=== PATIENT | male | born 1950 | race Caucasian/White ===

== ENCOUNTER 2019-04-20 13:23 | Inpatient (IN) | payer MEDICARE, MEDICAID, SELFPAY ==
[2019-04-20] VITALS (19 sets, daily range): BP systolic 105–129; BP diastolic 52–69; PULSE 54–100; RESP 16–35; TEMP 35.8–36.9; O2SAT 51–100; BMI 23.3
--- NOTE | ~2019-04-20 | XR_ITS ---
EXAMINATION: XR chest 1V portable EXAM DATE: 04/21/2019 21:04 INDICATION: Low oxygen saturation. Respiratory failure. TECHNIQUE: Portable AP frontal chest x-ray was obtained. Comparison is made to prior examination from earlier same date. FINDINGS: Endotracheal tube tip is 3-4 centimeters above the aicha (ideal range is between 2 to 5 cm ). Feeding tube is in position. Again there is extensive bilateral pneumonia or edema. Small pleural effusions. Cardiomediastinal david houette is normal. There is no pneumothorax suspected. IMPRESSION: 1. Tubes in position. 2. Extensive edema or pneumonia unchanged Reviewed, dictated and finalized at location A. PMENT CLEANER
--- NOTE | ~2019-04-20 | XR_ITS ---
EXAMINATION: XR chest 1V portable INDICATION: Pleural effusions TECHNIQUE: Portable AP chest at 0522 hours COMPARISON: 04/25/2019 FINDINGS: The endotracheal tube ends approximately 4.7 cm above the aicha. The nasogastric tube is f ollowed as far as the stomach. Its tip is beyond the inferior margin of the radiograph. Small pleural effusions persist with slight decrease on the right. Diffuse interstitial and airspace opacities per sist with slight improvement. The cardiomediastinal silhouette is stable. No pneumothorax is identifi ed. A right upper extremity PICC has been inserted which ends with its tip in the distal superior landy a cava. IMPRESSION: 1. Diffuse lung disease with slight improvement, consistent with pulmonary edema and/or pneumonia. 2. Bilateral pleural effusions with improvement on the right. Reviewed, dictated and finalized at location A. LIFT OPERATOR IMPRESSION: 1. Diffuse lung disease with slight improvement, consistent with pulmonary kailee a and/or pneumonia. 2. Bilateral pleural effusions with improvement on the right.
--- NOTE | ~2019-04-20 | XR_ITS ---
XR chest 1V portable DATE: 04/22/2019 11:25 INDICATION: ET tube adjustment TECHNIQUE: COMPARISON: None FINDINGS: ET tube in satisfactory position approximately 4 cm above aicha. A nasogastric tube is not ed in the stomach. No central lines are noted. There is persistent diffuse extensive bilateral patchy airspace consolidation suggesting pulmonary ed gilbert or adult respiratory distress syndrome or extensive bilateral pneumonia. Small pleural effusion is suggested on the left. No pneumothorax. Aortic arch calcification. IMPRESSION: Persistent relatively stable severe bilateral pulmonary infiltrates suggesting pulmonary edema or adult respiratory distress syndrome versus severe pneumonia ET and NG tubes in satisfactory position. Reviewed, dictated and finalized at location A. ET PHOTOGRAPHER IMPRESSION: Persistent relatively stable severe bilateral pulmonary infiltrates suggesting pulmonary edema or adult respiratory distress syndrome versus sever e pneumonia ET and NG tubes in satisfactory position.
--- NOTE | ~2019-04-20 | XR_ITS ---
EXAMINATION: XR chest 1V portable INDICATION: Respiratory failure TECHNIQUE: Portable AP chest at 0506 hours COMPARISON: 04/24/2019 FINDINGS: The endotracheal tube ends approximately 5.7 cm above the aicha. The nasogastric tube is f ollowed as far as the stomach. Its tip is beyond the inferior margin of the radiograph. Diffuse inter stitial and airspace opacities persist without significant change. Small pleural effusions are presen t, increased on the right. The cardiomediastinal silhouette is stable. There is no pneumothorax. IMPRESSION: 1. Diffuse lung disease without significant change, consistent with pulmonary edema and/or pneumonia. 2. Bilateral pleural effusions with worsening on the right. Reviewed, dictated and finalized at location A. GE GOODS EXAMINER IMPRESSION: 1. Diffuse lung disease without significant change, consistent with pulmonary e jamie and/or pneumonia. 2. Bilateral pleural effusions with worsening on the right.
--- NOTE | ~2019-04-20 | XR_ITS ---
XR chest 1V portable DATE: 04/27/2019 05:35 INDICATION: ET tube adjustment TECHNIQUE: Portable AP chest on 04/27/2019 at 0505 hours COMPARISON: 04/26/2019 portable AP chest at 0522 hours FINDINGS: ET tube in satisfactory position 4.2 cm above aicha. NG tube in stomach. Right upper extremity PIC catheter tip at superior cavoatrial junction. Normal heart size. Aortic arch calcification. There are mild bilateral pleural effusions. There are diffuse bilateral pulmonary infiltrates, relati vely stable since 04/26/2019. IMPRESSION: ET tube in satisfactory position No significant change of diffuse bilateral pulmonary infiltrates since 04/26/2019 Reviewed, dictated and finalized at location A. TY SUPERVISOR
--- NOTE | ~2019-04-20 | XR_ITS ---
EXAMINATION: XR chest 1V portable INDICATION: ARDS TECHNIQUE: Portable AP chest at 0512 hours COMPARISON: 04/27/2019 FINDINGS: The endotracheal tube ends approximately 4.9 cm above the aicha. The nasogastric tube is f ollowed as far as the stomach. Its tip is beyond the inferior margin of the radiograph. A right upper extremity PICC ends with its tip in the superior cavoatrial junction. Small pleural effusions are un changed. There is no pneumothorax. Diffuse interstitial and airspace opacities persist with slight im provement in the mid and upper lung zones. The cardiomediastinal silhouette is stable. IMPRESSION: 1. Diffuse interstitial and airspace opacities with slight improvement in the mid and upper lung zone s, consistent with pulmonary edema and/or pneumonia and/or atelectasis. 2. Small stable pleural effusions. Reviewed, dictated and finalized at location A. ICAL CORSETIER IMPRESSION: 1. Diffuse interstitial and airspace opacities with slight improvement in the m id and upper lung zones, consistent with pulmonary edema and/or pneumonia and/o r atelectasis. 2. Small stable pleural effusions.
--- NOTE | ~2019-04-20 | XR_ITS ---
EXAMINATION: XR chest 1V portable INDICATION: Hypoxia and shortness of breath TECHNIQUE: Portable AP chest at 1349 hours COMPARISON: 07/15/2016 FINDINGS: There are diffuse interstitial and airspace opacities. The heart size is normal for techniq ue. Small pleural effusions are present, left greater than right. No pneumothorax is identified. IMPRESSION: 1. Diffuse lung disease, consistent with pulmonary edema and/or multifocal pneumonia. Reviewed, dictated and finalized at location A. UNICATION ELECTRONIC TECHNICIAN IMPRESSION: 1. Diffuse lung disease, consistent with pulmonary edema and/or multifocal pneu monia.
--- NOTE | ~2019-04-20 | XR_ITS ---
XR chest ET placement 04/27/2019 20:13 Indication: Endotracheal tube repositioned Procedure: AP portable chest Comparison: 04/27/2019 Findings: Heart size normal. Endotracheal tube tip 7 cm above the aicha. NG tube in the stomach. PIC C line tip in the caudal aspect of the SVC. Diffuse bilateral airspace disease. Bilateral pleural eff usions, left greater than right. No pneumothorax. Impression: 1: Persistent diffuse bilateral airspace disease, most likely edema. Pneumonia less favored. 2: Bilateral pleural effusions, left greater than right. Reviewed, dictated and finalized at location A. WIG MAKER Impression: 1: Persistent diffuse bilateral airspace disease, most likely edema. Pneumonia less favored. 2: Bilateral pleural effusions, left greater than right.
--- NOTE | ~2019-04-20 | US_ITS ---
EXAMINATION: US venous doppler [facility] DATE: 04/21/2019 09:18 INDICATION: Lower limb edema. TECHNIQUE: Grayscale ultrasound images without and with compression and Doppler ultrasound images of the bilateral lower extremity veins were obtained. COMPARISON: Ultrasound 02/13/2014 FINDINGS: The visualized portions of right common femoral vein, profunda (deep) femoral vein, femoral vein, pop liteal vein, peroneal veins, posterior tibial veins, and greater saphenous vein outflow are patent. The visualized portions of left common femoral vein, profunda femoral vein, femoral vein, popliteal v ein, peroneal veins, posterior tibial veins, and greater saphenous vein outflow are patent. There is total occlusion of left superficial femoral artery. IMPRESSION: 1. No deep venous thrombosis. 2. 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 Reviewed, dictated and finalized at location B. SHER WALLBOARD AND PLASTERBOARD
--- NOTE | ~2019-04-20 | XR_ITS ---
XR chest 1V portable DATE: 04/22/2019 05:43 INDICATION: Respiratory failure TECHNIQUE: Portable AP chest 04/22/2019 at 0504 hours COMPARISON: 04/21/2019 portable AP chest at 2101 hours FINDINGS: ET tube tip is 5.7 cm above aicha; ideal range is 2-5 cm. NG tube in stomach. No central lines are identified. Extensive diffuse bilateral patchy airspace consolidation is again noted, mildly increased since 04/21 Heart size appears normal. There is aortic arch calcification. IMPRESSION: Mildly increased diffuse extensive bilateral pulmonary infiltrates ET tube 5.7 cm above aicha; ideal range is 2.5 cm NG tube in stomach Reviewed, dictated and finalized at location A. AL PROFESSIONAL
--- NOTE | ~2019-04-20 | XR_ITS ---
EXAMINATION: XR chest ET placement, XR abdomen NG/feed tube insert DATE: 04/21/2019 07:26 INDICATION: Intubated. Orogastric tube placement. TECHNIQUE: 1. Frontal view of the chest was obtained. 2. Portable AP view of the upper abdomen was obtained for assessment of orogastric tube placement. COMPARISON: Chest radiograph dated 04/20/2019 FINDINGS: Chest: Endotracheal tube tip 4.0 cm above the aicha. Diffuse indistinct interstitial and patchy airspace op acities throughout both lungs with subpleural sparing. Small left and tiny right pleural effusions. N o pneumothorax. Cardiomediastinal silhouette is normal. Atherosclerotic aorta. KUB: Orogastric tube tip in the gastric body with proximal side-port near the gastroesophageal junction. G as within nondilated loops of bowel in the upper abdomen. IMPRESSION: 1. Endotracheal tube 4 cm above the aicha and orogastric tube in the stomach. 2. Unchanged bilateral diffuse lung disease consistent with pulmonary edema and/or multifocal pneumon ia. Reviewed, dictated and finalized at location A. IST IMPRESSION: 1. Endotracheal tube 4 cm above the aicha and orogastric tube in the stomach. 2. Unchanged bilateral diffuse lung disease consistent with pulmonary edema and /or multifocal pneumonia.
--- NOTE | ~2019-04-20 | XR_ITS ---
EXAMINATION: XR chest 1V portable INDICATION: Respiratory failure TECHNIQUE: Portable AP chest at 0527 hours COMPARISON: 04/23/2019 FINDINGS: The endotracheal tube ends approximately 3.8 cm above the aicha. The nasogastric tube is f ollowed as far as the stomach. Its tip is beyond the inferior margin of the radiograph. Diffuse inter stitial and airspace opacities persist with slight worsening in the left lung base. There are small p leural effusions with worsening on the right. The cardiomediastinal silhouette is stable. No pneumoth orax is identified. IMPRESSION: 1. Diffuse lung disease with slight worsening in the left lung base consistent with pulmonary edema a nd/or multifocal pneumonia. 2. Small pleural effusions, increased on the left. Reviewed, dictated and finalized at location A. TEGIC SOURCING CONSULTANT IMPRESSION: 1. Diffuse lung disease with slight worsening in the left lung base consistent with pulmonary edema and/or multifocal pneumonia. 2. Small pleural effusions, increased on the left.
--- NOTE | ~2019-04-20 | XR_ITS ---
XR chest 1V portable DATE: 04/23/2019 06:13 INDICATION: Respiratory failure TECHNIQUE: Portable AP chest on 04/23/2019 0526 hours COMPARISON: 04/22/2019 portable AP chest at 1122 hours FINDINGS: ET tube in satisfactory position approximately 5 cm above aicha. A nasogastric tube is in the stomach, the proximal port approximately 4 cm distal to the diaphragmatic hiatus. There are persistent diffuse bilateral pulmonary infiltrates, with increased consolidation in the lef t lower lobe since 04/22/2019. Heart size is within normal range. Aortic arch calcification. IMPRESSION: Increased consolidation left lower lobe and persistent extensive diffuse bilateral pulmon kailash infiltrates Reviewed, dictated and finalized at location A. R GUIDE IMPRESSION: Increased consolidation left lower lobe and persistent extensive di ffuse bilateral pulmonary infiltrates
--- NOTE | 2019-04-20 13:31 | ED.SOB ---
HPI - SOB/Dyspnea General Chief Complaint: Shortness of Breath/Dyspnea Stated Complaint: SOB Time Seen by Provider: 04/20/19 13:28 Source: patient and RN notes reviewed Mode of arrival: EMS Limitations: no limitations History of Present Illness HPI Narrative: Pt is a 68 y/o male with a Hx of COPD, who presents to the ED via EMS with c/o SOB starting this afternoon. He notes that he recently received vascular surgery on his bilateral lower legs to repair clogged arteries. Pt states that he has noticed swelling in his bilateral lower extremities since the procedure. He notes that he began feeling SOB after standing up from his chair this afternoon, and states that his SOB then worsened as he tried to walk outside. Pt currently denies any CP. According to EMS, the pt's O2 saturation was in the 40's upon their arrival. They note that they administered a breathing treatment while in route to the ED. MD elicited complaint: shortness of breath Pertinent past history: COPD Exacerbating factors: exertion Known history of: COPD Associated symptoms: other (BLE edema) Treatment prior to arrival: oxygen Related Data Home Medications Medication Instructions Recorded Confirmed aspirin 81 mg tablet,delayed 81 mg PO DAILY 02/10/19 02/10/19 release budesonide-formoterol HFA 80 2 puff INHALATION Q12H 03/23/19 03/23/19 mcg-4.5 mcg/actuation aerosol inhaler ipratropium 20 mcg-albuterol 100 1 puff INHALATION QID 03/23/19 03/23/19 mcg/actuation mist for inhalation Vitamin B-1 04/20/19 amlodipine 04/20/19 hydrocodone-acetaminophen 1 tablet PO Q4H PRN 04/20/19 04/20/19 Allergies Allergy/AdvReac Type Severity Reaction Status Date / Time lisinopril Allergy Unknown Angioedema Verified 04/20/19 14:59 Review of Systems Review of Systems: All systems reviewed & are unremarkable except as noted in HPI and below Cardiovascular: Cardiovascular: Denies chest pain and Reports leg edema (BLE edema) Respiratory: Respiratory: Reports dyspnea PMFSH Past Medical History Medical History Anemia Arthritis COPD (chronic obstructive pulmonary disease) GERD (gastroesophageal reflux disease) Hyperlipidemia Inguinal hernia New onset atrial fibrillation Osteoarthritis Peripheral vascular disease Pneumonia Surgical History Surgical History Hx of inguinal hernia repair Hx of vascular surgery bilateral lower legs Social History Social History (Updated 04/20/19 @ 13:47 by Vinod Bear) Smoking status: Former smoker Alcohol intake: current Substance use: never Gender identity (if verbalized by the patient): Male Spiritual care concerns: No Agree to blood products: Yes Comments PCP is Dr. Whyte. Exam Const: General: acute distress moderate, ill appearing acutely and chronically and other (elderly) Nutritional Appearance: thin Resp: Effort & Inspection: respiratory distress (moderate) and tachypneic Auscultation: rales and wheezes Cardio: Rate: regular rate Rhythm: regular rhythm Heart sounds: no murmurs GI: Inspection: normal to inspection GI Palp: No abdominal tenderness and Yes Soft to palpation Back/Spine/Pelvis: Back: other (Full ROM) Skin: General skin exam: normal color and other (warm; dry) Neuro: General: patient oriented x3 and other (Alert) Speech: normal speech Extrem: General: edema (bilateral lower leg edema (worse on rt than lt)) Psych: Appearance: grossly normal Course Consultations Consultation #1: Discussed case with PA to Hospitalist, Annamaria Benjamin. Accepted admission. Date: 04/20/19 Time: 14:54 Vital Signs Vital signs: Vital Signs Temperature 36.9 C 04/20/19 13:27 Pulse Rate 97 04/20/19 13:27 Respiratory Rate 35 H 04/20/19 13:27 Blood Pressure 105/56 L 04/20/19 13:27 Pulse Oximetry 51 L 04/20/19 13:27 Temperature 35.8 C L 04/20/19 16:08 Pulse Rate 100 01
--- NOTE | 2019-04-20 13:38 | ECG_ITS ---
Measurements Intervals [place] Rate: 90 P: 43 DE: 122 QRS: 22 QRSD: 93 T: 30 QT: 369 QTc: 453 Interpretive Statements SINUS RHYTHM WITH SINUS ARRHYTHMIA BASELINE WANDER- I, II, III, AVL, AVF, V4-V6 BORDERLINE ECG Electronically Signed On 04-20-2019 14:32:03 WATCHER LOOKOUT TOWER by Jj Concepcion D.O.
[2019-04-20] MEDS: IPRATROPIUM BR 0.02% INH SOLN 0.5 MG/2.5 ML VIAL 1 MG INHALATION (13:52)
[2019-04-20] MEDS: ALBUTEROL SULFATE NEB 2.5 MG/0.5 ML INH 10 MG INHALATION (13:52)
[2019-04-20 13:57] LABS: Alveolar/Arterial O2 Gradient 616.8 mmHg; Base Excess ABG -0.6 mEq/l (+/-2.0); Fractional Inspired Oxygen 100 %; HCO3 ABG 22.9 mEq/l (22.0-26.0); Oxygen Content ABG 13.5 %vol (16.0-22.0); Oxygen Saturation ABG 93.2 % (95.0-100.0); Oxyhemoglobin 89.7 % THb (90.0-100.0); PCO2 ABG 33.5 mmHg (35.0-45.0); PO2 ABG 62.7 mmHg (80.0-100.0); PO2 FiO2 Ratio Arterial Blood 0.63 %; Total Hemoglobin 10.7 g/dL (12.0-18.0); pH ABG 7.452 (7.350-7.450)
[2019-04-20 13:59] LABS: Device NON-REBREATHER MASK; Site Drawn RIGHT BRACHIAL
[2019-04-20 14:13] LABS: Basophils Percent Auto 0.1 % (0.2-1.2); Eosinophils Percent Auto 0.1 % (0-4.4); Hematocrit 31.2 % (42.0-52.0); Hemoglobin 10.2 g/dL (14.0-18.0); Immature Granulocyte Absolute 0.07 K/mm3 (0.00-0.031); Immature Granulocyte Percent A 0.5 % (0-0.5); Lymphocytes Absolute Auto 0.89 K/mm3 (0.9-3.2); Lymphocytes Percent Auto 6.1 % (18.3-44.2); Mean Corpuscular HGB Conc 32.7 g/dl (32-36); Mean Corpuscular Volume 91.8 fl (80-100); Mean Platelet Volume 9.7 fl (7.4-10.4); Monocytes Absolute Auto 0.9 K/mm3 (0.1-0.6); Monocytes Percent Auto 6.4 % (2.6-8.5); Neutrophils Absolute Auto 12.6 K/mm3 (1.3-6.7); Neutrophils Percent Auto 86.8 % (45.5-73.1); Platelet Count Result 714 k/mm3 (150-375); Red Cell Distribution Width 13.2 % (11.5-14.5); White Blood Count 14.5 K/mm3 (4.5-10.0)
[2019-04-20 14:25] LABS: Blood Urea Nitrogen 21 mg/dL (9-20); Calcium 8.6 mg/dL (8.4-10.2); Carbon Dioxide 25 mmol/L (22-30); Chloride 88 mmol/L (98-107); Estimated CRCL calculation 85 ml/min; Estimated Glomerular Filt Rate > 60; Glucose 124 mg/dL (75-110); Potassium 4.2 mmol/L (3.4-5.0); Sodium 127 mmol/L (137-145)
[2019-04-20 14:32] LABS: INR 1.4; Prothrombin Time 17.1 Seconds (11.1-14.7)
[2019-04-20] MEDS: FUROSEMIDE INJ 40 MG/4 ML VIAL IV PUSH ×2 (14:34→21:19)
[2019-04-20 14:41] LABS: NT Pro B Type Natriuretic Pept 9050 PG/ML (5-100); Troponin I 0.092 ng/mL (0.000-0.034)
--- NOTE | 2019-04-20 15:30 | PM.IMHP ---
H&P: HPI History of Present Illness Chief complaint: Shortness of breath. Narrative: Reji Crowell is a 68 year old male smoker, daily drinker, with COPD, peripheral arterial disease, and hypertension who presented to the emergency department earlier this afternoon via EMS from home for evaluation of shortness of breath. He admits that he gets short of breath ?pretty easily? at baseline, however seemed to be much worse than baseline this morning. Not long prior to arrival, while attempting to get out of a chair, he was acutely more short of breath. EMS was called and on their arrival his oxygen saturation was reportedly 46% on room air. The patient was in respiratory extremis, only able to speak in 1 word sentences. He was placed on BiPAP on arrival to the emergency department, and is much more comfortable with this on. He is able to speak in 5 to 6 word sentences at the time of my evaluation. He has inhalers that he uses at home, but does not have nebulizers. It sounds as though he gets short of breath even when going up a flight of stairs, but seems to get around the house pretty well at baseline. He was wheezing on arrival to the emergency department, which has since improved after receiving nebulizers. He is noted to have wendy ankle edema and with further questioning notes that this occurred after he had what sounds like angioplasty and stents on both legs within the past month or so, at [facility]. He is set to have another surgery for vascular disease in lower legs ?due to clots.? He is unable to tell me whether not these were arterial or vascular clots, but is noted that he is on Eliquis, of which she states compliance. He has not had weight gain, and in fact reports about a 20 pound weight loss in the last several months. It sounds as though he does have orthopnea and is not sleeping well at nighttime. He has a slight cough, nothing significant. No fever, chills, or sweats. Appetite has been poor but he denies nausea and vomiting. He has not had chest or pleuritic pain. No feelings of racing heart or fluttering. Review of Systems Review of Systems: Narrative: Twelve systems were reviewed with pertinent positives and negatives as per HPI. No fever, chills, or sweats. He has chronic rhinorrhea which is unchanged. No recent cold or flu symptoms. No history of sleep apnea. He denies chest and pleuritic pain. No history of heart disease. Echocardiogram in fall of 2017, preoperatively, was unremarkable with an EF of 55 to 60%. No nausea, vomiting, or diarrhea. No dysuria. He denies ever having signs or symptoms of alcohol withdrawal. Except as documented, all other systems were reviewed and are negative. [facility] Past Medical History Medical History (Updated 04/20/19 @ 21:02 by Annamaria Benjamin PA-C) Anemia Arthritis Benign colon polyp COPD (chronic obstructive pulmonary disease) Daily consumption of alcohol GERD (gastroesophageal reflux disease) Hyperlipidemia Hypertension Inguinal hernia Osteoarthritis Peripheral vascular disease Pneumonia Tobacco dependence Surgical History Surgical History Hx of inguinal hernia repair Hx of vascular surgery bilateral lower legs Family History Family History Sibling Patient's sister is in good health Father Family history of malignant neoplasm Patient's father is Mother Patient's mother is Social History Social History (Updated 04/20/19 @ 20:56 by Annamaria Benjamin PA-C) Social History: The patient lives in [place] with his sister and nephew. He is retired. He smokes about half a pack of cigarettes per day. He drinks a 6 pack of beer a day. No drug use. He designates his sister, Melanie, as his surrogate decision maker and wishes to be a full code. Smoking status: Former smoker Alcohol intake: current
--- NOTE | 2019-04-20 15:59 | ADMGEN ---
This patient, Reji Crowell, was admitted to IMU Room 213-01. Patient/family oriented to hospital policies and general routines including ID bracelet, bed and alarms, visiting hours, pain management, procedures, bathroom and other care routines, personal items, smoking policy, room service/diet, and visiting hours. Valuables list has been completed. Information on how to activate the Rapid Response Team has been discussed. Patient/Family are encouraged to report perceived risks to care and to ask questions if they do not understand what they are told or what they should do.
[2019-04-20 17:14] LABS: Lactic Acid Reflex 2.6 mmol/L (0.7-2.1)
[2019-04-20] MEDS: ALBUTEROL SULFATE NEB 2.5 MG/0.5 ML INH 5 MG INHALATION (19:40)
[2019-04-20] MEDS: IPRATROPIUM BR 0.02% INH SOLN 0.5 MG/2.5 ML VIAL INHALATION (19:41)
[2019-04-20 20:01] LABS: Reflex Lactic Acid Yes or No Add Lactic
[2019-04-20 20:41] LABS: Troponin I 0.092 ng/mL (0.000-0.034)
[2019-04-20 21:44] LABS: Alveolar/Arterial O2 Gradient 468.1 mmHg; Base Excess ABG 3.5 mEq/l (+/-2.0); Carboxyhemoglobin 0.3 % THb (0-2.0); Device NON-INVASIVE VENT; Fractional Inspired Oxygen 80 %; HCO3 ABG 27.4 mEq/l (22.0-26.0); Methemoglobin ABG 0.4 %THb (0-1.5); Modified Allen's Test Pass; Oxygen Content ABG 12.6 %vol (16.0-22.0); Oxygen Saturation ABG 92.9 % (95.0-100.0); Oxyhemoglobin 89.2 % THb (90.0-100.0); PCO2 ABG 38.9 mmHg (35.0-45.0); PO2 ABG 61.5 mmHg (80.0-100.0); PO2 FiO2 Ratio Arterial Blood 0.77 %; Reduced Hemoglobin 10.1 %THb (0-5.0); Site Drawn RIGHT RADIAL; pH ABG 7.466 (7.350-7.450)
[2019-04-20 21:46] LABS: Non-Invasive Expiratory Pressure 5 CMH2O; Non-Invasive Inspiratory Pressure 12 CMH2O; Non-Invasive Vent Rate 4 /MIN
[2019-04-20 22:58] LABS: Iron 14 ug/dL (49-181)
[2019-04-20 23:08] LABS: Percent Iron Saturation 7 % (20-50)
[2019-04-20 23:51] LABS: Folic Acid 13.6 ng/mL (2.76->20)
[2019-04-21] VITALS (27 sets, daily range): BP systolic 85–118; BP diastolic 50–64; PULSE 80–114; RESP 19–32; TEMP 36.1–37; O2SAT 90–100; BMI 22.9
[2019-04-21] MEDS: ALBUTEROL SULFATE NEB 2.5 MG/0.5 ML INH 5 MG INHALATION ×4 (02:36→19:08)
[2019-04-21] MEDS: IPRATROPIUM BR 0.02% INH SOLN 0.5 MG/2.5 ML VIAL INHALATION ×4 (02:36→19:08)
[2019-04-21 04:43] LABS: Basophils Percent Auto 0.1 % (0.2-1.2); Eosinophils Percent Auto 0.1 % (0-4.4); Hematocrit 27.1 % (42.0-52.0); Immature Granulocyte Percent A 0.6 % (0-0.5); Lymphocytes Absolute Auto 0.62 K/mm3 (0.9-3.2); Lymphocytes Percent Auto 3.9 % (18.3-44.2); Mean Corpuscular HGB Conc 33.2 g/dl (32-36); Mean Corpuscular Hemoglobin 29.7 pg (26-34); Mean Corpuscular Volume 89.4 fl (80-100); Mean Platelet Volume 9.9 fl (7.4-10.4); Monocytes Absolute Auto 0.6 K/mm3 (0.1-0.6); Monocytes Percent Auto 3.9 % (2.6-8.5); Neutrophils Absolute Auto 14.4 K/mm3 (1.3-6.7); Neutrophils Percent Auto 91.4 % (45.5-73.1); Platelet Count Result 642 k/mm3 (150-375); Red Blood Count 3.03 M/mm3 (4.6-6.20); Red Cell Distribution Width 13.2 % (11.5-14.5); White Blood Count 15.8 K/mm3 (4.5-10.0)
[2019-04-21 05:04] LABS: Alanine Aminotransferase 15 U/L (4-50); Albumin Level 2.8 g/dL (3.5-5.1); Alkaline Phosphatase 58 U/L (38-126); Aspartate Amino Transferase 28 U/L (17-59); Bilirubin,Total 0.3 mg/dL (0.2-1.3); Blood Urea Nitrogen 16 mg/dL (9-20); Calcium 7.9 mg/dL (8.4-10.2); Carbon Dioxide 29 mmol/L (22-30); Chloride 91 mmol/L (98-107); Estimated CRCL calculation 103 ml/min; Estimated Glomerular Filt Rate > 60; Glucose 130 mg/dL (75-110); Magnesium 1.8 mg/dL (1.6-2.3); Phosphorus 4.9 mg/dL (2.5-4.5); Potassium 3.4 mmol/L (3.4-5.0); Sodium 131 mmol/L (137-145)
[2019-04-21] MEDS: LORAZEPAM INJ 2 MG/ML VIAL 1 MG IV PUSH (06:36)
[2019-04-21 06:58] LABS: Alveolar/Arterial O2 Gradient 629.6 mmHg; Base Excess ABG 3.9 mEq/l (+/-2.0); Carboxyhemoglobin 0.3 % THb (0-2.0); Fractional Inspired Oxygen 100 %; HCO3 ABG 27.9 mEq/l (22.0-26.0); Methemoglobin ABG 0.5 %THb (0-1.5); Oxygen Content ABG 12.6 %vol (16.0-22.0); Oxyhemoglobin 77.4 % THb (90.0-100.0); PCO2 ABG 39.6 mmHg (35.0-45.0); PO2 FiO2 Ratio Arterial Blood 0.44 %; Reduced Hemoglobin 21.8 %THb (0-5.0); Total Hemoglobin 11.6 g/dL (12.0-18.0); pH ABG 7.465 (7.350-7.450)
[2019-04-21 07:05] LABS: Device NON-REBREATHER MASK; Modified Allen's Test Pass; Oxygen Saturation ABG 82.5 % (95.0-100.0); PO2 ABG 43.8 mmHg (80.0-100.0); Site Drawn LEFT RADIAL
--- NOTE | 2019-04-21 07:09 | PCRCNOTE ---
CALLED TO IMU RM [id number] FOR LOW SPO2. PT WAS ANXIOUS ON BIPAP AND WANTED TO COME OFF FOR A LITTLE BIT. PT PLACED ON NRB WHILE SETTING UP HFNC WITH SPO2 83%. ATTEMPTED AIRVO HFNC AT 60LPM, 85% FIO2 - PT SPO2 DROPPED TO 72%. BIPAP SETTINGS INCREASED TO 18/10 R10 100% WITH SPO2 INCREASE TO 86%. DECISION MADE TO MOVE PT TO ICU FOR INTUBATION. TRANSPORTED TO ICU 6 ON NRB. REPORT GIVEN TO SYDNIE ANDERSON, USHA WHO ASSUMED CARE.
--- NOTE | 2019-04-21 07:20 | P.PCNBED_ITS ---
Procedures Intubation: Intubation Date: 04/21/19 Intubation Time: 07:05 A pre- procedural Time-Out was completed immediately before starting the procedure and confirmed: Patient Identification, Site, Procedure, Patient Position and the Availability of Requisite Equipment: Yes Sedative: etomidate Mg given: 20 Paralytic: succinylcholine Mg given: 20 Laryngoscope: fiber optic video scope Assist device used: fiber optic device ET tube size: 7.5 Tube se cured depth (cm): 26 Tube secured location: lips Tube placement confirmation: visualized tube passing through cords, equal breath sounds bilaterally, no breath sounds over epigastrium and confirmation by capnometry Patient tolerated procedure: well Intubation complications: hypoxia Additional comments: The patient was unable to maintain oxygenation with BiPAP/non-rebreather and with bag-valve mask with a PEEP valve of 10. Subsequently patient received RSI medications with emergent intubation. Vocal cords were easily visualized and tube advanced to 26 cm depth. Patient had equal breath sounds, end-tidal CO2 color change, absent breath sounds over the epigastrium, and rapid improvement in oxygen saturations. Chest x-ray has been ordered for confirmation of ET tube placement.
--- NOTE | 2019-04-21 07:24 | PM.CCN ---
Critical Care Event Note Summary Code activated: No Narrative: Nursing staff called me emergently at 6:30 a.m. due to the patient having rapid in sudden decline in his respiratory status. The patient was no longer tolerating BiPAP and was having significant respiratory distress. His oxygen saturations have dropped to 85%. The staff had been trying to switch the patient to high-flow nasal cannula but the patient was not stable enough for the transition to high-flow nasal cannula. He was subsequently placed on a non-rebreather with oxygen saturations ranging from 75-85%. I transition the patient back to BiPAP therapy but increased his pressure to 20/8 from prior value of 14/6. Despite this change the patient was continuing to desaturate. I made the decision at that point to transfer the patient to the ICU for intubation. The patient was informed that his choices in vault intubation or a continued trial BiPAP which he would likely fail. The patient opted for intubation. Upon transfer to the ICU there was still difficulty and pre oxygenating the patient. Despite bag-valve mask and use of PEEP valve and oral airway. Subsequently the patient received RSI medication and emergent intubation. Patient had immediate improvement in pulse oximetry. Orders were given for ventilator settings AC/CMV tidal volume of 400 peep of 10 FiO2 100% a rate of 20. Repeat ABG has been ordered for 1 hour after intubation. The patient's case was discussed with the garbage collector driver in detail. Care has been turned over at the end of my shift. 55 minutes was spent in critical care activities This case had a high probability of a clinically significant, sudden, or life threatening deterioration of this patient's condition which required my full and direct attention, intervention and personal management. Critical care time: 30 - 74 mins
[2019-04-21] MEDS: MIDAZOLAM HCL 50 MG in DEXTROSE 5% 90 ML IV CONT (08:00)
--- NOTE | 2019-04-21 08:30 | PC.NURSE ---
Pt called out at about 0620 asking to come off his bipap. He had been on his bipap continuously and had been refusing to take it off even to swab his mouth. I called respiratory and went to check him he was beginning to desat. He was panicking about wanting to take the bipap off. I reached out to hopen 2x to see what we could place him on and to tell her how quickly he was deteriorating. Hopen came up and we tried hi flow, a non rebreather, different bipap settings, and some ativan. Finally the decision was made to transfer and intubate. We moved him to ICU6 where he was intubated and placed on a vent. Report was given to Hari. Tried to call pts sister and got no answer.
--- NOTE | 2019-04-21 08:45 | WPDCNINT ---
Assessment and Plan Assessment and plan (1) Acute respiratory failure with hypoxia: Code(s): J96.01 - Acute respiratory failure with hypoxia Status: Acute Assessment and Plan: patient presented with is severe respiratory distress and hypoxia, x-ray shows bilateral diffuse infiltrates likely ARDS, pneumonia - patient failed BiPAP and was intubated on 04/21/2019for hypoxia - on CMV mode, 100% FiO2 and peep of 12 - fentanyl Versed for sedation patient may require Nimbex for paralysis as he is dyssynchronous with the ventilator - continue ceftriaxone azithromycin, obtain sputum cultures (2) COPD (chronic obstructive pulmonary disease): Qualifiers: COPD type: COPD with acute lower respiratory infection Qualified Code(s): J44.0 - Chronic obstructive pulmonary disease with (acute) lower respiratory infection Code(s): J44.9 - Chronic obstructive pulmonary disease, unspecified Status: Acute Assessment and Plan: patient has a history of COPD, will continue bronchodilators, no wheezing, does not warrant so steroids at this time (3) Tobacco dependence: Code(s): F17.200 - Nicotine dependence, unspecified, uncomplicated Status: Acute Assessment and Plan: will education counselor patient for tobacco cessation once extubated (4) Daily consumption of alcohol: Code(s): Z78.9 - Other specified health status Status: Acute Assessment and Plan: patient with history of alcohol use, states he drinks 6 pack beer daily - currently intubated and sedated - unlikely he will manifest any withdrawal sign since he is on fentanyl and Versed - continue thiamine and folic acid (5) Elevated troponin: Code(s): R79.89 - Other specified abnormal findings of blood chemistry Status: Acute Assessment and Plan: troponins were elevated but have plateaued, likely related to type 2 infarct, secondary acute respiratory failure, ARDS, hypoxia (6) Peripheral vascular disease: Code(s): I73.9 - Peripheral vascular disease, unspecified Status: Acute Assessment and Plan: history of peripheral vascular disease Patient recently had right common femoral artery endarterectomy with bovine pericardial patch and angioplasty at [facility] on 04/03/2019. Patient also has had a left femoral bypass with graft endarterectomy procedure on 02/02/2019 - continue Eliquis (7) DVT prophylaxis: Code(s): Z29.9 - Encounter for prophylactic measures, unspecified Status: Acute Assessment and Plan: DVT prophylaxis: Eliquis stress ulcer prophylaxis: Protonix Additional Plan will discuss with family code status: Full code Critical care time spent: 42 minutes Due to a high probability of clinically significant, life threatening deterioration, the patient required my highest level of preparedness to intervene emergently and I personally spent this critical care time directly and personally managing the patient. This critical care time included obtaining a history; examining the patient; pulse oximetry; ordering and review of studies; arranging urgent treatment with development of a management plan; evaluation of patient's response to treatment; frequent reassessment; and discussions with other providers. It was exclusive of separately billable procedures and treating other patients and teaching time. Please see Assessment and Plan section and the rest of the note for further information on patient assessment and treatment [employer] Consult Note Consult date: 04/21/19 Time Seen: 06:58 Reason for consult: acute respiratory failure, ARDS HPI: Reji Crowell is a 68 year old male with past medical history of COPD, alcohol abuse, hyperlipidemia, essential hypertension, peripheral vascular disease, tobacco dependence, history of pneumonia, anemia presented to the ED on 04/20/2019 via EMS with complains of shortness of breath, hypoxia that start
[2019-04-21] MEDS: THIAMINE HCL 50 MG TABLET PO (08:49)
[2019-04-21] MEDS: PANTOPRAZOLE SODIUM IV 40 MG VIAL IV PUSH (08:49)
[2019-04-21] MEDS: THIAMINE HCL 100 MG TABLET 200 MG PO (08:50)
[2019-04-21] MEDS: APIXABAN 5 MG TABLET PO ×2 (08:51→16:40)
[2019-04-21] MEDS: ASPIRIN 81 MG ENTERIC TABLET PO (08:51)
[2019-04-21] MEDS: FOLIC ACID 1 MG TABLET PO (08:53)
[2019-04-21] MEDS: THIAMINE HCL 100 MG TABLET PO (08:53)
--- NOTE | 2019-04-21 09:01 | PM.IMPN ---
Progress Note: A&P Assessment and Plan (1) Acute respiratory failure with hypoxia: Code(s): J96.01 - Acute respiratory failure with hypoxia Status: Acute Assessment and Plan: Vent support, pulmonary toilet, furosemide, azithromycin and ceftriaxone Wean as possible (2) Acute exacerbation of CHF (congestive heart failure): Qualifiers: Heart failure type: unspecified Qualified Code(s): I50.9 - Heart failure, unspecified Code(s): I50.9 - Heart failure, unspecified Status: Acute Assessment and Plan: Diuresis with IV furosemide (3) COPD (chronic obstructive pulmonary disease): Qualifiers: COPD type: COPD with acute lower respiratory infection Qualified Code(s): J44.0 - Chronic obstructive pulmonary disease with (acute) lower respiratory infection Code(s): J44.9 - Chronic obstructive pulmonary disease, unspecified Status: Acute Assessment and Plan: Vent support, pulmonary toilet, azithromycin and ceftriaxone (4) Elevated troponin: Code(s): R79.89 - Other specified abnormal findings of blood chemistry Status: Acute Assessment and Plan: Suspect demand ischemia, no ACS (5) Hyponatremia: Code(s): E87.1 - Hypo-osmolality and hyponatremia Status: Acute Assessment and Plan: Due to CHF w/ possible SIADH component Diuresis F/u lab (6) Normocytic anemia: Code(s): D64.9 - Anemia, unspecified Status: Acute Assessment and Plan: Lab c/w both ACD and B12 deficiency Replace B12 Check IFOB Monitor h/h (7) Daily consumption of alcohol: Code(s): Z78.9 - Other specified health status Status: Acute Assessment and Plan: w/d prophylaxis (8) Tobacco dependence: Code(s): F17.200 - Nicotine dependence, unspecified, uncomplicated Status: Acute Assessment and Plan: Monitor for s/sx w/d (9) Hypertension: Qualifiers: Hypertension type: essential hypertension Qualified Code(s): I10 - Essential (primary) hypertension Code(s): I10 - Essential (primary) hypertension Status: Acute Assessment and Plan: Treat PRN Subjective Date/time seen: 04/21/19 09:01 Interval history: sedated, on vent Review of Systems Review of Systems: ROS unobtainable: unobtainable due to endotracheal tube and unobtainable due to mental condition Exam Narrative: Exam Narrative: HEENT: PERRL, pharyngeal mucosa pink and intact, ET & OG tubes in place NECK: No JVD CHEST: Coarse BS HEART: NL S1/S2, regular, no murmur ABDOMEN: BS hypoactive, soft, nontender, no mass, no bruits EXTREMITIES: No cyanosis, trace left ankle edema NEUROLOGIC: CN intact and symmetric to inspection. MUSCULOSKELETAL: No gross deformities PSYCH: Sedated. Objective Data Vital Signs Vital Signs: Vital Signs - 24 hr 04/20/19 13:27 04/20/19 13:49 04/20/19 14:12 Temperature 98.5 F Pulse Rate 97 93 Respiratory Rate 35 H 25 H Blood Pressure 105/56 L Pulse Oximetry 51 L 82 L 04/20/19 14:14 04/20/19 14:15 04/20/19 14:30 Temperature Pulse Rate 94 93 96 Respiratory Rate 26 H 25 H 23 H Blood Pressure 109/69 117/63 Pulse Oximetry 92 92 95 04/20/19 14:46 04/20/19 16:00 04/20/19 16:08 Temperature 96.5 F L Pulse Rate 95 78 98 Respiratory Rate 26 H 16 20 Blood Pressure 120/61 116/52 L 129/63 Pulse Oximetry 94 94 100 04/20/19 16:15 04/20/19 16:45 04/20/19 18:00 Temperature Pulse Rate 54 L 100 96 Respiratory Rate 30 H Blood Pressure Pulse Oximetry 96 04/20/19 19:28 04/20/19 19:42 04/20/19 19:51 Temperature 96.7 F L Pulse Rate 91 89 93 Respiratory Rate 30 H 26 H 24 H Blood Pressure 118/55 L Pulse Oximetry 97 91 04/20/19 20:00 04/20/19 21:10 04/20/19 22:00 Temperature Pulse Rate 93 92 Respiratory Rate Blood Pressure 118/55 L Pulse Oximetry 04/20/19 23:53 04/21/19 00:00 04/21/19 02:00 Temperat
[2019-04-21 09:24] LABS: Alveolar/Arterial O2 Gradient 604.3 mmHg; Base Excess ABG 3.7 mEq/l (+/-2.0); Carboxyhemoglobin 0.3 % THb (0-2.0); Fractional Inspired Oxygen 100 %; HCO3 ABG 28.6 mEq/l (22.0-26.0); Methemoglobin ABG 0.5 %THb (0-1.5); Oxygen Content ABG 13.4 %vol (16.0-22.0); Oxygen Saturation ABG 92.7 % (95.0-100.0); Oxyhemoglobin 89.6 % THb (90.0-100.0); PCO2 ABG 44.8 mmHg (35.0-45.0); PO2 ABG 63.9 mmHg (80.0-100.0); PO2 FiO2 Ratio Arterial Blood 0.64 %; Reduced Hemoglobin 9.6 %THb (0-5.0); Total Hemoglobin 10.6 g/dL (12.0-18.0); pH ABG 7.423 (7.350-7.450)
[2019-04-21 09:25] LABS: Arterial Blood Gas PEEP 10 cmH2O; Arterial Blood Gas Vent Mode CMV; Arterial Blood Gas Ventilator rate 20 /MIN; Device VENTILATOR; Site Drawn RIGHT BRACHIAL
[2019-04-21 09:26] LABS: Arterial Blood Gas Tidal Volume 400 ml
[2019-04-21] MEDS: CYANOCOBALAMIN INJ 1,000 MCG/ML VIAL 1000 MCG IM (11:55)
[2019-04-21] MEDS: LACTATED RINGERS 1,000 ML 999 ML IV CONT (12:17)
[2019-04-21] MEDS: SODIUM CHLORIDE 0.9% IV 1,000 ML 75 ML IV CONT (13:15)
[2019-04-21 13:25] LABS: Alveolar/Arterial O2 Gradient 581.6 mmHg; Base Excess ABG 4.6 mEq/l (+/-2.0); Device VENTILATOR; Fractional Inspired Oxygen 100 %; HCO3 ABG 29.1 mEq/l (22.0-26.0); Modified Allen's Test Pass; Oxygen Content ABG 12.8 %vol (16.0-22.0); Oxyhemoglobin 94.7 % THb (90.0-100.0); PO2 ABG 88.4 mmHg (80.0-100.0); PO2 FiO2 Ratio Arterial Blood 0.88 %; Site Drawn LEFT RADIAL; Total Hemoglobin 9.5 g/dL (12.0-18.0); pH ABG 7.448 (7.350-7.450)
[2019-04-21 13:26] LABS: Arterial Blood Gas Minute Volume 0 LPM; Arterial Blood Gas PEEP 12 cmH2O; Arterial Blood Gas Pressure Support 0 cmH2O; Arterial Blood Gas Tidal Volume 450 ml; Arterial Blood Gas Vent Mode CMV; Arterial Blood Gas Ventilator rate 20 /MIN
--- NOTE | 2019-04-21 15:48 | ECHO_ITS ---
Patient Info Name: Reji Crowell Age: 68 years : 1950 Gender: Male Ht: 66 in Wt: 145 lbs BSA: 1.76 m2 HR: 105 bpm BP: 92 / 55 mmHg Heart Rhythm: Tachycardia Technical Quality: Good Exam Date: 04/21/2019 9:19 AM Exam Location: [facility] Patient Status: Inpatient Admit Date: 04/20/2019 Staff Ordering Physician: Annamaria Benjamin PA-C Technical Operator: Glenn Lopez RDCS Attending Provider: Manpreet Pacheco MD Referring Physician: Sourav BUTT; Exam Type: CA echo doppler color flow Study Info Indications R06.02 - Shortness of breath Complete two-dimensional, color flow and Doppler transthoracic echocardiogram is performed. Strain analysis performed. History/Risk Factors SOB; CHF, EtOH, COPD, pulmonary edema. Summary 1. Left ventricular chamber dimension is normal. 2. Left ventricular systolic function is normal, estimated at 60-65%. 3. The left ventricular diastolic function is normal. 4. E/e' 6 is not elevated. 5. Global longitudinal strain is mildly abnormal at -16.1%. 6. There is mild aortic valve sclerosis. 7. There is trace mitral valve regurgitation. 8. There is mild tricuspid valve regurgitation. 9. Moderate pulmonary hypertension, estimated pulmonary arterial systolic pressure is 51 mmHg. 10. There is trace pulmonic regurgitation. Left Ventricle E/e' 6 is not elevated. Global longitudinal strain is mildly abnormal at -16.1%. Left ventricular chamber dimension is normal. Left ventricular systolic function is normal, estimated at 60-65%. The left ventricular diastolic function is normal. Right Ventricle Right ventricular chamber dimension is normal. Right ventricular systolic function is normal. Left Atria Left atrial chamber dimension is normal. Right Atria Right atrial chamber dimension is normal. Aortic Valve The aortic valve is trileaflet. There is mild aortic valve sclerosis. There is no aortic valve stenosis. There is no aortic valve regurgitation. Pulmonic Valve There is trace pulmonic regurgitation. Mitral Valve There is no mitral valve stenosis. There is trace mitral valve regurgitation. Tricuspid Valve There is mild tricuspid valve regurgitation. Moderate pulmonary hypertension, estimated pulmonary arterial systolic pressure is 51 mmHg. Pericardium/Pleural There is no pericardial effusion. Inferior Vena Cava Normal inferior vena cava with >50% collapse upon inspiration consistent with normal right atrial pressure, 5 mmHg. Aorta The aortic root size at the sinus of Valsalva is normal. Left Ventricular Outflow Tract Name Value Normal LVOT 2D LVOT Diameter 1.9 cm LVOT Doppler LVOT Peak Gradient 5 mmHg LVOT Mean Gradient 3 mmHg LVOT VTI 18 cm LVOT VTI/AV VTI Ratio 0.8 LVOT Stroke Volume 51 ml LVOT CO 4.9 l/min LVOT CI 2.8 l/min/m2 Mitral Valve
[2019-04-21] MEDS: MIDAZOLAM HCL 50 MG in DEXTROSE 5% 90 ML 8 MG IV CONT (17:10)
[2019-04-21] MEDS: SODIUM CHLORIDE 0.9% IV 1,000 ML 999 ML IV CONT (19:37)
[2019-04-21 21:00] LABS: Alveolar/Arterial O2 Gradient 613.3 mmHg; Base Excess ABG 3.1 mEq/l (+/-2.0); Fractional Inspired Oxygen 100 %; HCO3 ABG 28.3 mEq/l (22.0-26.0); Oxygen Content ABG 11.6 %vol (16.0-22.0); Oxygen Saturation ABG 87.6 % (95.0-100.0); Oxyhemoglobin 83.9 % THb (90.0-100.0); PCO2 ABG 46.3 mmHg (35.0-45.0); PO2 ABG 53.4 mmHg (80.0-100.0); PO2 FiO2 Ratio Arterial Blood 0.53 %; Total Hemoglobin 9.8 g/dL (12.0-18.0); pH ABG 7.404 (7.350-7.450)
[2019-04-21 21:02] LABS: Device AMBU BAG; Modified Allen's Test Pass; Site Drawn LEFT RADIAL
[2019-04-21] MEDS: SUCCINYLCHOLINE CHLORIDE 20 MG/ML 10 ML VIAL 50 MG IV PUSH (21:18)
[2019-04-21] MEDS: CISATRACURIUM BESYLATE 20 MG/10 ML VIAL 9.7 MG IV PUSH (21:49)
--- NOTE | 2019-04-21 22:02 | PCRCNOTE ---
PT BEING BAGGED WITH PEEP +20 DUE TO LOW SPO2. MULTIPLE CHANGES MADE ON VENT IN AN ATTEMPT TO EMULATE BAGGING. SETTINGS CONFIRMED AT VT 340, PEEP 16, R26, 100%. SPO2 100%, HR 93 AND STEADY THROUGHOUT FEMORAL LINE PLACEMENT.
--- NOTE | 2019-04-21 22:57 | WPDPROCEDUR ---
Procedures Central Line Placement: Left Femoral: Discussed w/ patient and/or surrogate, the non-emergent placement of a central venous catheter, including its clinical necessity/indication & associated potential risks & complications.: Yes The patient and/or surrogate understand(s) and acknowledge(s) the need to proceed with central venous catheter insertion as an important element of the patient's clinical management.: Yes Central Line Date: 04/21/19 Central Line Time: 21:50 Pre-procedural Time-Out was completed immediately before starting the procedure and confirmed: Patient Identification, Site, Procedure, Patient Position and the Availability of Requisite Equipment.: Yes Patient Position: other (Vascular position) Patient placed on monitor/pulse ox: Yes Provider Prep: mask, sterile gown, sterile gloves, Max. sterile barrier precautions, cap and hand hygiene Central line prep: Chlorhexidine scrub and sterile full body sheet applied Ultrasound used for placement: Yes Central line lumen inserted: triple Lithuanian: 7 Length (cm): 16 Depth of Insertion (cm): 15 Post procedure: sutured in place, good blood return, all ports aspirated, flushed, capped, tegaderm, hemostatic disc and aseptic technique maintained throughout procedure Patient tolerated procedure: well Complications: none Additional comments: Central line was placed using Seldinger technique. Guidewire advanced easily. However dilator was difficult to insert and multiple attempts of repositioning were required. Eventually dilator was advanced and central line was then placed over guidewire. All ports had venous blood return and flushed easily. Side was Sukumar crab with chlorhexidine given groin insertion. Line was dressed with hemostatic disc, and Tegaderm.
--- NOTE | 2019-04-21 23:07 | PM.EVENT ---
Event Note Event Note Event Note: I was called to the patient's bedside as the patient was desaturating on the ventilator. When I arrived at the bedside the patient was being bagged via ET tube with a PEEP valve set at 15. The patient's oxygen saturations were 80%. The PEEP valve was increased to 20. After several minutes of resuscitation the patient's oxygen saturations did climb to between 88 and 92%. ABG was obtained which did correlated with the patient's clinical condition with hypoxia. Chest x-ray was obtained which was for the most part unchanged from the prior x-ray. An attempt was made to pace the patient back on ventilator. However the patient rapidly desaturated again. The on call pharmacy technician have been notified at the same time as I arrived to the patient's bedside. I did call when chest x-ray and ABG results had returned. We came to the agreement that patient would benefit from paralytic. Patient was given 50 mg of succinylcholine IV push. His oxygen saturations did improve. With a PEEP of 16 and 100% FiO2. And Nimbex drip was ordered. The patient required another dose of succinylcholine prior to arrival of Nimbex drip. Despite paralytic use the patient was having multiple episodes of desaturation. The patient was also having borderline low blood pressures with systolics ranging between 85 and 90. Subsequently the patient's tidal volume was decreased from 450 down to 340. With the decrease in tidal volume the patient's expiratory volumes improved significantly. Previously he had only been providing expiratory volumes between 160-180 mL. With the decreased tidal volume patient's expiratory volumes improved to between 300 and 400. Also with the decrease in tidal volume the patient's systolic blood pressures return to his prior values of systolics greater than 100. After initiation of Nimbex infusion and ventilator adjustments patient's oxygen saturations improved to 100%. Subsequently I was at the bedside and decrease the patient's peep to 14. After approximately half an hour to an hour the patient's oxygen saturations remained stable I decreased his PEEP back down to 12. He had been on peep of 12 which was the setting he had been on prior to his decompensation. I called the on call pharmacy technician and updated him as to the patient's clinical progress. A repeat ABG has been ordered at this time. 75 minutes was spent in critical care activities. Due to a high probability of clinically significant, life threatening deterioration, the patient required my highest level of preparedness to intervene emergently and I personally spent this critical care time directly and personally managing the patient. This critical care time included obtaining a history; examining the patient; pulse oximetry; ordering and review of studies; arranging urgent treatment with development of a management plan; evaluation of patient's response to treatment; frequent reassessment; and discussions with other providers. It was exclusive of separately billable procedures and treating other patients and teaching time. Please see Assessment and Plan section and the rest of the note for further information on patient assessment and treatment.
[2019-04-21 23:30] LABS: Alveolar/Arterial O2 Gradient 584.2 mmHg; Base Excess ABG 3.8 mEq/l (+/-2.0); Carboxyhemoglobin 0.3 % THb (0-2.0); Fractional Inspired Oxygen 100 %; HCO3 ABG 29.7 mEq/l (22.0-26.0); Methemoglobin ABG 0.3 %THb (0-1.5); Oxygen Content ABG 14.4 %vol (16.0-22.0); Oxygen Saturation ABG 95.2 % (95.0-100.0); Oxyhemoglobin 93.3 % THb (90.0-100.0); PCO2 ABG 50.7 mmHg (35.0-45.0); PO2 ABG 78.1 mmHg (80.0-100.0); PO2 FiO2 Ratio Arterial Blood 0.78 %; Reduced Hemoglobin 6.1 %THb (0-5.0); Total Hemoglobin 10.9 g/dL (12.0-18.0); pH ABG 7.385 (7.350-7.450)
[2019-04-21 23:32] LABS: Device VENTILATOR; Modified Allen's Test Pass; Site Drawn RIGHT RADIAL
[2019-04-21 23:33] LABS: Arterial Blood Gas PEEP 12 cmH2O; Arterial Blood Gas Tidal Volume 340 ml; Arterial Blood Gas Vent Mode CMV; Arterial Blood Gas Ventilator rate 26 /MIN
[2019-04-22] VITALS (28 sets, daily range): BP systolic 90–117; BP diastolic 59–70; PULSE 68–92; RESP 25–26; TEMP 36.1–36.9; O2SAT 94–100
[2019-04-22] MEDS: ALBUTEROL SULFATE NEB 2.5 MG/0.5 ML INH 5 MG INHALATION ×4 (01:30→20:42)
[2019-04-22] MEDS: IPRATROPIUM BR 0.02% INH SOLN 0.5 MG/2.5 ML VIAL INHALATION ×4 (01:30→20:42)
[2019-04-22] MEDS: SODIUM CHLORIDE 0.9% IV 1,000 ML 75 ML IV CONT ×2 (03:41→17:05)
[2019-04-22 04:33] LABS: Hematocrit 24.6 % (42.0-52.0); Hemoglobin 7.8 g/dL (14.0-18.0); Mean Corpuscular HGB Conc 31.7 g/dl (32-36); Mean Corpuscular Hemoglobin 29.8 pg (26-34); Mean Corpuscular Volume 93.9 fl (80-100); Mean Platelet Volume 9.6 fl (7.4-10.4); Platelet Count Result 470 k/mm3 (150-375); Red Blood Count 2.62 M/mm3 (4.6-6.20); Red Cell Distribution Width 13.5 % (11.5-14.5); White Blood Count 9.4 K/mm3 (4.5-10.0)
[2019-04-22 04:46] LABS: Lactic Acid 0.9 mmol/L (0.7-2.1)
[2019-04-22 04:46] LABS: Alveolar/Arterial O2 Gradient 581.2 mmHg; Base Excess ABG 2.8 mEq/l (+/-2.0); Carboxyhemoglobin 0.3 % THb (0-2.0); Fractional Inspired Oxygen 100 %; HCO3 ABG 28.4 mEq/l (22.0-26.0); Methemoglobin ABG 0.2 %THb (0-1.5); Oxygen Content ABG 13.1 %vol (16.0-22.0); Oxygen Saturation ABG 95.9 % (95.0-100.0); Oxyhemoglobin 94.3 % THb (90.0-100.0); PCO2 ABG 48.8 mmHg (35.0-45.0); PO2 FiO2 Ratio Arterial Blood 0.83 %; Reduced Hemoglobin 5.2 %THb (0-5.0); Total Hemoglobin 9.8 g/dL (12.0-18.0); pH ABG 7.383 (7.350-7.450)
[2019-04-22 04:48] LABS: Device VENTILATOR; Modified Allen's Test Pass; Site Drawn RIGHT RADIAL
[2019-04-22 04:49] LABS: Arterial Blood Gas PEEP 12 cmH2O; Arterial Blood Gas Tidal Volume 340 ml; Arterial Blood Gas Vent Mode CMV; Arterial Blood Gas Ventilator rate 26 /MIN
[2019-04-22 04:57] LABS: Alanine Aminotransferase 11 U/L (4-50); Albumin Level 2.2 g/dL (3.5-5.1); Alkaline Phosphatase 54 U/L (38-126); Aspartate Amino Transferase 18 U/L (17-59); Bilirubin,Total 0.2 mg/dL (0.2-1.3); Blood Urea Nitrogen 15 mg/dL (9-20); Calcium 7.4 mg/dL (8.4-10.2); Carbon Dioxide 30 mmol/L (22-30); Chloride 93 mmol/L (98-107); Estimated CRCL calculation 126 ml/min; Estimated Glomerular Filt Rate > 60; Glucose 96 mg/dL (75-110); Phosphorus 4.1 mg/dL (2.5-4.5); Potassium 3.3 mmol/L (3.4-5.0); Sodium 129 mmol/L (137-145)
[2019-04-22 05:07] LABS: CRP 25.6 mg/dL (<1.0)
[2019-04-22] MEDS: APIXABAN 5 MG TABLET PO ×2 (08:02→16:59)
[2019-04-22] MEDS: FOLIC ACID 1 MG TABLET PO (08:03)
[2019-04-22] MEDS: ASPIRIN 81 MG ENTERIC TABLET PO (08:03)
[2019-04-22] MEDS: THIAMINE HCL 100 MG TABLET 200 MG PO (08:03)
[2019-04-22] MEDS: PANTOPRAZOLE SODIUM IV 40 MG VIAL IV PUSH (08:04)
[2019-04-22] MEDS: THIAMINE HCL 50 MG TABLET PO (08:04)
[2019-04-22] MEDS: MIDAZOLAM HCL 50 MG in DEXTROSE 5% 90 ML IV CONT (08:19)
--- NOTE | 2019-04-22 09:24 | WPDINTPN ---
Progress Note: A&P Assessment and Plan (1) COPD (chronic obstructive pulmonary disease): Qualifiers: COPD type: COPD with acute lower respiratory infection Qualified Code(s): J44.0 - Chronic obstructive pulmonary disease with (acute) lower respiratory infection Code(s): J44.9 - Chronic obstructive pulmonary disease, unspecified Status: Acute Assessment and Plan: No wheezing. Systemic steroid not indicated. Continue bronchodilator. (2) Acute respiratory failure with hypoxia: Code(s): J96.01 - Acute respiratory failure with hypoxia Status: Acute Assessment and Plan: Acute respiratory failure with bilateral airspace disease likely pneumonia with ARDS. - patient failed BiPAP and was intubated on 04/21/2019 increased work of breathing, worsening hypoxia and respiratory distress - on CMV mode, 65% FiO2 and peep of 12 - fentanyl Versed for sedation - continue azithromycin. will switch the ceftriaxone to cefepime to get more gram-negative coverage. Will add Flagyl for anaerobic coverage for possible aspiration considering his history of alcohol abuse. obtain sputum cultures. Check procalcitonin level. Check MRSA screen. - Yesterday had an episode of acute decompensation from a respiratory perspective likely as a result of auto PEEP vs mucous plug vs ventilator dyssynchrony - continue to wean FiO2 and once he is down to 60% than may wean PEEP. Target of PEEP is 5-8 and FiO2 40-50%. - Will add Solu-Medrol 40 mg twice a day for 5 days for severe community-acquired pneumonia. - Reviewed chest x-ray. ET tube is about 6 cm above aicha. Will push it in by 3 cm. - If he is doing okay tomorrow then we will start weaning lymphatics and try to get him off Nimbex tomorrow. (3) Acute exacerbation of CHF (congestive heart failure): Qualifiers: Heart failure type: unspecified Qualified Code(s): I50.9 - Heart failure, unspecified Code(s): I50.9 - Heart failure, unspecified Status: Acute Assessment and Plan: Decreased urine output today. Will give him Lasix 20 mg now. May repeat dose later today to achieve a net negative fluid balance of 1-1.5 L in the next 24 hours. Echo showed ejection fraction of 60-65% with no significant diastolic dysfunction. Mean pulmonary artery pressure of 51. Doppler ultrasound of the lower extremity is negative for DVT. (4) Peripheral vascular disease: Code(s): I73.9 - Peripheral vascular disease, unspecified Status: Acute Assessment and Plan: history of peripheral vascular disease Patient recently had right common femoral artery endarterectomy with bovine pericardial patch and angioplasty at [facility] on 04/03/2019. Patient also has had a left femoral bypass with graft endarterectomy procedure on 02/02/2019 (5) Nicotine dependence: Code(s): F17.200 - Nicotine dependence, unspecified, uncomplicated Status: Acute Assessment and Plan: Smoking cessation counseling once he is extubated. (6) Elevated troponin: Code(s): R79.89 - Other specified abnormal findings of blood chemistry Status: Acute Assessment and Plan: Likely demand ischemia. (7) Hypertension: Qualifiers: Hypertension type: essential hypertension Qualified Code(s): I10 - Essential (primary) hypertension Code(s): I10 - Essential (primary) hypertension Status: Acute Assessment and Plan: Blood pressure within acceptable range. Will stop amlodipine. (8) Tobacco dependence: Code(s): F17.200 - Nicotine dependence, unspecified, uncomplicated Status: Acute (9) Daily consumption of alcohol: Code(s): Z78.9 - Other specified health status Status: Acute Assessment and Plan: Continue thiamine and folate. He is currently sedated with Versed and fentanyl. If he exhibits signs of significant anxiety and restlessness at the time of
[2019-04-22] MEDS: KCL 20 MEQ/SW 100 ML 100 ML 50 MEQ IVPB (09:53)
[2019-04-22] MEDS: FAMOTIDINE 20 MG/2 ML VIAL IV PUSH ×2 (09:53→20:26)
[2019-04-22] MEDS: methylPREDNISolone SOD SUCC 40 MG VIAL IV PUSH ×2 (09:53→20:26)
[2019-04-22] MEDS: metroNIDAZOLE 500 MG/ISO 100ML 500 MG/100 ML BAG 100 MG IVPB ×2 (10:32→17:06)
[2019-04-22] MEDS: FUROSEMIDE INJ 40 MG/4 ML VIAL 20 MG IV PUSH ×2 (10:50→17:12)
--- NOTE | 2019-04-22 14:43 | PM.IMPN ---
Progress Note: A&P Assessment and Plan (1) Acute respiratory failure with hypoxia: Code(s): J96.01 - Acute respiratory failure with hypoxia Status: Acute Assessment and Plan: Vent support, pulmonary toilet, furosemide, azithromycin and cefepime, steroids Wean as possible (2) Acute exacerbation of CHF (congestive heart failure): Qualifiers: Heart failure type: unspecified Qualified Code(s): I50.9 - Heart failure, unspecified Code(s): I50.9 - Heart failure, unspecified Status: Acute Assessment and Plan: Diuresis with IV furosemide (3) COPD (chronic obstructive pulmonary disease): Qualifiers: COPD type: COPD with acute lower respiratory infection Qualified Code(s): J44.0 - Chronic obstructive pulmonary disease with (acute) lower respiratory infection Code(s): J44.9 - Chronic obstructive pulmonary disease, unspecified Status: Acute Assessment and Plan: Vent support, pulmonary toilet, azithromycin and ceftriaxone (4) Elevated troponin: Code(s): R79.89 - Other specified abnormal findings of blood chemistry Status: Acute Assessment and Plan: Suspect demand ischemia, no ACS (5) Hyponatremia: Code(s): E87.1 - Hypo-osmolality and hyponatremia Status: Acute Assessment and Plan: Due to CHF w/ possible SIADH component Diuresis F/u lab (6) Normocytic anemia: Code(s): D64.9 - Anemia, unspecified Status: Acute Assessment and Plan: Lab c/w both ACD and B12 deficiency Replace B12 Check IFOB Monitor h/h (7) Daily consumption of alcohol: Code(s): Z78.9 - Other specified health status Status: Acute Assessment and Plan: w/d prophylaxis (8) Tobacco dependence: Code(s): F17.200 - Nicotine dependence, unspecified, uncomplicated Status: Acute Assessment and Plan: Monitor for s/sx w/d (9) Hypertension: Qualifiers: Hypertension type: essential hypertension Qualified Code(s): I10 - Essential (primary) hypertension Code(s): I10 - Essential (primary) hypertension Status: Acute Assessment and Plan: Treat PRN Subjective Date/time seen: 04/22/19 14:43 Interval history: sedated, on vent episode 04/21 with desaturation, improved with reduction in TV Review of Systems Review of Systems: ROS unobtainable: unobtainable due to endotracheal tube and unobtainable due to mental condition Exam Narrative: Exam Narrative: HEENT: PERRL, pharyngeal mucosa pink and intact, ET & OG tubes in place NECK: No JVD CHEST: Coarse BS HEART: NL S1/S2, regular, no murmur ABDOMEN: BS hypoactive, soft, nontender, no mass, no bruits EXTREMITIES: No cyanosis, trace left ankle edema NEUROLOGIC: CN intact and symmetric to inspection. MUSCULOSKELETAL: No gross deformities PSYCH: Sedated. Objective Data Vital Signs Vital Signs: Vital Signs - 24 hr 04/21/19 16:00 04/21/19 17:10 04/21/19 18:00 Temperature 98.2 F Pulse Rate 85 87 88 Respiratory Rate 20 Blood Pressure 85/50 L Pulse Oximetry 100 90 04/21/19 19:10 04/21/19 19:11 04/21/19 19:20 Temperature Pulse Rate 89 83 92 Respiratory Rate 20 19 Blood Pressure Pulse Oximetry 94 04/21/19 19:30 04/21/19 20:00 04/21/19 22:00 Temperature 97.2 F L Pulse Rate 83 85 93 Respiratory Rate 20 20 26 H Blood Pressure 87/64 L 90/61 L 109/61 Pulse Oximetry 94 94 91 04/21/19 22:56 04/22/19 00:00 04/22/19 01:31 Temperature Pulse Rate 85 80 84 Respiratory Rate 26 H 26 H Blood Pressure Pulse Oximetry 98 100 04/22/19 01:34 04/22/19 01:41 04/22/19 02:00 Temperature Pulse Rate 79 88 86 Respiratory Rate 25 H 26 H Blood Pressure 101/59 L Pulse Oximetry 100 100 04/22/19 04:00 04/22/19 04:16 04/22/19 06:00 Temperature Pulse Rate 85 85 87 Respiratory Rate 26 H Blood Pressure 90/64 L Pulse Oximetry 100 100 04/22/19 07:37
[2019-04-23] VITALS (31 sets, daily range): BP systolic 91–116; BP diastolic 53–62; PULSE 73–95; RESP 26; TEMP 35.8–36.6; O2SAT 90–100
[2019-04-23] MEDS: IPRATROPIUM BR 0.02% INH SOLN 0.5 MG/2.5 ML VIAL INHALATION ×4 (02:17→19:48)
[2019-04-23] MEDS: ALBUTEROL SULFATE NEB 2.5 MG/0.5 ML INH 5 MG INHALATION ×4 (02:17→19:48)
[2019-04-23] MEDS: metroNIDAZOLE 500 MG/ISO 100ML 500 MG/100 ML BAG 100 MG IVPB ×3 (04:31→17:06)
[2019-04-23 04:52] LABS: Alveolar/Arterial O2 Gradient 241.2 mmHg; Base Excess ABG 1.6 mEq/l (+/-2.0); Carboxyhemoglobin 0.3 % THb (0-2.0); Fractional Inspired Oxygen 50 %; HCO3 ABG 26.1 mEq/l (22.0-26.0); Methemoglobin ABG 0.4 %THb (0-1.5); Oxygen Content ABG 11.9 %vol (16.0-22.0); Oxygen Saturation ABG 94.5 % (95.0-100.0); Oxyhemoglobin 91.6 % THb (90.0-100.0); PCO2 ABG 40.4 mmHg (35.0-45.0); PO2 ABG 69.9 mmHg (80.0-100.0); Reduced Hemoglobin 7.7 %THb (0-5.0); Total Hemoglobin 9.2 g/dL (12.0-18.0); pH ABG 7.428 (7.350-7.450)
[2019-04-23 04:54] LABS: Arterial Blood Gas PEEP 8 cmH2O; Arterial Blood Gas Vent Mode CMV; Arterial Blood Gas Ventilator rate 26 /MIN; Device VENTILATOR; Modified Allen's Test Pass; Site Drawn LEFT RADIAL
[2019-04-23 04:55] LABS: Arterial Blood Gas Tidal Volume 340 ml
[2019-04-23] MEDS: MIDAZOLAM HCL 50 MG in DEXTROSE 5% 90 ML 8 MG IV CONT ×2 (06:01→18:15)
[2019-04-23 06:13] LABS: Hematocrit 25.3 % (42.0-52.0); Hemoglobin 8.3 g/dL (14.0-18.0); Mean Corpuscular HGB Conc 32.8 g/dl (32-36); Mean Corpuscular Hemoglobin 29.7 pg (26-34); Mean Corpuscular Volume 90.7 fl (80-100); Mean Platelet Volume 10.5 fl (7.4-10.4); Platelet Count Result 579 k/mm3 (150-375); Red Blood Count 2.79 M/mm3 (4.6-6.20); Red Cell Distribution Width 13.1 % (11.5-14.5); White Blood Count 5.5 K/mm3 (4.5-10.0)
[2019-04-23 06:22] LABS: Blood Urea Nitrogen 19 mg/dL (9-20); Calcium 7.7 mg/dL (8.4-10.2); Carbon Dioxide 25 mmol/L (22-30); Chloride 91 mmol/L (98-107); Estimated CRCL calculation 126 ml/min; Estimated Glomerular Filt Rate > 60; Glucose 195 mg/dL (75-110); Magnesium 1.9 mg/dL (1.6-2.3); Phosphorus 4.4 mg/dL (2.5-4.5); Potassium 3.4 mmol/L (3.4-5.0); Sodium 128 mmol/L (137-145)
[2019-04-23] MEDS: FUROSEMIDE INJ 40 MG/4 ML VIAL IV PUSH ×2 (07:46→16:06)
[2019-04-23] MEDS: SODIUM CHLORIDE 0.9% IV 1,000 ML 75 ML IV CONT (07:50)
[2019-04-23] MEDS: FOLIC ACID 1 MG TABLET PO (07:54)
[2019-04-23] MEDS: ASPIRIN 81 MG ENTERIC TABLET PO (07:54)
[2019-04-23] MEDS: methylPREDNISolone SOD SUCC 40 MG VIAL IV PUSH ×2 (07:55→20:03)
[2019-04-23] MEDS: APIXABAN 5 MG TABLET PO ×2 (07:55→16:11)
[2019-04-23] MEDS: THIAMINE HCL 100 MG TABLET PO (07:56)
[2019-04-23] MEDS: FAMOTIDINE 20 MG/2 ML VIAL IV PUSH ×2 (08:52→20:03)
--- NOTE | 2019-04-23 09:24 | WPDINTPN ---
Progress Note: A&P Assessment and Plan (1) COPD (chronic obstructive pulmonary disease): Qualifiers: COPD type: COPD with acute lower respiratory infection Qualified Code(s): J44.0 - Chronic obstructive pulmonary disease with (acute) lower respiratory infection Code(s): J44.9 - Chronic obstructive pulmonary disease, unspecified Status: Acute Assessment and Plan: No wheezing. Systemic steroid not indicated. He is currently on steroid for severe community-acquired pneumonia. Continue bronchodilator. (2) Acute respiratory failure with hypoxia: Code(s): J96.01 - Acute respiratory failure with hypoxia Status: Acute Assessment and Plan: Acute respiratory failure with bilateral airspace disease likely pneumonia with ARDS. - patient failed BiPAP and was intubated on 04/21/2019 increased work of breathing, worsening hypoxia and respiratory distress - on CMV mode, 50% FiO2 and peep of 8. Will wean FiO2 and PEEP further down to 40% and 5 respectively. - fentanyl Versed for sedation - continue antibiotics with cefepime, azithromycin and Flagyl. follow procalcitonin level. MRSA screen is positive. - He had an episode of acute decompensation from a respiratory perspective on 04/21 night likely as a result of auto PEEP vs mucous plug vs ventilator dyssynchrony - wean FiO2 and PEEP further down to 40% and 5. - Continue Solu-Medrol 40 mg twice a day for 5 days for severe community-acquired pneumonia. - Reviewed chest x-ray And ABG. - Will start weaning the paralytics. (3) Acute exacerbation of CHF (congestive heart failure): Qualifiers: Heart failure type: unspecified Qualified Code(s): I50.9 - Heart failure, unspecified Code(s): I50.9 - Heart failure, unspecified Status: Acute Assessment and Plan: He was given a total of 40 mg of Lasix yesterday but still net fluid positive balance of 2.1 L. Will give more Lasix today and aim for a negative net fluid balance of 1.5 L in the next 24 hours. Echo showed ejection fraction of 60-65% with no significant diastolic dysfunction. Mean pulmonary artery pressure of 51. Doppler ultrasound of the lower extremity is negative for DVT. (4) Peripheral vascular disease: Code(s): I73.9 - Peripheral vascular disease, unspecified Status: Acute Assessment and Plan: history of peripheral vascular disease Patient recently had right common femoral artery endarterectomy with bovine pericardial patch and angioplasty at [facility] on 04/03/2019. Patient also has had a left femoral bypass with graft endarterectomy procedure on 02/02/2019. He is currently on apixaban which has been continued. (5) Nicotine dependence: Code(s): F17.200 - Nicotine dependence, unspecified, uncomplicated Status: Acute Assessment and Plan: Smoking cessation counseling once he is extubated. (6) Elevated troponin: Code(s): R79.89 - Other specified abnormal findings of blood chemistry Status: Acute Assessment and Plan: Likely demand ischemia. (7) Hypertension: Qualifiers: Hypertension type: essential hypertension Qualified Code(s): I10 - Essential (primary) hypertension Code(s): I10 - Essential (primary) hypertension Status: Acute Assessment and Plan: Blood pressure within acceptable range. Continue to hold amlodipine. (8) Tobacco dependence: Code(s): F17.200 - Nicotine dependence, unspecified, uncomplicated Status: Acute Assessment and Plan: Cigarette smoking cessation counseling once he is extubated. (9) Daily consumption of alcohol: Code(s): Z78.9 - Other specified health status Status: Acute Assessment and Plan: Continue thiamine and folate. He is currently sedated with Versed and fentanyl. If he exhibits signs of significant anxiety and restlessness at the time of the marcelino
[2019-04-23] MEDS: MUPIROCIN 2% OINT 22 GM TUBE 1 APPLIC EACH NARE ×2 (10:11→20:03)
--- NOTE | 2019-04-23 11:37 | PM.IMPN ---
Progress Note: A&P Assessment and Plan (1) Acute respiratory failure with hypoxia: Code(s): J96.01 - Acute respiratory failure with hypoxia Status: Acute Assessment and Plan: Vent support, pulmonary toilet, furosemide, azithromycin and cefepime and metronidazole, steroids Wean as possible (2) Acute exacerbation of CHF (congestive heart failure): Qualifiers: Heart failure type: unspecified Qualified Code(s): I50.9 - Heart failure, unspecified Code(s): I50.9 - Heart failure, unspecified Status: Acute Assessment and Plan: Diuresis with IV furosemide (3) COPD (chronic obstructive pulmonary disease): Qualifiers: COPD type: COPD with acute lower respiratory infection Qualified Code(s): J44.0 - Chronic obstructive pulmonary disease with (acute) lower respiratory infection Code(s): J44.9 - Chronic obstructive pulmonary disease, unspecified Status: Acute Assessment and Plan: Vent support, pulmonary toilet, azithromycin and ceftriaxone (4) Elevated troponin: Code(s): R79.89 - Other specified abnormal findings of blood chemistry Status: Acute Assessment and Plan: Suspect demand ischemia, no ACS (5) Hyponatremia: Code(s): E87.1 - Hypo-osmolality and hyponatremia Status: Acute Assessment and Plan: Due to CHF w/ possible SIADH component Diuresis F/u lab (6) Normocytic anemia: Code(s): D64.9 - Anemia, unspecified Status: Acute Assessment and Plan: Lab c/w both ACD and B12 deficiency Replace B12 Check IFOB Monitor h/h (7) Daily consumption of alcohol: Code(s): Z78.9 - Other specified health status Status: Acute Assessment and Plan: w/d prophylaxis (8) Tobacco dependence: Code(s): F17.200 - Nicotine dependence, unspecified, uncomplicated Status: Acute Assessment and Plan: Monitor for s/sx w/d (9) Hypertension: Qualifiers: Hypertension type: essential hypertension Qualified Code(s): I10 - Essential (primary) hypertension Code(s): I10 - Essential (primary) hypertension Status: Acute Assessment and Plan: Treat PRN Subjective Date/time seen: 04/23/19 11:37 Interval history: Episode 04/21 with desaturation, improved with reduction in TV 04/23 quiet night. Remains sedated on vent Review of Systems Review of Systems: ROS unobtainable: unobtainable due to endotracheal tube and unobtainable due to mental condition Exam Narrative: Exam Narrative: HEENT: PERRL, pharyngeal mucosa pink and intact, ET & OG tubes in place NECK: No JVD CHEST: Coarse BS HEART: NL S1/S2, regular, no murmur ABDOMEN: BS hypoactive, soft, nontender, no mass, no bruits EXTREMITIES: No cyanosis, trace left ankle edema NEUROLOGIC: CN intact and symmetric to inspection. MUSCULOSKELETAL: No gross deformities PSYCH: Sedated. Objective Data Vital Signs Vital Signs: Vital Signs - 24 hr 04/22/19 12:00 04/22/19 14:00 04/22/19 14:15 Temperature 96.9 F L Pulse Rate 80 76 77 Respiratory Rate 26 H 26 H Blood Pressure 92/66 L Pulse Oximetry 100 100 100 04/22/19 14:21 04/22/19 16:00 04/22/19 17:10 Temperature 97.9 F Pulse Rate 78 84 70 Respiratory Rate 26 H 26 H Blood Pressure 112/70 Pulse Oximetry 100 99 04/22/19 17:58 04/22/19 18:00 04/22/19 20:00 Temperature 98.5 F Pulse Rate 74 73 74 Respiratory Rate 26 H 26 H Blood Pressure 93/66 L 107/63 Pulse Oximetry 99 100 04/22/19 20:40 04/22/19 20:43 04/22/19 20:53 Temperature Pulse Rate 68 68 71 Respiratory Rate 26 H 26 H Blood Pressure Pulse Oximetry 99 04/22/19 22:00 04/22/19 23:50 04/23/19 00:00 Temperature 97.8 F Pulse Rate 74 74 92 Respiratory Rate 26 H 26 H Blood Pressure 117/67 106/56 L Pulse Oximetry 98 94 96 04/23/19 02:00 04/23/19 02:11 04/23/19 02:18 Temperature Pulse Rate 86 82 82 Respiratory Rate 26
[2019-04-23 18:00] LABS: Blood Urea Nitrogen 18 mg/dL (9-20); Calcium 7.5 mg/dL (8.4-10.2); Carbon Dioxide 25 mmol/L (22-30); Chloride 92 mmol/L (98-107); Estimated CRCL calculation 126 ml/min; Estimated Glomerular Filt Rate > 60; Glucose 227 mg/dL (75-110); Potassium 3.6 mmol/L (3.4-5.0); Sodium 128 mmol/L (137-145)
[2019-04-24] VITALS (27 sets, daily range): BP systolic 92–117; BP diastolic 53–74; PULSE 61–129; RESP 9–30; TEMP 36.3–37.1; O2SAT 91–97
[2019-04-24] MEDS: SODIUM CHLORIDE 0.9% IV 1,000 ML 50 ML IV CONT (00:13)
[2019-04-24 00:33] LABS: Glucose Point of Care 143 (65-105)
[2019-04-24] MEDS: IPRATROPIUM BR 0.02% INH SOLN 0.5 MG/2.5 ML VIAL INHALATION ×4 (01:53→19:59)
[2019-04-24] MEDS: ALBUTEROL SULFATE NEB 2.5 MG/0.5 ML INH 5 MG INHALATION ×4 (01:53→19:59)
[2019-04-24] MEDS: metroNIDAZOLE 500 MG/ISO 100ML 500 MG/100 ML BAG 100 MG IVPB (02:18)
[2019-04-24 05:41] LABS: Alveolar/Arterial O2 Gradient 189.3 mmHg; Base Excess ABG 1.3 mEq/l (+/-2.0); Carboxyhemoglobin 0.2 % THb (0-2.0); Device VENTILATOR; Fractional Inspired Oxygen 40 %; HCO3 ABG 25.1 mEq/l (22.0-26.0); Methemoglobin ABG 0.4 %THb (0-1.5); Oxygen Saturation ABG 89.4 % (95.0-100.0); PCO2 ABG 36.9 mmHg (35.0-45.0); PO2 ABG 53.5 mmHg (80.0-100.0); PO2 FiO2 Ratio Arterial Blood 1.34 %; Reduced Hemoglobin 13.4 %THb (0-5.0); Site Drawn LEFT BRACHIAL; Total Hemoglobin 12.4 g/dL (12.0-18.0)
[2019-04-24 05:42] LABS: Arterial Blood Gas PEEP 5 cmH2O; Arterial Blood Gas Tidal Volume 340 ml; Arterial Blood Gas Vent Mode CMV; Arterial Blood Gas Ventilator rate 26 /MIN
[2019-04-24 05:51] LABS: Hematocrit 27.7 % (42.0-52.0); Hemoglobin 8.8 g/dL (14.0-18.0); Mean Corpuscular HGB Conc 31.8 g/dl (32-36); Mean Corpuscular Hemoglobin 29.2 pg (26-34); Mean Platelet Volume 10.3 fl (7.4-10.4); Platelet Count Result 652 k/mm3 (150-375); Red Blood Count 3.01 M/mm3 (4.6-6.20); Red Cell Distribution Width 13.2 % (11.5-14.5); White Blood Count 11.9 K/mm3 (4.5-10.0)
[2019-04-24 06:01] LABS: Blood Urea Nitrogen 19 mg/dL (9-20); Calcium 7.9 mg/dL (8.4-10.2); Carbon Dioxide 26 mmol/L (22-30); Chloride 96 mmol/L (98-107); Estimated CRCL calculation 103 ml/min; Estimated Glomerular Filt Rate > 60; Glucose 136 mg/dL (75-110); Magnesium 1.9 mg/dL (1.6-2.3); Phosphorus 3.9 mg/dL (2.5-4.5); Sodium 131 mmol/L (137-145)
[2019-04-24] MEDS: FUROSEMIDE INJ 40 MG/4 ML VIAL IV PUSH (07:41)
--- NOTE | 2019-04-24 08:21 | WPDINTPN ---
Progress Note: A&P Assessment and Plan (1) Acute respiratory failure with hypoxia: Code(s): J96.01 - Acute respiratory failure with hypoxia Status: Acute Assessment and Plan: Acute respiratory failure with bilateral airspace disease likely pneumonia with ARDS and volume overload. - patient failed BiPAP and was intubated on 04/21/2019 increased work of breathing, worsening hypoxia and respiratory distress - on CMV mode FiO2 and PEEP further down to 40% and 5 respectively. - fentanyl Versed for sedation - continue antibiotics with cefepime, azithromycin and Flagyl. follow procalcitonin level. MRSA screen is positive. - Cx are NTD. I will DC Flagyl - He had an episode of acute decompensation from a respiratory perspective on 04/21 night likely as a result of auto PEEP vs mucous plug vs ventilator dyssynchrony - Continue Solu-Medrol 40 mg twice a day for 5 days for severe community-acquired pneumonia. - Reviewed chest x-ray And ABG. - I tried PSV of 5/5 and his TV were very low. I have put him on 12/31 and see how he dose - COntinue lasix (2) ARDS (adult respiratory distress syndrome): Code(s): J80 - Acute respiratory distress syndrome Status: Acute Assessment and Plan: Lung protective strategies with low tidal volume. Wean peep and FiO2 if tolerated. (3) COPD (chronic obstructive pulmonary disease): Qualifiers: COPD type: COPD with acute lower respiratory infection Qualified Code(s): J44.0 - Chronic obstructive pulmonary disease with (acute) lower respiratory infection Code(s): J44.9 - Chronic obstructive pulmonary disease, unspecified Status: Acute Assessment and Plan: No wheezing. Continue bronchodilator and steroids. (4) Acute exacerbation of CHF (congestive heart failure): Qualifiers: Heart failure type: unspecified Qualified Code(s): I50.9 - Heart failure, unspecified Code(s): I50.9 - Heart failure, unspecified Status: Acute Assessment and Plan: Lasix BID todays. Echo showed ejection fraction of 60-65% with no significant diastolic dysfunction. Mean pulmonary artery pressure of 51. Doppler ultrasound of the lower extremity is negative for DVT. (5) Peripheral vascular disease: Code(s): I73.9 - Peripheral vascular disease, unspecified Status: Acute Assessment and Plan: history of peripheral vascular disease Patient recently had right common femoral artery endarterectomy with bovine pericardial patch and angioplasty at [facility] on 04/03/2019. Patient also has had a left femoral bypass with graft endarterectomy procedure on 02/02/2019. He is currently on apixaban which has been continued. (6) Elevated troponin: Code(s): R79.89 - Other specified abnormal findings of blood chemistry Status: Acute Assessment and Plan: Likely demand ischemia. (7) Hypertension: Qualifiers: Hypertension type: essential hypertension Qualified Code(s): I10 - Essential (primary) hypertension Code(s): I10 - Essential (primary) hypertension Status: Acute Assessment and Plan: Blood pressure within acceptable range. Continue to hold amlodipine. Treat PRN (8) Nicotine dependence: Code(s): F17.200 - Nicotine dependence, unspecified, uncomplicated Status: Acute Assessment and Plan: Smoking cessation counseling once he is extubated. (9) Tobacco dependence: Code(s): F17.200 - Nicotine dependence, unspecified, uncomplicated Status: Acute Assessment and Plan: Cigarette smoking cessation counseling once he is extubated. (10) Daily consumption of alcohol: Code(s): Z78.9 - Other specified health status Status: Acute Assessment and Plan: Continue thiamine and folate. He is currently sedated with Versed and fentanyl. If he exhibits signs of significant anxiety and restlessness
--- NOTE | 2019-04-24 08:59 | PM.IMPN ---
Progress Note: A&P Assessment and Plan (1) Acute respiratory failure with hypoxia: Code(s): J96.01 - Acute respiratory failure with hypoxia Status: Acute Assessment and Plan: Vent support, pulmonary toilet, furosemide, azithromycin and cefepime and metronidazole, steroids 04/24 CXR with minimal change (mildly worse LLL). Wean sedation and possible extubation later. (2) Acute exacerbation of CHF (congestive heart failure): Qualifiers: Heart failure type: unspecified Qualified Code(s): I50.9 - Heart failure, unspecified Code(s): I50.9 - Heart failure, unspecified Status: Acute Assessment and Plan: Diuresis with IV furosemide (3) COPD (chronic obstructive pulmonary disease): Qualifiers: COPD type: COPD with acute lower respiratory infection Qualified Code(s): J44.0 - Chronic obstructive pulmonary disease with (acute) lower respiratory infection Code(s): J44.9 - Chronic obstructive pulmonary disease, unspecified Status: Acute Assessment and Plan: Vent support, pulmonary toilet, azithromycin and ceftriaxone (4) Elevated troponin: Code(s): R79.89 - Other specified abnormal findings of blood chemistry Status: Acute Assessment and Plan: Suspect demand ischemia, no ACS (5) Hyponatremia: Code(s): E87.1 - Hypo-osmolality and hyponatremia Status: Acute Assessment and Plan: Due to CHF w/ possible SIADH component Diuresis 04/24 131 F/u lab (6) Normocytic anemia: Code(s): D64.9 - Anemia, unspecified Status: Acute Assessment and Plan: Lab c/w both ACD and B12 deficiency Replaced B12 (was 233) Check IFOB 04/24 hgb 8.8 Monitor h/h (7) Daily consumption of alcohol: Code(s): Z78.9 - Other specified health status Status: Acute Assessment and Plan: w/d prophylaxis (8) Tobacco dependence: Code(s): F17.200 - Nicotine dependence, unspecified, uncomplicated Status: Acute Assessment and Plan: Monitor for s/sx w/d (9) Hypertension: Qualifiers: Hypertension type: essential hypertension Qualified Code(s): I10 - Essential (primary) hypertension Code(s): I10 - Essential (primary) hypertension Status: Acute Assessment and Plan: Treat PRN Subjective Date/time seen: 01/27/20 08:59 Interval history: Episode 04/21 with desaturation, improved with reduction in TV 04/23 quiet night. Remains sedated on vent 04/24 quiet night. Sedation weaning. Review of Systems Review of Systems: ROS unobtainable: unobtainable due to endotracheal tube and unobtainable due to mental condition Exam Narrative: Exam Narrative: HEENT: PERRL, pharyngeal mucosa pink and intact, ET & OG tubes in place NECK: No JVD CHEST: Coarse BS HEART: NL S1/S2, regular, no murmur ABDOMEN: BS hypoactive, soft, nontender, no mass, no bruits EXTREMITIES: No cyanosis, trace left ankle edema NEUROLOGIC: CN intact and symmetric to inspection. MUSCULOSKELETAL: No gross deformities PSYCH: Sedated. Objective Data Vital Signs Vital Signs: Vital Signs - 24 hr 04/23/19 09:00 04/23/19 10:00 04/23/19 11:00 Temperature Pulse Rate 87 82 77 Respiratory Rate 26 H 26 H 26 H Blood Pressure 108/60 111/62 97/58 L Pulse Oximetry 99 93 90 04/23/19 11:15 04/23/19 11:52 04/23/19 12:00 Temperature 96.5 F L Pulse Rate 83 76 74 Respiratory Rate 26 H Blood Pressure 99/59 L Pulse Oximetry 95 92 04/23/19 13:50 04/23/19 13:55 04/23/19 14:00 Temperature Pulse Rate 73 73 74 Respiratory Rate 26 H 26 H Blood Pressure 98/58 L Pulse Oximetry 92 92 04/23/19 14:05 04/23/19 16:00 04/23/19 17:25 Temperature 97.2 F L Pulse Rate 75 73 76 Respiratory Rate 26 H 26 H Blood Pressure 93/56 L Pulse Oximetry 92 93 04/23/19 18:00 04/23/19 19:43 04/23/19 19:49 Temperature 97.8 F Pulse Rate 74 74 74 Respiratory Rate 26 H 26 H 26 H Bl
[2019-04-24] MEDS: APIXABAN 5 MG TABLET PO ×2 (09:03→17:42)
[2019-04-24] MEDS: FAMOTIDINE 20 MG/2 ML VIAL IV PUSH ×2 (09:03→21:01)
[2019-04-24] MEDS: ASPIRIN 81 MG ENTERIC TABLET PO (09:03)
[2019-04-24] MEDS: THIAMINE HCL 100 MG TABLET PO (09:04)
[2019-04-24] MEDS: FOLIC ACID 1 MG TABLET PO (09:04)
[2019-04-24] MEDS: MUPIROCIN 2% OINT 22 GM TUBE 1 APPLIC EACH NARE ×2 (09:04→21:00)
[2019-04-24] MEDS: methylPREDNISolone SOD SUCC 40 MG VIAL IV PUSH ×2 (09:04→21:01)
--- NOTE | 2019-04-24 11:00 | PCDIET ---
ICU Rounding Note: Patient has been receiving Jevity 1.2 @ 20mL/hr goal rate. Residuals 0-90mL. No plan to extubate today. MD order to advance tube feeding toward goal. Recommend 55mL/hr Jevity 1.2 x 22 hours/day for total of 1452kcal, 67g protein and 976mL free water. Recommend continued 30mL water flush every 4 hours. Last recorded weight is 68.0kg which is increased. I/O positive. Bowel Motility: No documented BM. MD adding Colace and Miralax today. Labs Reviewed: Glu (136), Cr (0.50), Na (131), Ca (7.9) Meds Noted: Albuterol, Maxipime, Pepcid, Fentanyl, Folic Acid, Lasix, Novolog, Solu Medrol, Versed, Vitamin B1 Additional Notes: Right groin incision; no documented pressure sores. Recommend checking albumin level for calcium correction. Following daily in ICU rounds. Assessing/reassessing every Wednesday/Wednesday.
[2019-04-24] MEDS: DOCUSATE SODIUM 100 MG CAPSULE PO ×2 (11:19→21:01)
[2019-04-24 11:59] LABS: Glucose Point of Care 134 (65-105)
[2019-04-24 16:16] LABS: Blood Urea Nitrogen 21 mg/dL (9-20); Calcium 8.1 mg/dL (8.4-10.2); Carbon Dioxide 28 mmol/L (22-30); Chloride 95 mmol/L (98-107); Estimated CRCL calculation 88 ml/min; Estimated Glomerular Filt Rate > 60; Glucose 140 mg/dL (75-110); Sodium 130 mmol/L (137-145)
[2019-04-24 18:41] LABS: Glucose Point of Care 167 (65-105)
[2019-04-25] VITALS (24 sets, daily range): BP systolic 96–136; BP diastolic 64–96; PULSE 50–103; RESP 17–31; TEMP 35.7–36.6; O2SAT 89–100
[2019-04-25 00:36] LABS: Glucose Point of Care 151 (65-105)
[2019-04-25 01:42] LABS: Alveolar/Arterial O2 Gradient 424.6 mmHg; Base Excess ABG 2.4 mEq/l (+/-2.0); Carboxyhemoglobin 0.2 % THb (0-2.0); Device VENTILATOR; Fractional Inspired Oxygen 75 %; HCO3 ABG 26.9 mEq/l (22.0-26.0); Methemoglobin ABG 0.4 %THb (0-1.5); Modified Allen's Test Unable to perform; Oxygen Content ABG 13.8 %vol (16.0-22.0); Oxygen Saturation ABG 93.7 % (95.0-100.0); Oxyhemoglobin 91.2 % THb (90.0-100.0); PCO2 ABG 41.3 mmHg (35.0-45.0); PO2 ABG 66.3 mmHg (80.0-100.0); PO2 FiO2 Ratio Arterial Blood 0.88 %; Reduced Hemoglobin 8.2 %THb (0-5.0); Site Drawn LEFT RADIAL; Total Hemoglobin 10.7 g/dL (12.0-18.0); pH ABG 7.432 (7.350-7.450)
[2019-04-25 01:43] LABS: Arterial Blood Gas PEEP 5 cmH2O; Arterial Blood Gas Tidal Volume 340 ml; Arterial Blood Gas Vent Mode CMV; Arterial Blood Gas Ventilator rate 26 /MIN
[2019-04-25] MEDS: ALBUTEROL SULFATE NEB 2.5 MG/0.5 ML INH 5 MG INHALATION ×4 (01:55→20:06)
[2019-04-25] MEDS: IPRATROPIUM BR 0.02% INH SOLN 0.5 MG/2.5 ML VIAL INHALATION ×4 (01:55→20:06)
[2019-04-25] MEDS: PROPOFOL IV EMULSION 100 ML 2 MG IV CONT ×2 (02:57→13:16)
[2019-04-25 05:15] LABS: Alveolar/Arterial O2 Gradient 424.6 mmHg; Base Excess ABG 2.5 mEq/l (+/-2.0); Carboxyhemoglobin 0.2 % THb (0-2.0); Fractional Inspired Oxygen 75 %; HCO3 ABG 26.3 mEq/l (22.0-26.0); Methemoglobin ABG 0.3 %THb (0-1.5); Oxygen Content ABG 13.2 %vol (16.0-22.0); Oxygen Saturation ABG 95.1 % (95.0-100.0); Oxyhemoglobin 92.7 % THb (90.0-100.0); PCO2 ABG 37.3 mmHg (35.0-45.0); PO2 ABG 70.5 mmHg (80.0-100.0); PO2 FiO2 Ratio Arterial Blood 0.94 %; Reduced Hemoglobin 6.8 %THb (0-5.0); Total Hemoglobin 10.1 g/dL (12.0-18.0); pH ABG 7.466 (7.350-7.450)
[2019-04-25 05:16] LABS: Device VENTILATOR; Modified Allen's Test Unable to perform; Site Drawn RIGHT RADIAL
[2019-04-25 05:18] LABS: Arterial Blood Gas PEEP 8 cmH2O; Arterial Blood Gas Tidal Volume 340 ml; Arterial Blood Gas Vent Mode CMV; Arterial Blood Gas Ventilator rate 26 /MIN
[2019-04-25 05:26] LABS: Hematocrit 28.3 % (42.0-52.0); Mean Corpuscular HGB Conc 31.8 g/dl (32-36); Mean Corpuscular Hemoglobin 29.6 pg (26-34); Mean Corpuscular Volume 93.1 fl (80-100); Mean Platelet Volume 10.4 fl (7.4-10.4); Platelet Count Result 594 k/mm3 (150-375); Red Blood Count 3.04 M/mm3 (4.6-6.20); White Blood Count 9.8 K/mm3 (4.5-10.0)
[2019-04-25 05:35] LABS: Blood Urea Nitrogen 22 mg/dL (9-20); Calcium 8.2 mg/dL (8.4-10.2); Carbon Dioxide 29 mmol/L (22-30); Chloride 96 mmol/L (98-107); Estimated CRCL calculation 88 ml/min; Estimated Glomerular Filt Rate > 60; Glucose 156 mg/dL (75-110); Magnesium 2.1 mg/dL (1.6-2.3); Potassium 4.4 mmol/L (3.4-5.0); Sodium 131 mmol/L (137-145)
[2019-04-25] MEDS: ASPIRIN 81 MG ENTERIC TABLET PO (08:21)
[2019-04-25] MEDS: THIAMINE HCL 100 MG TABLET PO (08:21)
[2019-04-25] MEDS: MUPIROCIN 2% OINT 22 GM TUBE 1 APPLIC EACH NARE ×2 (08:21→20:51)
[2019-04-25] MEDS: FAMOTIDINE 20 MG/2 ML VIAL IV PUSH ×2 (08:22→20:51)
[2019-04-25] MEDS: methylPREDNISolone SOD SUCC 40 MG VIAL IV PUSH ×2 (08:22→20:51)
[2019-04-25] MEDS: FOLIC ACID 1 MG TABLET PO (08:22)
[2019-04-25] MEDS: DOCUSATE SODIUM 100 MG CAPSULE PO ×2 (08:22→20:51)
[2019-04-25] MEDS: APIXABAN 5 MG TABLET PO ×2 (08:28→17:56)
--- NOTE | 2019-04-25 10:42 | WPDINTPN ---
Progress Note: A&P Assessment and Plan (1) Acute respiratory failure with hypoxia: Code(s): J96.01 - Acute respiratory failure with hypoxia Status: Acute Assessment and Plan: Acute respiratory failure with bilateral airspace disease likely pneumonia with ARDS and volume overload. - patient failed BiPAP and was intubated on 04/21/2019 increased work of breathing, worsening hypoxia and respiratory distress - on CMV mode FiO2 of 75% and PEEP of 8 - fentanyl , propofol for sedation - sputum cx grew stenotrophomonas maltophilia and MRSA. Abx changed to bactrim and vancomycin - Continue Solu-Medrol 40 mg twice a day for ARDS - Reviewed chest x-ray And ABG. - high fio2 requirements preventing vent weaning - COntinue lasix (2) ARDS (adult respiratory distress syndrome): Code(s): J80 - Acute respiratory distress syndrome Status: Acute Assessment and Plan: Lung protective strategies with low tidal volume. Wean peep and FiO2 as tolerated. (3) COPD (chronic obstructive pulmonary disease): Qualifiers: COPD type: COPD with acute lower respiratory infection Qualified Code(s): J44.0 - Chronic obstructive pulmonary disease with (acute) lower respiratory infection Code(s): J44.9 - Chronic obstructive pulmonary disease, unspecified Status: Acute Assessment and Plan: No wheezing. Continue bronchodilator and steroids. (4) Acute exacerbation of CHF (congestive heart failure): Qualifiers: Heart failure type: unspecified Qualified Code(s): I50.9 - Heart failure, unspecified Code(s): I50.9 - Heart failure, unspecified Status: Acute Assessment and Plan: Lasix for pulmonary HTN and b/l effusions on cxr as tolerated , on hold currently due to low BP Echo showed ejection fraction of 60-65% with no significant diastolic dysfunction. Mean pulmonary artery pressure of 51. Doppler ultrasound of the lower extremity is negative for DVT. (5) Peripheral vascular disease: Code(s): I73.9 - Peripheral vascular disease, unspecified Status: Acute Assessment and Plan: history of peripheral vascular disease Patient recently had right common femoral artery endarterectomy with bovine pericardial patch and angioplasty at [facility] on 04/03/2019. Patient also has had a left femoral bypass with graft endarterectomy procedure on 02/02/2019. He is currently on apixaban which has been continued. (6) Elevated troponin: Code(s): R79.89 - Other specified abnormal findings of blood chemistry Status: Acute Assessment and Plan: Likely demand ischemia. (7) Hypertension: Qualifiers: Hypertension type: essential hypertension Qualified Code(s): I10 - Essential (primary) hypertension Code(s): I10 - Essential (primary) hypertension Status: Acute Assessment and Plan: Blood pressure within acceptable range. Continue to hold amlodipine. Treat PRN (8) Nicotine dependence: Code(s): F17.200 - Nicotine dependence, unspecified, uncomplicated Status: Acute Assessment and Plan: Smoking cessation counseling once he is extubated. (9) Tobacco dependence: Code(s): F17.200 - Nicotine dependence, unspecified, uncomplicated Status: Acute Assessment and Plan: Cigarette smoking cessation counseling once he is extubated. (10) Daily consumption of alcohol: Code(s): Z78.9 - Other specified health status Status: Acute Assessment and Plan: Continue thiamine and folate. started on librium prn IV ativan for episodes of agitation continue propofol and fentnayl . precedex had to be turned off as patient continued to remain agitated despite it. Additional Plan sister , nephew and updated Advance TF to goal SUP and DVT p Code Status - Full Code Subjective Date/time seen: 04/25/19 10:42 Interval history:
--- NOTE | 2019-04-25 10:52 | PCDIET ---
Nutrition Follow-Up Complete: Nutrition Diagnosis: Inadequate oral intake related to oral intubation as evidenced by NPO status. Nutrition Goal: Patient to meet estimated nutritional needs. Goal met. Patient tolerating Jevity 1.2 @ 55mL/hr goal rate. Residuals 0-250mL. Last recorded weight is 71.5 kg which is increased. I/O positive. Bowel Motility: No documented bowel movement. Labs Reviewed: Glu (156), BUN (22), Cr (0.6) Meds Noted: Precedex, Colace, Pepcid, Albuterol, Fentanyl, Folic Acid, Novolog, Solu Medrol, Thiamine, Vancomycin, Propofol (2mL/hr which provides 53kcal over 24 hour period) Additional Notes: Right groin incision; no documented pressure ulcers. Recommend continuing present tube feeding and continuing to add to bowel regimen, as needed/medically appropriate. Nutrition Monitoring and Evaluation: Follow up every Wednesday/Wednesday. Follow daily in ICU rounds.
[2019-04-25] MEDS: LIDOCAINE HCL 1% PF INJ 5 ML VIAL INFILTRATE (12:00)
[2019-04-25] MEDS: CHLORDIAZEPOXIDE 25 MG CAPSULE 50 MG PO ×2 (13:14→21:25)
[2019-04-25] MEDS: LORAZEPAM INJ 2 MG/ML VIAL IV PUSH (13:20)
[2019-04-25 15:41] LABS: Glucose Point of Care 180 (65-105)
[2019-04-25 15:52] LABS: Procalcitonin 0.68 ng/mL (<0.10)
--- NOTE | 2019-04-25 16:14 | P.PNIM_ITS ---
Progress Note: A&P Assessment and Plan (1) Acute respiratory failure with hypoxia: Code(s): J96.01 - Acute respiratory failure with hypoxia Status: Acute Assessment and Plan: * Vent support, pulmonary toilet, furosemide, azithromycin and cefepime and metronidazole, steroids * 04/24 CXR with minimal change (mildly worse LLL). Wean sedation and possible extubation later. * 04/25 CXR again no change. wean as possible (2) Acute exacerbation of CHF (congestive heart failure): Qualifiers: Heart failure type: unspecified Qualified Code(s): I50.9 - Heart failure, unspecified Code(s): I50.9 - Heart failure, unspecified Status: Acute Assessment and Plan: * continue Diuresis with IV furosemide (3) COPD (chronic obstructive pulmonary disease): Qualifiers: COPD type: COPD with acute lower respiratory infection Qualified Code(s): J44.0 - Chronic obstructive pulmonary disease with (acute) lower respiratory infection Code(s): J44.9 - Chronic obstructive pulmonary disease, unspecified Status: Acute Assessment and Plan: * Vent support, pulmonary toilet, azithromycin and ceftriaxone (4) Elevated troponin: Code(s): R79.89 - Other specified abnormal findings of blood chemistry Status: Acute Assessment and Plan: * Suspect demand ischemia, no ACS (5) Hyponatremia: Code(s): E87.1 - Hypo-osmolality and hyponatremia Status: Acute Assessment and Plan: * Due to CHF w/ possible SIADH component * Diuresis * 04/24 131 * 04/25 still 131 (6) Normocytic anemia: Code(s): D64.9 - Anemia, unspecified Status: Acute Assessment and Plan: * Lab c/w both ACD and B12 deficiency * Replaced B12 (was 233) * Check IFOB * 04/24 hgb 8.8 * Monitor h/h (7) Daily consumption of alcohol: Code(s): Z78.9 - Other specified health status Status: Acute Assessment and Plan: * w/d prophylaxis (8) Tobacco dependence: Code(s): F17.200 - Nicotine dependence, unspecified, uncomplicated Status: Acute Assessment and Plan: * Monitor for s/sx w/d (9) Hypertension: Qualifiers: Hypertension type: essential hypertension Qualified Code(s): I10 - Esse ntial (primary) hypertension Code(s): I10 - Essential (primary) hypertension Status: Acute Assessment and Plan: * Treat PRN Subjective Date/time seen: 04/25/19 16:14 Interval history: Date of visit 04/24 Episode 04/21 with desaturation, improved with reduction in TV 04/23 quiet night. Remains sedated on vent 04/24 quiet night. Sedation weaning. 04/25 till FIO2 75% no sig change on xray either Exam Narrative: Exam Narrative: Blood pressure 136/96 pulse 60 sat 92% on 75% FiO2 peep 10 HEENT: PERRL, ET & OG tubes in place NECK: No JVD CHEST: Coarse BS HEART: NL S1/S2, regular, no murmur ABDOMEN: BS hypoactive, soft, nontender, no mass, no bruits EXTREMITIES: No cyanosis, trace left ankle edema pulses not palpable NEUROLOGIC: CN intact and symmetric to inspection. MUSCULOSKELETAL: No gross deformities PSYCH: Sedated. Objective Data Vital Signs Vital Signs: Vital Signs - 24 hr 04/24/19 17:40 04/24/19 18:00 04/24/19 19:50 Temperature Pulse Rate 83 65 66 Respiratory Rate 26 H Blood Pressure 111/66 Pulse Oximetry 92 93 93 04/24/19 19:59 04/24/19 20:00 04/24/19
--- NOTE | 2019-04-25 16:14 | PM.IMPN ---
Progress Note: A&P Assessment and Plan (1) Acute respiratory failure with hypoxia: Code(s): J96.01 - Acute respiratory failure with hypoxia Status: Acute Assessment and Plan: Vent support, pulmonary toilet, furosemide, azithromycin and cefepime and metronidazole, steroids 04/24 CXR with minimal change (mildly worse LLL). Wean sedation and possible extubation later. 04/25 CXR again no change. wean as possible (2) Acute exacerbation of CHF (congestive heart failure): Qualifiers: Heart failure type: unspecified Qualified Code(s): I50.9 - Heart failure, unspecified Code(s): I50.9 - Heart failure, unspecified Status: Acute Assessment and Plan: continue Diuresis with IV furosemide (3) COPD (chronic obstructive pulmonary disease): Qualifiers: COPD type: COPD with acute lower respiratory infection Qualified Code(s): J44.0 - Chronic obstructive pulmonary disease with (acute) lower respiratory infection Code(s): J44.9 - Chronic obstructive pulmonary disease, unspecified Status: Acute Assessment and Plan: Vent support, pulmonary toilet, azithromycin and ceftriaxone (4) Elevated troponin: Code(s): R79.89 - Other specified abnormal findings of blood chemistry Status: Acute Assessment and Plan: Suspect demand ischemia, no ACS (5) Hyponatremia: Code(s): E87.1 - Hypo-osmolality and hyponatremia Status: Acute Assessment and Plan: Due to CHF w/ possible SIADH component Diuresis 04/24 131 04/25 still 131 (6) Normocytic anemia: Code(s): D64.9 - Anemia, unspecified Status: Acute Assessment and Plan: Lab c/w both ACD and B12 deficiency Replaced B12 (was 233) Check IFOB 04/24 hgb 8.8 Monitor h/h (7) Daily consumption of alcohol: Code(s): Z78.9 - Other specified health status Status: Acute Assessment and Plan: w/d prophylaxis (8) Tobacco dependence: Code(s): F17.200 - Nicotine dependence, unspecified, uncomplicated Status: Acute Assessment and Plan: Monitor for s/sx w/d (9) Hypertension: Qualifiers: Hypertension type: essential hypertension Qualified Code(s): I10 - Essential (primary) hypertension Code(s): I10 - Essential (primary) hypertension Status: Acute Assessment and Plan: Treat PRN Subjective Date/time seen: 04/25/19 16:14 Interval history: Date of visit 04/24 Episode 04/21 with desaturation, improved with reduction in TV 04/23 quiet night. Remains sedated on vent 04/24 quiet night. Sedation weaning. 04/25 till FIO2 75% no sig change on xray either Exam Narrative: Exam Narrative: Blood pressure 136/96 pulse 60 sat 92% on 75% FiO2 peep 10 HEENT: PERRL, ET & OG tubes in place NECK: No JVD CHEST: Coarse BS HEART: NL S1/S2, regular, no murmur ABDOMEN: BS hypoactive, soft, nontender, no mass, no bruits EXTREMITIES: No cyanosis, trace left ankle edema pulses not palpable NEUROLOGIC: CN intact and symmetric to inspection. MUSCULOSKELETAL: No gross deformities PSYCH: Sedated. Objective Data Vital Signs Vital Signs: Vital Signs - 24 hr 04/24/19 17:40 04/24/19 18:00 04/24/19 19:50 Temperature Pulse Rate 83 65 66 Respiratory Rate 26 H Blood Pressure 111/66 Pulse Oximetry 92 93 93 04/24/19 19:59 04/24/19 20:00 04/24/19 20:10 Temperature 36.4 C Pulse Rate 66 84 65 Respiratory Rate 26 H 26 H 26 H Blood Pressure 97/60 L Pulse Oximetry 91 04/24/19 22:00 04/24/19 22:54 04/25/19 00:00 Temperature 36.6 C Pulse Rate 84 62 67 Respiratory Rate 26 H 26 H Blood Pressure 117/74 115/72 Pulse Oximetry 91 92 89 L 04/25/19 01:54 04/25/19 02:00 04/25/19 02:04 Temperature Pulse Rate 62 56 L 56 L Respiratory Rate 26 H 26 H 26 H Blood Pressure 108/69 Pulse Oximetry 92 92 04/25/19 04:00 04/25/19 04:58 04/25/19 06:00 Temperature 36.4 C L Pulse Rate 56 L 52 L 53
[2019-04-25 18:37] LABS: Glucose Point of Care 127 (65-105)
[2019-04-25] MEDS: PROPOFOL IV EMULSION 100 ML 12.2 MG IV CONT (22:36)
[2019-04-26] VITALS (28 sets, daily range): BP systolic 87–129; BP diastolic 54–79; PULSE 64–118; RESP 25–26; TEMP 36.5–37.1; O2SAT 94–100
[2019-04-26] MEDS: polyethylene glycoL 3350 17 GM POWD.PACK PO (00:44)
[2019-04-26 00:54] LABS: Glucose Point of Care 140 (65-105)
[2019-04-26] MEDS: ALBUTEROL SULFATE NEB 2.5 MG/0.5 ML INH 5 MG INHALATION ×4 (02:29→20:57)
[2019-04-26] MEDS: IPRATROPIUM BR 0.02% INH SOLN 0.5 MG/2.5 ML VIAL INHALATION ×4 (02:30→20:57)
[2019-04-26] MEDS: PROPOFOL IV EMULSION 100 ML 12.2 MG IV CONT (04:05)
[2019-04-26 04:54] LABS: Alveolar/Arterial O2 Gradient 350.7 mmHg; Base Excess ABG 2.5 mEq/l (+/-2.0); Carboxyhemoglobin 0.3 % THb (0-2.0); Device VENTILATOR; Fractional Inspired Oxygen 65 %; HCO3 ABG 27.3 mEq/l (22.0-26.0); Methemoglobin ABG 0.6 %THb (0-1.5); Modified Allen's Test Pass; Oxygen Content ABG 14.1 %vol (16.0-22.0); Oxygen Saturation ABG 93.4 % (95.0-100.0); Oxyhemoglobin 90.3 % THb (90.0-100.0); PCO2 ABG 42.9 mmHg (35.0-45.0); PO2 ABG 66.1 mmHg (80.0-100.0); PO2 FiO2 Ratio Arterial Blood 1.02 %; Reduced Hemoglobin 8.8 %THb (0-5.0); Site Drawn RIGHT RADIAL; Total Hemoglobin 11.1 g/dL (12.0-18.0); pH ABG 7.421 (7.350-7.450)
[2019-04-26 04:55] LABS: Arterial Blood Gas PEEP 8 cmH2O; Arterial Blood Gas Tidal Volume 340 ml; Arterial Blood Gas Vent Mode CMV; Arterial Blood Gas Ventilator rate 26 /MIN
[2019-04-26 05:41] LABS: Hematocrit 30.8 % (42.0-52.0); Hemoglobin 9.7 g/dL (14.0-18.0); Mean Corpuscular HGB Conc 31.5 g/dl (32-36); Mean Corpuscular Volume 92.2 fl (80-100); Mean Platelet Volume 10.5 fl (7.4-10.4); Platelet Count Result 794 k/mm3 (150-375); Red Blood Count 3.34 M/mm3 (4.6-6.20); Red Cell Distribution Width 13.3 % (11.5-14.5); White Blood Count 12.1 K/mm3 (4.5-10.0)
[2019-04-26] MEDS: CHLORDIAZEPOXIDE 25 MG CAPSULE 50 MG PO ×3 (05:49→22:40)
[2019-04-26 06:02] LABS: Blood Urea Nitrogen 25 mg/dL (9-20); Calcium 8.4 mg/dL (8.4-10.2); Carbon Dioxide 27 mmol/L (22-30); Chloride 97 mmol/L (98-107); Estimated CRCL calculation 88 ml/min; Estimated Glomerular Filt Rate > 60; Glucose 139 mg/dL (75-110); Magnesium 2.2 mg/dL (1.6-2.3); Potassium 4.6 mmol/L (3.4-5.0); Sodium 129 mmol/L (137-145)
--- NOTE | 2019-04-26 07:54 | WPDCDIQUERY2 ---
CDI Query Clarification Request Two queries: 1) - ARDS has been documented by the intensivists - No mention of ARDS by hospitalists Please clarify if ARDS has been ruled in or ruled out. 2) - Likely Pneumonia has been documented by the intensivists - COPD with acute lower respiratory tract infection documented by hospitalists - No mention of Pneumonia by hospitalists Please clarify if Pneumonia has been ruled in or ruled out.
[2019-04-26] MEDS: FUROSEMIDE INJ 40 MG/4 ML VIAL IV PUSH (08:50)
[2019-04-26] MEDS: LORAZEPAM INJ 2 MG/ML VIAL IV PUSH (08:51)
[2019-04-26] MEDS: FAMOTIDINE 20 MG/2 ML VIAL IV PUSH ×2 (08:52→21:06)
[2019-04-26] MEDS: APIXABAN 5 MG TABLET PO ×2 (08:52→16:48)
[2019-04-26] MEDS: ASPIRIN 81 MG ENTERIC TABLET PO (08:52)
[2019-04-26] MEDS: methylPREDNISolone SOD SUCC 40 MG VIAL IV PUSH ×2 (08:53→21:06)
[2019-04-26] MEDS: MUPIROCIN 2% OINT 22 GM TUBE 1 APPLIC EACH NARE ×2 (08:53→21:06)
[2019-04-26] MEDS: FOLIC ACID 1 MG TABLET PO (08:53)
[2019-04-26] MEDS: THIAMINE HCL 100 MG TABLET PO (08:54)
--- NOTE | 2019-04-26 09:41 | WPDINTPN ---
Progress Note: A&P Assessment and Plan (1) Acute respiratory failure with hypoxia: Code(s): J96.01 - Acute respiratory failure with hypoxia Status: Acute Assessment and Plan: Acute respiratory failure with bilateral airspace disease likely pneumonia and volume overload. - patient failed BiPAP and was intubated on 04/21/2019 increased work of breathing, worsening hypoxia and respiratory distress - on CMV mode FiO2 of 60% and PEEP of 8 - fentanyl , propofol for sedation - sputum cx grew stenotrophomonas maltophilia and MRSA. Abx changed to levaquin and vancomycin - Continue Solu-Medrol 40 mg twice a day for ARDS - Reviewed chest x-ray And ABG. - high fio2 requirements preventing vent weaning - lasix x1 today (2) ARDS (adult respiratory distress syndrome): Code(s): J80 - Acute respiratory distress syndrome Status: Acute Assessment and Plan: Lung protective strategies with low tidal volume. Wean peep and FiO2 as tolerated. (3) COPD (chronic obstructive pulmonary disease): Qualifiers: COPD type: COPD with acute lower respiratory infection Qualified Code(s): J44.0 - Chronic obstructive pulmonary disease with (acute) lower respiratory infection Code(s): J44.9 - Chronic obstructive pulmonary disease, unspecified Status: Acute Assessment and Plan: No wheezing. Continue bronchodilator and steroids. (4) Acute exacerbation of CHF (congestive heart failure): Qualifiers: Heart failure type: unspecified Qualified Code(s): I50.9 - Heart failure, unspecified Code(s): I50.9 - Heart failure, unspecified Status: Acute Assessment and Plan: Lasix for pulmonary HTN and b/l effusions on cxr as tolerated Echo showed ejection fraction of 60-65% with no significant diastolic dysfunction. Mean pulmonary artery pressure of 51. Doppler ultrasound of the lower extremity is negative for DVT. On full dose anticoagulation with eliquis (5) Peripheral vascular disease: Code(s): I73.9 - Peripheral vascular disease, unspecified Status: Acute Assessment and Plan: history of peripheral vascular disease Patient recently had right common femoral artery endarterectomy with bovine pericardial patch and angioplasty at [facility] on 04/03/2019. Patient also has had a left femoral bypass with graft endarterectomy procedure on 02/02/2019. He is currently on apixaban which has been continued. (6) Elevated troponin: Code(s): R79.89 - Other specified abnormal findings of blood chemistry Status: Acute Assessment and Plan: Likely demand ischemia. (7) Hypertension: Qualifiers: Hypertension type: essential hypertension Qualified Code(s): I10 - Essential (primary) hypertension Code(s): I10 - Essential (primary) hypertension Status: Acute Assessment and Plan: Blood pressure within acceptable range. Continue to hold amlodipine. Treat PRN (8) Nicotine dependence: Code(s): F17.200 - Nicotine dependence, unspecified, uncomplicated Status: Acute Assessment and Plan: Smoking cessation counseling once he is extubated. (9) Tobacco dependence: Code(s): F17.200 - Nicotine dependence, unspecified, uncomplicated Status: Acute Assessment and Plan: Cigarette smoking cessation counseling once he is extubated. (10) Daily consumption of alcohol: Code(s): Z78.9 - Other specified health status Status: Acute Assessment and Plan: Continue thiamine and folate. started on librium prn IV ativan for episodes of agitation continue propofol and fentnayl . precedex had to be turned off as patient continued to remain agitated despite it. Additional Plan sister updated Advance TF to goal SUP and DVT p Code Status - Full Code Subjective Date/time seen: 04/26/19 09:41 Interval history: Episode 04/21
[2019-04-26] MEDS: DOCUSATE SODIUM LIQ 100 MG/10 ML UDC FEED TUBE ×2 (10:04→21:07)
[2019-04-26 12:27] LABS: Glucose Point of Care 166 (65-105)
--- NOTE | 2019-04-26 13:20 | PCDIET ---
ICU Rounding Note: Patient remains intubated on Jevity 1.2 @ 55mL/hr goal rate. Residuals 360mL and below. Last recorded weight is 62.4kg which is down from last review and stable with admission. Bowel Motility: Scant BM documented on 04/25/19. Labs Reviewed: Glu (139), BUN (25), Cr (0.6), Na (129) Meds Noted: Albuterol, Fentanyl, Levaquin, Solu Medrol, Colace, Folic Acid, Miralax, Propofol (14.3mL/hr which provides 377kcal over 24 hour period), Pepcid, Novolog, Thiamine Additional Notes: MD to order Reglan today. pCO2 WNL. Right groin incision but no pressure sores documented. Will continue to monitor; no new recommendations at this time. Following daily in ICU rounds. Assessing/reassessing every Wednesday/Wednesday.
[2019-04-26] MEDS: PROPOFOL IV EMULSION 100 ML 8.2 MG IV CONT (14:50)
--- NOTE | 2019-04-26 15:01 | PM.IMPN ---
Progress Note: A&P Assessment and Plan (1) Acute respiratory failure with hypoxia: Code(s): J96.01 - Acute respiratory failure with hypoxia Status: Acute Assessment and Plan: Vent support, pulmonary toilet, furosemide, azithromycin and cefepime and metronidazole, steroids 04/24 CXR with minimal change (mildly worse LLL). Wean sedation and possible extubation later. 04/25 CXR again no change. wean as possible 04/26 CXR better and continue wean with decrease FIO2 as tolerated (2) Acute exacerbation of CHF (congestive heart failure): Qualifiers: Heart failure type: unspecified Qualified Code(s): I50.9 - Heart failure, unspecified Code(s): I50.9 - Heart failure, unspecified Status: Acute Assessment and Plan: Diuresis with IV furosemide and language specialist stopped today (3) COPD (chronic obstructive pulmonary disease): Qualifiers: COPD type: COPD with acute lower respiratory infection Qualified Code(s): J44.0 - Chronic obstructive pulmonary disease with (acute) lower respiratory infection Code(s): J44.9 - Chronic obstructive pulmonary disease, unspecified Status: Acute Assessment and Plan: Vent support, pulmonary toilet, Vanc for MRSA of sputum (4) Elevated troponin: Code(s): R79.89 - Other specified abnormal findings of blood chemistry Status: Acute Assessment and Plan: Suspect demand ischemia, no ACS (5) Hyponatremia: Code(s): E87.1 - Hypo-osmolality and hyponatremia Status: Acute Assessment and Plan: Due to CHF w/ possible SIADH component Diuresis 04/24 131 04/25 still 131 (6) Normocytic anemia: Code(s): D64.9 - Anemia, unspecified Status: Acute Assessment and Plan: Lab c/w both ACD and B12 deficiency Replaced B12 (was 233) Check IFOB 04/24 hgb 8.8 Monitor h/h (7) Daily consumption of alcohol: Code(s): Z78.9 - Other specified health status Status: Acute Assessment and Plan: w/d prophylaxis (8) Tobacco dependence: Code(s): F17.200 - Nicotine dependence, unspecified, uncomplicated Status: Acute Assessment and Plan: Monitor for s/sx w/d (9) Hypertension: Qualifiers: Hypertension type: essential hypertension Qualified Code(s): I10 - Essential (primary) hypertension Code(s): I10 - Essential (primary) hypertension Status: Acute Assessment and Plan: Treat PRN Subjective Date/time seen: 04/26/19 15:01 Interval history: Date of visit 04/26 Episode 04/21 with desaturation, improved with reduction in TV 04/23 quiet night. Remains sedated on vent 04/24 quiet night. Sedation weaning. 04/25 till FIO2 75% no sig change on xray either 04/26 FIO2 at 65% and cxr improving Exam Narrative: Exam Narrative: Blood pressure 112/70 pulse 82 sat 96% on 65% FiO2 peep 8 HEENT: PERRL, ET & OG tubes in place NECK: No JVD CHEST: Coarse BS faint crackle left ant HEART: NL S1/S2, regular, no murmur ABDOMEN: BS hypoactive, soft, nontender, no mass, no bruits EXTREMITIES: No cyanosis, trace left ankle edema pulses not palpable NEUROLOGIC: CN intact and symmetric to inspection. MUSCULOSKELETAL: No gross deformities PSYCH: Sedated. Objective Data Vital Signs Vital Signs: Vital Signs - 24 hr 04/25/19 16:00 04/25/19 17:08 04/25/19 18:00 Temperature 35.9 C L Pulse Rate 69 62 69 Respiratory Rate 18 18 Blood Pressure 99/64 L 96/67 L Pulse Oximetry 99 100 99 04/25/19 20:00 04/25/19 20:05 04/25/19 20:06 Temperature 36.4 C L Pulse Rate 100 99 99 Respiratory Rate 26 H 26 H Blood Pressure 114/70 Pulse Oximetry 97 96 04/25/19 20:16 04/25/19 22:00 04/25/19 23:30 Temperature Pulse Rate 103 H 95 75 Respiratory Rate 26 H 26 H Blood Pressure 99/67 L Pulse Oximetry 96 97 04/26/19 00:00 04/26/19 02:00 04/26/19 02:30 Temperature 36.7 C Pulse Rate 75 81 70 Respiratory Rate 26 H 26 H Bl
[2019-04-26 18:04] LABS: Glucose Point of Care 126 (65-105)
[2019-04-26 21:11] LABS: Vancomycin Trough 17.1 ug/mL (10.0-20.0)
[2019-04-27] VITALS (28 sets, daily range): BP systolic 98–150; BP diastolic 58–87; PULSE 26–130; RESP 23–115; TEMP 36.4–37.2; O2SAT 97–100
[2019-04-27 00:34] LABS: Glucose Point of Care 160 (65-105)
[2019-04-27] MEDS: IPRATROPIUM BR 0.02% INH SOLN 0.5 MG/2.5 ML VIAL INHALATION ×4 (02:57→20:17)
[2019-04-27] MEDS: PROPOFOL IV EMULSION 100 ML 8.2 MG IV CONT (02:57)
[2019-04-27] MEDS: ALBUTEROL SULFATE NEB 2.5 MG/0.5 ML INH 5 MG INHALATION ×4 (02:57→20:17)
[2019-04-27 04:53] LABS: Alveolar/Arterial O2 Gradient 211.4 mmHg; Base Excess ABG 2.8 mEq/l (+/-2.0); Carboxyhemoglobin 0.2 % THb (0-2.0); Fractional Inspired Oxygen 50 %; Methemoglobin ABG 0.6 %THb (0-1.5); Oxygen Content ABG 13.8 %vol (16.0-22.0); Oxygen Saturation ABG 97.1 % (95.0-100.0); Oxyhemoglobin 95.5 % THb (90.0-100.0); PCO2 ABG 45.9 mmHg (35.0-45.0); PO2 ABG 93.5 mmHg (80.0-100.0); PO2 FiO2 Ratio Arterial Blood 1.87 %; Reduced Hemoglobin 3.7 %THb (0-5.0); Total Hemoglobin 10.2 g/dL (12.0-18.0); pH ABG 7.403 (7.350-7.450)
[2019-04-27 04:54] LABS: Device VENTILATOR; Modified Allen's Test Pass; Site Drawn RIGHT RADIAL
[2019-04-27 04:55] LABS: Arterial Blood Gas PEEP 8 cmH2O; Arterial Blood Gas Tidal Volume 340 ml; Arterial Blood Gas Vent Mode CMV; Arterial Blood Gas Ventilator rate 26 /MIN
[2019-04-27 05:28] LABS: Hematocrit 28.4 % (42.0-52.0); Hemoglobin 9.1 g/dL (14.0-18.0); Mean Corpuscular Hemoglobin 29.6 pg (26-34); Mean Corpuscular Volume 92.5 fl (80-100); Mean Platelet Volume 10.5 fl (7.4-10.4); Platelet Count Result 673 k/mm3 (150-375); Red Blood Count 3.07 M/mm3 (4.6-6.20); Red Cell Distribution Width 13.2 % (11.5-14.5); White Blood Count 8.6 K/mm3 (4.5-10.0)
[2019-04-27 05:42] LABS: Blood Urea Nitrogen 25 mg/dL (9-20); Calcium 8.2 mg/dL (8.4-10.2); Carbon Dioxide 30 mmol/L (22-30); Chloride 96 mmol/L (98-107); Estimated CRCL calculation 88 ml/min; Estimated Glomerular Filt Rate > 60; Glucose 141 mg/dL (75-110); Potassium 4.4 mmol/L (3.4-5.0); Sodium 131 mmol/L (137-145)
[2019-04-27 05:48] LABS: IFOB Positive Control Positive; Immunochemical Fecal Occult Bl Positive (N)
[2019-04-27] MEDS: CHLORDIAZEPOXIDE 25 MG CAPSULE 50 MG PO ×3 (06:02→22:12)
[2019-04-27] MEDS: APIXABAN 5 MG TABLET PO ×2 (09:12→17:04)
[2019-04-27] MEDS: ASPIRIN 81 MG ENTERIC TABLET PO (09:12)
[2019-04-27] MEDS: FAMOTIDINE 20 MG/2 ML VIAL IV PUSH ×2 (09:12→22:05)
[2019-04-27] MEDS: methylPREDNISolone SOD SUCC 40 MG VIAL IV PUSH ×2 (09:12→22:05)
[2019-04-27] MEDS: FOLIC ACID 1 MG TABLET PO (09:12)
[2019-04-27] MEDS: MUPIROCIN 2% OINT 22 GM TUBE 1 APPLIC EACH NARE ×2 (09:12→22:06)
[2019-04-27] MEDS: THIAMINE HCL 100 MG TABLET PO (09:13)
--- NOTE | 2019-04-27 09:58 | WPDINTPN ---
Progress Note: A&P Assessment and Plan (1) Acute respiratory failure with hypoxia: Code(s): J96.01 - Acute respiratory failure with hypoxia Status: Acute Assessment and Plan: Acute respiratory failure with bilateral airspace disease likely pneumonia and volume overload. - patient failed BiPAP and was intubated on 04/21/2019 increased work of breathing, worsening hypoxia and respiratory distress - on CMV mode FiO2 of 60% and PEEP of 8 - fentanyl , propofol for sedation - sputum cx grew stenotrophomonas maltophilia and MRSA. antibiotics with changed to levaquin and vancomycin on 04/26/2019 - Continue Solu-Medrol 40 mg twice a day for ARDS - Reviewed chest x-ray And ABG. - high fio2 requirements preventing vent weaning (2) ARDS (adult respiratory distress syndrome): Code(s): J80 - Acute respiratory distress syndrome Status: Acute Assessment and Plan: Lung protective strategies with low tidal volume. Wean peep and FiO2 as tolerated. (3) COPD (chronic obstructive pulmonary disease): Qualifiers: COPD type: COPD with acute lower respiratory infection Qualified Code(s): J44.0 - Chronic obstructive pulmonary disease with (acute) lower respiratory infection Code(s): J44.9 - Chronic obstructive pulmonary disease, unspecified Status: Acute Assessment and Plan: No wheezing. Continue bronchodilator and steroids. (4) Acute exacerbation of CHF (congestive heart failure): Qualifiers: Heart failure type: unspecified Qualified Code(s): I50.9 - Heart failure, unspecified Code(s): I50.9 - Heart failure, unspecified Status: Acute Assessment and Plan: Lasix for pulmonary HTN and b/l effusions on cxr as tolerated Echo showed ejection fraction of 60-65% with no significant diastolic dysfunction. Mean pulmonary artery pressure of 51. Doppler ultrasound of the lower extremity is negative for DVT. On full dose anticoagulation with eliquis (5) Peripheral vascular disease: Code(s): I73.9 - Peripheral vascular disease, unspecified Status: Acute Assessment and Plan: history of peripheral vascular disease Patient recently had right common femoral artery endarterectomy with bovine pericardial patch and angioplasty at [facility] on 04/03/2019. Patient also has had a left femoral bypass with graft endarterectomy procedure on 02/02/2019. - on apixaban (6) Elevated troponin: Code(s): R79.89 - Other specified abnormal findings of blood chemistry Status: Acute Assessment and Plan: Likely demand ischemia. (7) Hypertension: Qualifiers: Hypertension type: essential hypertension Qualified Code(s): I10 - Essential (primary) hypertension Code(s): I10 - Essential (primary) hypertension Status: Acute Assessment and Plan: Blood pressure within acceptable range. Continue to hold amlodipine. Treat PRN (8) Tobacco dependence: Code(s): F17.200 - Nicotine dependence, unspecified, uncomplicated Status: Acute Assessment and Plan: Cigarette smoking cessation counseling once he is extubated. (9) Daily consumption of alcohol: Code(s): Z78.9 - Other specified health status Status: Acute Assessment and Plan: Continue thiamine and folate. continue librium prn IV ativan for episodes of agitation continue propofol and fentnayl . Additional Plan will discuss with sister and updated her with patient's condition and plan of care Code status: Full code Critical care time spent: 33 minutes Due to a high probability of clinically significant, life threatening deterioration, the patient required my highest level of preparedness to intervene emergently and I personally spent this critical care time directly and personally managing the patient. This critical care time included obtaining a history; examining the p
[2019-04-27 11:44] LABS: Glucose Point of Care 140 (65-105)
--- NOTE | 2019-04-27 12:26 | PCDIET ---
ICU Rounding Note: Patient tolerating Jevity 1.2 @ 55mL/hr with residuals 240mL and below. Last recorded weight is 73kg which is increased. +I/O. Urine output improved. Bowel Motility: +BM today. Labs Reviewed: Glu (141), BUN (25), Cr (0.6), Na (131) Meds Noted: Vancomycin, Folic Acid, Thiamine, Albuterol, Novolog, Miralax, Colace, Levaquin, Propofol (6.1mL/hr provides 161kcal over 24 hour period), Pepcid, Fentanyl, Solu Medrol Additional Notes: Right groin incision; no documented pressure ulcers. Recommend continuing present tube feeding. Following daily in ICU rounds. Assessing/reassessing every Wednesday/Wednesday.
[2019-04-27] MEDS: PROPOFOL IV EMULSION 100 ML 6.1 MG IV CONT (14:54)
--- NOTE | 2019-04-27 17:05 | P.PNIM_ITS ---
Progress Note: A&P Assessment and Plan (1) Acute respiratory failure with hypoxia: Code(s): J96.01 - Acute respiratory failure with hypoxia Status: Acute Assessment and Plan: * Vent support, pulmonary toilet, with levaquin and vanc, steroids * 04/24 CXR with minimal change (mildly worse LLL). Wean sedation and possible extubation later. * 04/25 CXR again no change. 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 (3) COPD (chronic obstructive pulmonary disease): Qualifiers: COPD type: COPD with acute lower respiratory infection Qualified Code(s): J44.0 - Chronic obstructive pulmonary disease with (acute) lower respiratory infection Code(s): J44.9 - Chronic obstructive pulmonary disease, unspecified Status: Acute Assessment and Plan: * Vent support, pulmonary toilet, Vanc for MRSA of sputum * Levaquin started 04/26 for strontophonus in sputum (4) Elevated troponin: Code(s): R79.89 - Other specified abnormal findings of blood chemistry Status: Acute Assessment and Plan: * Suspect demand ischemia, no ACS (5) Hyponatremia: Code(s): E87.1 - Hypo-osmolality and hyponatremia Status: Acute Assessment and Plan: * Due to CHF w/ possible SIADH component * Diuresis * 04/24 131 * 04/25 still 131 and again today 04/27 (6) Normocytic anemia: Code(s): D64.9 - Anemia, unspecified Status: Acute Assessment and Plan: * Lab c/w both ACD and B12 deficiency * Replaced B12 (was 233) * Check IFOB * 04/24 hgb 8.8 * Monitor h/h (7) Daily consumption of alcohol: Code(s): Z78.9 - Other specified health status Status: Acute Assessment and Plan: * w/d prophylaxis (8) Tobacco dependence: Code(s): F17.200 - Nicotine dependence, unspecified, uncomplicated Status: Acute Assessment and Plan: * Monitor for s/sx w/d (9) Hypertension: Qualifiers: Hypertension type: essential hypertension Qualified Code(s): I10 - Essential (primary) hypertension Code(s): I10 - Essential (primary) hypertension Status: Acute Assessment and Plan: * Treat PRN Subjective Date/time seen: 04/27/19 17:05 Interval history: Date of visit 04/27 Episode 04/21 with desaturation, improved with reduction in TV 04/23 quiet night. Remains sedated on vent 04/24 quiet night. Sedation weaning. 04/25 till FIO2 75% no sig change on xray either 04/26 FIO2 at 65% and cxr improving 04/27 FIO2 at 50% and cxr no change Exam Narrative: Exam Narrative: Blood pressure 120/68 pulse 100 sat 96% on 50% FiO2 peep 8 HEENT: PERRL, ET & OG tubes in place NECK: No JVD CHEST: Coarse BS no wheeze HEART: NL S1/S2, regular, no murmur ABDOMEN: BS hypoactive, soft, nontender, no mass, no bruits EXTREMITIES: No cyanosis, trace left ankle edema pulses not palpable NEUROLOGIC: CN intact and symmetric to inspection. MUSCULOSKELETAL: No gross deformities PSYCH: Sedated. Objective Data Vital Signs Vital Signs: Vital Signs - 24 hr 04/26/19 18:00
--- NOTE | 2019-04-27 17:05 | PM.IMPN ---
Progress Note: A&P Assessment and Plan (1) Acute respiratory failure with hypoxia: Code(s): J96.01 - Acute respiratory failure with hypoxia Status: Acute Assessment and Plan: Vent support, pulmonary toilet, with levaquin and vanc, steroids 04/24 CXR with minimal change (mildly worse LLL). Wean sedation and possible extubation later. 04/25 CXR again no change. wean as possible 04/26 CXR better and continue wean with decrease FIO2 as tolerated 04/27 CXR no change but have continued to wean FI02 to 50% (2) Acute exacerbation of CHF (congestive heart failure): Qualifiers: Heart failure type: unspecified Qualified Code(s): I50.9 - Heart failure, unspecified Code(s): I50.9 - Heart failure, unspecified Status: Acute Assessment and Plan: Diuresis with IV furosemide intermittently per relief captain (3) COPD (chronic obstructive pulmonary disease): Qualifiers: COPD type: COPD with acute lower respiratory infection Qualified Code(s): J44.0 - Chronic obstructive pulmonary disease with (acute) lower respiratory infection Code(s): J44.9 - Chronic obstructive pulmonary disease, unspecified Status: Acute Assessment and Plan: Vent support, pulmonary toilet, Vanc for MRSA of sputum Levaquin started 04/26 for strontophonus in sputum (4) Elevated troponin: Code(s): R79.89 - Other specified abnormal findings of blood chemistry Status: Acute Assessment and Plan: Suspect demand ischemia, no ACS (5) Hyponatremia: Code(s): E87.1 - Hypo-osmolality and hyponatremia Status: Acute Assessment and Plan: Due to CHF w/ possible SIADH component Diuresis 04/24 131 04/25 still 131 and again today 04/27 (6) Normocytic anemia: Code(s): D64.9 - Anemia, unspecified Status: Acute Assessment and Plan: Lab c/w both ACD and B12 deficiency Replaced B12 (was 233) Check IFOB 04/24 hgb 8.8 Monitor h/h (7) Daily consumption of alcohol: Code(s): Z78.9 - Other specified health status Status: Acute Assessment and Plan: w/d prophylaxis (8) Tobacco dependence: Code(s): F17.200 - Nicotine dependence, unspecified, uncomplicated Status: Acute Assessment and Plan: Monitor for s/sx w/d (9) Hypertension: Qualifiers: Hypertension type: essential hypertension Qualified Code(s): I10 - Essential (primary) hypertension Code(s): I10 - Essential (primary) hypertension Status: Acute Assessment and Plan: Treat PRN Subjective Date/time seen: 04/27/19 17:05 Interval history: Date of visit 04/27 Episode 04/21 with desaturation, improved with reduction in TV 04/23 quiet night. Remains sedated on vent 04/24 quiet night. Sedation weaning. 04/25 till FIO2 75% no sig change on xray either 04/26 FIO2 at 65% and cxr improving 04/27 FIO2 at 50% and cxr no change Exam Narrative: Exam Narrative: Blood pressure 120/68 pulse 100 sat 96% on 50% FiO2 peep 8 HEENT: PERRL, ET & OG tubes in place NECK: No JVD CHEST: Coarse BS no wheeze HEART: NL S1/S2, regular, no murmur ABDOMEN: BS hypoactive, soft, nontender, no mass, no bruits EXTREMITIES: No cyanosis, trace left ankle edema pulses not palpable NEUROLOGIC: CN intact and symmetric to inspection. MUSCULOSKELETAL: No gross deformities PSYCH: Sedated. Objective Data Vital Signs Vital Signs: Vital Signs - 24 hr 04/26/19 18:00 04/26/19 19:50 04/26/19 20:00 Temperature 37.1 C Pulse Rate 100 112 H 95 Respiratory Rate 26 H 26 H Blood Pressure 106/74 115/67 Pulse Oximetry 96 97 96 04/26/19 20:59 04/26/19 21:08 04/26/19 22:00 Temperature Pulse Rate 104 H 105 H 91 Respiratory Rate 26 H 26 H 26 H Blood Pressure 97/64 L Pulse Oximetry 96 04/26/19 23:00 04/27/19 00:00 04/27/19 02:00 Temperature 37.0 C Pulse Rate 66 62 66 Respiratory Rate 26 H 26 H Blood Pressure 98/58 L 103/61 Pulse Oximet
[2019-04-27 18:10] LABS: Glucose Point of Care 140 (65-105)
[2019-04-27] MEDS: SCOPOLAMINE 1.5 MG PATCH TRANSDERM (22:06)
[2019-04-28] VITALS (19 sets, daily range): BP systolic 89–137; BP diastolic 56–77; PULSE 62–119; RESP 21–26; TEMP 36.3–36.9; O2SAT 99–100
[2019-04-28 00:56] LABS: Glucose Point of Care 149 (65-105)
[2019-04-28] MEDS: ALBUTEROL SULFATE NEB 2.5 MG/0.5 ML INH 5 MG INHALATION ×3 (02:26→14:05)
[2019-04-28] MEDS: IPRATROPIUM BR 0.02% INH SOLN 0.5 MG/2.5 ML VIAL INHALATION ×3 (02:26→14:04)
[2019-04-28] MEDS: PROPOFOL IV EMULSION 100 ML 8.2 MG IV CONT ×2 (02:37→12:35)
--- NOTE | 2019-04-28 03:35 | PC.NURSE ---
Pt more awake asking this RN what happened. Pt states that her boyfriend moved out 2 days ago and triggered si/overdose.
[2019-04-28 05:01] LABS: Alveolar/Arterial O2 Gradient 128.1 mmHg; Base Excess ABG 5.2 mEq/l (+/-2.0); Carboxyhemoglobin 0.2 % THb (0-2.0); Fractional Inspired Oxygen 40 %; HCO3 ABG 28.2 mEq/l (22.0-26.0); Methemoglobin ABG 0.6 %THb (0-1.5); Oxygen Saturation ABG 98.6 % (95.0-100.0); Oxyhemoglobin 96.8 % THb (90.0-100.0); PO2 ABG 116.9 mmHg (80.0-100.0); PO2 FiO2 Ratio Arterial Blood 2.92 %; Reduced Hemoglobin 2.4 %THb (0-5.0); Total Hemoglobin 9.4 g/dL (12.0-18.0)
[2019-04-28 05:02] LABS: Device VENTILATOR; Modified Allen's Test Pass; Site Drawn RIGHT RADIAL; pH ABG 7.524 (7.350-7.450)
[2019-04-28 05:03] LABS: Arterial Blood Gas PEEP 10 cmH2O; Arterial Blood Gas Tidal Volume 340 ml; Arterial Blood Gas Vent Mode CMV; Arterial Blood Gas Ventilator rate 26 /MIN
[2019-04-28] MEDS: CHLORDIAZEPOXIDE 25 MG CAPSULE 50 MG PO ×2 (05:18→15:08)
[2019-04-28 05:46] LABS: Hematocrit 27.4 % (42.0-52.0); Hemoglobin 8.7 g/dL (14.0-18.0); Mean Corpuscular HGB Conc 31.8 g/dl (32-36); Mean Corpuscular Hemoglobin 29.2 pg (26-34); Mean Corpuscular Volume 91.9 fl (80-100); Mean Platelet Volume 10.6 fl (7.4-10.4); Platelet Count Result 581 k/mm3 (150-375); Red Blood Count 2.98 M/mm3 (4.6-6.20); Red Cell Distribution Width 13.5 % (11.5-14.5); White Blood Count 6.9 K/mm3 (4.5-10.0)
[2019-04-28 06:03] LABS: Blood Urea Nitrogen 19 mg/dL (9-20); Carbon Dioxide 31 mmol/L (22-30); Chloride 95 mmol/L (98-107); Estimated CRCL calculation 126 ml/min; Estimated Glomerular Filt Rate > 60; Glucose 144 mg/dL (75-110); Magnesium 2.1 mg/dL (1.6-2.3); Potassium 4.1 mmol/L (3.4-5.0); Sodium 131 mmol/L (137-145)
--- NOTE | 2019-04-28 07:57 | P.CDI_ITS ---
CDI Query Clarification Request -Acute exacerbation of CHF documented Please further specify type of CHF: * Systolic * Diastolic * Combined Systolic and Diastolic * Unable to determine
--- NOTE | 2019-04-28 07:57 | WPDCDIQUERY2 ---
CDI Query Clarification Request -Acute exacerbation of CHF documented Please further specify type of CHF: Systolic Diastolic Combined Systolic and Diastolic Unable to determine
[2019-04-28] MEDS: THIAMINE HCL 100 MG TABLET PO (09:28)
[2019-04-28] MEDS: APIXABAN 5 MG TABLET PO (09:28)
[2019-04-28] MEDS: FAMOTIDINE 20 MG/2 ML VIAL IV PUSH (09:29)
[2019-04-28] MEDS: methylPREDNISolone SOD SUCC 40 MG VIAL IV PUSH (09:29)
[2019-04-28] MEDS: FOLIC ACID 1 MG TABLET PO (09:29)
--- NOTE | 2019-04-28 11:52 | PCDIET ---
Nutrition Follow-Up Complete: Nutrition Diagnosis: Inadequate oral intake related to oral intubation as evidenced by NPO status. Nutrition Goal: Patient to meet estimated nutritional needs. Goal met. Patient tolerating Jevity 1.2 @ 55mL/hr goal rate. Residuals 0-85mL. Last recorded weight is 70.6 kg which is decreased. Bowel Motility: +Diarrhea reported overnight; Colace held. Labs Reviewed: Glu (144), Cr (0.4), Na (131) Meds Noted: Fentanyl, Folic Acid, Novolog, Levaquin, Solu Medrol, Miralax, Vitamin B1, Vancomycin, Propofol (8.2mL/hr provides 216kcal over 24 hour period). Additional Notes: Right groin incision. No pressure sores reported. Will continue to monitor with same goal. Nutrition Monitoring and Evaluation: Follow up every Wednesday/Wednesday. Follow daily in ICU rounds.
--- NOTE | 2019-04-28 12:45 | WPDINTPN ---
Progress Note: A&P Assessment and Plan (1) Acute respiratory failure with hypoxia: Code(s): J96.01 - Acute respiratory failure with hypoxia Status: Acute Assessment and Plan: Acute respiratory failure with bilateral airspace disease likely pneumonia and volume overload. - patient failed BiPAP and was intubated on 04/21/2019 increased work of breathing, worsening hypoxia and respiratory distress - on CMV mode FiO2 of 40% and PEEP of 8 - fentanyl , propofol for sedation - sputum cx grew stenotrophomonas maltophilia and MRSA. antibiotics changed to levaquin and vancomycin on 04/26/2019 - Continue Solu-Medrol 40 mg twice a day for ARDS - Reviewed chest x-ray And ABG. (2) ARDS (adult respiratory distress syndrome): Code(s): J80 - Acute respiratory distress syndrome Status: Acute Assessment and Plan: Lung protective strategies with low tidal volume. Wean peep and FiO2 as tolerated. (3) COPD (chronic obstructive pulmonary disease): Qualifiers: COPD type: COPD with acute lower respiratory infection Qualified Code(s): J44.0 - Chronic obstructive pulmonary disease with (acute) lower respiratory infection Code(s): J44.9 - Chronic obstructive pulmonary disease, unspecified Status: Acute Assessment and Plan: No wheezing. Continue bronchodilator and steroids. (4) Acute exacerbation of CHF (congestive heart failure): Qualifiers: Heart failure type: unspecified Qualified Code(s): I50.9 - Heart failure, unspecified Code(s): I50.9 - Heart failure, unspecified Status: Acute Assessment and Plan: Lasix for pulmonary HTN and b/l effusions on cxr as tolerated Echo showed ejection fraction of 60-65% with no significant diastolic dysfunction. Mean pulmonary artery pressure of 51. Doppler ultrasound of the lower extremity is negative for DVT. On full dose anticoagulation with eliquis (5) Peripheral vascular disease: Code(s): I73.9 - Peripheral vascular disease, unspecified Status: Acute Assessment and Plan: history of peripheral vascular disease Patient recently had right common femoral artery endarterectomy with bovine pericardial patch and angioplasty at [facility] on 04/03/2019. Patient also has had a left femoral bypass with graft endarterectomy procedure on 02/02/2019. - on apixaban - left lower extremity is pale, cool to touch and pulse is not dopplerable this morning. discussed with vascular surgeon at [facility] who accepted to consult on the patient. Discussed with hematology technologist at [facility] who accepted the patient. - Patient will be transferred to [facility]. Family was updated and agreeable (6) Elevated troponin: Code(s): R79.89 - Other specified abnormal findings of blood chemistry Status: Acute Assessment and Plan: Likely demand ischemia. (7) Hypertension: Qualifiers: Hypertension type: essential hypertension Qualified Code(s): I10 - Essential (primary) hypertension Code(s): I10 - Essential (primary) hypertension Status: Acute Assessment and Plan: Blood pressure within acceptable range. Continue to hold amlodipine. Treat PRN (8) Tobacco dependence: Code(s): F17.200 - Nicotine dependence, unspecified, uncomplicated Status: Acute Assessment and Plan: Cigarette smoking cessation counseling once he is extubated. (9) Daily consumption of alcohol: Code(s): Z78.9 - Other specified health status Status: Acute Assessment and Plan: Continue thiamine and folate. continue librium prn IV ativan for episodes of agitation continue propofol and fentnayl . Additional Plan discussed with the sister hold the patient lives with. I updated her with patient's condition and plan of care. [facility]
[2019-04-28 12:51] LABS: Glucose Point of Care 135 (65-105)
--- NOTE | 2019-05-02 13:48 | PM.DS ---
DS: Diagnosis Admitting Diagnosis Admitting Diagnosis: Acute respiratory failure with hypoxia Discharge Diagnosis (1) Acute respiratory failure with hypoxia: Code(s): J96.01 - Acute respiratory failure with hypoxia Status: Acute Assessment and Plan: Thought secondary to acute diastolic heart failure with possible pna and even non cardiogenic pul edema Vent support, pulmonary toilet, with levaquin and vanc, steroids 04/24 CXR with minimal change (mildly worse LLL). Wean sedation and possible extubation later. 04/25 CXR again no change. wean as possible 04/26 CXR better and continue wean with decrease FIO2 as tolerated 04/27 CXR no change but have continued to wean FI02 to 50% 04/28 CXR improved and continue 02 taper (2) Acute exacerbation of CHF (congestive heart failure): Qualifiers: Heart failure type: unspecified Qualified Code(s): I50.9 - Heart failure, unspecified Code(s): I50.9 - Heart failure, unspecified Status: Acute Assessment and Plan: Diuresis with IV furosemide intermittently per ditching machine operating engineer, thought to be acute diastolic heart failure (3) COPD (chronic obstructive pulmonary disease): Qualifiers: COPD type: COPD with acute lower respiratory infection Qualified Code(s): J44.0 - Chronic obstructive pulmonary disease with (acute) lower respiratory infection Code(s): J44.9 - Chronic obstructive pulmonary disease, unspecified Status: Acute Assessment and Plan: with possible pna with MRSA and strontophonus Vent support, pulmonary toilet, Vanc for MRSA of sputum Levaquin started 04/26 for strontophonus in sputum (4) Normocytic anemia: Code(s): D64.9 - Anemia, unspecified Status: Acute Assessment and Plan: Lab c/w both ACD and B12 deficiency Replaced B12 (was 233) Check IFOB 04/24 hgb 8.8 8.9 at discharge (5) Daily consumption of alcohol: Code(s): Z78.9 - Other specified health status Status: Acute Assessment and Plan: no evidence of withdrawal (6) Tobacco dependence: Code(s): F17.200 - Nicotine dependence, unspecified, uncomplicated Status: Acute Assessment and Plan: Monitor for s/sx w/d (7) Hypertension: Qualifiers: Hypertension type: essential hypertension Qualified Code(s): I10 - Essential (primary) hypertension Code(s): I10 - Essential (primary) hypertension Status: Acute Assessment and Plan: Treated PRN with hydralazine (8) Peripheral vascular disease: Code(s): I73.9 - Peripheral vascular disease, unspecified Status: Acute Assessment and Plan: known history of peripheral vascular disease with planned surgery in the future. Date of discharge left lower extremity below knee became more cooling blanched with no palpable pulses on Doppler. His fasting blurred surgeon and bowel that was contacted and they excepted patient in transfer DS: Summary Hospital Course Hospital Course: 68 y/o with etoh abuse , copd, htn admitted with respiratory failure thought secondary to chf ,copd and pna. Rx and slowly improving but day of discharge PVD worsened with no palpable pulse of left foot by doppler so patient transferred to his vasculary surgeon in [place] Time Spent with Patient Time attestation: Total time spent providing and/or coordinating discharge services: 35 minutes Exam Narrative: Exam Narrative: Condition on discharg: bp 122/74 p94 sat 92% with FIO2 of 40% Lungs clear CV RRR no murmers Extrem Left leg below knee cool and blanched especially foot with no palpable pulse per doppler Discharge Plan Discharge Attending physician on discharge: Nestor Zheng Consulting providers: Colby Arnold ; Annamaria Benjamin ; Jj Concepcion ; Wilber Griffin ; Lashonda Noyola ; Lenny Kim ; Kelvin Henao V. ; Bao Dacosta ; Eduardo Montoya ; Lori Goldman ; Manpreet Pacheco ; Gadiel Little ; Liz Holguin ; B
--- NOTE | 2019-05-31 12:07 | PC.NURSE ---
Received call from Melanie Wright, patient's sister. She reports that the patient's wallet is missing . Belongings list shows documentation that all belongings, including patient's wallet were sent with him at discharge. Perla Waters, manager telecom aware.
== END 2019-04-28 16:00 | disposition short-term general hospital (02) | DRG 207 ==
LOC: ANHED 14:23 → ANHIMU 17:20 → ANHICU 04-21 19:19 → ANHIMU 05-01 09:28
PROVIDERS: Internal Medicine; Internal Medicine Critical Care Medicine; Physician Assistant; Admitting Provider Family Medicine; Emergency Provider Emergency Medicine; PCP Internal Medicine; Visit Provider Internal Medicine
DX: J96.01 Acute respiratory failure with hypoxia (principal); J18.9 Pneumonia, unspecified organism; I50.31 Acute diastolic (congestive) heart failure; E87.1 Hypo-osmolality and hyponatremia; J44.0 Chronic obstructive pulmonary disease with (acute) lower respiratory infection; I24.8 Other forms of acute ischemic heart disease; F17.210 Nicotine dependence, cigarettes, uncomplicated; I73.9 Peripheral vascular disease, unspecified; Z86.010 Personal history of colon polyps; M19.90 Unspecified osteoarthritis, unspecified site; K21.9 Gastro-esophageal reflux disease without esophagitis; D64.9 Anemia, unspecified; F10.10 Alcohol abuse, uncomplicated; E78.5 Hyperlipidemia, unspecified; I27.20 Pulmonary hypertension, unspecified; I11.0 Hypertensive heart disease with heart failure
CPT/HCPCS: 31500; 36415; 36569; 36600; 71045; 80048; 80053; 80202; 82274; 82375; 82607; 82728; 82746; 82805; 83050; 83540; 83550; 83605; 83735; 83880; 84100; 84145; 84443; 84484; 85025; 85027; 85610; 85730; 86140; 87040; 87070; 87077; 87081; 87086; 87186; 87205; 87804; 93005; 93306; 93970; 94002; 94003; 94640; 94660; 96374; 96375; 99291; A9270; C1751; C9113; J0330; J0456; J0692; J0696; J1940; J1956; J2060; J2250; J2704; J2920; J3010; J3370; J3420; J3480; J7030; J7050; J7060; J7120

== ENCOUNTER 2019-10-18 09:27 | Outpatient (CLI) | payer MEDICARE, MEDICAID, SELFPAY ==
[2019-10-18 10:34] LABS: Basophils Absolute Auto 0.1 K/mm3 (0.0-0.1); Basophils Percent Auto 0.8 % (0.2-1.2); Eosinophils Absolute Auto 0.2 K/mm3 (0-0.3); Eosinophils Percent Auto 2.6 % (0-4.4); Hematocrit 38.4 % (42.0-52.0); Hemoglobin 12.1 g/dL (14.0-18.0); Immature Granulocyte Absolute 0.03 K/mm3 (0.00-0.031); Immature Granulocyte Percent A 0.4 % (0-0.5); Lymphocytes Absolute Auto 2.66 K/mm3 (0.9-3.2); Lymphocytes Percent Auto 34.3 % (18.3-44.2); Mean Corpuscular HGB Conc 31.5 g/dl (32-36); Mean Corpuscular Hemoglobin 27.8 pg (26-34); Mean Corpuscular Volume 88.3 fl (80-100); Mean Platelet Volume 11.8 fl (7.4-10.4); Monocytes Absolute Auto 0.4 K/mm3 (0.1-0.6); Monocytes Percent Auto 5.7 % (2.6-8.5); Neutrophils Absolute Auto 4.4 K/mm3 (1.3-6.7); Neutrophils Percent Auto 56.2 % (45.5-73.1); Platelet Count Result 272 k/mm3 (150-375); Red Blood Count 4.35 M/mm3 (4.6-6.20); Red Cell Distribution Width 16.6 % (11.5-14.5); White Blood Count 7.8 K/mm3 (4.5-10.0)
[2019-10-18 10:48] LABS: Alanine Aminotransferase 12 U/L (4-50); Albumin Level 4.1 g/dL (3.5-5.1); Alkaline Phosphatase 87 U/L (38-126); Anion Gap 10.3 mmol/L (7-16); Aspartate Amino Transferase 19 U/L (17-59); Bilirubin,Total 0.3 mg/dL (0.2-1.3); Blood Urea Nitrogen 23 mg/dL (9-20); Calcium 9.2 mg/dL (8.4-10.2); Carbon Dioxide 28 mmol/L (22-30); Chloride 105 mmol/L (98-107); Cholesterol 221 mg/dL (0-200); Estimated Glomerular Filt Rate > 60; Glucose 91 mg/dL (75-110); HDL Direct 31 mg/dL; Potassium 4.3 mmol/L (3.4-5.0); Sodium 139 mmol/L (137-145); Triglycerides 202 mg/dL (<150)
[2019-10-18 10:59] LABS: LDL Cholesterol Direct 142 mg/dL
== END 2019-10-18 09:28 | disposition home or self-care (01) ==
PROVIDERS: PCP Internal Medicine; Visit Provider Internal Medicine
DX: J44.0 Chronic obstructive pulmonary disease with (acute) lower respiratory infection (principal); E78.5 Hyperlipidemia, unspecified; I10 Essential (primary) hypertension; I73.9 Peripheral vascular disease, unspecified
CPT/HCPCS: 36415; 80053; 80061; 85025

== ENCOUNTER 2020-02-16 09:57 | Outpatient (CLI) | payer MEDICARE, MEDICAID, SELFPAY ==
--- NOTE | ~2020-02-16 | XR_ITS ---
EXAMINATION: XR knee RT 3V EXAM DATE: 02/16/2020 10:33 INDICATION: M25.661 -right knee stiffness, no known recent injury. TECHNIQUE: Three projections of the right knee. Comparison is made to prior examination from 7. FINDINGS: The frontal projection of the right knee limited due to projection, appears the patient kimbrough s knee flexed. No evidence of joint effusion. There is mild patellar lateral tilt and subluxation. Mi ld patellofemoral compartment primary osteoarthritis. There are no acute fractures or dislocations id entified. There is no subcutaneous gas. There are arterial calcifications, arteriosclerosis. Ther e are no radiopaque foreign bodies. IMPRESSION: 1. Mild right patellar lateral tilt and subluxation. 2. Mild patellofemoral osteoarthritis. Reviewed, dictated and finalized at location A. INSPECT[employer]ORTER
== END 2020-02-16 09:58 | disposition home or self-care (01) ==
LOC: ANHIMG 10:09
PROVIDERS: PCP Internal Medicine; Visit Provider Nurse Practitioner
DX: M17.11 Unilateral primary osteoarthritis, right knee (principal); S83.011A Lateral subluxation of right patella, initial encounter
CPT/HCPCS: 73562

== ENCOUNTER 2020-06-18 10:30 | Outpatient (RCR) | payer MEDICARE, MEDICAID, SELFPAY ==
--- NOTE | 2020-03-21 09:16 | PTOPEVAL ---
PHYSICAL THERAPY EVALUATION AND PLAN OF CARE Thank you for referring Reji Crowell to [facility].? The patient is scheduled to be seen for therapy? 1-2x/week for 4 weeks. Please review, sign, date and return this plan of care RADHA. I agree with and certify that the following plan of care is medically necessary. Referring Physician Date Attending Provider: Duane Alonzo MD Evaluation Cardiovascular History Hx Atrial Fibrillation Yes Hx Peripheral Vascular Disease Yes Hx Vascular Surgery Yes: Right common femoral artery endarterectomy 04/03/2019 Left femoral 01/2019 Respiratory History Hx Chronic Obstructive Pulmonary Disease Yes (COPD) Hx Pneumonia Yes Gastrointestinal History Hx Gastroesophageal Reflux Disease Yes Hx Hernia Yes Genitourinary History Hx Genitourinary Disorders No Significant History Musculoskeletal History Hx Arthritis Yes Hematological History Hx Anemia Yes Diagnosis right knee contracture, left transfemoral amputation Cause amputation 03/2019 Subjective Information The left amputation is healed Query Text:As Reported By Patient/ well and he is fitted for a Family prosthetic that is being made. Right knee contracture: states that since he was in the senior living, he has been unable to get his knee straight. States there is some pain when trying to straightenin the knee. Prior Level of Function Medications Home Meds (Include: OTC, RX, Vitamins, Trazodone, metoprolol tartrate Herbals, Dose, Route,and Frequency) , famotidine, diltiazem, Query Text:Home Med Entries Will No furosemide, alprazolam, Longer Recall From Past Visits. Home amlodipine besylate, magnesium Meds Must Be Re-entered With Each Visit. , B1 Home Setting Home Type House,Single Level Environmental Barriers Ramp Cargiver Responsibilities Comment lives with sister and nephew; states there is a ramp; states he uses the wheelchair time buyer. He is independent with his wheelchair Mobility Assistive Devices (Used Last 3 Wheelchair, Manual Months) Comments Additional Prior Level of Function performs all ADLs while Comments sitting in the wheelchair; transfers independently to the shower and uses a shower
--- NOTE | 2020-04-17 09:56 | PTOPEVAL ---
PHYSICAL THERAPY PROGRESS REPORT AND PLAN OF CARE Thank you for referring Reji Crowell to [facility].? The patient is scheduled to be seen for therapy? _2x/week for 4 weeks. Please review, sign, date and return this plan of care RADHA. I agree with and certify that the following plan of care is medically necessary. Referring Physician Date Attending Provider: Duane Alonzo MD Progress Diagnosis right knee contracture, left transfemoral amputation Cause amputation 03/2019 Subjective Information Reports that he is doing his Query Text:As Reported By Patient/ exercises everyday. He is Family lying on his stomach 1x/day and is not yet able to tolerate 10minutes at a time. Feels like he is making progress. He does now have his prosthetic in possession and he will wear it and try to stand up at home, but he is unable to lock the knee. When asked, he does describe a phantom limb pain and itchiness to which he gets emotional when discussing. Pain Frequency Chronic,Intermittent Pain Score Pain Score 0: Self Report Additional Pain Score Comments . Interventions Used Interventions Used By Clinicians Education,Exercise,Manual Therapy Techniques Lower Extremity Range of Motion Hip Range of Motion Left Hip Flexion Range of Motion - Active 110 Hip Extension Range of Motion - Active -20 Right Hip Flexion Range of Motion - Active 110 Hip Extension Range of Motion - Active -35 Knee Range of Motion Right Knee Flexion Range of Motion - Active 132 Knee Extension Range of Motion - Active -50 Query Text: Lower Extremity Muscle Strength Testing Hip Strength Left Hip Flexion Strength 5 Normal Hip Extension Strength 3+ Fair + Hip Abduction Strength 4- Good - Right Hip Flexion Strength 5 Normal Hip Extension Strength 4- Good - Knee Strength Right Knee Flexion Strength 4 Good Knee Extension Strength 4 Good Muscle Length Testing Muscle Length Testing Muscle Length Testing Comments severe muscle length deficit to bilateral hip flexors and right hamstring as noted by ROM above Transfer Assessment Wheelchair Transfer Assessment Wheelchair Transfer Assistive Devices None Ambulation Assistive Devices None Wheelchair Transfer Destination Mat Sit to Stand Wheelchair Transfer Abilit
--- NOTE | 2020-05-13 13:26 | PCPTNOTE ---
Patient called & cancelled scheduled appointment this date due to bad weather.
--- NOTE | 2020-05-15 12:27 | PCPTNOTE ---
Patient called & cancelled scheduled appointment this date and rescheduled for 05/16/20.
--- NOTE | 2020-05-16 16:19 | PTOPEVAL ---
Thank you for referring Reji Crowell to [facility].? Pt has attended 12 therapy visits to address LE restriction. He demonstrates minimal progress with joint motion and tissue restrictions. Will attempt 6 additional visits at 2x/wk x 3wks to improve restrictions. Please review, sign, date and return this plan of care RADHA. I agree with and certify that the following plan of care is medically necessary. Referring Physician Date Attending Provider: Duane Alonzo MD Physical Therapy progress Noted Evaluation Information Problem Diagnosis right knee contracture, left transfemoral amputation Cause amputation 03/2019 Subjective Information Reports that he is doing his Query Text:As Reported By Patient/ exercises everyday. He is Family lying on his stomach 1x/day for 5 minutes. He is donning his prosthesis 1x/wk and standing at sink for a short period. He does feel like the knee is straighter. Pain Assessment Pain Scale Used Numeric (1 - 10) Self Report Pain Assessment Right Knee(s) Reported Pain Level 0 Lower Extremity Range of Motion Hip Range of Motion Left Hip Flexion Range of Motion - Active 110 Hip Extension Range of Motion - Active -10 Right Hip Flexion Range of Motion - Active 110 Hip Extension Range of Motion - Active -40 Hip Extension Range of Motion - Passive -36 Knee Range of Motion Right Knee Flexion Range of Motion - Active 132 Knee Extension Range of Motion - Active 46 Query Text: Knee Extension Range of Motion - Passive -40 Knee Range of Motion Limitations Contracture Strength Lower extremity Left Hip Flexion Strength 5 Normal Hip Extension Strength 3- Fair - Hip Abduction Strength 3 Fair Right Hip Flexion Strength 5 Normal Hip Extension Strength 3 Fair Gait Assessment Ambulation Assistive Devices Walker, Wheeled Ambulation Distance 5 Query Text:(Feet) Ambulation Destination In Gym Ambulation Direction Forward Ambulation Surface Level Ambulation Ability Contact Guard Cues Needed For Ambulation None Additional Ambulation Comments static standing with UE support x 35 sec and 17 sec with CGA PT Clinical Summary 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 He has attended 12 therapy visits from 03/21/20 to 05/16/20. He demonstrates minimal changes with knee range an
--- NOTE | 2020-06-07 14:06 | PTOPEVAL ---
Thank you for referring Reji Crowell to [facility].?Pt has attended 18 therapy visits to address limited LE motion, LE weakness and decreased functional mobility. He is progressing slowly towards improved function. He would benefit from a STONE stretching brace for his knee to improve knee motion for functional mobility in the house. See summary below for detailed information on function. The patient is scheduled to be seen for therapy?2 x/week for 8 weeks. Please review, sign, date and return this plan of care RADHA. I agree with and certify that the following plan of care is medically necessary. Referring Physician Date Attending Provider: Duane Alonzo MD Physical Therapy progress note Diagnosis right knee contracture, left transfemoral amputation Cause amputation 03/2019 Subjective Information He is walking at home with his Query Text:As Reported By Patient/ prosthesis 2x/wk. He is not Family getting on his stomach at home . He is performing seated stretches at home. He does feel like the knee is straighter. Pain Assessment Timing of Pain Assessment Timing of Pain Assessment Re-assessment Pain Scale Pain Scale Used Numeric (1 - 10) Self Report Pain Assessment Right Knee(s) Reported Pain Level 0 Pain Score Pain Score 0: Self Report Lower Extremity Range of Motion Left Hip Extension Range of Motion - Active -10 Hip Extension Range of Motion - Passive -10 Right Hip Extension Range of Motion - Active -38 Hip Extension Range of Motion - Passive -36 Knee Range of Motion Right Knee Extension Range of Motion - Active -40 Query Text: Knee Extension Range of Motion - Passive -38 Knee Range of Motion Limitations Contracture Lower Extremity Muscle Strength Testing Hip Strength Left Hip Flexion Strength 5 Normal Hip Extension Strength 3 Fair Hip Abduction Strength 3 Fair Right Hip Flexion Strength 5 Normal Hip Extension Strength 2+ Poor + Hip Abduction Strength 3- Fair - Knee Strength Right Knee Flexion Strength 4 Good Knee Extension Strength 4+ Good + Knee Strength Comments tested in available range Special Tests-Lower Extremity Hip Special Tests Hip Special Test Comments static standing without arm support x 10 sec with CGA for balance Transfer Assessment Chair Transfer Assistive Devices Gait Belt Ambulation Assistive Devices Walker, Wheeled Orthotic/Prosthetic Devices Left Lower Extremity Prosthesis Chair Transfer Destination Ambulatory Sit to Stand Chair Transfer Ability Standby Assistance Stand to Sit Chair Transfer Ability Standby Assistance Ability to Transfer In/
--- NOTE | 2020-06-20 10:17 | PCPTNOTE ---
This treatment is being continued on visit number 22 to [id number]. Please see documentation on both accounts to view progress. Completed interventions, outcomes, and problems have been marked as Inactive to facilitate the copying of the Care plan routine for recurring accounts.
== END 2020-06-19 23:59 | disposition home or self-care (01) ==
LOC: ANHPT 10:30
PROVIDERS: PCP Internal Medicine; Visit Provider Orthopaedic Surgery
DX: M25.661 Stiffness of right knee, not elsewhere classified (principal)
CPT/HCPCS: 97110; 97116; 97140; 97162; 97530; 97761

== ENCOUNTER 2020-07-11 09:30 | Outpatient (RCR) | payer MEDICARE, MEDICAID, SELFPAY ==
--- NOTE | 2020-06-20 10:24 | PCPTNOTE ---
The treatment documented on this account is a continuation of the treatment documented on visit number 22 from [id number]. Please see documentation on both accounts to view progress. The Plan of Care has been transitioned and updated within the new V#. I have addressed and agree with the discipline specific Problems, Interventions, and Goals for the current certification period. Completed interventions, outcomes, and problems have been marked as Inactive to facilitate the copying of the Care plan routine for recurring accounts.
--- NOTE | 2020-07-11 10:16 | PTOPEVAL ---
Thank you for referring Reji Crowell to [facility].? Reji has attended 27 therapy visit to address limited knee and hip motion, muscle weakness and decreased functional mobility. He has progress with all impairments and independently performs a home program. He has partially achieved his therapy goals at this time. Will plan to D/C skilled therapy with Reji to continue with exercises, knee extension brace and walking activities at home. Please review, sign, date and return this discharge summary RADHA. I agree with and certify that the following plan of care is medically necessary. Referring Physician Date Attending Provider: Duane Alonzo MD Physical therapy discharge note Diagnosis right knee contracture, left transfemoral amputation Cause amputation 03/2019 Subjective Information He is wearing his knee Query Text:As Reported By Patient/ extension brace 2x/day for 45 Family minutes. He is wearing the prosthesis 3-4 hours a day. He is walking 2x/day with his sister to be there if needed. He uses the wc for his primary mode of mobility. Pain Assessment Timing of Pain Assessment Timing of Pain Assessment Re-assessment Self Report Self Report Pain Level 0 Pain Score Pain Score 0: Self Report Lower Extremity Range of Motion Hip Range of Motion Right Hip Extension Range of Motion - Passive -18 Left Hip Extension Range of Motion - Passive -10 Knee Range of Motion Right Knee Flexion Range of Motion - Active -30 Knee Flexion Range of Motion - Passive -25 Lower Extremity Muscle Strength Testing Hip Strength Right Hip Flexion Strength 4+ Good + Hip Extension Strength 3 Fair Hip Abduction Strength 3 Fair Left Hip Flexion Strength 4- Good - Hip Extension Strength 3 Fair Hip Abduction Strength 3- Fair - Knee Strength Right Knee Flexion Strength 5 Normal Knee Extension Strength 5 Normal Balance Assessment Welch Balance Assessment WELCH Balance Evaluation Total Score (32/56 points) Comments able to perform with support of walker past test #6, able to stand 2 minutes without UE assist Gait Assessment Ambulation Assistive Devices Walker, Wheeled Orthotic/Prosthetic Devices Left Lower Extremity Prosthesis Ambulation Distance 103, 118 Query Text:(Feet) Ambulation Destination In Gym Ambulation Direction Forward Ambulation Surface Level,Smooth,Tile Ambulation Ability Standby Assistance Cues Needed For Ambulation Verbal Addit
== END 2020-07-11 14:27 | disposition home or self-care (01) ==
LOC: ANHPT 09:30
PROVIDERS: PCP Internal Medicine; Visit Provider Orthopaedic Surgery
DX: M25.661 Stiffness of right knee, not elsewhere classified (principal)
CPT/HCPCS: 97110; 97116; 97140; 97530; 97761

== ENCOUNTER 2020-07-18 09:38 | Outpatient (CLI) | payer MEDICARE, MEDICAID, SELFPAY ==
--- NOTE | ~2020-07-18 | CT_ITS ---
EXAMINATION:CT lung screening DATE: 07/18/2020 09:53 INDICATION: Personal history of tobacco dependence. Current smoker with 40 pack year history. TECHNIQUE: Computed tomography (CT) of the chest was performed without intravenous contrast. Automate d exposure control and iterative reconstruction technique were employed. The dose-length product (DLP ) was 60.46 mGy-cm. COMPARISON: Chest CT 05/05/2016 FINDINGS: There is moderate emphysema. Calcified bilateral pulmonary nodules and calcified hilar and mediastinal lymph nodes are consistent with old granulomatous disease. There is peripheral septal thi ckening bilaterally with an upper lung predominance. There are two new 5 mm nodules in right upper lo be. Again seen is a 5 mm nodule in right lower lobe. Again seen is mild bronchiectasis and focal scar ring in superior segment right lower lobe. There are centrilobular nodules and airspace opacities in apicoposterior segment left upper lobe consistent with pneumonia. There is a chronic 4 mm nodule in l eft lower lobe. No pleural effusion. The heart size is normal. There are coronary artery calcificatio ns. No pericardial effusion. There is stable ectasia of ascending aorta measuring 4.2 cm. Calcificati ons in the spleen are consistent with old granulomatous disease. There is a small sliding hiatal noelle ia. There is mild thoracic spondylosis. A T12 compression fracture and L1 burst fracture are new from 05/05/2016, but likely subacute or chronic. IMPRESSION: 1. Lung-RADS category 3: Probably benign. Further evaluation is recommended with noncontrast low-dose chest CT in 6 months. 2. Mild pneumonia in left lung upper lobe. Reviewed, dictated and finalized at location B. IMPRESSION: 1. Lung-RADS category 3: Probably benign. Further evaluation is recommended wit h noncontrast low-dose chest CT in 6 months. 2. Mild pneumonia in left lung upper lobe.
[2020-07-18 10:08] LABS: Hematocrit 48.6 % (42.0-52.0); Hemoglobin 16.6 g/dL (14.0-18.0)
[2020-07-18 10:18] LABS: Alanine Aminotransferase 18 U/L (4-50); Albumin Level 4.6 g/dL (3.5-5.1); Alkaline Phosphatase 91 U/L (38-126); Anion Gap 5 mmol/L (8-16); Aspartate Amino Transferase 25 U/L (17-59); Bilirubin,Total 0.9 mg/dL (0.2-1.3); Blood Urea Nitrogen 16 mg/dL (9-20); Calcium 9.4 mg/dL (8.4-10.2); Carbon Dioxide 34 mmol/L (22-30); Chloride 99 mmol/L (98-107); Cholesterol 226 mg/dL (0-200); Estimated Glomerular Filt Rate > 60; Glucose 96 mg/dL (75-110); HDL Direct 52 mg/dL; Potassium 4.2 mmol/L (3.4-5.0); Sodium 138 mmol/L (137-145); Triglycerides 126 mg/dL (<150)
[2020-07-18 10:28] LABS: LDL Cholesterol Direct 141 mg/dL
[2020-07-18 10:48] LABS: Prostate Specific Antigen 0.7 ng/mL (< OR = 4.0)
== END 2020-07-18 09:39 | disposition home or self-care (01) ==
LOC: ANHIMG 09:41
PROVIDERS: PCP Internal Medicine; Visit Provider Internal Medicine
DX: Z12.5 Encounter for screening for malignant neoplasm of prostate (principal); Z12.2 Encounter for screening for malignant neoplasm of respiratory organs; Z87.891 Personal history of nicotine dependence; I10 Essential (primary) hypertension; F10.10 Alcohol abuse, uncomplicated; D64.9 Anemia, unspecified; E78.5 Hyperlipidemia, unspecified; J18.9 Pneumonia, unspecified organism
CPT/HCPCS: 36415; 71271; 80053; 80061; 84153; 85014; 85018; G0103

== ENCOUNTER 2021-07-02 08:14 | Emergency (ER) | payer OTHER, SELFPAY ==
[2021-07-02] VITALS (22 sets, daily range): BP systolic 93–140; BP diastolic 57–81; PULSE 60–78; RESP 14–29; TEMP 36.6; O2SAT 94–98
--- NOTE | ~2021-07-02 | US_ITS ---
EXAMINATION: US arterial duplex LE RT DATE: 07/02/2021 10:15 INDICATION: Foot pain TECHNIQUE: Multiple grayscale and Doppler ultrasound images of the arteries of the right lower limb w ere obtained. Left leg has been amputated. COMPARISON: None FINDINGS: Atherosclerotic plaque in the right external iliac, common femoral and deep profunda femoral arteries with peak systolic velocities of 29 cm/s, 11 cm/s and 28 cm/s respectively. The waveforms are monoph asic with borderline delayed upstrokes of 0.2 at each of the arteries. The degree of stenosis in the right common femoral artery and grayscale images appears moderate, 50-70% relative to normal luminal diameter. The proximal right superficial femoral arteries occluded with no discernible vascular flow on color Doppler. There is reconstitution of flow at the proximal to mid right superficial femoral ar jailene. There is scattered atherosclerotic plaque throughout the more distal superficial femoral artery with peak systolic velocities of 18 cm/s, 15 cm/s and 27 cm/s in the proximal to mid, mid and distal portion of the artery with monophasic waveforms with borderline delayed upstrokes throughout atheros clerotic plaque in the right popliteal artery with essentially a phasic flow with peak systolic veloc ity is 4 cm/s. There is nearly indiscernible biphasic flow with <5 cm/s velocities at the right poste rior tibial, anterior tibial and peroneal arteries.. IMPRESSION: 1. Severe atherosclerotic disease throughout the arteries of the right lower limb with segmental occl usion at the proximal superficial femoral artery and progressively decreasing flow in the more distal arteries, nearly indiscernible with slow aphasic waveforms at the atretic right posterior tibial, an terior tibial and peroneal arteries. Reviewed, dictated and finalized at location B. IMPRESSION: 1. Severe atherosclerotic disease throughout the arteries of the right lower li mb with segmental occlusion at the proximal superficial femoral artery and prog ressively decreasing flow in the more distal arteries, nearly indiscernible wit h slow aphasic waveforms at the atretic right posterior tibial, anterior tibial and peroneal arteries.
[2021-07-02 09:08] LABS: Basophils Absolute Auto 0.1 K/mm3 (0.0-0.1); Basophils Percent Auto 1.1 % (0.2-1.2); Eosinophils Absolute Auto 0.5 K/mm3 (0-0.3); Eosinophils Percent Auto 5.6 % (0-4.4); Hematocrit 46.2 % (42.0-52.0); Immature Granulocyte Absolute 0.03 K/mm3 (0.00-0.031); Immature Granulocyte Percent A 0.4 % (0-0.5); Lymphocytes Absolute Auto 2.66 K/mm3 (0.9-3.2); Lymphocytes Percent Auto 31.6 % (18.3-44.2); Mean Corpuscular HGB Conc 34.6 g/dl (32-36); Mean Corpuscular Hemoglobin 33.3 pg (26-34); Mean Platelet Volume 12.2 fl (7.4-10.4); Monocytes Absolute Auto 0.7 K/mm3 (0.1-0.6); Monocytes Percent Auto 8.4 % (2.6-8.5); Neutrophils Absolute Auto 4.5 K/mm3 (1.3-6.7); Neutrophils Percent Auto 52.9 % (45.5-73.1); Platelet Count Result 321 k/mm3 (150-375); Red Blood Count 4.81 M/mm3 (4.6-6.20); Red Cell Distribution Width 12.7 % (11.5-14.5); White Blood Count 8.4 K/mm3 (4.5-10.0)
[2021-07-02 09:11] LABS: INR 0.9; Partial Thromboplastin Time 32.2 SECONDS (22.3-36.8); Prothrombin Time 12.2 Seconds (11.1-14.7)
[2021-07-02 09:38] LABS: Anion Gap 6 mmol/L (8-16); Blood Urea Nitrogen 8 mg/dL (9-20); Calcium 8.7 mg/dL (8.4-10.2); Carbon Dioxide 30 mmol/L (22-30); Chloride 101 mmol/L (98-107); Estimated CRCL calculation 71 ml/min; Estimated Glomerular Filt Rate > 60; Glucose 104 mg/dL (65-110); Potassium 3.8 mmol/L (3.4-5.0); Sodium 137 mmol/L (137-145)
[2021-07-02] MEDS: HEPARIN SODIUM 5,000 UNITS/ML VIAL 5000 UNITS IV PUSH (11:06)
[2021-07-02] MEDS: HEPARIN SOD/D5W 100 UNITS/ML 25,000 UNITS/250 ML BAG 11 UNITS IV CONT (11:06)
--- NOTE | 2021-07-02 11:10 | ED.GENADULT ---
HPI - General Adult General Chief complaint: Extremity Problem,Nontraumatic Stated complaint: R foot pain/sores Time Seen by Provider: 07/02/21 08:18 Source: RN notes reviewed History of Present Illness HPI narrative: Patient presents to emergency department from home for right foot pain. Patient states symptoms been ongoing and progressively worsening over the past 3 weeks with pain from his right ankle down to his right foot worse in his right great toe she is with this he had supple as well superficial lesions appear on his foot as well he states that the foot is painful to walk on he denies any fevers or chills chest pain shortness of breath or any other symptoms he denies being on any blood thinners Related Data Home Medications Medication Instructions Recorded Confirmed amlodipine 10 mg DAILY 07/02/21 07/02/21 furosemide 40 mg DAILY 07/02/21 07/02/21 magnesium 250 mg PO DAILY 07/02/21 07/02/21 metoprolol tartrate 50 mg TID 07/02/21 07/02/21 multivitamin [One A Day] 1 tablet PO DAILY 07/02/21 07/02/21 Allergies Allergy/AdvReac Type Severity Reaction Status Date / Time lisinopril Allergy Unknown Angioedema Verified 07/02/21 08:31 Review of Systems Review of Systems: Gen.: Denies fevers or chills ENT: Denies congestion Respiratory: Denies shortness of breath or cough CV: Denies chest pain or palpitations GI: Denies abdominal pain nausea, emesis or diarrhea Musculoskeletal: Reports right leg pain Neuro: Denies numbness, tingling, weakness or focal weakness Skin: Reports right foot wounds Except as documented, all other systems reviewed and negative [facility] Past Medical History Medical History Alcohol abuse Anemia Arthritis Benign colon polyp BPH w/o urinary obs/LUTS Colonoscopy refused COPD (chronic obstructive pulmonary disease) Daily consumption of alcohol Elevated liver enzymes GERD (gastroesophageal reflux disease) H/O blood clots Hyperlipidemia Hypertension Inguinal hernia Osteoarthritis Other hyperlipidemia Peripheral vascular disease Pneumonia Primary osteoarthritis of right knee Screening for prostate cancer Tobacco dependence Surgical History Surgical History Hx of inguinal hernia repair Hx of vascular surgery bilateral lower legs S/P AKA (above knee amputation) Left leg March 2019 Family History Family History Sibling Patient's sister is in good health Father Family history of malignant neoplasm Patient's father is Mother Patient's mother is Social History Social History Social History: The patient lives in [place] with his sister and nephew. He is retired. He smokes about half a pack of cigarettes per day. He drinks a 6 pack of beer a day. No drug use. He designates his sister, Melanie, as his surrogate decision maker and wishes to be a full code. Years smoked: 50 Alcohol intake: current Drinks per week: 7 Alcohol use details: beer Substance use: never Substance use type: does not use Gender identity (if verbalized by the patient): Male Spiritual care concerns: No Agree to blood products: Yes Exam Narrative: APPEARANCE: No acute distress, nontoxic, resting in bed EYES: EOMI HEENT: Normocephalic, atraumatic, OMM RESPIRATORY: No respiratory distress Clear to auscultation bilaterally with no rhonchi wheezing or rales. CARDIOVASCULAR: Regular rate and rhythm without murmurs rubs or gallops. ABDOMINAL: Soft, nontender, nondistended, no rebound or guarding MUSCULOSKELETAl: Moves all extremities. No clubbing, cyanosis left lower extremity amputation, right leg with tenderness palpation from the ankle down through the foot with mild erythema there is several superficial ulcerative wounds no draina
[2021-07-02 11:45] LABS: SARS-CoV-2 RNA PCR Negative
== END 2021-07-02 15:25 | disposition short-term general hospital (02) ==
PROVIDERS: Emergency Provider Emergency Medicine; PCP Internal Medicine
DX: I77.1 Stricture of artery (principal); Z20.822 Contact with and (suspected) exposure to COVID-19; F17.210 Nicotine dependence, cigarettes, uncomplicated; D64.9 Anemia, unspecified; M19.90 Unspecified osteoarthritis, unspecified site; J44.9 Chronic obstructive pulmonary disease, unspecified; K21.9 Gastro-esophageal reflux disease without esophagitis; E78.5 Hyperlipidemia, unspecified; I10 Essential (primary) hypertension
CPT/HCPCS: 36415; 80048; 85025; 85610; 85730; 93926; 96374; 99285; C9803; J1644; U0003; U0005

== ENCOUNTER 2022-04-30 07:39 | Outpatient (CLI) | payer OTHER, SELFPAY ==
--- NOTE | ~2022-04-30 | PE_ITS ---
EXAMINATION: PET skull to mid thigh DATE: 04/30/2022 10:23 INDICATION: Abnormal lung field TECHNIQUE: Blood glucose level was 80 mg/dL. 10.5 mCi of 18-fluorodeoxyglucose (18-FDG) was administe red i.v. Low dose computed tomography (CT) images were acquired from the base of the brain to the pro ximal thighs for attenuation correction and anatomic localization. Positron emission tomography (PET) images were acquired in the same distribution beginning 67 minutes after injection. Images including fused PET/CT images were reconstructed in axial, coronal, and sagittal planes. Automated exposure co ntrol technique was employed. The dose-length product was 479.98mGy-cm. COMPARISON: CT chest dated 07/18/2020 FINDINGS: Head/neck: Encephalomalacia with prominent decreased FDG uptake in portions of the right frontal, parietal and t emporal lobes in the vascular distribution of the right middle cerebral artery consistent with chroni c infarct. There is symmetric increased activity in the oral cavity, palatine tonsils, parotid glands , submandibular glands, laryngeal muscles and ocular and longus colli muscles without CT correlate, likely physiologic. Asymmetric increased uptake at the bilateral rectus capitis muscles, left greater than right without radiologic correlate which is likely also physiologic. No pathologically enlarged cervical lymphadenopathy or suspicious foci of increased FDG uptake in the visualized head or neck. Chest: Mild to moderate emphysema. 1.9 x 1.6 cm soft tissue density nodule with prominent increased FDG upta ke with maximal SUV of 10.8 which is concerning for primary bronchogenic carcinoma. There is less den se consolidation extending more peripherally from the nodule at the posterolateral aspect of the post erior segment of the left upper lobe with less intense FDG uptake which is more suspicious for postob structive pneumonia. There is a second 1.9 x 1.2 cm FDG avid nodule with maximal SUV of 10.3 situated in the more caudal and medial aspect of the posterior segment of the left upper lobe along the major fissure which is also suspicious for bronchogenic carcinoma. There are a few small collateral calcif ied pulmonary nodules along with calcified bilateral hilar and mediastinal lymph nodes consistent wit h old granulomatous disease. There are small foci of borderline increased FDG uptake at the bilateral pérez with maximal SUV of 2.9 on the left and 3.2 on the right without appreciable corresponding enla rged lymph nodes. Couple for reactive lymphadenopathy versus metastatic disease. Heart size is normal . Atherosclerotic coronary artery calcification. No pericardial effusion. Mild aneurysmal ascending t horacic aorta measuring up to 4.4 cm in maximal diameter. Small sliding-type hiatal hernia. Mild bila teral gynecomastia. Abdomen/pelvis/proximal thighs: Physiologic renal accumulation and excretion of FDG activity in the kidneys, bladder and along portio ns of ureters. Normal degree and heterogenous pattern of increased uptake throughout the liver withou t radiologic correlate or dominant FDG avid lesion. The gallbladder, pancreas, spleen and right adren al gland are normal. There is mild increased FDG uptake at the left adrenal gland with maximal SUV of 3.3 but without an identifiable corresponding adrenal nodule. Mild uptake scattered throughout the b owels without radiologic correlate, also likely physiologic. Normal appendix. No other abnormal foci of increased FDG uptake or pathologically enlarged lymphadenopathy in the abdomen, pelvis or proximal thighs. Musculoskeletal: No suspicious lytic, blastic or FDG avid bone lesions. There is focal soft tissue uptake at the right wrist in the linear pattern compatible more intense foci along the volar aspect of the right forearm likely representing small amount of extravasation at the reported injection site and associated more proximal lympha
[2022-04-30 08:26] LABS: Glucose Point of Care 80 mg/dl (65-105)
== END 2022-04-30 07:40 | disposition home or self-care (01) ==
PROVIDERS: PCP Family Medicine; Visit Provider Nurse Practitioner
DX: R91.8 Other nonspecific abnormal finding of lung field (principal); J98.4 Other disorders of lung; Z86.73 Personal history of transient ischemic attack (TIA), and cerebral infarction without residual deficits
CPT/HCPCS: 78815; A9552

== ENCOUNTER 2022-05-22 03:15 | Outpatient (CLI) | payer OTHER, SELFPAY ==
--- NOTE | 2022-05-15 14:53 | PC.NURSE ---
Pre Radiology instructions Report to the outpatient hospital for special care on date _05/22/22_@ 0900___ Procedure Time: 1100____ YOU MAY BE MONITORED AT HOSPITAL FOR UP TO 4 HOURS AFTER YOUR PROCEDURE. A visitors will be allowed to accompany the patient into the hospital. ?The visitor will be instructed to remain with patient at all times or leave the building due to restrictions.? We will allow the visitor to come back to the postoperative area when patient is ready.? NO children visitors allowed at this time. You and your visitor will be asked to self-screen and do not enter if you have any COVID symptoms. A mask is OPTIONAL within the hospital. Patients are to have no food or drink 6 hours prior to procedure time Driving will be restricted after the procedure, you must have a person to drive you home. Labs will be drawn in preop area and once reviewed, you will be taken to radiology area for procedure. When the procedure is completed, you will be taken to outpatient where you will be monitored for several hours. You may have one visitor in this area. Other than holding anti-coagulants, patient may take other medication(s) as scheduled. Prior to your appointment date patients are instructed to hold anti-coagulants after discussing with ordering provider to stop. If unable to discontinue anti-coagulants please notify radiologist. ? No aspirin or warfarin (Coumadin) for 7 days prior to the procedure. ? No clopidogrel (Plavix), ticagrelor (Brilinta), prasugrel (Effient) or dabigatran (Pradaxa) for 5 days prior to the procedure. ? No rivaroxaban (Xarelto), apixaban (Eliquis), dipyridamole (Aggrenox or Persantine) or cilostazol (Pletal) for 2 days prior to the procedure. Medications to discontinue per physician: __ELIQUIS 2 DAYS PRE OP Date to take last dose: _05/19/22 Please leave all valuables, including medications, at home the day of procedure. The hospital will not accept responsibility for valuables. Wear comfortable, loose fitting clothing.? Follow any additional instructions given to you from ordering provider. Telephone instructions given to __PT'S SISTER DONNA and asked if any additional questions and then verbalized understanding. Patient advised to call scheduling provider office or registration scheduling [phone] if any additional questions.
[2022-05-15 14:57] VITALS: BMI 19.9
[2022-05-22] VITALS (8 sets, daily range): BP systolic 109–141; BP diastolic 55–78; PULSE 63–99; RESP 16–18; TEMP 36.4; O2SAT 97–100
--- NOTE | ~2022-05-22 | XR_ITS ---
XR chest 1V portable 05/22/2022 12:30 Indication: Post image guided lung biopsy. Procedure: AP portable chest Comparison: 05/22/2022 Findings: There is a nodular density left upper thorax, concerning for bronchogenic carcinoma. No pne umothorax postbiopsy. Heart size normal. No focal edema, pneumonia, effusion. No acute osseous abnorm ality. Impression: 1: No pneumothorax identified post biopsy. 2: Left upper lobe nodule, concerning for bronchogenic carcinoma. Reviewed, dictated and finalized at location B. HOUSE SUPERVISOR Impression: 1: No pneumothorax identified post biopsy. 2: Left upper lobe nodule, concerning for bronchogenic carcinoma.
--- NOTE | ~2022-05-22 | XR_ITS ---
EXAMINATION: XR chest 1V portable DATE: 05/22/2022 14:21 INDICATION: Status post percutaneous left lung biopsy TECHNIQUE: frontal view of the chest was obtained. COMPARISON: Chest radiograph dated 05/22/2022 at 12:26 PM FINDINGS: Left upper lobe perihilar nodule in the left midlung zone which is concerning for malignancy. Associa edmar linear discoid atelectasis/scarring. A few small calcified nodules in the left mid and lower lung zone consistent with old granulomatous disease. No other airspace opacities, pulmonary edema, pleura l effusion or pneumothorax. The cardiomediastinal silhouette is normal. IMPRESSION: 1. No pneumothorax or acute cardiopulmonary disease post biopsy of a left upper lobe nodule which is concerning for malignancy. Reviewed, dictated and finalized at location A. S B DRIVER
--- NOTE | ~2022-05-22 | XR_ITS ---
EXAMINATION: XR chest 1V DATE: 05/22/2022 11:26 INDICATION: Status post percutaneous left lung biopsy TECHNIQUE: frontal view of the chest was obtained. COMPARISON: Chest radiograph dated 04/28/2019 and and PET/CT dated 05/08/2022 FINDINGS: Again seen is a left upper lobe nodule projecting slightly superolateral to the hilum which is concer kevin for primary bronchogenic carcinoma. There are several calcified nodules in the left midlung zone consistent with old granulomatous disease. Right lung is clear. No pulmonary edema, pleural effusion or pneumothorax. The cardiomediastinal silhouette is normal. IMPRESSION: 1. No pneumothorax or other acute cardiopulmonary disease post percutaneous biopsy of a left upper lo be nodule which is concerning for primary bronchogenic carcinoma. Reviewed, dictated and finalized at location A. OPERATOR IMPRESSION: 1. No pneumothorax or other acute cardiopulmonary disease post percutaneous bio psy of a left upper lobe nodule which is concerning for primary bronchogenic ca rcinoma.
--- NOTE | ~2022-05-22 | CT_ITS ---
EXAMINATION: CT biopsy lung w/imaging DATE: 05/22/2022 11:27 INDICATION: Lung nodule TECHNIQUE: The procedure including the risks and benefits was discussed with the patient. Risks discu ssed included infection, approximately 1/20 risk of symptomatic hemorrhage beyond mild hemoptysis, ap proximately 1/3 risk of pneumothorax, and approximately 1/10 risk of pneumothorax severe enough to wa rrant chest tube placement. The patient understood the risks and agreed to proceed. The patient was p laced prone. The skin overlying the left paraspinal posterior thorax was prepped and draped in steri le fashion. Anesthetic was administered with 1% lidocaine subcutaneously. A 19 gauge outer needle w as advanced under CT guidance to the lesion of interest. A 20 gauge core biopsy needle was then used to obtain 3 core biopsy specimens. The needle was removed and the entry site was cleaned and dressed. There were no immediate complications. The dose-length product was 161.19 mGy-cm. FINDINGS: CT images demonstrate the outer needle tip adjacent to a 2.0 x 1.9 cm FDG avid spiculated n odule at the posterior segment of the left upper lobe. IMPRESSION: 1. Successful CT-guided biopsy of a 2.0 cm FDG avid left upper lobe nodule. Reviewed, dictated and finalized at location A. BENDER
[2022-05-22 09:51] LABS: Platelet Count Result 267 k/mm3 (150-375)
[2022-05-22 10:01] LABS: Prothrombin Time 12.9 Seconds (11.1-14.7)
--- NOTE | 2022-05-22 12:48 | SUR.PHASEII ---
1230 PORTABLE CXR DONE.
--- NOTE | 2022-05-22 14:36 | SUR.PHASEII ---
1425 PORTABLE CXR DONE.
--- NOTE | 2022-05-22 15:10 | SUR.PHASEII ---
5450 DR. TOMAS CAME TO SEE PATIENT. PATIENT DRESSED HIMSELF AND IS WAITING FOR HIS RIDE.
== END 2022-05-22 15:20 | disposition home or self-care (01) ==
PROVIDERS: PCP Family Medicine; Referring Provider Internal Medicine Hematology & Oncology; Visit Provider Radiology Diagnostic Radiology
PROC: BB24ZZZ Computerized Tomography (CT Scan) of Bilateral Lungs (ICD-10-PCS; CPT 32408; principal; 2022-05-22 11:00)
DX: Z01.818 Encounter for other preprocedural examination (principal); C34.90 Malignant neoplasm of unspecified part of unspecified bronchus or lung
CPT/HCPCS: 32408; 36415; 71045; 85049; 85610; 88305; 88342

== ENCOUNTER 2022-07-07 08:48 | Outpatient (CLI) | payer OTHER, SELFPAY ==
--- NOTE | ~2022-07-07 | MR_ITS ---
MRI of the brain Clinical History: Lung cancer, metastatic evaluation Technique: Axial and sagittal T1-weighted images were acquired. These were followed by axial T2-weigh edmar, diffusion weighted, gradient, and FLAIR images. Following intravenous administration of 12 cc Mu ltiHance gadolinium, T1-weighted fat-sat imaging was performed in the axial, coronal, and sagittal pl anes. Findings: There is no acute infarct, intracranial hemorrhage, or mass lesion. Chronic infarcts noted the right temporal and right frontal lobes. There is moderate to advanced background chronic microvas cular ischemic change in the periventricular white matter. Ventricles and subarachnoid spaces are dilated. Orbits are unremarkable. Paranasal sinuses and mastoi d air cells are clear. Major intracranial flow voids are grossly intact. Sagittal midline structures are intact. No abnormal postcontrast enhancement identified. IMPRESSION: No evidence for intracranial metastasis. No acute infarct or intracranial hemorrhage. Chronic right-sided infarcts, as detailed above. Moderate to advanced chronic microvascular ischemic change and moderate generalized atrophy. Reviewed, dictated and finalized at [facility]. IMPRESSION: No evidence for intracranial metastasis. No acute infarct or intracranial hemor rhage. Chronic right-sided infarcts, as detailed above. Moderate to advanced chronic microvascular ischemic change and moderate general ized atrophy.
== END 2022-07-07 08:49 | disposition home or self-care (01) ==
LOC: ANHIMG 08:49
PROVIDERS: PCP Family Medicine; Visit Provider Internal Medicine Medical Oncology
DX: C34.12 Malignant neoplasm of upper lobe, left bronchus or lung (principal); G31.9 Degenerative disease of nervous system, unspecified
CPT/HCPCS: 70553; 77290; 77334; 77470; A9577

== ENCOUNTER 2022-11-17 13:26 | Outpatient (CLI) | payer OTHER, SELFPAY ==
--- NOTE | ~2022-11-17 | CT_ITS ---
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 TECHNIQUE: Computed tomography (CT) of the chest was performed without intravenous contrast. The dose -length product (DLP) was 150.76 mGy-cm. Automated exposure control and iterative reconstruction tech nique were employed. COMPARISON: 04/30/2022 FINDINGS: There is a left upper lobe nodule with adjacent airspace opacities corresponding to the bio psy-proven adenocarcinoma. The nodule is difficult to discern from the adjacent postobstructive pneum onia. Appearance is grossly unchanged. An adjacent 1.7 x 0.9 cm nodule in the medial aspect of the le ft upper lobe previously measured 1.9 x 1.1 cm (image 50). No new pulmonary nodules are identified. T here is dependent atelectasis of the lungs. There is a stable 5 mm nodule of the right lower lobe. Th ere is severe emphysema. No pathologically enlarged thoracic lymph nodes are identified. The heart si ze is normal. Calcified coronary artery atherosclerosis is noted. No pleural effusion or pneumothorax . Punctate calcifications in an otherwise normal spleen likely represent healed granulomatous disease . There is a chronic L1 burst fracture. IMPRESSION: 1. Left upper lobe nodule with adjacent postobstructive pneumonia, corresponding to the biopsy-proven adenocarcinoma, grossly stable but difficult to discriminate from surrounding airspace opacities. 2. Adjacent left upper lobe nodule with slight decrease in size. Reviewed, dictated and finalized at location A. IMPRESSION: 1. Left upper lobe nodule with adjacent postobstructive pneumonia, correspondin g to the biopsy-proven adenocarcinoma, grossly stable but difficult to discrimi pema from surrounding airspace opacities. 2. Adjacent left upper lobe nodule with slight decrease in size.
== END 2022-11-17 13:27 | disposition home or self-care (01) ==
PROVIDERS: PCP Family Medicine; Visit Provider Radiology Radiation Oncology
DX: C34.12 Malignant neoplasm of upper lobe, left bronchus or lung (principal); R91.8 Other nonspecific abnormal finding of lung field
CPT/HCPCS: 71250

== ENCOUNTER 2023-03-08 10:03 | Outpatient (CLI) | payer OTHER, SELFPAY ==
--- NOTE | ~2023-03-08 | CT_ITS ---
CT Scan of the Chest without Contrast: Clinical Indication: Lung cancer Technique: Contiguous sections were acquired throughout the chest without intravenous contrast. Dose reduction technique was used on this scan by utilizing automated exposure control and iterative recon struction technique. The dose-length product (DLP) was 339.92 mGy-cm. COMPARISON: 11/17/2022 Findings: There is no evidence of any significant mediastinal, hilar or axillary lymphadenopathy. There are ext ensive atherosclerotic calcifications of the aorta and coronary arteries. Ascending aorta mildly dila edmar to 4.4 cm. Questionable minimal left pleural effusion. No right pleural effusion. No pericardial effusion. There is consolidation again noted in the left upper lobe, with more extensive surrounding haziness a nd interstitial thickening. Background chronic interstitial change and subpleural reticulation is oth erwise similar to prior exam. There is stable pleural thickening at the left lung base posteriorly. S table 5 mm right lower lobe pulmonary nodule. Images through the upper abdomen reveal no abnormalities. Compression fracture of L1 noted, unchanged . Impression: Focal area of consolidation/mass in the left upper lobe is similar to prior exam. There is however mo re extensive surrounding patchy airspace disease and interstitial thickening, which could reflect ass ociated worsening pneumonia or post radiation change. Correlate with any relevant clinical treatment history. Mild background chronic erosive change and emphysematous change, similar to prior exam. Minimal left pleural effusion and/or left pleural thickening. 4.4 cm ascending aortic aneurysm, similar to prior exam. Reviewed, dictated and finalized at location . [employer]ICIAN Impression: Focal area of consolidation/mass in the left upper lobe is similar to prior exa m. There is however more extensive surrounding patchy airspace disease and inte rstitial thickening, which could reflect associated worsening pneumonia or post radiation change. Correlate with any relevant clinical treatment history. Mild background chronic erosive change and emphysematous change, similar to baldomero or exam. Minimal left pleural effusion and/or left pleural thickening. 4.4 cm ascending aortic aneurysm, similar to prior exam.
== END 2023-03-08 10:04 | disposition home or self-care (01) ==
PROVIDERS: PCP Family Medicine; Visit Provider Radiology Radiation Oncology
DX: C34.12 Malignant neoplasm of upper lobe, left bronchus or lung (principal); I71.40 Abdominal aortic aneurysm, without rupture, unspecified
CPT/HCPCS: 71250

== ENCOUNTER 2024-09-27 09:09 | Emergency (ER) | payer OTHER, SELFPAY ==
[2024-09-27] VITALS (34 sets, daily range): BP systolic 55–79; BP diastolic 28–65; PULSE 103–167; RESP 18–36; TEMP 36.9; O2SAT 93–100
--- NOTE | ~2024-09-27 | CT_ITS ---
History: Altered mental status PROCEDURE: CT head without contrast. COMPARISON: Reference is made to an MRI examination of the brain dated 07/07/2022 TECHNIQUE: Axial imaging of the head performed from the skull base to the vertex without IV contrast. Sagittal a nd coronal reformations obtained. DLP: 681 mGy-cm FINDINGS: The ventricles are enlarged. The dilatation of the ventricles is proportional to the degree of sulcal prominence, not uncommon in the senescent brain. Decreased attenuation is identified within the periventricular white matter, likely secondary to micr ovascular ischemic disease, in a patient of this age. Decreased attenuation is redemonstrated within the right cerebral hemisphere, consistent with prior c erebral infarction. There is no mass, mass effect or midline shift. There is no abnormal extra-axial fluid collection or intracranial hemorrhage. Visualized paranasal sinuses are clear. The mastoid air cells are well aerated. No acute displaced fractures within the overlying cranium. Impression: No acute intracranial hemorrhage or suspicious mass effect. Reviewed, dictated and finalized at location A. Impression: No acute intracranial hemorrhage or suspicious mass effect.
--- NOTE | ~2024-09-27 | XR_ITS ---
CHEST RADIOGRAPH CLINICAL HISTORY: SOA . COMPARISON: Reference is made to a CT examination of the chest dated 03/08/2023 TECHNIQUE: Single portable view of the chest. FINDINGS Complete opacification of the left hemithorax. The cardiomediastinal silhouette is obscured. The right lung is clear. IMPRESSION: Complete opacification of the left hemithorax Reviewed, dictated and finalized at location A.
--- NOTE | 2024-09-27 09:15 | ECG_ITS ---
Test Date: 2024-09-27 09:15:30 Measurements Intervals [place] Rate: 156 P: 0 MA: 0 QRS: 73 QRSD: 70 T: 264 QT: 252 QTc: 407 Interpretive Statements ATRIAL FIBRILLATION WITH RAPID VENTRICULAR RESPONSE LOW QRS VOLTAGE IN EXTREMITY LEADS [QRS DEFLECTION < 0.5 mV IN LIMB LEADS] SEPTAL MYOCARDIAL INFARCTION , PROBABLY OLD [40+ ms Q WAVE IN V1/V2] No previous ECG available for comparison Electronically Signed On 09-28-2024 16:30:16 CDT by Ivelisse Pete
--- OUTSIDE RECORDS SUMMARY | 2024-09-27 09:30 | XMS_ITS | Data Portability ---
Author Organization [place] [facility] [employer], Main Office Address [address] [place] [address] Care Team Providers Care Narcotics Investigator Name Role Phone JOSÉ CARTAGENA Primary Care Provider Assessment Encounter Date Assessment Date Assessment LastModified by Organization Details LastModified Time 01/06/2024 01/06/2024 73 yo M with - HTN - HLD - LT LUNG CANCER; S/p excision & radiation - MULTIPLE LUNG NODULES - S/P B/L AKA (2021) - H/O RECURRENT DVTs - H/O CVA - ALCOHOL DEPENDENCE - EX-SMOKER - H/O B/L CATARACT Annual labs: 03/03/23. PET CT: 04/30/22. LDCT chest: 03/17/22. Annual labs: 03/04/22. D/w pt and his sister in detail about his conditions, recent labs & imagines and further plan of care. All meds verified with pt and his sister. Meds as directed. Diet and exercise explained in detail. BP diary education given and call us if any concerns. Fall risk precautions explained. Cont f/u with Ophtho and Dentist regularly. Cont f/u with Onco & Radiation Onco at [place] as per schedule. Cont f/u with Pulmo as per schedule. Offered to refer to Neuro; but pt declined. HM: Colonoscopy - Long time ago. Pt declined. Risks explained. US AAA - 03/26/22, neg. Flu - 01/06/24. Pneumo - 03/03/22, 03/03/23. Tdap - 01/06/24. Shingrix - At pharmacy/HD. F/u in 3-4 months. Annual labs in 03/21. [email or web address] Not available 01/06/2024 10:57:45 03/07/2024 03/07/2024 73 yo M with - WELL ADULT VISIT - HTN - HLD - LT LUNG CANCER; S/p excision & radiation - MULTIPLE LUNG NODULES - S/P B/L AKA (2021) - H/O RECURRENT DVTs - H/O CVA - ALCOHOL DEPENDENCE - EX-SMOKER - H/O B/L CATARACT Annual labs: 03/03/23. PET CT: 04/30/22. LDCT chest: 03/17/22. Annual labs: 03/04/22. D/w pt and his sister in detail about his conditions, recent labs & imagines and further plan of care. Will do routine labs. All meds verified with pt and his sister. Meds as directed. Diet and exercise explained in detail. BP diary education given and call us if any concerns. Fall risk precautions explained. Cont f/u with Ophtho and Dentist regularly. Cont f/u with Onco & Radiation Onco at [place] as per schedule. Cont f/u with Pulmo as per schedule. Offered to refer to Neuro; but pt declined. HM: Colonoscopy - Long time ago. Pt declined. Risks explained. US AAA - 03/26/22, neg. Flu - 01/06/24. Pneumo - 03/03/22, 03/03/23. Tdap - 01/06/24. Shingrix - At pharmacy/HD. F/u in 2-3 weeks. Annual labs in 03/22. [email or web address] Not available 03/07/2024 09:48:09 04/19/2024 04/19/2024 73 yo M with - ANEMIA, mild - HTN - HLD - LT LUNG CANCER; S/p excision & radiation - MULTIPLE LUNG NODULES - S/P B/L AKA (2021) - H/O RECURRENT DVTs - H/O CVA - ALCOHOL DEPENDENCE - EX-SMOKER - H/O B/L CATARACT Annual labs: 03/07/24. Annual labs: 03/03/23. CT chest wo: 03/08/23. PET CT: 04/30/22. LDCT chest: 03/17/22. Annual labs: 03/04/22. D/w pt and his sister in detail about his conditions, recent labs & imagines and further plan of care. Advised them to f/u with Onco about his Anemia too. All meds verified with pt and his sister. Meds as directed. Diet and exercise explained in detail. BP diary education given and call us if any concerns. Fall risk precautions explained. Cont f/u with Ophtho and Dentist regularly. Cont f/u with Onco & Radiation Onco at [place] as per schedule. Cont f/u with Pulmo as per schedule. Offered to refer to Neuro; but pt declined. HM: Colonoscopy - Long time ago. Pt declined. Risks explained. US AAA - 03/26/22, neg. Flu - 01/06/24. Pneumo - 03/03/22, 03/03/23. Tdap - 01/06/24. Shingrix - At pharmacy/HD. F/u in 4-5 months. Annual labs in 03/22. [email or web address] Not available 04/19/2024 10:38:49 08/07/2024 08/07/2024 74 yo M with - ANEMIA, mild - HTN - HLD - LT LUNG CANCER; S/p excision & radiation - MULTIPLE LUNG NODULES - S/P B/L AKA (2021) - H/O RECURRENT DVTs - H/O CVA - ALCOHOL DEPENDENCE - EX-SMOKER - H/O B/L CATARACT Annual labs: 03/07/24. Annual labs: 03/03/23. CT chest wo: 03/08/23. PET CT: 04/30/22. LDCT chest: 03/17/22. Annual labs: 03/04/22. D/w pt and his sister in detail about his conditions, recent labs & imagines and further plan of care. Advised them to f/u with Onco about his Anemia too. All meds verified with pt and his sister. Meds as directed. Diet and exercise explained in detail. BP diary education given and call us if any concerns. Fall risk precautions explained. Cont f/u with Ophtho and Dentist regularly. Cont f/u with Onco & Radiation Onco at [place] as per schedule. Cont f/u with Pulmo as per schedule. Offered to refer to Neuro; but pt declined. HM: Colonoscopy - Long time ago. Pt declined. Risks explained. US AAA - 03/26/22, neg. Flu - 01/06/24. Pneumo - 03/03/22, 03/03/23. Tdap - 01/06/24. Shingrix - At pharmacy/HD. F/u in 4-7 months. Annual labs in 03/22. [email or web address] Not available 08/07/2024 14:21:12 09/11/2024 09/11/2024 74 yo M with - S/P ED VISIT - GENERALIZED WEAKNESS - ANEMIA, mild - HTN - HLD - LT LUNG CANCER; S/p excision & radiation - MULTIPLE LUNG NODULES - S/P B/L AKA (2021) - H/O RECURRENT DVTs - H/O CVA - ALCOHOL DEPENDENCE - EX-SMOKER - H/O B/L CATARACT Annual labs: 03/07/24. Annual labs: 03/03/23. CT chest wo: 03/08/23. PET CT: 04/30/22. LDCT chest: 03/17/22. Annual labs: 03/04/22. D/w pt and his sister in detail about his conditions, recent labs & imagines and further plan of care. I have reconciled the patient's medications post their discharge from inpatient facility. Pt still declined for any HHS or out pt PT/OT. Educated about option for hospice care. All meds verified with pt and his sister. Meds as directed. Diet and exercise explained in detail. BP diary education given and call us if any concerns. Fall risk precautions explained. Cont f/u with Ophtho and Dentist regularly. Cont f/u with Onco & Radiation Onco at [place] as per schedule. Cont f/u with Pulmo as per schedule. Offered to refer to Neuro; but pt declined. Offered to refer for HHS; but pt declined. HM: Colonoscopy - Long time ago. Pt declined. Risks explained. US AAA - 03/26/22, neg. Flu - 01/06/24. Pneumo - 03/03/22, 03/03/23. Tdap - 01/06/24. Shingrix - At pharmacy/HD. F/u in 4-7 months as before. Annual labs in 03/22. [email or web address] Not available 09/11/2024 16:25:28 Plan of Treatment Reminders Order Date Submit Date Provider Last Modified By Organization Details Last Modified Time Details Appointments Physical/ Annual Wellness 30 2024 09:00A Zo Cartagena MD Not available Not available Not available Lab vitamin B12 + folate, serum or blood [address] (Lab), [address] [place], [address], 03/07/2024 11:02:22 HbA1c (hemoglob in A1c), blood [address] (Lab), [address] [place], [address], 03/07/2024 11:02:03 vitamin D, 25-hydrox y, total, serum [address] (Lab), [address] [place], [address], 03/07/2024 11:01:36 CBC w/ auto diff [address] (Lab), [address] [place], [address], 03/07/2024 11:03:51 CMP, serum or plasma [address] (Lab), [address] [place], [address], 03/07/2024 11:03:32 urinalysi s complete, reflex culture 2023 [email or web address] [facility] (Lab), [address] [place], [address], 03/08/2024 14:36:10 TSH, serum or plasma [address] (Lab), [address] [place], [address], 03/07/2024 11:03:07 lipid panel, serum [address] (Lab), [address] [place], [address], 03/07/2024 11:02:46 PSA, serum or plasma [address] (Lab), [address] [place], [address], 03/07/2024 11:01:16 Referral None recorded. Procedures None recorded. Surgeries None recorded. Imaging None recorded. Medication Orders thiamine HCl (vitamin B1) 100 mg tablet 2024 025 [facility] #98290, [address] [place], [place], [id number], 09/11/2024 16:10:52 folic acid 1 mg tablet 2024 025 [facility] #63734, [address], [place], [id number], 09/11/2024 16:11:26 multivita min tablet 2024 025 [facility] #48955, [address], [place], [id number], 09/11/2024 16:11:15 amlodipin e 10 mg tablet 2024 025 [facility] #42665, [address], [place], [id number], 09/11/2024 16:11:04 lisinopri l 20 mg tablet 2024 025 [facility] #39617, [address], [place], [id number], 09/11/2024 16:11:21 metoprolo l succinate ER 25 mg tablet,ex tended release 24 hr 2024 [facility] #13398, [address], [place], [place], [id number], 09/11/2024 16:11:13 Eliquis 5 mg tablet 2024 [facility] #53211, [address], [place], [place], [id number], 09/11/2024 16:10:58 atorvasta tin 40 mg tablet 2024 [facility] #40000, [address], [place], [place], [id number], 09/11/2024 16:10:53 ferrous sulfate 325 mg (65 mg iron) tablet,de layed release 2024 [facility] #03065, [address], [place], [place], [id number], 09/11/2024 16:11:19 albuterol sulfate HFA 90 mcg/actua tion aerosol inhaler 2024 [facility] #46984, [address], [place], [place], [id number], 09/11/2024 16:11:20 thiamine HCl (vitamin B1) 100 mg tablet 2024 [facility] #22865, [address], [place], [place], [id number], 08/07/2024 14:15:23 folic acid 1 mg tablet 2024 025 [facility] #05560, [address], [place], [place], [id number], 08/07/2024 14:15:30 multivita min tablet 2024 [facility] #43964, [address], [place], [place], [id number], 08/07/2024 14:15:23 amlodipin e 10 mg tablet 2024 [facility] #39701, [address], [place], [place], [id number], 08/07/2024 14:15:30 lisinopri l 20 mg tablet 2024 [facility] #28982, [address], [place], [place], [id number], 08/07/2024 14:15:27 metoprolo l succinate ER 25 mg tablet,ex tended release 24 hr 2024 [facility] #33544, [address], [place], [place], [id number], 08/07/2024 14:15:24 Eliquis 5 mg tablet 2024 [facility] #47463, [address], [place], [place], [id number], 08/07/2024 14:15:26 atorvasta tin 40 mg tablet 2024 [facility] #62027, [address], [place], [place], [id number], 08/07/2024 14:15:29 ferrous sulfate 325 mg (65 mg iron) tablet,de layed release 2024 [facility] #92464, [address], [place], [place], [id number], 08/07/2024 14:15:23 albuterol sulfate HFA 90 mcg/actua tion aerosol inhaler [address] [facility] #24323, [address], [place], [place], [id number], 08/07/2024 14:17:14 thiamine HCl (vitamin B1) 100 mg tablet 2024 [facility] #52069, [address], [place], [place], [id number], 04/19/2024 10:19:46 folic acid 1 mg tablet 2024 [facility] #45724, [address], [place], [place], [id number], 04/19/2024 10:19:48 multivita min tablet 2024 [facility] #37164, [address], [place], [place], [id number], 04/19/2024 10:19:50 amlodipin e 10 mg tablet 2024 025 [facility] #37069, [address], [place], [place], [id number], 04/19/2024 10:19:47 lisinopri l 20 mg tablet [address] [facility] #58959, [address], [place], [place], [id number], 04/19/2024 10:19:56 metoprolo l succinate ER 25 mg tablet,ex tended release 24 hr 2024 025 [facility] #01224, [address], [place], [place], [id number], 04/19/2024 10:19:47 Eliquis 5 mg tablet 2024 025 [facility] #75687, [address], [place], [place], [id number], 04/19/2024 10:19:47 atorvasta tin 40 mg tablet 2024 025 [facility] #32198, [address], [place], [place], [id number], 04/19/2024 10:19:48 ferrous sulfate 325 mg (65 mg iron) tablet,de layed release 2024 [facility] #55848, [address], [place], [place], [id number], 04/19/2024 10:19:48 albuterol sulfate HFA 90 mcg/actua tion aerosol inhaler 2024 [facility] #56541, [address], [place], [id number], 04/19/2024 10:19:47 thiamine HCl (vitamin B1) 100 mg tablet 2023 024 [facility] #24254, [address], [place], [id number], 03/07/2024 09:35:52 folic acid 1 mg tablet 2023 024 [facility] #70893, [address], [place], [id number], 03/07/2024 09:35:55 multivita min tablet 2023 024 [facility] #22933, [address], [place], [id number], 03/07/2024 09:35:53 amlodipin e 10 mg tablet 2023 024 [facility] #55686, [address], [place], [id number], 03/07/2024 09:35:53 lisinopri l 20 mg tablet 2023 [facility] #00703, [address], [place], [place], [id number], 03/07/2024 09:35:51 metoprolo l succinate ER 25 mg tablet,ex tended release 24 hr 2023 [facility] #75133, [address], [place], [place], [id number], 03/07/2024 09:35:51 Eliquis 5 mg tablet 2023 [facility] #51967, [address], [place], [place], [id number], 03/07/2024 09:35:54 atorvasta tin 40 mg tablet 2023 [facility] #72808, [address], [place], [place], [id number], 03/07/2024 09:35:54 albuterol sulfate HFA 90 mcg/actua tion aerosol inhaler 2023 [facility] #69323, [address], [place], [place], [id number], 03/07/2024 09:35:50 thiamine HCl (vitamin B1) 100 mg tablet 2023 [facility] #58063, [address], [place], [place], [id number], 01/06/2024 10:39:24 folic acid 1 mg tablet 2023 [facility] #65664, [address], [place], [place], [id number], 01/06/2024 10:39:25 multivita min tablet 2023 [facility] #40858, [address], [place], [place], [id number], 01/06/2024 10:39:22 amlodipin e 10 mg tablet 2023 [facility] #06460, [address], [place], [place], [id number], 01/06/2024 10:39:39 lisinopri l 20 mg tablet 2023 [facility] #69279, [address], [place], [place], [id number], 01/06/2024 10:39:23 metoprolo l succinate ER 25 mg tablet,ex tended release 24 hr 2023 [facility] #21378, [address], [place], [place], [id number], 01/06/2024 10:39:24 albuterol sulfate HFA 90 mcg/actua tion aerosol inhaler 2023 [facility] #80922, [address], [place], [place], [id number], 01/06/2024 10:39:22 Eliquis 5 mg tablet 2023 [facility] #84759, [address], [place], [place], [id number], 01/06/2024 10:39:24 atorvasta tin 40 mg tablet 2023 [facility] #55387, [address], [place], [place], [id number], 01/06/2024 10:39:25 Patient TargetsNo targets recorded. Patient Instructions Encounter Date Encounter Id Patient Instructions Last Modified By Organization Details Last Modified Time 09/11/2024 [id number] Thank you for your visit to our office today. We would like to request that you reach out to your referring or previous provider and request that they send us a Summary of Care in electronic form, so that we may have it on file in your medical record. At your visit, we had the medical records we needed to provide you with the best possible care; however, for insurance purposes, an electronic Summary of Care is beneficial. Thank you for your assistance in obtaining this information and we look forward to providing continued care to you. Please review your medication list from the Summary of Care for this visit. If there are any differences from what you are currently taking at home, please call us to discuss. [email or web address] Not available 09/11/2024 15:58:41 Homebound Status : Required Home Health Services: Durable Medical Equipment needed: Billing Guidelines CPT code 02963- Transitional Care Management services with moderate medical decision complexity ([id number]-[id number] visit within 14 days of discharge). CPT code 81758- Transitional Care Management services with high medical decision complexity (gbdg-[id number] visit within 7 days of discharge). Not available 09/11/2024 15:58:41 Reason for Referral None Reported. Results Created Date Observation Date Name Description Value Unit Range Abnormal Flag Note LastModifiedBy Organization Detail LastModifiedTime 03/07/20 24 03/07/2024 CBC/C OMPLE TE BLD COUNT W/DIF F white blood cells 6.6 x10'3 /uL 4.2-10 .8 Not Available [facility] (Lab) [address] [place], [address], 03/07/2024 14:00:28 03/07/20 24 03/07/2024 CBC/C OMPLE TE BLD COUNT W/DIF F red blood cells 4.72 x10'6 /uL 4.10-5 .80 Not Available [facility] (Lab) [address] [place], [address], 03/07/2024 14:00:28 03/07/20 24 03/07/2024 CBC/C OMPLE TE BLD COUNT W/DIF F hemoglobin 11.9 g/dL 13.2-1 7.0 low Not Available [facility] (Lab) [address] [place], [address], 03/07/2024 14:00:28 03/07/20 24 03/07/2024 CBC/C OMPLE TE BLD COUNT W/DIF F hematocrit 38.7 % 39.3-5 0.0 low Not Available [facility] (Lab) [address] [place], [address], 03/07/2024 14:00:28 03/07/20 24 03/07/2024 CBC/C OMPLE TE BLD COUNT W/DIF F mean red cell volume 82.0 fL 80.0-9 7.0 Not Available [facility] (Lab) [address] [place], [address], 03/07/2024 14:00:28 03/07/20 24 03/07/2024 CBC/C OMPLE TE BLD COUNT W/DIF F mean red cell hemoglobin 25.2 pg 27.0-3 3.0 low Not Available [facility] (Lab) [address] [place], [address], 03/07/2024 14:00:28 03/07/20 24 03/07/2024 CBC/C OMPLE TE BLD COUNT W/DIF F mean RBC HGB concentratio n 30.7 g/dL 31.0-3 6.0 low Not Available [facility] (Lab) [address] [place], [address], 03/07/2024 14:00:28 03/07/20 24 03/07/2024 CBC/C OMPLE TE BLD COUNT W/DIF F red cell distribution width 15.0 % 11.8-1 5.5 Not Available [facility] (Lab) [address] [place], [address], 03/07/2024 14:00:28 03/07/20 24 03/07/2024 CBC/C OMPLE TE BLD COUNT W/DIF F platelets 496 x10'3 /uL 150-40 0 high Not Available [facility] (Lab) [address] [facility] [place], [address], 03/07/2024 14:00:28 03/07/20 24 03/07/2024 CBC/C OMPLE TE BLD COUNT W/DIF F mean platelet volume 12.4 fL 9.0-12 .4 Not Available [facility] (Lab) [address] [place], [address], 03/07/2024 14:00:28 03/07/20 24 03/07/2024 CBC/C OMPLE TE BLD COUNT W/DIF F neutrophils 71.0 % 39.0-7 2.0 Not Available [facility] (Lab) [address] [place], [address], 03/07/2024 14:00:28 03/07/20 24 03/07/2024 CBC/C OMPLE TE BLD COUNT W/DIF F lymphocytes 18.4 % 16.0-4 7.0 Not Available [facility] (Lab) [address] [place], [address], 03/07/2024 14:00:28 03/07/20 24 03/07/2024 CBC/C OMPLE TE BLD COUNT W/DIF F monocytes 5.2 % 5.0-12 .0 Not Available [facility] (Lab) [address] [place], [address], 03/07/2024 14:00:28 03/07/20 24 03/07/2024 CBC/C OMPLE TE BLD COUNT W/DIF F eosinophils 3.7 % 1.0-7. 0 Not Available [facility] (Lab) [address] [place], [address], 03/07/2024 14:00:28 03/07/20 24 03/07/2024 CBC/C OMPLE TE BLD COUNT W/DIF F basophils 1.4 % 0.0-2. 0 Not Available [facility] (Lab) [address] [place], [address], 03/07/2024 14:00:28 03/07/20 24 03/07/2024 CBC/C OMPLE TE BLD COUNT W/DIF F immature granulocytes 0.3 % 0.00-0 .50 Not Available [facility] (Lab) [address] [place], [address], 03/07/2024 14:00:28 03/07/20 24 03/07/2024 CBC/C OMPLE TE BLD COUNT W/DIF F neutrophils, absolute count 4.67 x10'3 /uL 1.5-8. 0 Not Available [facility] (Lab) [address] [place], [address], 03/07/2024 14:00:28 03/07/20 24 03/07/2024 CBC/C OMPLE TE BLD COUNT W/DIF F lymphocytes, absolute count 1.21 x10'3 /uL 1.07-3 .43 Not Available [facility] (Lab) [address] [place], [address], 03/07/2024 14:00:28 03/07/20 24 03/07/2024 CBC/C OMPLE TE BLD COUNT W/DIF F monocytes, absolute count 0.34 x10'3 /uL 0.29-0 .99 Not Available [facility] (Lab) [address] [place], [address], 03/07/2024 14:00:28 03/07/20 24 03/07/2024 CBC/C OMPLE TE BLD COUNT W/DIF F eosinophils, absolute count 0.24 x10'3 /uL 0.02-0 .53 Not Available [facility] (Lab) [address] [place], [address], 03/07/2024 14:00:28 03/07/20 24 03/07/2024 CBC/C OMPLE TE BLD COUNT W/DIF F basophils, absolute count 0.09 x10'3 /uL 0.01-0 .08 high Not Available [facility] (Lab) [address] [place], [address], 03/07/2024 14:00:28 03/07/20 24 03/07/2024 CBC/C OMPLE TE BLD COUNT W/DIF F immature granulocytes ,absolute 0.02 x10'3 /uL 0.00-0 .05 Not Available [facility] (Lab) [address] [place], [address], 03/07/2024 14:00:28 03/07/20 24 03/07/2024 CBC/C OMPLE TE BLD COUNT W/DIF F nucleated red blood cells 0.0 % -0 Not Available [facility] (Lab) [address] [place], [address], 03/07/2024 14:00:28 03/07/20 24 03/07/2024 CBC/C OMPLE TE BLD COUNT W/DIF F NRBC# 0.00 x10'3 /uL Not Available [facility] (Lab) [address] [place], [address], 03/07/2024 14:00:28 03/07/20 24 03/07/2024 COMPR EHENS RUPALI METAB OLIC PANEL sodium 137 mmol/ L 137-14 5 Not Available [facility] (Lab) [address] [place], [address], 03/07/2024 14:21:53 03/07/20 24 03/07/2024 COMPR EHENS RUPALI METAB OLIC PANEL potassium 4.3 mmol/ L 3.5-5. 1 Not Available [facility] (Lab) [address] [place], [address], 03/07/2024 14:21:53 03/07/20 24 03/07/2024 COMPR EHENS RUPALI METAB OLIC PANEL chloride 107 mmol/ L 98-107 Not Available [facility] (Lab) [address] [place], [address], 03/07/2024 14:21:53 03/07/20 24 03/07/2024 COMPR EHENS RUPALI METAB OLIC PANEL carbon dioxide 25 mmol/ L 22-30 Not Available [facility] (Lab) [address] [place], [address], 03/07/2024 14:21:53 03/07/20 24 03/07/2024 COMPR EHENS RUPALI METAB OLIC PANEL anion gap 9.3 mmol/ L 14-22 low Not Available [facility] (Lab) [address] [place], [address], 03/07/2024 14:21:53 03/07/20 24 03/07/2024 COMPR EHENS RUPALI METAB OLIC PANEL glucose 98 mg/dL 70-99 Not Available [facility] (Lab) [address] [place], [address], 03/07/2024 14:21:53 03/07/20 24 03/07/2024 COMPR EHENS RUPALI METAB OLIC PANEL BUN 10 mg/dL 8-19 Not Available [facility] (Lab) [address] [place], [address], 03/07/2024 14:21:53 03/07/20 24 03/07/2024 COMPR EHENS RUPALI METAB OLIC PANEL creatinine 0.57 mg/dL 0.66-1 .25 low Not Available [facility] (Lab) [address] [place], [address], 03/07/2024 14:21:53 03/07/20 24 03/07/2024 COMPR EHENS RUPALI METAB OLIC PANEL GFR >60 Refer ence Range : [place] GFR Healt hy Adult : >60 mL/mi n/1.7 3 m2 Chron ic Kidne y Disea se: 15-60 mL/mi n/1.7 3 m2 Kidne y Failu re: <15/m L/min /1.73 m2 www.n iddk. nih.g ov The MDRD study equat ion has not been valid ated in child josé <18 years of age; pregn ant women ; the elder ly >85 years of age; or in some racia l or ethni c subgr oups, such as Hispa nics. Outsi de the valid ated michael eters , estim ated GFR is less accur ate, requi ring clini william judgm ent on a case- by-ca se basis . Clini william inter preta tion for other races and ages must be made by the clini bushra. The MDRD study equat ion has not been valid ated for the evalu ation of serum creat inine relat ed to nutri lydia l statu s or medic ation usage . For perso ns <18 years of age, a pedia tric GFR calcu lator is avail able on the [facility] websi te: https ://paige key.brigida tamayo/pr marquita panal s/kdo qi/gf r_cal culat or Not Available [facility] (Lab) [address] [place], [address], 03/07/2024 14:21:53 03/07/20 24 03/07/2024 COMPR EHENS RUPALI METAB OLIC PANEL alkaline phosphatase 108 U/L 38-126 Not Available [facility] (Lab) [address] [place], [address], 03/07/2024 14:21:53 03/07/20 24 03/07/2024 COMPR EHENS RUPALI METAB OLIC PANEL alanine aminotransfe rase 13 U/L 0-50 Not Available [facility] [facility] (Lab) [address] [place], [address], 03/07/2024 14:21:53 03/07/20 24 03/07/2024 COMPR EHENS RUPALI METAB OLIC PANEL aspartate aminotransfe rase 19 U/L 15-46 Not Available [facility] (Lab) [address] [place], [address], 03/07/2024 14:21:53 03/07/20 24 03/07/2024 COMPR EHENS RUPALI METAB OLIC PANEL bilirubin, total 1.10 mg/dL 0.20-1 .30 Not Available [facility] (Lab) [address] [place], [address], 03/07/2024 14:21:53 03/07/20 24 03/07/2024 COMPR EHENS RUPALI METAB OLIC PANEL calcium 9.1 mg/dL 8.4-10 .2 Not Available [facility] (Lab) [address] [place], [address], 03/07/2024 14:21:53 03/07/20 24 03/07/2024 COMPR EHENS RUPALI METAB OLIC PANEL total protein 6.9 g/dL 6.3-8. 2 Not Available [facility] (Lab) [address] [place], [address], 03/07/2024 14:21:53 03/07/20 24 03/07/2024 COMPR EHENS RUPALI METAB OLIC PANEL albumin 3.4 g/dL 3.0-4. 4 Not Available [facility] (Lab) [address] [place], [address], 03/07/2024 14:21:53 03/07/20 24 03/07/2024 COMPR EHENS RUPALI METAB OLIC PANEL globulin 3.5 g/dL 2.6-4. 2 Not Available [facility] (Lab) [address] [place], [address], 03/07/2024 14:21:53 03/07/20 24 03/07/2024 COMPR EHENS RUPALI METAB OLIC PANEL A/G ratio 1.0 ratio 1.0-2. 0 Not Available [facility] (Lab) [address] [place], [address], 03/07/2024 14:21:53 03/07/20 24 03/07/2024 LIPID PANEL cholesterol 142 mg/dL 140-19 9 NIH CHUN NSUS RECOM MENDA TION FOR NEDA STERO L: ADULT CHILD LOW RISK: <200 <170 BORDE RLINE : <200- 239 ----- HIGH RISK: >240 >200 Not Available [facility] (Lab) [address] [place], [address], 03/07/2024 14:21:56 03/07/20 24 03/07/2024 LIPID PANEL triglyceride s 83 mg/dL 0-150 NIH CHUN NSUS REPOR T RECOM MENDA TION FOR TRIGL YCERI JAHAIRA: ADULT CHILD LOW RISK: <150 ----- BODER LINE: 150-1 99 ----- HIGH RISK: >200 ----- Not Available [facility] (Lab) [address] [place], [address], 03/07/2024 14:21:56 03/07/20 24 03/07/2024 LIPID PANEL HDL cholesterol 35 mg/dL 40- low Not Available [facility] (Lab) [address] [place], [address], 03/07/2024 14:21:56 03/07/20 24 03/07/2024 LIPID PANEL LDL cholesterol, calculated 90 mg/dL 0-130 NIH CHUN NSUS REPOR T RECOM MENDA TIONS FOR LDL: ADULT CHILD LOW RISK <130 <110 (OPTI MAL LDL) <100 ----- BORDE RLINE : 130-1 59 ----- HIGH RISK: >160 >130 A TRIGL YCERI DE RESUL T >400 INVAL IDATE S THE CALCU LATIO N FOR LDL FRACT IONAT ION - THE LDL RESUL T WILL NOT BE REPOR JOSE DAVID. Not Available [facility] (Lab) [address] [place], [address], 03/07/2024 14:21:56 03/07/20 24 03/07/2024 HEMOG LOBIN A1C HA1C 5.8 % 4.0-6. 0 Diabe siddharth Scree kevin Crite bobby: <5.7% Consi stent with absen ce of diabe siddharth 5.7-6 .4% Consi stent with incre ased risk for diabe siddharth (pred iabet es) >OR=6 .5% Consi stent with diabe siddharth REFER ENCE: Diabe siddharth Care 2016, 39( ppl.1 ):s13 -s22 Not Available [facility] (Lab) [address] [place], [address], 03/07/2024 14:28:55 03/07/20 24 03/07/2024 TSH W/REF SLY FT4 TSH with reflex free T4 1.240 uIU/m L 0.465- 4.680 Not Available [facility] (Lab) [address] [place], [address], 03/07/2024 14:52:23 03/07/20 24 03/07/2024 PSA SCREE N PSA medicare screen 1.14 NG/mL 0.00-4 .00 Not Available [facility] (Lab) [address] [place], [address], 03/07/2024 14:52:28 03/07/20 24 03/07/2024 VITAM IN D 25-HY DROXY [id number] 31.7 NG/mL 30-100 Vitam in D Statu s: Defic ient: <20 ng/mL Insuf ficie nt: 20-29 ng/mL Suffi cient : 30-10 0 ng/mL Not Available [facility] (Lab) [address] [place], [address], 03/07/2024 21:24:10 03/07/20 24 03/07/2024 VITAM IN B12 ([facility] ) vb12 483 pg/mL 239-93 1 Not Available [facility] (Lab) [address] [place], [address], 03/07/2024 15:34:57 03/07/20 24 03/07/2024 FOLAT E, SERUM /PLAS MA folate >20.0 NG/mL 2.76-2 0.0 Not Available [facility] (Lab) [address] [place], [address], 03/07/2024 15:35:03 03/07/20 24 03/07/2024 URINA LYSIS COMPL ETE/I RIS W/RFX color YELLOW Not Available [facility] (Lab) [address] [place], [address], 03/07/2024 20:19:27 03/07/20 24 03/07/2024 URINA LYSIS COMPL ETE/I RIS W/RFX appear EXTRA TURBID abnormal Not Available [facility] (Lab) [address] [place], [address], 03/07/2024 20:19:27 03/07/20 24 03/07/2024 URINA LYSIS COMPL ETE/I RIS W/RFX specific gravity 1.026 1.001- 1.030 Not Available [facility] (Lab) [address] [place], [address], 03/07/2024 20:19:27 03/07/20 24 03/07/2024 URINA LYSIS COMPL ETE/I RIS W/RFX pH 6.0 pH_un its 5.0-9. 0 Not Available [facility] (Lab) [address] [place], [address], 03/07/2024 20:19:27 03/07/20 24 03/07/2024 URINA LYSIS COMPL ETE/I RIS W/RFX leukocytes NEGATI VE gilmer/u L negati ve- Not Available [facility] (Lab) [address] [place], [address], 03/07/2024 20:19:27 03/07/20 24 03/07/2024 URINA LYSIS COMPL ETE/I RIS W/RFX nitrite NEGATI VE negati ve- Not Available [facility] (Lab) [address] [place], [address], 03/07/2024 20:19:27 03/07/20 24 03/07/2024 URINA LYSIS COMPL ETE/I RIS W/RFX protein 20 mg/dL negati ve- abnormal Not Available [facility] (Lab) [address] [place], [address], 03/07/2024 20:19:27 03/07/20 24 03/07/2024 URINA LYSIS COMPL ETE/I RIS W/RFX glucose NORMAL mg/dL normal - Not Available [facility] (Lab) [address] [place], [address], 03/07/2024 20:19:27 03/07/20 24 03/07/2024 URINA LYSIS COMPL ETE/I RIS W/RFX ketones NEGATI VE mg/dL negati ve- Not Available [facility] (Lab) [address] [place], [address], 03/07/2024 20:19:27 03/07/20 24 03/07/2024 URINA LYSIS COMPL ETE/I RIS W/RFX urobilinogen 3 mg/dL normal - abnormal Not Available [facility] (Lab) [address] [place], [address], 03/07/2024 20:19:27 03/07/20 24 03/07/2024 URINA LYSIS COMPL ETE/I RIS W/RFX bilirubin NEGATI VE mg/dL negati ve- Not Available [facility] (Lab) [address] [place], [address], 03/07/2024 20:19:27 03/07/20 24 03/07/2024 URINA LYSIS COMPL ETE/I RIS W/RFX blood NEGATI VE mg/dL negati ve- Not Available [facility] (Lab) [address] [place], [address], 03/07/2024 20:19:27 03/07/20 24 03/07/2024 URINA LYSIS COMPL ETE/I RIS W/RFX white blood cells 0-8 /i??h pfi?? 0-8 Not Available [facility] (Lab) [address] [facility] [place], [address], 03/07/2024 20:19:27 03/07/20 24 03/07/2024 URINA LYSIS COMPL ETE/I RIS W/RFX red blood cells 0-4 /i??h pfi?? 0-4 Not Available [facility] (Lab) [address] [place], [address], 03/07/2024 20:19:27 03/07/20 24 03/07/2024 URINA LYSIS COMPL ETE/I RIS W/RFX bacteria NONE Not Available [facility] (Lab) [address] [place], [address], 03/07/2024 20:19:27 03/07/20 24 03/07/2024 URINA LYSIS COMPL ETE/I RIS W/RFX mucous MANY /i??l pfi?? abnormal Not Available [facility] (Lab) [address] [place], [address], 03/07/2024 20:19:27 03/07/20 24 03/07/2024 URINA LYSIS COMPL ETE/I RIS W/RFX squamous epithelial OCCASI ONAL /i??l pfi?? abnormal Not Available [facility] (Lab) [address] [place], [address], 03/07/2024 20:19:27 03/07/20 24 03/07/2024 URINA LYSIS COMPL ETE/I RIS W/RFX hyaline cast FEW /i??l pfi?? none seen- abnormal Not Available [facility] (Lab) [address] [place], [address], 03/07/2024 20:19:27 Result Notes None recorded. Problems Name Problem SNOMED Code Status Onset Date Resolution Date Notes Provider Name and Address Organization Details Recorded Time Impacted cerumen of bilateral ears 2420164907780 108 Active 2021 Not Available [facility] 3 15:26:21 Hyperkalem ia 89540680 Active 2021 Not Available [facility] 3 15:26:21 Lung mass 745749947 Active 2021 Not Available [facility] 3 15:26:21 Hypertensi ve disorder 29182135 Active 2021 Not Available [facility] 3 15:26:21 Multiple nodules of lung 526308034 Active 2022 Not Available [facility] 3 15:26:21 Hyperlipid emia 97046630 Active 2021 Not Available [facility] 3 15:26:21 Alcohol dependence 36661695 Active 2021 Not Available [facility] 3 15:26:21 Recurrent deep vein thrombosis 832581438 Active 2021 Not Available [facility] 3 15:26:21 Smoker 57888624 Active 2021 Not Available [facility] 3 15:26:21 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 Not Available [facility] 3 15:26:21 Amputated above knee 087576154 Active 2022 Not Available [facility] 3 15:26:21 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 764911605 Active 2022 Not Available [facility] 3 15:26:21 History of cerebrovas cular accident 145938696 Active 2022 José Cartagena MD [address], [place], [address] , [employer] 3 09:24:02 Bilateral cataracts 62831165 Active 2023 José Cartagena MD [address], [address], [place], [address] , [facility] 4 14:20:03 Anemia 863168437 Active 2024 José Cartagena MD [address], [place], [address] , [facility] 5 10:18:30 Asthenia 73790653 Active 2024 José Cartagena MD [address], [place], [address] , [facility] 5 16:22:22 Problem Notes None recorded. Procedures Surgical History Date Name Laterality Status Provider Name and Address Organization Details Recorded Time 5 Transitional_C are_Management completed Francia Becerra RN [facility] 09/11/2024 15:58:42 4 Smoking Cessation completed José Cartagena MD [address], [place], [address], [facility] 01/06/2024 10:18:54 4 Smoking Cessation completed José Cartagena MD [address], [place], [address], [facility] 09/06/2023 12:35:21 4 Medicare Wellness CPT Code, subsequent completed Bertha Bello RN [facility] 05/31/2023 14:38:24 3 Smoking Cessation completed José Cartagena MD [address], [place], [address], [facility] [employer] [facility] 03/03/2023 08:59:57 3 Smoking Cessation completed José Cartagena MD [address], [facility] [address], [place], [address], [facility] [employer] [facility] 12/03/2022 10:23:50 3 Smoking Cessation completed José Cartagena MD [address], [facility] [address], [place], [address], [facility] [employer] [facility] 08/17/2022 10:30:54 amputation of lower limb completed Not Available [facility] 05/28/2022 01:47:15 Imaging Results None recorded. Procedure Notes None recorded. Medical Equipment None Reported. Allergies No known drug allergies Medications Name Sig Start Date Stop Date Status Note LastModified by Organization Details LastModified Time multivitami n tablet TAKE 1 TABLET BY MOUTH EVERY DAY DIRECTED active Not Available Not Available No t Available furosemide 40 mg tablet TAKE 1 TABLET BY MOUTH EVERY MORNING 03/03 completed Not Available Not Available Not Available latanoprost 0.005 % eye drops INSTILL 1 DROP INTO THE RIGHT EYE AT BEDTIME active Not Available Not Available No t Available atorvastati n 40 mg tablet TAKE 1 TABLET BY MOUTH EVERY DAY AT BEDTIME active Not Available Not Available No t Available prednisone 10 mg tablet 03/03 completed Not Available Not Available Not Available cefuroxime axetil 250 mg tablet 03/10 completed Not Available Not Available Not Available nicotine 14 mg/24 hr daily transdermal patch APPLY 1 PATCH EVERY DAY TO SKIN DIRECTED FOR 30 DAYS 08/07 completed Not Available Not Available Not Available polyethylen e glycol 3350 17 gram oral powder packet DISSOLVE 1 PACKET IN LIQUID AND DRINK BY MOUTH ONCE DAILY 03/03 completed Not Available Not Available Not Available hydrocodone 5 mg-acetamin ophen 325 mg tablet TAKE 2 TABLETS BY MOUTH EVERY 4 HOURS NEEDED FOR PAIN 03/03 completed Not Available Not Available Not Available flurbiprofe n 0.03 % eye drops 08/07 completed Not Available Not Available Not Available lisinopril 20 mg tablet Take 1 tablet every day by oral route in the morning for 90 days. 2024 active Not Available Not Available Not Avai lable Debrox 6.5 % ear drops INSTILL 4 DROPS INTO AFFECTED EAR(S) BY OTIC ROUTE 2 TIMES PER DAY 03/03 completed Not Available Not Available Not Available hydralazine 25 mg tablet 03/03 completed Not Available Not Available Not Available amlodipine 5 mg tablet TAKE 1 TABLET BY MOUTH EVERY DAY IN THE MORNING 03/03 completed Not Available Not Available Not Available prochlorper azine maleate 10 mg tablet TAKE 1 TABLET BY MOUTH EVERY 6 HOURS NEEDED FOR NAUSEA active Not Available Not Available No t Available hydrocodone 10 mg-acetamin ophen 325 mg tablet 03/03 completed Not Available Not Available Not Available ondansetron 8 mg disintegrat ing tablet TAKE 1 TABLET BY MOUTH EVERY 8 HOURS NEEDED FOR NAUSEA active Not Available Not Available No t Available prednisolon e acetate 1 % eye drops,suspe nsion 08/07 completed Not Available Not Available Not Available ciprofloxac in 0.3 % eye drops 08/07 completed Not Available Not Available Not Available amlodipine 10 mg tablet TAKE 1 TABLET BY MOUTH EVERY MORNING 2024 active Not Available Not Available Not Avai lable dexamethaso ne 4 mg tablet TAKE ONE TABLET BY MOUTH WITH FOOD 45 MINUTES PRIOR TO EACH RADIATION TREATMENT TO DECREASE INFLAMMAT ORY RESPONSE 08/17 completed Not Available Not Available Not Available metoprolol tartrate 50 mg tablet TAKE 1 TABLET BY MOUTH THREE TIMES DAILY 03/03 completed Not Available Not Available Not Available nicotine 21 mg/24 hr daily transdermal patch APPLY 1 PATCH QHS 03/03 completed Not Available Not Available Not Available aspirin 81 mg chewable tablet CHEW AND SWALLOW 1 TABLET BY MOUTH EVERY DAY 08/17 completed Not Available Not Available Not Available folic acid 1 mg tablet Take 1 tablet every day by oral route as directed for 90 days. 2024 active Not Available Not Available Not Avai lable bisacodyl 5 mg tablet,hero yed release 03/10 completed Not Available Not Available Not Available metoprolol succinate ER 25 mg tablet,exte nded release 24 hr Take 1 tablet every day by oral route at bedtime for 90 days. 2024 active Not Available Not Available Not Avai lable albuterol sulfate HFA 90 mcg/actuati on aerosol inhaler INHALE 2 PUFFS BY MOUTH EVERY 6 HOURS FOR 10 DAYS NEEDED active Not Available Not Available No t Available ferrous sulfate 325 mg (65 mg iron) tablet,hero yed release TAKE 1 TABLET BY MOUTH TWICE DAILY AFTER MEALS DIRECTED active Not Available Not Available No t Available Vitamin B-1 100 mg tablet TAKE 1 TABLET BY MOUTH DAILY DIRECTED active Not Available Not Available No t Available diltiazem 60 mg tablet TAKE 1 TABLET BY MOUTH FOUR TIMES DAILY 05/19 completed Not Available Not Available Not Available nicotine 7 mg/24 hr daily transdermal patch APPLY 1 PATCH TOPICALLY TO THE SKIN EVERY DAY DIRECTED active Not Available Not Available No t Available Cartia XT 180 mg capsule,ext ended release 03/10 completed Not Available Not Available Not Available multivitami n 03/03 completed Not Available Not Available Not Available Symbicort 80 mcg-4.5 mcg/actuati on HFA aerosol inhaler 03/03 completed Not Available Not Available Not Available Vitamin B-1 (mononitrat e) 100 mg tablet TAKE 1 TABLET BY MOUTH EVERY DAY active Not Available Not Available No t Available Combivent Respimat 20 mcg-100 mcg/actuati on solution for inhalation 03/03 completed Not Available Not Available Not Available Eliquis 5 mg tablet TAKE 1 TABLET BY MOUTH TWICE DAILY WITH MEALS active Not Available Not Available No t Available Bevespi Aerosphere 9 mcg-4.8 mcg HFA aerosol inhaler INHALE 2 PUFFS BY MOUTH TWICE DAILY active Not Available Not Available No t Available Vitals Date Recorded Body height Body mass index (BMI) Body weight Body temperature Oxygen saturation Oxygen saturation in Arterial blood by Pulse oximetry Heart rate Systolic blood pressure Diastolic blood pressure Provider Name and Address Organization Details Last Updated DateTime 5 175.26 cm 19.9 kg/m2 27411.9 7 g 96.8 [degF] 97 % 97 % 90 /min 110 mm[Hg] 64 mm[Hg] Francia Becerra RN [place] [facility] [employer] [facility] 5 10:13:03 Date Recorded Heart rate Provider Name an d Address Organization Details Last Updated DateTime 08/07/2024 66 /min Zo Muñoz [address] [facility], [facility] [address], [place], [address], [facility] [employer] [facility] 08/07/2024 14:19:43 Date Recorded Body height Body mass index (BMI) Body weight Body temperature Oxygen saturation Oxygen saturation in Arterial blood by Pulse oximetry Systolic blood pressure Diastolic blood pressure Provider Name and Address Organization Details Last Updated DateTime 5 175.26 cm 19.9 kg/m2 45443.9 7 g 97.3 [degF] 95 % 95 % 110 mm[Hg] 60 mm[Hg] Francia Becerra RN [facility] [employer] [facility] 5 14:07:49 Date Recorded Body height Body mass index (BMI) Body weight Body temperature Oxygen saturation Oxygen saturation in Arterial blood by Pulse oximetry Heart rate Systolic blood pressure Diastolic blood pressure Provider Name and Address Organization Details Last Updated DateTime 5 175.26 cm 15.4 kg/m2 83321.6 1 g 97 [degF] 94 % 94 % 66 /min 110 mm[Hg] 70 mm[Hg] Francia Becerra RN [facility] [employer] [facility] 5 16:03:04 Date Recorded Body height Body mass index (BMI) Body weight Heart rate Respiratory rate Body temperature Oxygen saturation Oxygen saturation in Arterial blood by Pulse oximetry Systolic blood pressure Diastolic blood pressure Provider Name and Address Organization Details Last Updated DateTime 4 175.26 cm 19.9 kg/m2 77080.9 7 g 98.6 /min 16 /min 98.6 [degF] 97 % 97 % 106 mm[Hg] 64 mm[Hg] Anderson Borrero [facility] [employer] 4 10:27:02 Date Recorded Oxygen saturation Oxygen saturation in Arterial blood by Pulse oximetry Provider Name and Address Organization Details Last Updated DateTime 03/07/2024 96 % 96 % José Cartagena MD [address], [facility] [address], [place], [address], [facility] [employer] [facility] 03/07/2024 09:29:02 Date Recorded Body height Body mass index (BMI) Body weight Body temperature Heart rate Systolic blood pressure Diastolic blood pressure Provider Name and Address Organization Details Last Updated DateTime 4 175.26 cm 19.9 kg/m2 08700.9 7 g 97.1 [degF] 86 /min 110 mm[Hg] 66 mm[Hg] Francia Becerra RN [facility] [employer] [facility] 09:24:58 Social History Question Answer Notes LastModified by Organization Details LastModified Time Tobacco Smoking Status Former Smoker Francia Becerra RN [facility], [facility] [employer] [facility] 03/07/2024 09:27:36 Do You Have An Advance Directive? No [id number] Information not available 05/28/2022 Are You Blind Or Do You Have Difficulty Seeing? Yes Glasses [id number] Information not available 05/28/2022 What Is Your Level Of Caffeine Consumption? Occasional Coffee [id number] Information not available 05/28/2022 What Is Your Code Status? Full Code [id number] Information not available 05/28/2022 In The 14 Days Before Symptom Onset, Have You Had Close Contact With A Laboratory-conf irmed COVID-19 While That Case Was Ill? No [id number] Information not available 05/28/2022 In The 14 Days Before Symptom Onset, Have You Had Close Contact With A Person Who Is Under Investigation For COVID-19 While That Person Was Ill? No [id number] Information not available 05/28/2022 Are You Deaf Or Do You Have Serious Difficulty Hearing? No [id number] Information not available 05/28/2022 What Type Of Diet Are You Following? REGULAR [id number] Information not available 05/28/2022 What Is The Highest Grade Or Level Of School You Have Completed Or The Highest Degree You Have Received? [id number] Information not available 05/28/2022 Have There Been Any Changes To Your Family Or Social Situation? No Lives With Sister And Nephew [id number] Information not available 05/28/2022 When Did You Quit Smoking? 1-5yearssincelast cigarette [email or web address] Information not available 03/07/2024 Are There Any Guns Present In Your Home? No [id number] Information not available 05/28/2022 Where Do You Live? [facility] [id number] Information not available 05/28/2022 Do You Have A Medical Power Of Piece Dyer? No [id number] Information not available 05/28/2022 What Was The Date Of Your Most Recent Tobacco Screening? 05/31/2023 [email or web address] Information not available 05/31/2023 Have You Ever Been Counseled For Unhealthy Alcohol Use? No [id number] Information not available 05/28/2022 Do You Have Any Pets? Yes Dog [id number].[id number] [id number] Information not available 05/28/2022 What Is Your Relationship Status? Single [id number].[id number] [id number] Information not available 05/28/2022 Do You Have Smoke And Carbon Monoxide Detectors In Your Home? No Unsure MIGRATION.0301 [id number] Information not available 05/28/2022 Are You Passively Exposed To Smoke? Yes [id number] [id number] Information not available 05/28/2022 Are There Any Smokers In Your House? Yes [id number].0301 [id number] Information not available 05/28/2022 How Much Tobacco Do You Smoke? 0.5 PPD MIGRATION.0301 [id number] Information not available 05/28/2022 Do You Use Sunscreen Routinely? No [id number].0301 [id number] Information not available 05/28/2022 Has Tobacco Cessation Counseling Been Provided? No [email or web address] Information not available 03/07/2024 Have You Recently Traveled Abroad? No [id number].0301 [id number] Information not available 05/28/2022 Do You Have Difficulty Walking Or Climbing Stairs? Yes Bilateral Amputee MIGRATION.0301 [id number] Information not available 05/28/2022 Are You Currently In School? No MIGRATION.0301 [id number] Information not available 05/28/2022 Do You Have Any Dietary Restrictions? No [id number].0301 [id number] Information not available 05/28/2022 Sex: Unknown Functional Status Question Answer Note LastModified by Organizat ion Details LastModified Time Do you use any illicit or recreational drugs? No [id number] Information not available 05/28/2022 Do you or have you ever used any other forms of tobacco or nicotine? No [email or web address] Information not available 03/07/2024 What is your level of alcohol consumption? Occasional 6 beers daily [email or web address] Information not available 03/07/2024 Do you have transportation difficulties? No sister helps MIGRATION.[id number] Information not available 05/28/2022 Are you able to walk? NOINDWHEEL MIGRATION.[id number] Information not available 05/28/2022 Do you have difficulty doing errands alone? Yes [id number] Information not available 05/28/2022 Are you able to care for yourself? Yes mostly by himself, sister helps [id number].[id number] Information not available 05/28/2022 Do you have difficulty dressing or bathing? No [id number].[id number] Information not available 05/28/2022 What is your exercise level? None [id number].[id number] Information not available 05/28/2022 Mental Status Question Answer Note LastModified by Organizat ion Details LastModified Time Do you feel stressed (tense, restless, nervous, or anxious, or unable to sleep at night)? [id number] Information not available 05/28/2022 Do you have difficulty concentrating, remembering or making decisions? No [id number] 26 Information not available 05/28/2022 Family History Relationship Description Onset Age of this Age Resolved Age Notes LastModified by Organization Details LastModified Time Father No current problems or disability [id number] Not available 05/28/2022 01:47:15 Mother No current problems or disability [id number] Not available 05/28/2022 01:47:15 Medical History No medical history recorded. Immunizations Vaccine Type Date Status Note Provider Nam e and Address Organization Details Recorded Time pneumococcal polysaccharide PPV23 2 completed Not Available [employer] 01/19/2023 15:26:22 Influenza, high-dose, quadrivalent, PF 3 completed Anderson quach [facility] [employer] 12/03/2022 17:19:37 Pneumococcal conjugate PCV 13 3 completed Anderson quach [place] [facility] [employer] 03/09/2023 16:37:52 Influenza, high-dose, trivalent, PF 4 completed José Cartagena MD [address] [place] [address], [place] [address], [place], [address], [place] [facility] [employer] 01/06/2024 10:56:38 Tdap 4 completed José Cartagena MD [address] [facility], [address], [place], [address], [facility] 01/06/2024 10:56:38 Past Encounters Encounter ID Performer Location Encounter Start Date Encounter Closed Date Diagnosis/Indication Diagnosis SNOMED-CT Code Diagnosis ICD10 Code Diagnosis Note [id number] José Cartagena MD [facility] [address] [place] [address] 03/03/2022 00:00:00 03/03/2022 11:50:34 [id number] José Cartagena MD [facility] [address] [place] [address] 03/04/2022 00:00:00 03/04/2022 09:54:31 [id number] José Cartagena MD [facility] [address] [place] [address] 03/10/2022 00:00:00 03/10/2022 14:40:27 [id number] [facility] [place] [address] [place] [address] 04/03/2022 00:00:00 04/05/2022 15:43:58 [id number] EMERY Lazcano [facility] [place] [address] [place] [address] 05/04/2022 00:00:00 05/04/2022 10:12:16 [id number] [facility] [address] [place] [address] 05/04/2022 00:00:00 05/05/2022 07:53:43 [id number] [facility] [address] [place] [address] 05/19/2022 00:00:00 05/19/2022 15:25:33 [id number] José Cartagena MD [address] [address] 08/17/2022 09:51:49 08/17/2022 10:45:32 Adenocarcinoma of lung 573438510 C34.90 LT Hypertensive disorder 38 793808 I10 Hyperlipidemia 11562797 E78.5 Alcohol dependence 68218 003 F10.20 Multiple n odules of lung 481685920 R91.8 Recurrent deep vein thrombosis 904144940 I82.509 Smoker 02108695 F17.200 Ophthalmic examination and evaluation 51006722 Z01.00 Amputated above knee 299 893712 Z89.619 B/L 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 110690930 Z99.3 [id number] José Cartagena MD [address] [address] 12/03/2022 10:21:23 12/03/2022 10:43:56 Adenocarcinoma of lung 304627134 C34.90 LT Hypertensive disorder 38 413690 I10 Hyperlipidemia 47874634 E78.5 Alcohol dependence 91316 003 F10.20 Multiple n odules of lung 418905134 R91.8 Recurrent deep vein thrombosis 808297949 I82.509 Smoker 03459414 F17.200 Amputated above knee 299 913142 Z89.619 B/L 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 894294484 Z99.3 Administra tion of influenza vaccine 91175182 Z23 [id number] José Cartagena MD [address] [address] 03/03/2023 08:44:21 03/03/2023 09:17:46 Hypertensive disorder 61467815 I10 Adenocarci noma of lung 048975854 C34.90 LT Hyperlipidemia 83205226 E78.5 Alcohol dependence 71224 003 F10.20 Multiple n odules of lung 486278803 R91.8 Recurrent deep vein thrombosis 577189140 I82.509 Smoker 60543811 F17.200 Amputated above knee 299 439423 Z89.619 B/L 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 516481930 Z99.3 Adult heal th examination 923766196 Z00.00 Active or passive immunization 221773479 Z23 [id number] José Cartagena MD [address] [address] 03/24/2023 08:58:25 03/24/2023 09:24:24 Hypertensive disorder 90025814 I10 Adenocarci noma of lung 710273565 C34.90 LT Hyperlipidemia 42105069 E78.5 Alcohol dependence 53229 003 F10.20 Multiple n odules of lung 092997014 R91.8 Recurrent deep vein thrombosis 411113459 I82.509 Smoker 52125319 F17.200 Amputated above knee 299 408363 Z89.619 B/L 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 885761145 Z99.3 History of cerebrovascular accident 598561571 Z86.73 [id number] José Cartagena MD [address] [address] 05/31/2023 14:09:34 05/31/2023 14:54:45 Hypertensive disorder 17540695 I10 Adenocarci noma of lung 115257326 C34.90 LT Hyperlipidemia 54964621 E78.5 Alcohol dependence 98738 003 F10.20 Multiple n odules of lung 970906159 R91.8 Recurrent deep vein thrombosis 305752349 I82.509 Smoker 81782260 F17.200 Amputated above knee 299 376023 Z89.619 B/L 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 274372762 Z99.3 History of cerebrovascular accident 118340152 Z86.73 Pre-surger y evaluation 286811871 Z01.818 Bilateral cataracts 9572 2003 H26.9 Adult heal th examination 033923942 Z00.00 Screening for disorder 467376842 Z13.9 [id number] José Cartagena MD [address] [address] 09/06/2023 11:57:31 09/06/2023 12:49:16 Hypertensive disorder 33186670 I10 Adenocarci noma of lung 780425403 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 LT Hyperlipidemia 82816340 E78.5 Alcohol dependence 70949 003 F10.20 Multiple n odules of lung 739398027 R91.8 Recurrent deep vein thrombosis 470971062 I82.509 Smoker 37015532 F17.200 Amputated above knee 299 389186 Z89.619 B/L 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 696136510 Z99.3 History of cerebrovascular accident 550144635 Z86.73 Bilateral cataracts 9572 2003 H26.9 [id number] José Cartagena MD [address] [address] 01/06/2024 10:20:13 01/06/2024 10:50:08 Hypertensive disorder 09016893 I10 Adenocarci noma of lung 336976130 C34.90 LT Hyperlipidemia 62749896 E78.5 Alcohol dependence 66115 003 F10.20 Recurrent deep vein thrombosis 972666282 I82.509 Amputated above knee 299 350333 Z89.619 B/L 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 201231576 Z99.3 History of cerebrovascular accident 914717415 Z86.73 Administra tion of influenza vaccine 44689923 Z23 Ex-cigarette smoker 2810 88819 Z87.891 Active immunization 3387 9002 Z23 [id number] José Cartagena MD [address] [address] 03/07/2024 09:13:27 03/07/2024 10:05:31 Hypertensive disorder 78695877 I10 Adenocarci noma of lung 269597269 C34.90 LT Hyperlipidemia 85684021 E78.5 Alcohol dependence 21977 003 F10.20 Recurrent deep vein thrombosis 995553707 I82.509 Amputated above knee 299 005714 Z89.619 B/L 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 093562147 Z99.3 History of cerebrovascular accident 004475468 Z86.73 Ex-cigarette smoker 2810 18478 Z87.891 Screening for malignant neoplasm of prostate 104477706 Z12.5 [id number] José Cartagena MD [address] [address] 04/19/2024 09:52:35 04/19/2024 10:24:21 Hypertensive disorder 35179518 I10 Adenocarci noma of lung 413404001 C34.90 LT Hyperlipidemia 72088841 E78.5 Alcohol dependence 95419 003 F10.20 Recurrent deep vein thrombosis 436934289 I82.509 Amputated above knee 299 636248 Z89.619 B/L 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 288244226 Z99.3 History of cerebrovascular accident 173250062 Z86.73 Ex-cigarette smoker 2810 66130 Z87.891 Anemia 942402400 D64.9 [id number] José Cartagena MD [place] [address] 08/07/2024 13:53:04 08/07/2024 14:19:38 Anemia 342910204 D64.9 Hypertensive disorder 38 784134 I10 Hyperlipidemia 77906493 E78.5 Adenocarci noma of lung 569605147 C34.90 LT Alcohol dependence 15420 003 F10.20 Recurrent deep vein thrombosis 602119965 I82.509 Amputated above knee 299 326390 Z89.619 B/L 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 416692979 Z99.3 History of cerebrovascular accident 635723747 Z86.73 Ex-cigarette smoker 2810 49738 Z87.757 [id number] José Cartagena MD [place] [address] 1 09/11/2024 15:50:18 09/11/2024 16:17:02 Transition of care 9176481931 105 Z75.8 Hypertensive disorder 38 892178 I10 Hyperlipidemia 10771334 E78.5 Anemia 119534656 D64.9 Adenocarci noma of lung 500989667 C34.90 LT Alcohol dependence 87917 003 F10.20 Recurrent deep vein thrombosis 298847378 I82.509 Amputated above knee 299 286945 Z89.619 B/L 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 768646997 Z99.3 History of cerebrovascular accident 488947078 Z86.73 Ex-cigarette smoker 2810 72736 Z87.891 Seen in department 62700 1009 Z76.89 Asthenia 69031827 R53.1 Health Concerns Section Related Observation LastModified by Organization Detai ls LastModified Time None Recorded Concern Status LastModified by Organization Details LastModified Time None Recorded Advance Directives Directive N: Payers Insurance Date Sequence Insurance Name Policy Number Policy Junior Covered Member ID Junior Member ID Guarantor Name 04/19/2024 1 [facility] - DOS ON OR AFTER 2020 - DUAL ELIGIBLE (MEDICARE REPLACEMENT/ ADVANTAGE - HMO) [id number] Reji Crowell [id number] Reji Crowell 09/08/2024 1 [facility] (MEDICARE REPLACEMENT/ ADVANTAGE - HMO) Reji Crowell [id number] Reji Crowell Notes Date Note Type Note Provider Name and Address Organization Details Recorded Time 01/06/2024 text/html Here with his sister. Pt is here for f/u on his meds and chronic conditions. Doing overall well. Denies any new concern for today. 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 Pt declined for any HHS. José Cartagena MD [address] [place] [address], [facility] [address], [place], [address], [facility] [employer] 01/06/2024 10:58:35 03/07/2024 text/html Here with his sister. Pt is here for his annual exam. Doing overall well. Denies any problem with meds. Denies any new concern for today. 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 Pt declined for any HHS. José Cartagena MD [address], [facility] [address], [place], [address], [facility] [employer] 03/07/2024 09:49:23 04/19/2024 text/html Here with his sister. Pt is here for f/u on his annual labs. Doing overall well. Denies any problem with meds. Denies any new concern for today. 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 Pt declined for any HHS. José Cartagena MD [address], [facility] [address], [place], [address], [place] [facility] [employer] 04/19/2024 10:39:54 08/07/2024 text/html Here with his sister. Pt is here for f/u on his meds and chronic conditions. Doing overall well. Denies any problem with meds. Denies any new concern for today. Pt got a new spot over his Lt lung and his specialist will be doing surgery for in few weeks. Pt doesn't need any extra testing from my side for this. 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 Pt declined for any HHS. José Cartagena MD [address], [address], [place], [address], [place] [facility] [employer] 08/07/2024 14:22:40 09/11/2024 text/html Hospital fuv:Her e with his sister. Pt went to ED at [facility] last week due to not feeling well and weakness. They did bunch of testing and it was all good as per sister. So they d/c him back to home. 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 Pt got excision and radiation therapy for it and is doing overall better with it. 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 Pt declined for any HHS. José Cartagena MD [address], [address], [place], [address], [place] [employer] 09/11/2024 16:25:41
--- OUTSIDE RECORDS SUMMARY | 2024-09-27 09:30 | XMS_ITS | Encounter Summary ---
Author Organization [facility] Healthcare Address [address] [place] [address] Care Team Providers Care Administrative Fellow Name Role Phone Oscar Snyder MD Unavailable [phone] Emil Whyte DO Primary Care Provider [phone] José Antonio Pino MD Unavailable [phone] Encounter Details Date Type Department Care Team (Late st Contact Info) Description 06/26/2024 Telephone [facility] [address] [place] [id number] Samira Ornelas, DALILA Social History Tobacco Use Types Packs/Day Years Used Date Smoking Tobacco: Former Cigarettes 0.5 61.2 S tarted: [birth year]03/1965 Passive Smoke Exposure: Past Smokeless Tobacco: Never Comments:refusal Alcohol Use Standard Drinks/Week Comments Yes 0 (1 standard drink = 0.6 oz pur e alcohol) AUDIT-C Answer Date Recorded Q1: How often do you have a drink containing alcohol? 4 or more times a week 07/02/2021 Q2: How many drinks containi ng alcohol do you have on a typical day when you are drinking? 5 or 6 Q3: How often do you have si x or more drinks on one occasion? Daily or almost daily 07/02/2021 Sex and Gender Information Value Date Recorded Sex Assigned at Not on file Legal Sex Male 9:58 AM CDT Gender Identity Not on file Sexual Orientation Not on file documented as of this encounter Plan of Treatment Not on file documented as of this encounter Visit Diagnoses Not on filedocumented in this encounter Care Teams Administrative Fellow Relationship Specialty Start Date End Date Emil Whyte DO [address] [facility] [place] [address] PCP - General 09/06/19 Oscar Snyder MD [address] [facility] [address] [place] [address] Coroner Cardiology 02/02/19 José Antonio Pino MD [address] [facility] [address] [place] [address] Consulting Physician Vascular Surgery 07/09/21 documented as of this encounter
--- OUTSIDE RECORDS SUMMARY | 2024-09-27 09:30 | XMS_ITS | Clinical Summary ---
Author Organization [facility] Office Center Address [address] [place] [address] Care Team Providers Care Experience Design Director Name Role Phone Oscar Snyder MD Unavailable [phone] Emil Whyte DO Primary Care Provider [phone] José Antonio Pino MD Unavailable [phone] Allergies No known active allergies Medications albuterol HFA (PROVENTIL HFA,VENTOLIN HFA,PROAIR HFA) 90 mcg/actuation inhaler Inhale 2 puffs every 6 (six) hours as needed Active ELIQUIS 5 mg tablet TK 1 T PO BID 03/23/20 19 Active polyethylene glycol (MIRALAX) 17 gram packetIndications: constipation Take 1 packet (17 g total) by mouth daily 30 packet 07/10/19 Active dronabinoL (MARINOL) 2.5 mg capsule Take 1 capsule (2.5 mg total) by mouth 2 (two) times a day before lunch and dinner 60 capsule 07/10/19 Active bisacodyl EC (DULCOLAX EC) 5 mg EC tabletIndications: constipation Take 2 tablets (10 mg total) by mouth daily as needed for constipation (If no results 24 hours after polyethylene glycol (MIRALAX). May give bisacodyl supp if not tolerating PO)) 30 tablet 07/10/19 Active LORazepam (ATIVAN) 0.5 mg tabletIndications: Alcohol Withdrawal Syndrome,anxiety Take 1 tablet (0.5 mg total) by mouth every 6 (six) hours as needed for anxiety Give two tablets on AM of 07/10/21 and then prn only after that 30 tablet 07/10/19 22 Active acetaminophen (TYLENOL) 325 mg tabletIndications: Fever,Pain Take 2 tablets (650 mg total) by mouth every 4 (four) hours as needed for pain, headaches or fever 30 tablet 07/10/19 Active atorvastatin (LIPITOR) 40 mg tablet Take 1 tablet (40 mg total) by mouth nightly 30 tablet 07/10/19 22 Active amLODIPine (NORVASC) 10 mg tablet Take 1 tablet (10 mg total) by mouth daily 30 tablet 07/11/19 22 Active HYDROcodone-acetam inophen (NORCO) 10-325 mg per tabletIndications: Pain Take 1 tablet by mouth every 6 (six) hours as needed for pain Active folic acid (FOLVITE) 1 mg tablet Take 1 tablet (1,000 mcg total) by mouth daily 11/04/19 Active ferrous sulfate 325 mg (65 mg of elemental iron) tablet Take 1 tablet (325 mg total) by mouth 2 (two) times a day 04/19/19 25 Active latanoprost (XALATAN) 0.005 % ophthalmic solution INSTILL 1 DROP INTO RIGHT EYE AT BEDTIME 05/10/19 25 Active lisinopriL (PRINIVIL,ZESTRIL) 20 mg tablet Take 1 tablet (20 mg total) by mouth every morning 04/27/19 23 Active metoprolol XL (TOPROL-XL) 25 mg extended release tablet Take 1 tablet (25 mg total) by mouth nightly 11/04/19 22 Active multivitamin tablet Take 1 tablet by mouth daily 04/19/19 25 Active thiamine (VITAMIN B1) 100 mg tablet Take 1 tablet (100 mg total) by mouth daily 04/19/19 25 Active glycopyrrolate-for moteroL (BEVESPI AEROSPHERE) 9-4.8 mcg inhaler Inhale 2 puffs 2 (two) times a day 1 each 06/30/19 25 Active guaiFENesin ER (MUCINEX) 600 mg 12 hr tablet Take 2 tablets (1,200 mg total) by mouth 2 (two) times a day 120 tablet 09/12/19 25 026 Active ondansetron ODT (ZOFRAN-ODT) 4 mg disintegrating tablet Take 1 tablet (4 mg total) by mouth every 8 (eight) hours as needed for nausea or vomiting 20 tablet 09/12/19 25 Active aspirin 81 mg enteric coated tablet Take 1 tablet (81 mg total) by mouth daily 025 Discontin ued(Thera py completed ) HYDROcodone-acetam inophen (NORCO) 5-325 mg per tabletIndications: Pain Take 2 tablets by mouth every 4 (four) hours as needed for pain 28 tablet 07/10/19 22 025 Discontin ued(Thera py completed ) Vitamin B-1, mononitrate, 100 mg tablet Take 1 tablet (100 mg total) by mouth daily 07/10/19 22 025 Discontin ued(Thera py completed ) Active Problems Problem Noted Date Diagnosed Date Malignant pleural effusion 09/19/2024 Assessment & Plan (09/19/2024 11:00 AM CDT): We will set the patient up for placement of the left-sided PleurX catheter. As he has not taken his full anticoagulation this morning he will hold it now until the procedure. We have discussed preliminarily with the family at bedside about catheter care. They are in understanding of the plan. Community acquired pneumonia of left lung 2024 Pleural effusion, left 06/30/2024 Mass of left lung 05/29/2024 Right foot pain 07/03/2021 Hypercholesteremia 07/03/2021 Assessment & Plan (07/25/2021 12:05 PM CDT): Hypercholesterolemia which patient currently taking atorvastatin. Plan: Continue Lipitor as per PCP. Right lower lobe pulmonary nodule 07/03/2021 Tobacco use disorder, continuous 07/03/2021 Compression fracture of T12 vertebra with routin e healing 07/03/2021 Ischemia of right lower extremity 07/02/2021 Assessment & Plan (07/25/2021 12:04 PM CDT): Patient is status post right [id number] amputation performed 07/07/2021, history of ischemic ulcerations rest pain of the right foot. Angiogram showed non-reconstructible vascular disease. Wound is healing well stitches removed in office. Plan: P/O referral and return in 3 months. Attention to gastrostomy tube 09/01/2019 Overview (09/01/2019): Added automatically from request for surgery [id number] Dysphagia, oropharyngeal phase 06/28/2019 Acquired absence of left leg above knee 06/27/19 20 Acute respiratory failure 06/27/2019 Chronic kidney disease, unspecified 06/27/2019 Gastrostomy status 06/27/2019 Muscle weakness (generalized) 06/27/2019 Other abnormalities of gait and mobility 020 Pneumonia due to methicillin resistant Staphylococcus aureus 06/27/2019 Sleep apnea, unspecified 06/27/2019 Tracheostomy status 06/27/2019 Unspecified osteoarthritis, unspecified site Unsteadiness on feet 06/27/2019 Chronic obstructive pulmonary disease ([facility]) 04/18/2019 Centrilobular emphysema 04/18/2019 Non-seasonal allergic rhinitis due to pollen Uncomplicated alcohol dependence 04/18/2019 Weight loss 04/18/2019 Peripheral vascular disease ([facility]) 04/17/2019 Atrial fibrillation with slow ventricular respon se 04/17/2019 Community acquired pneumonia, bilateral 04/17/19 Hyperosmolar hyponatremia 04/17/2019 Hypotension due to blood loss 04/17/2019 Line sepsis 04/17/2019 Nicotine dependence 04/17/2019 Well child examination 04/17/2019 Chronic alcohol use 02/13/2019 Cigarette smoker motivated to quit 02/13/2019 Occlusion of artery 02/13/2019 Rest pain of both lower extremities due to ather osclerosis 02/13/2019 Vascular claudication 02/13/2019 Preoperative clearance 01/26/2019 Essential (primary) hypertension 01/26/2019 Assessment & Plan (07/25/2021 11:59 AM CDT): Stable chronic hypertension controlled with blood pressure medications. Plan: Continue blood pressure medications as per PCP. Dyslipidemia 01/26/2019 Alcohol abuse 01/19/2019 Assessment & Plan (01/19/2019 5:59 PM CDT): Greater than 3 minutes was spent on alcohol abuse in the ill effects that it has overall on his health. We discussed withdrawal and his high risk moving forward. The patient states that he is able to control his drinking and has never suffered any withdrawal symptoms. Will continue to keep a close eye during his hospitalization and intervene appropriately. Atherosclerosis of three affiliated ar jailene of both lower extremities with intermittent claudication 12/25/2018 Assessment & Plan (02/15/2019 9:07 AM YACHT HAND): Patient doing well claudication symptoms have resolved completely since surgery. Graft is patent and incisions healing follow-up 1 week for staple removal Assessment & Plan (01/19/2019 5:58 PM CDT): Patient has progressive and disabling claudication of the bilateral lower extremities left side being worse than the right clinically. He is able to walk very short distances and this is disrupting his ability to carry out activities of daily living. He will require left femoral to anterior tibial artery bypass followed by right femoral endarterectomy and staged manner. The procedure and all associated risks including not limited to bleeding, infection, limb loss and were explained he understands his questions were answered and he agrees to proceed. Assessment & Plan (12/25/2018 12:45 PM CDT): Patient has symptoms consistent with progressive and now disabling claudication of the bilateral lower extremities predominantly the left leg. Exam findings and noninvasive studies suggest multilevel arterial occlusive disease left lower extremity consistent with possible ischemic rest pain. Will plan for CT angiogram to better assess for inflow disease in addition to bilateral lower extremity angiogram. The procedure and all associated risks were thoroughly discussed with the patient his questions were answered he agreed to proceed. Tobacco abuse 12/25/2018 Assessment & Plan (01/19/2019 5:59 PM CDT): Greater than 3 minutes was again spent on smoking cessation and Education. I again explained the ill effects and ongoing tobacco abuse has on his cardiovascular system. Different modalities were discussed he will try to quit within 6 months. Assessment & Plan (12/25/2018 12:45 PM CDT): Greater than 3 minutes were spent discussing smoking cessation with the patient. Different modalities were discussed. He does have an interest in quitting and states hopefully within the next 6 months. Resolved Problems Problem Noted Date Diagnosed Date Resolved Date Hx of AKA (above knee amputation), left 07/03/2021 07/25/2021 Encounters Date Type Department Care Team Description 09/20/2024 Telephone [facility] Pulmonary at [address] [place] [address] Jeannette Simpson LPN pleurex drain 09/20/[address] [place] [address] Kesha Maurice 09/19/2024 11:00 AM CDT Office Visit [address] [place] [address] Sg Landis MD Malignant pleural effusion (HCC) 09/19/2024 Orders Only [address] [place] [address] Sg Landis MD Malignant pleural effusion (HCC) (Primary Dx) 09/19/2024 Telephone [facility] Home Care Services [address] [place] [address] [address] [place] [address] [facility] 09/19/2024 Orders Only [address] [place] [address] Dolores Chapin RN Malignant pleural effusion (HCC) (Primary Dx) 09/11/2024 11:05 AM CDT Lab [address] Decreased urine output 09/11/2024 10:30 AM CDT Office Visit [facility] Pulmonary at [address] [place] [address] Thomas Escobar DO Centrilobular emphysema (HCC) (Primary Dx); Malignant pleural effusion (HCC); Dysphagia, unspecified type; Decreased urine output 08/04/2024 11:17 AM CDT - 08/04/2024 11:59 PM CDT Hospital Encounter [facility] [address] [place] [address] Discharge Disposition: Discharge to home or self care 08/04/2024 9:20 AM CDT Lab [address] [address] 08/04/2024 9:17 AM CDT - 08/04/2024 11:59 PM CDT Hospital Encounter [facility] [address] [address] Rad, Amh Ir 1, Amh Rad Rn Rad, Amh Fluoro Malignant pleural effusion (HCC) Discharge Disposition: Discharge to home or self care 08/01/[address] [address] Samira Ornelas RN 07/31/2024 10:00 AM CDT Office Visit [facility] Pulmonary at [address] [address] Thomas Escobar, Malignant pleural effusion (HCC) (Primary Dx); Chronic obstructive pulmonary disease, unspecified COPD type (HCC) 07/31/[address] [address] Samira Ornelas RN 07/04/2024 12:14 PM CDT - 07/04/2024 11:59 PM CDT Hospital Encounter [address] [address] Discharge Disposition: Discharge to home or self care 07/04/2024 10:00 AM CDT Lab [address] [address] Lung mass; Pleural effusion on left 07/04/2024 9:56 AM CDT - 07/04/2024 11:59 PM CDT Hospital Encounter [address] [address] 1, Amh Rad Rn Rad, Amh Ir Pleural effusion, left; Lung mass; Pleural effusion on left Discharge Disposition: Discharge to home or self care 07/04/2024 Results Follow-Up [facility] Pulmonary at [address] [address] Thomas Escobar, CBC with auto differential, aPTT, Protime-INR, Additional followed-up results: 8 07/04/2024 Results Follow-Up [facility] Pulmonary at [address] [address] Thomas Escobar, X-ray chest 2 views 07/04/2024 Results Follow-Up [facility] Pulmonary at [address] [address] Thomas Escobar DO Comprehensive metabolic panel, Lactate dehydrogenase (LD), eGFR 06/29/2024 11:09 AM CDT - 06/29/2024 11:59 PM CDT Hospital Encounter [facility] [address] [address] Pleural effusion Discharge Disposition: Discharge to home or self care 06/29/2024 10:30 AM CDT Office Visit [facility] Pulmonary at [address] [place] [address] Thomas Escobar DO Pleural effusion (Primary Dx); Mass of left lung; Community acquired pneumonia of left lung; Centrilobular emphysema (HCC) 06/29/[address] [address] nAn Augustin RN from Last 3 Months Immunizations Immunization Administration Dates Next Due Influenza, Trivalent, High D ose, Split, Preservative Free, Intramuscular 03/14/2019 Surgical History Surgery Date Site/Laterality Comments AORTIC ILIAC FEMORIAL ANGIOGRAM INTERVENTION 01/05/2019 Bilateral FEMORAL ARTERY - TIBIAL ARTERY BYPASS GRAFT 02/02/2019 primary stenting L external iliac artery; L common femoral & profunda femoral artery endarterectomy with patch angioplasty FEMORAL ENDARTERECTOMY 04/03/2019 Right common femoral with bovine pericardial patch angioplasty LEG AMPUTATION THROUGH KNEE Left AKA ABOVE KNEE LEG AMPUTATION 07/07/2021 Right US GUIDED THORACENTESIS 07/04/2024 N/A US GUIDED THORACENTESIS 08/04/2024 N/A Medical History Medical History Date Comments Allergic rhinitis Edema Hypertension COPD (chronic obstructive pulmonary disease) (HC C) Hyperlipidemia Nicotine dependence Anemia Osteoarthritis Cancer (HCC) Lung cancer Stroke (HCC) DVT (deep venous thrombosis) (HCC) Family History Medical History Relation Name Comments Breast cancer Mother's Sister Yazmin Relation Name Status Comments Mother's Sister Yazmin Other Social History Tobacco Use Types Packs/Day Years Used Date Smoking Tobacco: Former Cigarettes 0.5 61.2 S tarted: 07/03/1963 Passive Smoke Exposure: Past Smokeless Tobacco: Never Tobacco Cessation:Counseling Given: Not Answered Comments:refusal Alcohol Use Standard Drinks/Week Comments Yes 0 (1 standard drink = 0.6 oz pur e alcohol) AUDIT-C Answer Date Recorded Frequency of Alcohol Consumption Not on file 09/19/2024 Q2: How many drinks containi ng alcohol do you have on a typical day when you are drinking? Patient does not drink Frequency of Binge Drinking Not on file 08/28 Personal Safety Answer Date Recorded Have you ever been in or are you currently in a harmful physical or emotional relationship or is someone making you feel afraid or unsafe? Denies 08/04/2024 Sex and Gender Information Value Date Recorded Sex Assigned at Not on file Legal Sex Male 9:58 AM CDT Gender Identity Not on file Sexual Orientation Not on file Obstetrics History Last Filed Vital Signs Vital Sign Reading Time Taken Comments Blood Pressure 72/48 09/19/2024 10:11 AM CDT Pulse 118 09/19/2024 10:11 AM CDT Temperature 36.2 C (97.1 F) 09/19/2024 10:11 AM CDT Respiratory Rate 18 09/11/2024 10:18 AM CDT Oxygen Saturation 95% 09/19/2024 10:11 AM CDT Inhaled Oxygen Concentration - - Weight 61.2 kg (135 lb) 08/04/2024 9:55 AM CDT Height 177.8 cm (5' 10) 09/19/2024 10:11 AM CDT Body Mass Index 19.37 08/04/2024 9:55 AM CDT Plan of Treatment Health Maintenance Due Date Last Done Comments Depression Screening 1950 Hepatitis C Screening 1950 Hepatitis B Screening 1966 Well Visit 65+ 2013 Zoster Vaccine (2 of 2) 12/29/2021 11/03/2021 Covid-19 Vaccine (2023-2 5 season) 2023 01/30/2022, 11/03/2021, 09/13/2020, Additional history exists Influenza Vaccine (#1) 2024 , 01/30/2021, 12/21/2019, Additional history exists Fall Risk Assessment 08/04/2025 08/04/2024 DTaP/Tdap/Td Vaccine (2 - Td or Tdap) 11/04/2031 11/03/2021 Pneumococcal vaccine 65+ Completed 05/30/2017, 04/2016 Abdominal Aortic Aneurysm (A AA) Screen Completed 07/02/2021, 05/28/2019, 05/25/2019, Additional history exists Procedures Procedure Name Priority Date/Time Associated Diagnosis Comments EGFR Routine 09/11/2024 11:02 AM CDT Decreased urine output BASIC METABOLIC PANEL Routine 09/11/2024 11:02 AM CDT Decreased urine output XR CHEST 1 VIEW Timed 08/04/2024 11:23 AM CDT US GUIDED THORACENTESIS LEFT Schedule Routine, Read Routine (OP Routine) 08/04/2024 10:32 AM CDT Malignant pleural effusion (HCC) BLOOD SMEAR REVIEW STAT 08/04/2024 9: 30 AM CDT APTT STAT 08/04/2024 9:30 AM CDT PROTIME-INR STAT 08/04/2024 9:30 AM CDT CBC WITHOUT DIFFERENTIAL STAT 08/04/2024 9:30 AM CDT CYTOLOGY Routine 08/04/2024 12:00 AM CDT XR CHEST 1 VIEW Timed 07/04/2024 12:42 PM CDT US GUIDED THORACENTESIS LEFT Schedule RADHA, Read Routine (Patient lives out of area) 07/04/2024 11:50 AM CDT Pleural effusion, left CELL DIFFERENTIAL, BODY FLUID Routine 07/04/2024 11:32 AM CDT Lung mass Pleural effusion on left PH, PLEURAL FLUID Routine 07/04/2024 11: 32 AM CDT Lung mass Pleural effusion on left GLUCOSE, BODY FLUID Routine 07/04/2024 1 1:32 AM CDT Lung mass Pleural effusion on left LACTATE DEHYDROGENASE, BODY FLUID Routine 07/04/2024 11:32 AM CDT Lung mass Pleural effusion on left PROTEIN, BODY FLUID Routine 07/04/2024 1 1:32 AM CDT Lung mass Pleural effusion on left ALBUMIN, BODY FLUID Routine 07/04/2024 1 1:32 AM CDT Lung mass Pleural effusion on left CELL COUNT W/REFLEX DIFFERENTIAL, BODY FLUID Routine 07/04/2024 11:32 AM CDT Lung mass Pleural effusion on left AEROBIC AND ANAEROBIC CULTURE AND GRAM STAIN Routine 07/04/2024 11:32 AM CDT Lung mass Pleural effusion on left MANUAL DIFFERENTIAL STAT 07/04/2024 1 0:29 AM CDT PROTIME-INR STAT 07/04/2024 10:29 AM CDT APTT STAT 07/04/2024 10:29 AM CDT CBC WITH AUTO DIFFERENTIAL STAT 07/04/2024 10:29 AM CDT EGFR Routine 07/04/2024 10:12 AM CDT Lung mass Pleural effusion on left LACTATE DEHYDROGENASE Routine 07/04/2024 10:12 AM CDT Lung mass Pleural effusion on left COMPREHENSIVE METABOLIC PANEL Routine 07/04/2024 10:12 AM CDT Lung mass Pleural effusion on left CYTOLOGY Routine 07/04/2024 12:00 AM CDT Lung mass Pleural effusion on left XR CHEST PA LATERAL 2 VIEWS Schedule Routine, Read Routine (OP Routine) 06/29/2024 11:28 AM CDT Pleural effusion CTA ABDOMINAL AORTA AND BILATERAL ILIOFEMORAL RUNOFF IP Routine 07/02/2021 8:27 PM CDT from Last 3 Months or Most Recently Relevant to Health Maintenance Results * eGFR (09/11/2024 11:02 AM CDT) eGFR >90 >=60 mL/min/1. 73 m2 Comment: Interpretive Data Reference Interval Normal >/= 90 mL/min/1.73m2 Mildly decreased* 60 - 89 mL/min/1.73m2 Mildly to moderately decreased 45 - 59 mL/min/1.73m2 Moderately to severely decreased 30 - 44 mL/min/1.73m2 Severely decreased 15 - 29 mL/min/1.73m2 Kidney Failure < 15 mL/min/1.73m2 *Relative to young adult level Estimated glomerular filtration rate is determined by the 2020 CKD-EPI equation recommended by the National Kidney Foundation (A Unifying Approach to GFR Estimation: Recommendations of the NKF-ASK Task Force on Reassessing the Inclusion of Race in Diagnosing Kidney Disease, JASN 2020). The CKD-EPI equation should not be used for patients with unstable renal function and has not been validated in children and those over 70. Current interpretive data was last reviewed 2021. Blood 09/11/2024 11:0 2 AM CDT 09/11/2024 1:06 PM CDT Thomas Escobar DO LAB BLOOD ORDERABLES Benita maral Result [facility] [place] [address] * (ABNORMAL) Basic metabolic panel (09/11/2024 11:02 AM CDT) Sodium 139 135 - 145 mmol/L Potassium, pl 4.8 3.3 - 4.9 mmol/L [facility] Chloride 100 97 - 110 mmol/L [facility] CO2 21(L) 22 - 32 mmol/L [facility] Anion gap 17(H) 2 - 15 mmol/L [facility] BUN 27(H) 6 - 25 mg/dL [facility] Creatinine 0.80 0.80 - 1.30 mg/dL [facility] Glucose 112 70 - 199 mg/dL [facility] Comment: Interpretive Data Fasting glucose >/= 126 mg/dl is diagnostic for diabetes. Fasting is defined as no caloric intake for at least 8 hours. Fasting glucose between 100 mg/dl to 125 mg/dl is diagnostic of prediabetes. In a patient with classic symptoms of hyperglycemia or hyperglycemic crisis, a random glucose >/= 200 mg/dl is diagnostic for diabetes. In the absence of unequivocal hyperglycemia, results should be confirmed by repeat testing. The classification and Diagnosis of Diabetes Diabetes Care 2021; 46: S19-S40. Current interpretive data was last revised 2022. Calcium 8.8 8.5 - 10.3 mg/dL [facility] Blood 09/11/2024 11:0 2 AM CDT 09/11/2024 1:06 PM CDT Thomas Escobar DO LAB BLOOD ORDERABLES Benita l Result [facility] Department [place] [address] * XR Chest 1 View (Portable) (08/04/2024 11:23 AM CDT) Anatomical Region Laterality Modality Body, Chest N/A Computed Radiogr aphy 08/04/2024 11:2 6 AM CDT Narrative 08/04/2024 11:53 AM CDT EXAM DESCRIPTION: XR CHEST 1 VIEW REASON FOR STUDY: Pleural effusion Post thora, L. TECHNIQUE: Single frontal radiographic view(s) of the chest. COMPARISON: 07/04/2024 FINDINGS: The cardiac silhouette is obscured by the opacification of the left hemithorax. There are mild atherosclerotic changes of the aorta. There is persistent opacification of the left hemithorax, similar to the prior study. There is no definite evidence of a pneumothorax. The right lung is grossly clear. The osseous structures are acutely grossly stable. IMPRESSION: Grossly stable complete opacification of the left hemithorax. No definite evidence of a pneumothorax. THIS IS AN ELECTRONICALLY VERIFIED FINAL REPORT 08/04/2024 11:53 AM - Electronically signed by Abhishek Mederos D.O. PS: PS Report ID: [id number] Reading Location: [id number] Procedure Note Abhishek Mederos DO - 08/04/2024 EXAM DESCRIPTION: XR CHEST 1 VIEW REASON FOR STUDY: Pleural effusion Post thora, L. TECHNIQUE: Single frontal radiographic view(s) of the chest. COMPARISON: 07/04/2024 FINDINGS: The cardiac silhouette is obscured by the opacification of the left hemithorax. There are mild atherosclerotic changes of the aorta. Thereis persistent opacification of the left hemithorax, similar to the priorstudy. There is no definite evidence of a pneumothorax. The right lung isgrossly clear. The osseous structures are acutely grossly stable. IMPRESSION: Grossly stable complete opacification of the left hemithorax. Nodefinite evidence of a pneumothorax. THIS IS AN ELECTRONICALLY VERIFIED FINAL REPORT 08/04/2024 11:53 AM - Electronically signed by Abhishek Mederos D.O. PS: PS Report ID: [id number] Reading Location: [id number] us Abhishek Mederos DO IMG XR PROCEDURES Final R esult * US Guided Thoracentesis Left (08/04/2024 10:32 AM CDT) Anatomical Region Laterality Modality Chest N/A Ultrasound 08/04/2024 11:5 3 AM CDT Narrative 08/04/2024 2:40 PM CDT EXAM DESCRIPTION: US GUIDED THORACENTESIS LEFT HISTORY: Malginant left pleural effusion Ultrasound-guided thoracentesis is requested. COMPARISON: 07/04/2024 TECHNIQUE/FINDINGS: Pertinent imaging studies were reviewed including chest radiograph dated 07/04/2024. Immediately prior to the procedure, the healthcare team performed the safety pause and verbally confirmed that the patient, the planned procedure, the site and side were accurate. Pre-procedure sonographic scanning demonstrated a small to moderate right pleural effusion. The skin was marked, prepped and draped over the posterior thorax. Local anesthesia was used with 1% lidocaine, including subcutaneous and deeper tissues. A 4-Ukrainian 10 cm One Step Centesis catheter was used to drain 1 L of brownish abner tinged fluid. Needle placement was documented with sonographic images. Postprocedure image demonstrates interval decrease in the pleural fluid. Hemostasis was achieved. The area was cleaned and then dressed with a Band-Aid. A postprocedure chest radiograph was ordered to be performed in 1 hour. The patient tolerated the procedure well with no immediate complication evident. The patient was returned to the inpatient unit in stable condition. Post procedure education was completed including pain management instructions. Estimated blood loss: <5 ml IMPRESSION: Successful ultrasound-guided thoracentesis. 1 L of brownish abner tinged fluid was removed. Samples were sent for analysis, which are pending. THIS IS AN ELECTRONICALLY VERIFIED FINAL REPORT 08/04/2024 2:40 PM - Electronically signed by Abhishek Mederos D.O. PS: PS Report ID: [id number] Reading Location: [id number] Procedure Note Abhishek Mederos, DO - 08/04/2024 EXAM DESCRIPTION: US GUIDED THORACENTESIS LEFT HISTORY: Malginant left pleural effusion Ultrasound-guided thoracentesis is requested. COMPARISON: 07/04/2024 TECHNIQUE/FINDINGS: Pertinent imaging studies were reviewed including chest radiograph dated 07/04/2024. Immediately prior to the procedure, the healthcare teamperformed the safety pause and verbally confirmed that the patient, the planned procedure, the site and side were accurate. Pre-procedure sonographic scanning demonstrated a small to moderate right pleural effusion. The skin was marked, prepped and draped over theposterior thorax. Local anesthesia was used with 1% lidocaine, includingsubcutaneous and deeper tissues. A 4-Ukrainian 10 cm One Step Centesis catheter was usedto drain 1 L of brownish abner tinged fluid. Needle placement was documented with sonographic images. Postprocedure image demonstrates intervaldecrease in the pleural fluid. Hemostasis was achieved. The area was cleaned and then dressed with a Band-Aid. A postprocedure chest radiograph was ordered to be performed in1 hour. The patient tolerated the procedure well with no immediate complication evident. The patient was returned to the inpatient unit in stablecondition. Post procedure education was completed including pain managementinstructions. Estimated blood loss: <5 ml IMPRESSION: Successful ultrasound-guided thoracentesis. 1 L of brownish ambertinged fluid was removed. Samples were sent for analysis, which are pending. THIS IS AN ELECTRONICALLY VERIFIED FINAL REPORT 08/04/2024 2:40 PM - Electronically signed by Abhishek Mederos D.O. PS: PS Report ID: [id number] Reading Location: [place] [address] Thomas Escobar DO IMG US PROCEDURES Final R esult * (ABNORMAL) Blood smear review (08/04/2024 9:30 AM CDT) RBC morphology Consistent with RBC Indicies Anisocytosis Slight(A) LOUISE MIRELES (DODIE) Platelet estimate Increased(A) LOUISE MIRELES (DODIE) Blood 08/04/2024 9:30 AM CDT 08/04/2024 9:35 AM CDT Thomas Escobar DO LAB BLOOD ORDERABLES Benita l Result LOUISE MIRELES (WAMPUM) 1 [facility] [place] [address] * aPTT (08/04/2024 9:30 AM CDT) aPTT 36 28 - 38 sec LOUISE MIRELES (WAMPUM) Comment: Interpretive Data Heparin therapeutic range: 66.0 - 100.0 seconds. Range based on correlation with therapeutic heparin activity range of 0.3 - 0.7 Units/mL. Current interpretive data was last revised on 2022. Blood 08/04/2024 9:30 AM CDT 08/04/2024 9:35 AM CDT Narrative LOUISE MIRELES (DODEI) - 08/04/2024 9:48 AM CDT US [facility] LAB BLOOD ORDERABLES Benita l Result Performing Organization Address City/[facility]/ZIP Co de Phone Number LOUISE MIRELES (DODIE) 1 [facility] [place] [address] * (ABNORMAL) Protime-INR (08/04/2024 9:30 AM CDT) PT 14.4(H) 9.7 - 13.0 sec LOUISE MIRELES (DODIE) INR 1.33(H) 0.90 - 1.20 LOUISE MIRELES (DODIE) Comment: Interpretive data Oral anticoagulant therapeutic ranges: Venous thromboembolism prophylaxis or treatment: 2.0-3.0 CARDIOLOGY Standard range: 2.0-3.0 High-intensity range: 2.5-3.5 Refer to indication-specific guidelines for appropriate target ranges for prosthetic heart valve replacement. Current interpretive data was last revised on 2019. Blood 08/04/2024 9:30 AM CDT 08/04/2024 9:35 AM CDT Narrative LOUISE MIRELES (DODIE) - 08/04/2024 9:48 AM CDT US Guided Thoracentesis Left [facility] LAB BLOOD ORDERABLES Benita l Result LOUISE MIRELES (DODIE) 1 [facility] [place] [address] * (ABNORMAL) CBC without differential (08/04/2024 9:30 AM CDT) WBC 8.63 3.80 - 9.90 K/cumm Hgb 10.7(L) 13.0 - 17.5 g/dL LOUISE MIRELES (DODIE) Hct 34.6(L) 38.9 - 50.3 % [facility] (DODIE) Plt 507(H) 150 - 400 K/cumm [facility] ([place]) MPV 10.5 9.1 - 12.3 fL [facility] ([place]) RBC 4.41 4.30 - 5.80 M/cumm [facility] ([place]) MCV 78.5(L) 81.3 - 96.4 fL [facility] ([place]) MCH 24.3(L) 27.1 - 33.3 pg [facility] ([place]) MCHC 30.9(L) 32.3 - 35.7 g/dL [facility] ([place]) RDW CV 18.9(H) 11.1 - 14.9 % [facility] ([place]OD[place]) RDW SD 54.1(H) 35.7 - 48.1 fL [facility] (DODIE) NRBC abs 0.00 0.00 - 0.01 K/cumm [facility] Blood 08/04/2024 9:30 AM CDT 08/04/2024 9:35 AM CDT Narrative [facility] (DODIE) - 08/04/2024 10:13 AM CDT US Guided Thoracentesis Left us Thomas Escobar DO LAB BLOOD ORDERABLES Benita alicia Result LOUISE MIRELES (WAMPUM) [address] [place] [address] Department [place] [address] * Cytology (08/04/2024 12:00 AM CDT) Pleura (Cytology) 08/04/2024 025 11:41 AM CDT Narrative 08/08/2024 5:35 PM CDT EPIC results best viewed via link to PDF [facility] Department of Pathology [address] [place] [id number] Note to Patients: This report may contain a detailed description of human tissue sent by a health care provider to the laboratory for pathologic evaluation. The content of this report is essential for diagnosis and may provide important critical findings. This information may be unfamiliar to patients to review without a medical professional present. It is advised that the patient review this report in the presence of a health care provider who can answer questions and explain the details. Final Report Patient Name: JUAREZ CROWELL Address: [address] [place], [place] [id number] Gender: M : 1950 (Age: 74) Service: Location: Hospital # [id number] Patient Type: [facility] Taken: 08/04/2024 Received: 08/04/2024 Accessioned: 08/04/2024 Reported: 08/08/2024 Physician(s): Thomas Escobar DO Diagnosis: Pleural fluid, left, cytology: - Positive for malignancy. - Consistent with metastatic adenocarcinoma (see microscopic description). Konstantin Jolly M.D. Report Electronically Reviewed and Signed Out By Konstantin Jolly M.D. 08/08/2024 17:35:36Specimen(s) Received: A: Fluid, Pleural, Left Clinical History: The patient is a 74 year old male with left malignant pleural effusion. Gross Description: 1 container received with 1050 cc unfixed abner fluid. 1 ThinPrep, 1 air-dried cytospin for Shaw stain and 1 cell block made. Microscopic Description: Microscopic examination of the left pleural fluid (one ThinPrep slide, one air dried Shaw stained cytospin and cell block sections) reveals a specimen that is adequate for evaluation. The specimen consists of malignant epithelial cells in a background of scattered, mildly reactive mesothelial cells in a background of fibrin. Individual cells have enlarged, round nuclei with small to moderate amounts of cytoplasm and have a similar cytomorphology to that seen in the patient's most recent left pleural effusion ([id number]) that is also reviewed at this time and was consistent with metastatic adenocarcinoma from a lung primary. Immunohistochemical stains are performed (with appropriate controls). The malignant epithelial cells are positive for the MOC-31 epithelial marker. A calretinin stain is negative. Additional testing will not be performed at this time unless specifically requested. Sufficient material is present in the block for additional molecular studies if requested. The performance characteristics of some immunohistochemical stains, fluorescence in-situ hybridization tests and immunophenotyping by flow cytometry cited in this report (if any) were determined by the Surgical Pathology Department at [facility] as part of an ongoing quality control expert program and in compliance with federally mandated regulations drawn from the Clinical Laboratory Improvement Act of 1988 (CLIA '88). Some of these tests rely on the use of analyte specific reagents and are subject to specific labeling requirements by the US Food and Drug Administration. Such diagnostic tests may only be performed in a facility that is certified by the Department of Health and Human Services as a high complexity laboratory under CLIA '88. The FDA has determined that such clearance or approval is not necessary. This test is used for clinical purposes. It should not be regarded as investigational or for research. Nevertheless, federal rules concerning the medical use of analyte specific reagents require that the following disclaimer be attached to the report: This test was developed and its performance characteristics determined by the Surgical Pathology Department [facility]. It has not been cleared or approved by the U. S. Food and Drug Administration. Unless otherwise noted all cytology processing, staining and screening is performed at [facility] ([address] [place] [address]). REPORT IMAGES AND SCANNED DOCUMENTS, IF INCLUDED, ONLY VIEWABLE IN PDF VERSION OF REPORT Thomas Escobar DO LAB CYTOLOGY ORDERABLES F inal Result * XR Chest 1 View (Portable) (07/04/2024 12:42 PM CDT) Anatomical Region Laterality Modality Body, Chest N/A Computed Radiogr aphy 07/04/2024 12:4 5 PM CDT Narrative 07/04/2024 12:49 PM CDT EXAM DESCRIPTION: XR CHEST 1 VIEW REASON FOR STUDY: Pleural effusion Post thora TECHNIQUE: Single radiographic view(s) of the chest. COMPARISON: 06/29/2024 FINDINGS: The cardiac silhouette is obscured by the opacification of the left hemithorax. The pulmonary vasculature and mediastinum are grossly stable. There is redemonstration of near-complete opacification of the left lung with interval mild improved aeration of the left lower lobe. There is no definite evidence of a pneumothorax. The osseous structures are acutely grossly stable. IMPRESSION: Redemonstration of near-complete opacification of the left lung with interval mild improved aeration of the left lower lobe. No definite evidence of a pneumothorax. THIS IS AN ELECTRONICALLY VERIFIED FINAL REPORT 07/04/2024 12:49 PM - Electronically signed by Abhishek Mederos D.O. PS: PS Report ID: [id number] Reading Location: [id number] Procedure Note Abhishek Mederos DO - 07/04/2024 EXAM DESCRIPTION: XR CHEST 1 VIEW REASON FOR STUDY: Pleural effusion Post thora TECHNIQUE: Single radiographic view(s) of the chest. COMPARISON: 06/29/2024 FINDINGS: The cardiac silhouette is obscured by the opacification of the left hemithorax. The pulmonary vasculature and mediastinum are grossly stable. There is redemonstration of near-complete opacification of the left lungwith interval mild improved aeration of the left lower lobe. There is nodefinite evidence of a pneumothorax. The osseous structures are acutely grossly stable. IMPRESSION: Redemonstration of near-complete opacification of the left lung withinterval mild improved aeration of the left lower lobe. No definite evidence of a pneumothorax. THIS IS AN ELECTRONICALLY VERIFIED FINAL REPORT 07/04/2024 12:49 PM - Electronically signed by Abhishek Mederos D.O. PS: PS Report ID: [id number] Reading Location: [id number] us Abhishek Mederos DO IMG XR PROCEDURES Final R esult * US Guided Thoracentesis Left (07/04/2024 11:50 AM CDT) Anatomical Region Laterality Modality Chest N/A Ultrasound 07/04/2024 2:17 PM CDT Narrative 07/04/2024 2:18 PM CDT EXAM DESCRIPTION: US GUIDED THORACENTESIS LEFT HISTORY: Large left sided pleural effusion Ultrasound-guided thoracentesis is requested. COMPARISON: 06/29/2024 TECHNIQUE/FINDINGS: Pertinent imaging studies were reviewed including chest radiograph dated 06/29/2024. Immediately prior to the procedure, the healthcare team performed the safety pause and verbally confirmed that the patient, the planned procedure, the site and side were accurate. Pre-procedure sonographic scanning demonstrated a small to moderate mildly loculated left pleural effusion. The skin was marked, prepped and draped over the posterior thorax. Local anesthesia was used with 1% lidocaine, including subcutaneous and deeper tissues. A 4-Ukrainian 10 cm One Step Centesis catheter was used to drain 1 L of serosanguineous fluid. Needle placement was documented with sonographic images. Postprocedure image demonstrates interval decrease in the pleural fluid. Hemostasis was achieved. The area was cleaned and then dressed with a Band-Aid. A postprocedure chest radiograph was ordered to be performed in 1 hour. The patient tolerated the procedure well with no immediate complication evident. The patient was returned to the inpatient unit in stable condition. Post procedure education was completed including pain management instructions. Estimated blood loss: <5 ml IMPRESSION: Successful ultrasound-guided thoracentesis. 1 L of serosanguinous fluid was removed. Samples were sent for analysis, which are pending. THIS IS AN ELECTRONICALLY VERIFIED FINAL REPORT 07/04/2024 2:18 PM - Electronically signed by Abhishek Mederos D.O. PS: PS Report ID: [id number] Reading Location: [id number] Procedure Note Abhishek Mederos DO - 07/04/2024 EXAM DESCRIPTION: US GUIDED THORACENTESIS LEFT HISTORY: Large left sided pleural effusion Ultrasound-guided thoracentesis is requested. COMPARISON: 06/29/2024 TECHNIQUE/FINDINGS: Pertinent imaging studies were reviewed including chest radiograph dated 06/29/2024. Immediately prior to the procedure, the healthcare teamperformed the safety pause and verbally confirmed that the patient, the planned procedure, the site and side were accurate. Pre-procedure sonographic scanning demonstrated a small to moderate mildly loculated left pleural effusion. The skin was marked, prepped and drapedover the posterior thorax. Local anesthesia was used with 1% lidocaine,including subcutaneous and deeper tissues. A 4-Ukrainian 10 cm One Step Centesiscatheter was used to drain 1 L of serosanguineous fluid. Needle placement was documented with sonographic images. Postprocedure image demonstratesinterval decrease in the pleural fluid. Hemostasis was achieved. The area was cleaned and then dressed with a Band-Aid. A postprocedure chest radiograph was ordered to be performed in1 hour. The patient tolerated the procedure well with no immediate complication evident. The patient was returned to the inpatient unit in stablecondition. Post procedure education was completed including pain managementinstructions. Estimated blood loss: <5 ml IMPRESSION: Successful ultrasound-guided thoracentesis. 1 L of serosanguinous fluidwas removed. Samples were sent for analysis, which are pending. THIS IS AN ELECTRONICALLY VERIFIED FINAL REPORT 07/04/2024 2:18 PM - Electronically signed by Abhishek Mederos D.O. PS: PS Report ID: [id number] Reading Location: [place] [address] Thomas Escobar DO IMG US PROCEDURES Final R esult * Cell Differential, Body Fluid (07/04/2024 11:32 AM CDT) Total cells diffed 100 % Comment: Interpretive Data Unless otherwise specified, the reference range and other method performance specifications have not been established for CSF/Body Fluid tests. The test results should be integrated into the clinical context for interpretation. Current interpretive data was last revised on 2018. Neutrophils, fld 0 % SATNAM MIRELES (WAMPUM) Lymphs, fld 86 % LOUISE A (WAMPUM) Monocyte, fld 14 % LOUISE MIRELES (DODIE) Fluid 07/04/2024 11:3 2 AM CDT 07/04/2024 11:59 AM CDT Thomas Escobar DO LAB BODY FLUIDS AND STOOL S ORDERABLES Final Result LOUISE MIRELES (DODIE) 1 [facility] Department [place] [address] * Cell count w/rflx diff, body fluid (07/04/2024 11:32 AM CDT) Specimen type, fld Pleural Body site, fld Pleural fluid, left [facility] (DODIE) Color, fld Red [facility] (DODIE) Clarity, fld Turbid [facility] (DODIE) Nucleated cells, fld 629 /cumm [facility] (DODIE) Comment: Interpretive Data Unless otherwise specified, the reference range and other method performance specifications have not been established for CSF/Body Fluid tests. The test results should be integrated into the clinical context for interpretation. Current interpretive data was last revised on 2018. RBC, fld 38,000 /cumm [facility] (DODIE) Fluid 07/04/2024 11:3 2 AM CDT 07/04/2024 11:59 AM CDT Thomas Escobar DO LAB BODY FLUIDS AND STOOL S ORDERABLES Final Result LOUISE MIRELES (DODIE) 1 [facility] Department [place] [address] * Aerobic and anaerobic culture and gram stain Pleural fluid Pleural (07/04/2024 11:32 AM CDT) Direct Specimen Exam Stain: Cytospin Gram stain shows: Moderate polymorphonuclear leukocytes seen. Other cellular material present. No organisms seen. Comment:Testing performed by : [facility], [address] [place]., [address] Report Final Report: No growth LOUISE MIRELES (DODIE) Comment:Testing performed by : [facility], 1 [facility], [place]., [address] Pleural fluid (Pleural) 07/04/2024 11:32 AM CDT 07/04/2024 2:25 PM CDT Narrative LOUISE CHI (DODIE) - 07/07/2024 11:00 AM CDT Testing performed by [facility] Microbiology Laboratory ([phone]) Specimens submitted from normally sterile body sites will have all bacterial morphotypes identified. Specimens that contain grossly mixed erum and/or are from body sites that are not normally sterile will be examined for Staphylococcus aureus, Pseudomonas aeruginosa, beta-hemolytic strep, vancomycin-resistant Enterococcus, Bacteroides, Parabacteroides, Clostridium perfringens and fungus. If any of these are isolated, the organism will be reported. Current interpretive data was last revised on 2019. us Thomas Escobar DO LAB MICROBIOLOGY - GENERA L ORDERABLES Final Result LOUISE CHI (WAMPUM) 1 [facility] Department [place] [address] * Protein, body fluid (07/04/2024 11:32 AM CDT) Specimen type, fld Pleural Comment:Testing performed by : [facility], [address] [place]., [address] Body site, fld Pleural fluid, left LOUISE MIRELES (WAMPUM) Comment:Testing performed by : [facility], [address] [place]., [address] Protein, fld 4.4 g/dL LOUISE MIRELES (DODIE) Comment: The above specimen type is not cleared for use in this method by the FDA. Analytical characteristics have been validated by the performing laboratory. No reference range established - see interpretive comments. Interpretive Data Pleural and Pericardial Fluids - Ratio of fluid to serum protein > or = 0.5 is indicative of exudate and < 0.5 of transudate. Peritoneal - Protein > or = 3.0 g/dL is indicative of exudates and < 3.0 g/dL of transudates. Reference: Joselin Textbook of Clinical Chemistry and Molecular Diagnostics, Sixth Edition. Elsevier Press. 2018. Chapter 43, Body Fluids, p. 925 Current Interpretive Data was last revised 2018. Testing performed by: [facility], [address] [place]., [address] Fluid 07/04/2024 11:3 2 AM CDT 07/04/2024 2:12 PM CDT Thomas Escobar DO LAB BODY FLUIDS AND STOOL S ORDERABLES Final Result LOUISE MIRELES (DODIE) 1 [facility] [place] [address] * Lactate dehydrogenase, body fluid (07/04/2024 11:32 AM CDT) Specimen type, fld Pleural Comment:Testing performed by : [facility], [address] [place] [address] Body site, fld Pleural fluid, left LOUISE CHI (DODIE) Comment:Testing performed by : [facility], [address] [place]., [address] LD, fld 590 Units/L LOUISE [facility] (DODIE) Comment: The above specimen type is not cleared for use in this method by the FDA. Analytical characteristics have been validated by the performing laboratory. No reference range established - see interpretive comments. Interpretive Data Ratio of fluid to serum LD > or = 0.6 is indicative of exudate and < 0.6 of transudate. References: The Biochemistry of Body Fluids. Association of Clinical Biochemists in [place]. December 2008; pp 1-36. Joselin Textbook of Clinical Chemistry and Molecular Diagnostics, Sixth Edition. Elsevier Press. 2018. Chapter 43, Body Fluids, p. 928 Current Interpretive Data was last revised 2018. Testing performed by: [facility], [address] [place] [address]., [address] Fluid 07/04/2024 11:3 2 AM CDT 07/04/2024 2:12 PM CDT Thomas Escobar DO LAB BODY FLUIDS AND STOOL S ORDERABLES Final Result LOUISE MIRELES (DODIE) 1 [facility] [place] [address] * Glucose, body fluid (07/04/2024 11:32 AM CDT) Specimen type, fld Pleural Comment:Testing performed by : [facility], [address] [place]., [address] Body site, fld Pleural fluid, left [facility] (DODIE) Comment:Testing performed by : [facility], [address] [place]., [address] Glucose, fld 58 mg/dL [facility] (DODIE) Comment: The above specimen type is not cleared for use in this method by the FDA. Analytical characteristics have been validated by the performing laboratory. No reference range established - see interpretive comments. Interpretive Data Pleural - Glucose < 60 mg/dL is indicative of complicated parapneumonic effusions. Peritoneal - normally equivalent to plasma glucose. Will be less than concurrent plasma value in peritoneal bacterial infections. Pericardial - Fluid to serum glucose ratio < 0.3 is indicative of bacterial infection. Pancreatic cyst fluid - glucose concentrations have been shown to be a useful aid for distinguishing mucinous from non-mucinous cysts. Low glucose concentrations in a pancreatic cyst fluid (< 40-50 mg/dL) is suggestive of a mucinous cyst. However, body fluid glucose concentrations may be decreased due to increased cellular metabolism and should be interpreted in the context of blood glucose concentrations and in conjunction with other laboratory and clinical findings. References: Joselin Textbook of Clinical Chemistry and Molecular Diagnostics, Sixth Edition. Elsevier Press. 2018. Chapter 43, Body Fluids, p. 925 Pleural effusions: Evaluation and Management. Vasyl Clin J Med 2005;72:854-72. gauzz Test directory, Body Fluid Reference Intervals and/or Interpretative Information. [email or web address] Batsheva HARRINGTON et al. Pancreatic cyst fluid glucose: rapid, inexpensive, and accurate diagnosis of mucinous pancreatic cysts. Surgery 2018;163:600-5. Virgil DG et al. Differential diagnosis of pancreatic cysts: A prospective study on the role of intra-cystic glucose concentration. Digestive Liver Dis 2020;52:1026-32. Current Interpretive Data was last revised 2021. Testing performed by: [facility], [address] [place]., [address] Fluid 07/04/2024 11:3 2 AM CDT 07/04/2024 2:12 PM CDT Narrative LOUISE CHI (DODIE) - 07/04/2024 3:09 PM CDT Body Fluid Type->Pleural Thomas Escobar DO LAB BODY FLUIDS AND STOOL S ORDERABLES Final Result LOUISE MIRELES (DODIE) 1 [facility] Department [place] [address] * Albumin, Body Fluid (07/04/2024 11:32 AM CDT) Specimen type, fld Pleural Comment:Testing performed by : [facility], [address] [place] [address] Body site, fld Pleural fluid, left LOUISE MIRELES (DODIE) Comment:Testing performed by : [facility], [address] [place]., [address] Albumin, fld 2.4 g/dL LOUISE MIRELES (DODIE) Comment: The above specimen type is not cleared for use in this method by the FDA. Analytical characteristics have been validated by the performing laboratory. No reference range established - see interpretive comments. Interpretive Data Pleural - A difference between serum and pleural fluid albumin > 1.2 g/dL (serum minus pleural fluid) is indicative of transudate. Peritoneal - Serum minus peritoneal albumin gradient > or = 1.1 g/dL is indicative of cirrhosis, hepatic failure, fatty liver, alcoholic hepatitis and portal vein thrombosis. Gradient < 1.1 g/dL is indicative of peritoneal carcinomatosis, Tuberculosis, Pancreatic, connective tissue disease and nephrotic syndrome. References: The Biochemistry of Body Fluids. Association of Clinical Biochemists in [place]. December 2008; pp 1-36. Joselin Textbook of Clinical Chemistry and Molecular Diagnostics, Sixth Edition. Elsevier Press. 2018. Chapter 43, Body Fluids, p. 925 Current Interpretive Data was last revised 2018. Testing performed by: [facility], [address] [place] [address] Fluid 07/04/2024 11:3 2 AM CDT 07/04/2024 2:12 PM CDT Thomas Álvaro Escobar DO LAB BODY FLUIDS AND STOOL S ORDERABLES Final Result Performing Organization Address City/[facility] Co de Phone Number LOUISE MIRELES ([place]) [address] [place] [address] * pH, Pleural Fluid (07/04/2024 11:32 AM CDT) Body site, fld Pleural fluid, left pH, fld 7.50 [facility] ([place]) Comment: Analytical characteristics have been validated by the performing laboratory. No reference range established - see interpretive comments. Interpretive Data Pleural - pH is approximately 7.64. pH <7.2 is indicative of complicated parapneumonic effusions. References: Joselin Textbook of Clinical Chemistry and Molecular Diagnostics, Sixth Edition. Elsevier Press. 2018. Chapter 43, Body Fluids, p. 925 Pleural effusions: Evaluation and Management. Vasyl Clin J Med 2005;72:854-72. Current Interpretive Data was last revised 20. Fluid 07/04/2024 11:3 2 AM CDT 07/04/2024 11:59 AM CDT Thomas Escobar DO LAB BODY FLUIDS AND STOOL S ORDERABLES Final Result Performing Organization Address [facility] de Phone Number LOUISE MIRELES ([place]) 1 [facility] [place] [address] * (ABNORMAL) CBC with auto differential (07/04/2024 10:29 AM CDT) WBC 9.94(H) 3.80 - 9.90 K/cumm Hgb 11.2(L) 13.0 - 17.5 g/dL [facility] ([place]) Hct 36.8(L) 38.9 - 50.3 % [facility] ([place]) Plt 482(H) 150 - 400 K/cumm [facility] ([place]) MPV 11.1 9.1 - 12.3 fL [facility] ([place]) RBC 4.75 4.30 - 5.80 M/cumm [facility] ([place]) MCV 77.5(L) 81.3 - 96.4 fL [facility] ([place] MCH 23.6(L) 27.1 - 33.3 pg [facility] ([place]) MCHC 30.4(L) 32.3 - 35.7 g/dL [facility] ([place]) RDW CV 17.7(H) 11.1 - 14.9 % [facility] ([place]) RDW SD 48.9(H) 35.7 - 48.1 fL [facility] ([place] NRBC abs 0.00 0.00 - 0.01 K/cumm [facility] ([place] Blood 07/04/2024 10:2 9 AM CDT 07/04/2024 10:35 AM CDT Thomas Escobar DO LAB BLOOD ORDERABLES Benita l Result [facility] ([place]) 1 [facility] [place] [address] * (ABNORMAL) Manual Differential (07/04/2024 10:29 AM CDT) Differential Manual Neutrophil abs 8.15(H) 1.50 - 6.50 K/cumm [facility] ([place]) Lymphocyte abs 1.09 0.80 - 3.30 K/cumm [facility] ([place] Monocyte abs 0.70 0.20 - 0.80 K/cumm [facility] ([place] Neutrophil pct 82.0 % [facility] ([place]) Comment: Interpretive Data Percent cell count reference ranges are not reported, since discordance with absolute values may lead to misinterpretation of CBC data. Current Interpretive Data was last revised on 2017. Lymphocyte pct 11.0 % [facility] ([place]) Comment: Interpretive Data Percent cell count reference ranges are not reported, since discordance with absolute values may lead to misinterpretation of CBC data. Current Interpretive Data was last revised on 2017. Monocyte pct 7.0 % [facility] ([place]) Comment: Interpretive Data Percent cell count reference ranges are not reported, since discordance with absolute values may lead to misinterpretation of CBC data. Current Interpretive Data was last revised on 2017. RBC morphology Consistent with RBC Indicies [facility] ([place]) Platelet estimate Adequate CE PEARL JOHNSON) Blood 07/04/2024 10:2 9 AM CDT 07/04/2024 10:35 AM CDT [facility] Álvaro Escobar DO LAB BLOOD ORDERABLES Benita l Result Performing Organization Address [facility] Co de Phone Number LOUISE MIRELES ([place]) 1 [facility] [place] [address] * aPTT (07/04/2024 10:29 AM CDT) aPTT 30 28 - 38 sec [facility] ([place]) Comment: Interpretive Data Heparin therapeutic range: 66.0 - 100.0 seconds. Range based on correlation with therapeutic heparin activity range of 0.3 - 0.7 Units/mL. Current interpretive data was last revised on 2022. Blood 07/04/2024 10:2 9 AM CDT 07/04/2024 10:35 AM CDT [facility] Álvaro Escobar DO LAB BLOOD ORDERABLES Benita l Result Performing Organization Address [facility] de Phone Number LOUISE [facility]RELES ([place]) [address] [facility] [place] [address] * Protime-INR (07/04/2024 10:29 AM CDT) PT 12.3 9.7 - 13.0 sec [facility] ([place]) INR 1.14 0.90 - 1.20 [facility]RE[facility] ([place]) Comment: Interpretive data Oral anticoagulant therapeutic ranges: Venous thromboembolism prophylaxis or treatment: 2.0-3.0 CARDIOLOGY Standard range: 2.0-3.0 High-intensity range: 2.5-3.5 Refer to indication-specific guidelines for appropriate target ranges for prosthetic heart valve replacement. Current interpretive data was last revised on 2019. Blood 07/04/2024 10:2 9 AM CDT 07/04/2024 10:35 AM CDT [facility] Benita l Result Performing Organization Address City/[facility]/ZIP Co de Phone Number LOUISE DonaldsonW[facility]) 1 [facility] [place] [address] * eGFR (07/04/2024 10:12 AM CDT) eGFR >90 >=60 mL/min/1. 73 m2 Comment: Interpretive Data Reference Interval Normal >/= 90 mL/min/1.73m2 Mildly decreased* 60 - 89 mL/min/1.73m2 Mildly to moderately decreased 45 - 59 mL/min/1.73m2 Moderately to severely decreased 30 - 44 mL/min/1.73m2 Severely decreased 15 - 29 mL/min/1.73m2 Kidney Failure < 15 mL/min/1.73m2 *Relative to young adult level Estimated glomerular filtration rate is determined by the 2020 CKD-EPI equation recommended by the National Kidney Foundation (A Unifying Approach to GFR Estimation: Recommendations of the NKF-ASK Task Force on Reassessing the Inclusion of Race in Diagnosing Kidney Disease, JASN 2020). The CKD-EPI equation should not be used for patients with unstable renal function and has not been validated in children and those over 70. Current interpretive data was last reviewed 2021. Blood 07/04/2024 10:1 2 AM CDT 07/04/2024 10:52 AM CDT Thomas Escobar DO LAB BLOOD ORDERABLES Benita l Result [facility]RE[facility] ([place]) [address] [facility] [place] [address] * Lactate dehydrogenase (LD) (07/04/2024 10:12 AM CDT) Lactate dehydrogenase (LDH) 195 100 - 250 Units/L Blood 07/04/2024 10:1 2 AM CDT 07/04/2024 10:52 AM CDT Thomas Escobar DO LAB BLOOD ORDERABLES Benita maral Result [facility] ([place]) 1 [facility] Department [place] [address] * (ABNORMAL) Comprehensive metabolic panel (07/04/2024 10:12 AM CDT) Sodium 135 135 - 145 mmol/L Potassium, pl 4.9 3.3 - 4.9 mmol/L [facility] ([place]) Chloride 100 97 - 110 mmol/L [facility] ([place]) CO2 22 22 - 32 mmol/L [facility] ([place]) Anion gap 13 2 - 15 mmol/L [facility] ([place]) BUN 19 6 - 25 mg/dL [facility] ([place]) Creatinine 0.57(L) 0.80 - 1.30 mg/dL [facility] ([place]) Glucose 103 70 - 199 mg/dL [facility] ([place]) Comment: Interpretive Data Fasting glucose >/= 126 mg/dl is diagnostic for diabetes. Fasting is defined as no caloric intake for at least 8 hours. Fasting glucose between 100 mg/dl to 125 mg/dl is diagnostic of prediabetes. In a patient with classic symptoms of hyperglycemia or hyperglycemic crisis, a random glucose >/= 200 mg/dl is diagnostic for diabetes. In the absence of unequivocal hyperglycemia, results should be confirmed by repeat testing. The classification and Diagnosis of Diabetes Diabetes Care 202; 46: S19-S40. Current interpretive data was last revised 2022. Calcium 8.7 8.5 - 10.3 mg/dL [facility] ([place]) Bilirubin, total 0.4 0.1 - 1.2 mg/dL [facility] ([place]) Protein, pl 6.8 6.5 - 8.5 g/dL [facility] ([place]) Albumin 3.1(L) 3.5 - 5.0 g/dL [facility] ([place]) Alk phos 94 40 - 130 Units/L [facility] ([place]) ALT 9 7 - 55 Units/L [facility] ([place]) AST 13 10 - 50 Units/L [facility] ([place]) Blood 07/04/2024 10:1 2 AM CDT 07/04/2024 10:52 AM CDT Thomas Escobar DO LAB BLOOD ORDERABLES Benita l Result [facility] ([place]) 1 [facility] [place] [address] * Cytology (07/04/2024 12:00 AM CDT) Fluid (Pleura (Cytology)) 07/04/2024 07/04/2024 1:14 PM CDT Narrative [facility]OLOG[facility] ([place]) - 07/07/2024 4:26 PM CDT EPIC results best viewed via link to PDF [facility] Department of Pathology [address] [place] [id number] Note to Patients: This report may contain a detailed description of human tissue sent by a health care provider to the laboratory for pathologic evaluation. The content of this report is essential for diagnosis and may provide important critical findings. This information may be unfamiliar to patients to review without a medical professional present. It is advised that the patient review this report in the presence of a health care provider who can answer questions and explain the details. Final Report Patient Name: JUAREZ CROWELL Address: [address] [place] [id number] Gender: M : 1950 (Age: 73) Service: Location: [facility] # [id number] Patient Type: [facility] EP ANCILLARY Taken: 07/04/2024 Received: 07/04/2024 Accessioned: 07/04/2024 Reported: 07/07/2024 Physician(s): Thomas Escobar DO Diagnosis: Pleural fluid, left, cytology: - Positive for malignancy. - Consistent with metastatic adenocarcinoma from a lung primary. Olaronke A. Akintola-Ogunremi, M.D. Report Electronically Reviewed and Signed Out By Konstantin Jolly M.D. 07/07/2024 16:26:15Specimen(s) Received: A: Fluid, Pleural, Left Clinical History: The patient is a 73 year old male with history of cancer. MARCIE metabolically active lung mass and left pleural effusion. Gross Description: 1 container received with 900 cc unfixed red fluid. 1 ThinPrep, 1 air-dried cytospin for Shwa stain and 1 cell block made. Microscopic Description: Microscopic examination of the left pleural fluid (one ThinPrep slide, one air dried Shaw stained cytospin and cell block sections) reveals a specimen that is adequate for evaluation. The specimen consists of scattered, single malignant epithelial cells with enlarged, hyperchromatic nuclei with occasional nucleoli and small to moderate amounts of cytoplasm that are present in a background of mildly reactive mesothelial cells and fibrin. Immunohistochemical stains are performed (with appropriate controls). The malignant cells are positive for the MOC-31 epithelial marker, TTF-1 and Napsin a are negative for squamous marker p40. A calretinin stain is also negative. The cytomorphology immunoprofile would be consistent with metastatic adenocarcinoma from a lung primary. These results were relayed to Drs. Escobar and Augie on 07/07/2024. Comment: Sufficient material is available for additional molecular testing if requested. Biomarker mutation testing for ALK, EGFR and ROS1 is recommended. Various gene alterations have been identified as oncogenic drivers for NSCLC, including mutations of EGFR, ALK and ROS1. The Lung Cancer Mutation Consortium found that two thirds of NSCLC patients have an oncogenic lumber driver and that overall survival improves if patients receive matched targeted therapy (1). 1. Chano MG, Scar B, Austin LD, et al. Using multiplexed assays of oncogenic drivers in lung cancers to select targeted drugs. RUPINDER. 2014;311:1998 2 006. The performance characteristics of some immunohistochemical stains, fluorescence in-situ hybridization tests and immunophenotyping by flow cytometry cited in this report (if any) were determined by the Surgical Pathology Department at [facility] as part of an ongoing quality control expert program and in compliance with federally mandated regulations drawn from the Clinical Laboratory Improvement Act of 1988 (CLIA '88). Some of these tests rely on the use of analyte specific reagents and are subject to specific labeling requirements by the US Food and Drug Administration. Such diagnostic tests may only be performed in a facility that is certified by the Department of Health and Human Services as a high complexity laboratory under CLIA '88. The FDA has determined that such clearance or approval is not necessary. This test is used for clinical purposes. It should not be regarded as investigational or for research. Nevertheless, federal rules concerning the medical use of analyte specific reagents require that the following disclaimer be attached to the report: This test was developed and its performance characteristics determined by the Surgical Pathology Department [facility]. It has not been cleared or approved by the U. S. Food and Drug Administration. Unless otherwise noted all cytology processing, staining and screening is performed at [facility] ([address] [place] [address]). REPORT IMAGES AND SCANNED DOCUMENTS, IF INCLUDED, ONLY VIEWABLE IN PDF VERSION OF REPORT us Thomas Escobar DO LAB CYTOLOGY ORDERABLES F inal Result [facility]OLOGY [facility] ([facility] [address] [place] [address] * X-ray chest 2 views (06/29/2024 11:28 AM CDT) Anatomical Region Laterality Modality Body, Chest N/A Computed Radiogr aphy 07/04/2024 12:5 1 PM CDT Narrative 07/04/2024 12:52 PM CDT EXAM DESCRIPTION: XR CHEST PA LATERAL 2 VIEWS REASON FOR STUDY: Left pleural effusion Patient being evaluated for pleural effusion HX lung cancer TECHNIQUE: Frontal and lateral radiographic view(s) of the chest. COMPARISON: 05/10/2024 FINDINGS: The cardiac silhouette is obscured by the opacification of the left hemithorax. There is redemonstration of complete opacification of the left hemithorax, which is better evaluated on prior PET-CT dated 05/10/2024. There is no definite evidence of a pneumothorax. The right lung is grossly clear. The osseous structures are grossly stable. IMPRESSION: Redemonstration of complete opacification of the left hemithorax, which is better evaluated on prior PET-CT dated 05/10/2024. Please see prior PET-CT report. THIS IS AN ELECTRONICALLY VERIFIED FINAL REPORT 07/04/2024 12:52 PM - Electronically signed by Abhishek Mederos D.O. PS: PS Report ID: [id number] Reading Location: [id number] Procedure Note Abhishek Mederos DO - 07/04/2024 EXAM DESCRIPTION: XR CHEST PA LATERAL 2 VIEWS REASON FOR STUDY: Left pleural effusion Patient being evaluated for pleural effusion HX lung cancer TECHNIQUE: Frontal and lateral radiographic view(s) of the chest. COMPARISON: 05/10/2024 FINDINGS: The cardiac silhouette is obscured by the opacification of the left hemithorax. There is redemonstration of complete opacification of theleft hemithorax, which is better evaluated on prior PET-CT dated 05/10/2024.There is no definite evidence of a pneumothorax. The right lung is grosslyclear. The osseous structures are grossly stable. IMPRESSION: Redemonstration of complete opacification of the left hemithorax, whichis better evaluated on prior PET-CT dated 05/10/2024. Please see priorPET-CT report. THIS IS AN ELECTRONICALLY VERIFIED FINAL REPORT 07/04/2024 12:52 PM - Electronically signed by Abhishek Mederos D.O. PS: PS Report ID: [id number] Reading Location: [id number] Thomas Escobar DO IMG XR PROCEDURES Final R esult * CTA Abdominal Aorta And Bilateral Iliofemoral Runoff (07/02/2021 8:27 PM CDT) Anatomical Region Laterality Modality Body Bilateral Computed Tomogra phy 07/02/2021 10:4 3 PM CDT Narrative 07/02/2021 11:29 PM CDT EXAM DESCRIPTION: CTA ABDOMINAL AORTA AND BILATERAL ILIOFEMORAL RUNOFF REASON FOR STUDY: ischemic right leg, pre op circulation evaluation Inpatient. 70 yo male. Lower extremity arterial dissection, known or suspected ischemic right leg. Pre op circulation evaluation . Creat 0.6 Gfr 103 20g Rt FA TECHNIQUE: CTA of the abdominal aorta with bilateral lower extremity runoff was performed without and with intravenous contrast using helical scanning technique. Precontrast and arterial images were obtained of the lower extremities. Images reviewed with soft tissue and bone windows. Reconstructed coronal and sagittal MPR images reviewed. All images stored on PACS. 3D MIP images rendered on scanning unit and reviewed at time of interpretation. Automated exposure control was used as a dose optimization technique for this examination. CONTRAST TYPE/DOSE: 100mL of IOVERSOL 350 MG IODINE/ML INTRAVENOUS SYRINGE injected via intravenous COMPARISON: None FINDINGS: VASCULATURE: NON-CONTRASTED IMAGING: Advanced diffuse atherosclerosis. ABDOMINAL AORTA: No dissection. Ectasia of the infrarenal abdominal aorta measuring 2.0 x 1.8 cm. MESENTERIC/RENAL: No flowing limiting disease. Single bilateral renal arteries. No anatomic variation of the mesenteric vessels. PELVIC VASCULATURE: Common/external iliac arteries: Left common iliac artery stent. Focal occlusion of the right common iliac artery measuring approximately 1.2 cm with distal reconstitution. There is severe narrowing of the right external iliac artery as it transitions into the common femoral artery. There is severe stenosis of the right common femoral artery Internal iliac arteries: Severe stenosis of the right and left iliac artery. RIGHT LOWER EXTREMITY VASCULATURE: Focal short segment occlusion of the superficial femoral artery with distal reconstitution with areas of multifocal severe stenosis. There is apparent adequate opacification of the deep femoral artery. There is focal occlusion of the popliteal artery at the level of the knee with retrograde filling from the geniculate artery. There is severe stenosis at the distal popliteal artery at the level of bifurcation. The anterior tibial artery is patent. The peroneal artery is patent proximally and preciado distally. The posterior tibial artery is likely occluded throughout its course with atherosclerotic calcification. LEFT LOWER EXTREMITY VASCULATURE: There is a chronically occluded femoral bypass graft, this may have been previously a fem-pop bypass prior to below-knee amputation. This is likely similar as compared to prior though is incompletely imaged on prior examination. The superficial femoral artery is occluded. There is opacification of the proximal deep femoral artery with occlusion of the mid to distal portion of the deep femoral artery with opacification of tributary vessels. ABDOMEN/PELVIS: LOWER CHEST: Left basilar atelectatic change with small left pleural effusion. No focal consolidation. Pulmonary emphysema is noted at the lower lung [place]. 0.5 cm right lower lobe pulmonary nodule, previously obscured. Coronary calcification. LIVER: Focus of arterial enhancement within the left hepatic lobe measuring approximately 1 cm (axial image 55), likely related to shunting or transient perfusion differences. No focal lesion otherwise appreciated. GALLBLADDER: Gallbladder is decompressed, limiting evaluation. There is no pericholecystic inflammatory change identifiable by CT. BILE DUCTS: No intrahepatic or extrahepatic ductal dilatation. SPLEEN: Normal size. No focal lesions. PANCREAS: No identified cystic or solid masses. No significant calcifications. No adjacent inflammation or peripancreatic fluid collections. Pancreatic duct not dilated. ADRENALS: Normal. KIDNEYS/URINARY TRACT: 1.5 cm hypodensity within the right kidney, likely a cyst at the superior pole. Similar such lesion at the inferior pole of left kidney measuring approximately 1.5 cm, also likely a cyst. No solid mass. No hydronephrosis. No obstructing stone. Normal bladder. GI: Evaluation of the gastrointestinal system is limited by lack of distention and bowel prep. Small hiatal hernia. Distal esophagus is unremarkable. Insert stomach No small bowel obstruction. Scattered diverticular disease without evidence of acute diverticulitis. PERITONEUM: No ascites or free air. RETROPERITONEUM: No mass or adenopathy. REPRODUCTIVE: No significant abnormality. 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 Probable focus of osteonecrosis about the right lateral femoral condyle. Compression fracture of the L1 vertebral body, progressed from prior CT. Probable new compression fracture of the T12 vertebral body with less than 25% height loss. OTHER: No other abnormality. IMPRESSION: Advanced diffuse atherosclerosis. Ectasia of the infrarenal abdominal aorta measuring up to 2.0 cm. Focal short segment occlusion of the right common iliac artery with severe narrowing of the right external iliac artery as it transitions to the common femoral artery. Focal short segment occlusion of the proximal right superficial femoral artery with multifocal areas of high-grade stenosis. Single-vessel runoff of the right lower extremity with probable complete occlusion of the posterior tibial artery and gradual petering of the right peroneal artery. Right anterior tibial artery appears patent. 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 Occlusion of the left deep femoral artery with opacification of tributary vessels. 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 Compression fracture of the L1 vertebral body, progressed from prior CT. Probable new compression fracture of the T12 vertebral body with less than 25% height loss. 0.5 cm right lower lobe pulmonary nodule. This area was previously obscured by airspace disease. Recommend follow-up guidelines below. Please see additional findings above. At approximately 11:13 pm YACHT HAND on 07/02/2021 , initial attempt was made to contact the referring clinician; this case was discussed in detail with acknowledgement via telephone with DALILA Valenzuela at 11:26 p.m. Recent guidelines by the Fleischner Society (Radiology 454439,2017) divides patient into low vs. high risk (for example, patients who smoke are considered high risk) and provides followup recommendations as follows: SOLITARY PULMONARY NODULE: Patients considered LOW RISK for lung cancer and a nodule less than 6 mm in diameter requires no follow-up. In patients at HIGHER RISK, for example smokers, optional follow-up is in 1 year. MULTIPLE PULMONARY NODULES: Patients considered LOW RISK for lung cancer and multiple nodules less than 6 mm in diameter requires no follow-up. In patients at HIGHER RISK, for example smokers, optional follow-up is in 1 year. Note: These recommendations do not apply to lung cancer screening, patients with immunosuppression, or patients with known primary cancer. http://pubs.rsna.org/doi/pdf/10.1148/radiol.8344880980 THIS IS AN ELECTRONICALLY VERIFIED FINAL REPORT 07/02/2021 11:29 PM - Electronically signed by Jesusita Yan M.D. T: Report ID: [id number] Reading Location: [place] [id number] Procedure Note Jesusita Yan MD - 07/02/2021 EXAM DESCRIPTION: CTA ABDOMINAL AORTA AND BILATERAL ILIOFEMORAL RUNOFF REASON FOR STUDY: ischemic right leg, pre op circulation evaluation Inpatient. 70 yo male. Lower extremity arterial dissection, known orsuspected ischemic right leg. Pre op circulation evaluation . Creat 0.6 Gfr [id number] Rt FA TECHNIQUE: CTA of the abdominal aorta with bilateral lower extremityrunoff was performed without and with intravenous contrast using helicalscanning technique. Precontrast and arterial images were obtained of the lower extremities. Images reviewed with soft tissue and bone windows. Reconstructed coronal and sagittal MPR images reviewed. All images storedon PACS. 3D MIP images rendered on scanning unit and reviewed at time of interpretation. Automated exposure control was used as a doseoptimization technique for this examination. CONTRAST TYPE/DOSE: 100mL of IOVERSOL 350 MG IODINE/ML INTRAVENOUSSYRINGE injected via intravenous COMPARISON: None FINDINGS: VASCULATURE: NON-CONTRASTED IMAGING: Advanced diffuse atherosclerosis. ABDOMINAL AORTA: No dissection. Ectasia of the infrarenal abdominalaorta measuring 2.0 x 1.8 cm. MESENTERIC/RENAL: No flowing limiting disease. Single bilateral renal arteries. No anatomic variation of the mesenteric vessels. PELVIC VASCULATURE: Common/external iliac arteries: Left common iliac artery stent. Focal occlusion of the right common iliac artery measuring approximately 1.2 cmwith distal reconstitution. There is severe narrowing of the right externaliliac artery as it transitions into the common femoral artery. There is severe stenosis of the right common femoral artery Internal iliac arteries: Severe stenosis of the right and left iliacartery. RIGHT LOWER EXTREMITY VASCULATURE: Focal short segment occlusion of the superficial femoral artery with distal reconstitution with areas ofmultifocal severe stenosis. There is apparent adequate opacification of the deepfemoral artery. There is focal occlusion of the popliteal artery at the level ofthe knee with retrograde filling from the geniculate artery. There is severe stenosis at the distal popliteal artery at the level of bifurcation. The anterior tibial artery is patent. The peroneal artery is patentproximally and preciado distally. The posterior tibial artery is likely occluded throughout its course with atherosclerotic calcification. LEFT LOWER EXTREMITY VASCULATURE: There is a chronically occludedfemoral bypass graft, this may have been previously a fem-pop bypass prior to below-knee amputation. This is likely similar as compared to prior thoughis incompletely imaged on prior examination. The superficial femoral arteryis occluded. There is opacification of the proximal deep femoral artery with occlusion of the mid to distal portion of the deep femoral artery with opacification of tributary vessels. ABDOMEN/PELVIS: LOWER CHEST: Left basilar atelectatic change with small left pleural effusion. No focal consolidation. Pulmonary emphysema is noted at thelower lung mansfield. 0.5 cm right lower lobe pulmonary nodule, previouslyobscured. Coronary calcification. LIVER: Focus of arterial enhancement within the left hepatic lobemeasuring approximately 1 cm (axial image 55), likely related to shunting ortransient perfusion differences. No focal lesion otherwise appreciated. GALLBLADDER: Gallbladder is decompressed, limiting evaluation. There isno pericholecystic inflammatory change identifiable by CT. BILE DUCTS: No intrahepatic or extrahepatic ductal dilatation. SPLEEN: Normal size. No focal lesions. PANCREAS: No identified cystic or solid masses. No significant calcifications. No adjacent inflammation or peripancreatic fluidcollections. Pancreatic duct not dilated. ADRENALS: Normal. KIDNEYS/URINARY TRACT: 1.5 cm hypodensity within the right kidney,likely a cyst at the superior pole. Similar such lesion at the inferior pole ofleft kidney measuring approximately 1.5 cm, also likely a cyst. No solid mass.No hydronephrosis. No obstructing stone. Normal bladder. GI: Evaluation of the gastrointestinal system is limited by lack of distention and bowel prep. Small hiatal hernia. Distal esophagus is unremarkable. Insert stomach No small bowel obstruction. Scattered diverticular disease without evidence of acute diverticulitis. PERITONEUM: No ascites or free air. RETROPERITONEUM: No mass or adenopathy. REPRODUCTIVE: No significant abnormality. MUSCULOSKELETAL: Patient is status post above knee amputation on the. Probable focus of osteonecrosis about the right lateral femoral condyle. Compression fracture of the L1 vertebral body, progressed from prior CT. Probable new compression fracture of the T12 vertebral body with less than25% height loss. OTHER: No other abnormality. IMPRESSION: Advanced diffuse atherosclerosis. Ectasia of the infrarenal abdominal aorta measuring up to 2.0 cm. Focal short segment occlusion of the right common iliac artery withsevere narrowing of the right external iliac artery as it transitions to thecommon femoral artery. Focal short segment occlusion of the proximal right superficial femoral artery with multifocal areas of high-grade stenosis. Single-vessel runoff of the right lower extremity with probable complete occlusion of the posterior tibial artery and gradual petering of the right peroneal artery. Right anterior tibial artery appears patent. 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 Occlusion of the left deep femoral artery with opacification of tributary vessels. 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 Compression fracture of the L1 vertebral body, progressed from prior CT. Probable new compression fracture of the T12 vertebral body with lessthan 25% height loss. 0.5 cm right lower lobe pulmonary nodule. This area was previouslyobscured by airspace disease. Recommend follow-up guidelines below. Please see additional findings above. At approximately 11:13 pm YACHT HAND on 07/02/2021 , initial attempt was madeto contact the referring clinician; this case was discussed in detail with acknowledgement via telephone with DALILA Valenzuela at 11:26 p.m. Recent guidelines by the Fleischner Society (Radiology 358971,2017)divides patient into low vs. high risk (for example, patients who smoke areconsidered high risk) and provides followup recommendations as follows: SOLITARY PULMONARY NODULE: Patients considered LOW RISK for lung cancerand a nodule less than 6 mm in diameter requires no follow-up. In patients at HIGHER RISK, for example smokers, optional follow-up is in 1 year. MULTIPLE PULMONARY NODULES: Patients considered LOW RISK for lung cancerand multiple nodules less than 6 mm in diameter requires no follow-up. In patients at HIGHER RISK, for example smokers, optional follow-up is in 1year. Note: These recommendations do not apply to lung cancer screening,patients with immunosuppression, or patients with known primary cancer. http://pubs.rsna.org/doi/pdf/10.1148/radiol.0759945958 THIS IS AN ELECTRONICALLY VERIFIED FINAL REPORT 07/02/2021 11:29 PM - Electronically signed by Jesusita Yan M.D. T: Report ID: [id number] Reading Location: [place] [address] José Antonio Pino MD IMG CT PROCEDURES Final Res ult from Last 3 Months or Most Recently Relevant to Health Maintenance Insurance [facility] [place] [address] [place], [place] [id number] [facility] Advance Directives For more information, please contact: [phone] * Full Code (Latest Code Status on File) Date Activated Date Inactivated Comments 08/04/2024 10:27 AM 08/05/2024 5:15 AM * Full Code Date Activated Date Inactivated Comments 07/04/2024 11:46 AM 07/05/2024 5:21 AM * Full Code Date Activated Date Inactivated Comments 07/02/2021 5:47 PM 07/10/2021 3:22 AM * Full Code Date Activated Date Inactivated Comments 09/06/2019 8:27 AM 09/06/2019 2:09 PM Care Teams Experience Design Director Relationship Specialty Start Date End Date Emil Whyte DO [address] [address] PCP - General 09/06/19 Oscar Snyder MD [address] [address] Concrete Pourer Cardiology 02/02/19 José Antonio Pino MD [address] [place] [address] Consulting Physician Vascular Surgery 07/09/21
--- OUTSIDE RECORDS SUMMARY | 2024-09-27 09:30 | XMS_ITS | Encounter Summary ---
Author Organization [facility] Address [address] [place] [address] Phone Care Team Providers Care Plastics Fabrication Supervisor Name Role Phone José Cartagena MD Primary Care Provider [phone] Glenn Ghosh MD Unavailable [phone] Kevin Gutierrez MD Unavailable Thomas Escobar DO Unavailable [phone] Leeroy Steele MD Unavailable [phone] Encounter Details Date Type Department Care Team (Late st Contact Info) Description 06/15/2022 Telephone [facility] [address] [place] [address] Jose Rhoades DO [address] [place] [address] Social History Tobacco Use Types Packs/Day Years Used Date Smoking Tobacco: Former Cigarettes Q uit: 05/26/2022 Smokeless Tobacco: Never Alcohol Use Standard Drinks/Week Comments Yes 15 (1 standard drink = 0.6 oz pu re alcohol) Sex and Gender Information Value Date Recorded Sex Assigned at Not on file 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 No / Unsure 06/12/2022 10:13 AM CDT documented as of this encounter Miscellaneous Notes * Telephone Encounter - Monica Lopez RN - 06/18/2022 2:17 PM CDT Per other phone note 06/18 pt set up with Rad Onc in [place]. * Telephone Encounter - Peggy Calderon - 06/17/2022 7:34 AM CDT Have [place]/Medicare [place] checking on locations that are not locted [place] away for pt. * Telephone Encounter - Monica Lopez RN - 06/15/2022 1:14 PM CDT See below * Telephone Encounter - Jose Rhoades DO - 06/15/2022 12:51 PM CDT Please have patient seen by dr ellison or charity, if not possible, please find out from insurance plan who she needs to see for rad onc. Thanks. * Telephone Encounter - Peggy Calderon - 06/15/2022 9:48 AM CDT This patient has a Dual Medicare/Medicaid plan that is out of network with [facility], [facility], [facility], how would you like for me to proceed documented in this encounter Plan of Treatment Upcoming Encounters Date Type Department Care Team (Latest Contact Info) Description 09/28/2024 1:00 PM CDT Office Visit [facility] [address] [place] [phone] Leeroy Steele MD [address] [place] [address] Discharge Disposition: Discharged to home or Selfcare 09/28/2024 1:30 PM CDT Clinical Support [facility] [address] [place] [phone] Discharge Disposition: Discharged to home or Selfcare 11/02/2024 1:00 PM CDT Office Visit [facility] - Pulmonology & Sleep Medicine - [place] [address] [place] [phone] Kevin Gutierrez MD [address] [place] [address] documented as of this encounter Visit Diagnoses Not on filedocumented in this encounter Care Teams Plastics Fabrication Supervisor Relationship Specialty Start Date End Date José Cartagena MD [address] [place] [address] PCP - General Family Medicine 06/05/22 Glenn Ghosh MD [address] [place] [address] Consulting Physician Radiation Oncology 06/03/23 Kevin Gutierrez MD [address] [place] [address] Consulting Physician Pulmonary Disease 05/17/24 Thomas Escobar DO [address] [place] [address] [facility] [place] [address] Consulting Physician Pulmonary Disease 09/21/24 Leeroy Steele MD [address] [place] [address] Consulting Physician Medical Oncology 09/21/24 documented as of this encounter
--- OUTSIDE RECORDS SUMMARY | 2024-09-27 09:30 | XMS_ITS | Clinical Summary ---
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 Gender Identity Not on file Sexual Orientation Not on file Plan of Treatment Health Maintenance Due Date Last Done Comments Hepatitis C 1966 DTaP, Tdap and Td Vaccines ( 1 - Tdap) 08/03/1967 Pneumococcal Vaccine: 50+ Ye ars (1 of 1 - PCV) 1998 Zoster Vaccines (1 of 2) 1998 RSV Immunization or 60+ Years (1 - 1-dose 75+ series) 08/03/2023 COVID-19 Vaccine ( - 2023-2 5 season) 2023 Meningococcal B Vaccine Aged Out No l onger eligible based on patient's age to complete this topic Meningococcal Vaccine Aged Out No naldo magi eligible based on patient's age to complete this topic RSV Immunizations Under 20 Months Aged Out No longer eligible based on patient's age to complete this topic
--- OUTSIDE RECORDS SUMMARY | 2024-09-27 09:30 | XMS_ITS | Encounter Summary ---
Author Organization [facility] Address [address] [place] [address] Care Team Providers Care Junior Qa Analyst Name Role Phone Oscar Snyder MD Unavailable [phone] Emil Whyte DO Primary Care Provider [phone] José Antonio Pino MD Unavailable [phone] Encounter Details Date Type Department Care Team (Late st Contact Info) Description 06/22/2024 Telephone [facility] [address] [place] [address] Samira Ornelas, DALILA Social History Tobacco Use [...] on filedocumented in this encounter Care Teams Junior Qa Analyst Relationship Specialty Start Date End Date Emil Whyte DO [address] [place] [address] PCP - General 09/06/19 Oscar Snyder MD [address] [place] [address] Briar Cutter Cardiology 02/02/19 José Antonio Pino MD [address] [place] [address] Consulting Physician Vascular Surgery 07/09/21 documented as of this encounter
--- OUTSIDE RECORDS SUMMARY | 2024-09-27 09:30 | XMS_ITS | Encounter Summary ---
Author Organization [facility] Healthcare Address [address] [place] [address] Care Team Providers Care Rubber And Plastics Worker Name Role Phone Oscar Snyder MD Unavailable [phone] Emil Whyte DO Primary Care Provider [phone] José Antonio Pino MD Unavailable [phone] Encounter Details Date Type Department Care Team (Late st Contact Info) Description 07/31/2024 Telephone [facility] [address] [place] [address] Samira Ornelas, DALILA Social History Tobacco Use [...] one occasion? Daily or almost daily 07/02/2021 Personal Safety Answer Date Recorded Have you [...] on filedocumented in this encounter Care Teams Rubber And Plastics Worker Relationship Specialty Start Date End Date Gabriele WhyteeDO [address] [place] [address] PCP - General 09/06/19 Oscar Snyder MD [address] [place] [address] Percussion Teacher Cardiology 02/02/19 José Antonio Pino MD [address] [place] [address] Consulting Physician Vascular Surgery 07/09/21 documented as of this encounter
--- OUTSIDE RECORDS SUMMARY | 2024-09-27 09:30 | XMS_ITS | Encounter Summary ---
Author Organization [facility] Address [address] [place] [address] Phone Care Team Providers Care Miniature Train Driver Name Role Phone José Cartagena MD Primary Care Provider [phone] Glenn Ghosh MD Unavailable [phone] Kevin Gutierrez MD Unavailable Thomas Escobar DO Unavailable [phone] Leeroy Steele MD Unavailable [phone] Encounter Details Date Type Department Care Team (Late st Contact Info) Description 06/18/2022 Telephone [facility] [address] [place] [address] Jose Rhoades DO [address] [place] [address] Social History Tobacco Use Types Packs/Day Years Used Date Smoking Tobacco: Former Cigarettes Q uit: 05/26/2022 Smokeless Tobacco: Never Alcohol Use Standard Drinks/Week Comments Yes 15 (1 standard drink = 0.6 oz pu re alcohol) Sex and Gender Information Value Date Recorded Sex Assigned at Not on file 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 No / Unsure 06/12/2022 10:13 AM CDT documented as of this encounter Miscellaneous Notes * Telephone Encounter - Jose hRoades DO - 06/18/2022 3:48 PM CDT He needs consult with pulmonary for bronch/ebus, MRI brain, and rad on consult. Please schedule. Thanks, orders are placed. * Telephone Encounter - Peggy Calderon - 06/18/2022 1:36 PM CDT This patient has a Coagulating Bath Mixer already Dr. Yani Boyce at [place] and had a F/u with her last week. I called for notes, labs and imaging results which they faxed. Do you need him to have another appointment or will this info help you they sent. How do you want me to proceed?? Also, [facility] in [place].. Dr Glenn Ghosh both accept his Ins. So I'm faxing his referral there. documented in this encounter Plan of Treatment Upcoming Encounters Date Type Department Care Team (Latest Contact Info) Description 09/28/2024 1:00 PM CDT Office Visit [facility] [address] [place] [phone] Leeroy Steele MD [address] [place] [address] Discharge Disposition: Discharged to home or Selfcare 09/28/2024 1:30 PM CDT Clinical Support [facility] [address] [place] [phone] Discharge Disposition: Discharged to home or Selfcare 11/02/2024 1:00 PM CDT Office Visit [facility] - Pulmonology & Sleep Medicine - [place] [address] [place] [phone] Kevin Gutierrez MD [address] [place] [phone] documented as of this encounter Visit Diagnoses Not on filedocumented in this encounter Care Teams Miniature Train Driver Relationship Specialty Start Date End Date José Cartagena MD [address] [place] [address] PCP - General Family Medicine 06/05/22 Glenn Ghosh MD [address] [place] [address] Consulting Physician Radiation Oncology 06/03/23 Kevin Gutierrez MD [address] [place] [address] Consulting Physician Pulmonary Disease 05/17/24 Thomas Escobar DO [address] [facility] [place] [address] Consulting Physician Pulmonary Disease 09/21/24 Leeroy Steele MD [address] [place] [address] Consulting Physician Medical Oncology 09/21/24 documented as of this encounter
--- OUTSIDE RECORDS SUMMARY | 2024-09-27 09:31 | XMS_ITS ---
Author Organization [facility] Care Team Providers Care Air Brush Artist Name Role Phone Blaine Lanza Unavailable Unavailable Allergies and adverse reactions Code CodeSystem Substance Reaction Severity StartDate Concern Status 02621 RXNORM Lisinopril Unknown 06/27/2019 active Care Team Name Role Address Phone Organization Dates Blaine Lanza PCP [address] [place], [address], [place] (Office): : : [facility] 06/27/2019 - 10/09/2019 Mental Status Section Date Assessment Total Score Description 10/09/2019 BIMS 15 cognitively int act CAM 0 No delirium ind icated PHQ-9 01 minimal depress ion 10/04/2019 BIMS 15 cognitively int act CAM 0 No delirium ind icated PHQ-9 02 minimal depress ion Problems Problem # Description Date of onset Resolved Date Code CodeSystem Concern Status 1 DYSPHAGIA, OROPHARYNGEAL PHASE [address] active 2 ACQUIRED ABSENCE OF LEFT LEG ABOVE KNEE [address] active 3 ACUTE RESPIRATORY FAILURE, UNSPECIFIED WHETHER WITH HYPOXIA OR HYPERCAPNIA [address] active 4 ALCOHOL DEPENDENCE, UNCOMPLICATED [address] active 5 CHRONIC KIDNEY DISEASE, UNSPECIFIED [address] active 6 CHRONIC OBSTRUCTIVE PULMONARY DISEASE, UNSPECIFIED [address] active 7 ESSENTIAL (PRIMARY) HYPERTENSION [address] active 8 GASTROSTOMY STATUS [address] active 9 MUSCLE WEAKNESS (GENERALIZED) [address] active 10 OTHER ABNORMALITIES OF GAIT AND MOBILITY [address] active 11 PERIPHERAL VASCULAR DISEASE, UNSPECIFIED [address] active 12 PNEUMONIA DUE TO METHICILLIN RESISTANT STAPHYLOCOCCUS AUREUS [address] active 13 SLEEP APNEA, UNSPECIFIED [address] active 14 TOBACCO USE 0 Z72.0 ICD-10-CM active 15 TRACHEOSTOMY STATUS [address] active 16 UNSPECIFIED ATRIAL FIBRILLATION [address] active 17 UNSPECIFIED OSTEOARTHRITIS, UNSPECIFIED SITE [address] active 18 UNSTEADINESS ON FEET [address] active Reason for Referral No Reasons for Referral Entered Social History Social History Observation Description Start Date End Date Code Code System Current Smoking Status Tobacco smoking consumption unknown 427932142 SNOMED CT Sex Assigned At Male 1950 [address]-4 [facility] Gender Identity Vital Signs Code Code System Vitals Name Values and Units Timing Information 9279-1 [facility] Respiratory Rate Value=22.0 Units=/m in 10/06/2019 8462-4 [facility] Blood Pressure-Diastolic Value=72 Un its=mmHg 10/06/2019 8480-6 [facility] Blood Pressure-Systolic Tkdoe=098 Un its=mmHg 10/06/2019 8310-5 [facility] Body Temperature Value=96.8 Units= F 10/06/2019 8867-4 [facility] Heart rate Value=78.0 Units=/min 12/2019 43706-2 [facility] O2 % BldC Oximetry Value=97.0 Units= % 10/03/2019 31683-3 [facility] Pain Level Value=0.0 10/03/2019 91428-8 [facility] Weight Pnscw=985.2 Units=Lbs 07/2019 8302-2 [facility] Height Value=70.0 Units=Inches 06/30/2019
--- OUTSIDE RECORDS SUMMARY | 2024-09-27 09:31 | XMS_ITS | Clinical Summary ---
Author Organization [facility] Address [address] [place] [address] Care Team Providers Care Funeral Planner Name Role Phone Unavailable Primary Care Provider Unavailabl e Allergies No known active allergies Medications Eliquis 5 mg tablet Take 5 mg by mouth 2 times daily with meals. 04/28/2022 Active atorvastatin (LIPITOR) 40 mg tablet TAKE 1 TABLET BY MOUTH EVERY DAY AT BEDTIME 04/27/2022 Active lisinopriL (PRINIVIL) 20 mg tablet Take 20 mg by mouth daily in the morning. 04/27/2022 Active amLODIPine (NORVASC) 10 mg tablet Take 10 mg by mouth daily in the morning. 04/27/2022 Active thiamine (VITAMIN B-1) 100 mg tablet TAKE 1 TABLET BY MOUTH EVERY DAY DIRECTED 03/03/2022 Active metoprolol succinate (TOPROL XL) 25 mg Extended Release 24 hour tablet TAKE 1 TABLET BY MOUTH EVERY DAY AT BEDTIME 04/27/2022 Active Active Problems No known active problems Social History Tobacco Use Types Packs/Day Years Used Date Smoking Tobacco: Former Cigarettes 1 58 0 04/16/1964 - 04/16/2022 Smokeless Tobacco: Never Tobacco Cessation:Counseling Given: Not Answered Sex and Gender Information Value Date Recorded Sex Assigned at Not on file Legal Sex Male 6:37 PM [employer] Gender Identity Not on file Sexual Orientation Not on file Last Filed Vital Signs Vital Sign Reading Time Taken Comments Blood Pressure 118/57 06/02/2022 9:10 AM [employer] Pulse 69 06/02/2022 9:10 AM [employer] Temperature 36.7 C (98 F) 06/02/2022 9:10 AM [employer] Respiratory Rate 10 06/02/2022 9:10 AM [employer] Oxygen Saturation 99% 06/02/2022 9:10 AM [employer] Inhaled Oxygen Concentration - - Weight 56.7 kg (125 lb) 06/02/2022 9:10 AM [employer] Height - - Body Mass Index - - Plan of Treatment Health Maintenance Due Date Last Done Comments ZOSTER VACCINE (2 of 2) 12/29/2021 11/03/2021 PNEUMOCOCCAL VACCINE 50+ YEA RS (2 of 2 - PCV) 03/03/2023 03/03/2022 RSV VACCINE (60+ or ) (1 - 1-dose 75+ series) 08/03/2023 COVID-19 Vaccine (4 - 2023- season) 2023 11/03/2021, 09/13/2020, 08/16/2020 INFLUENZA VACCINE (#1) 2024 03/14/2019, 2018 DTAP/TDAP/TD VACCINES (2 - T d or Tdap) 11/04/2031 11/03/2021 Insurance GENERIC MEDICARE MANAGED CARE [facility] Address: [address] [address] GENERIC MEDICARE MANAGED CARE
--- OUTSIDE RECORDS SUMMARY | 2024-09-27 09:31 | XMS_ITS | Clinical Summary ---
Author Organization [facility] Address [address], [facility] [address] [place] [address] Phone Care Team Providers Care Hospice Fellow Name Role Phone José Cartagena MD Primary Care Provider [phone] Glenn Ghosh MD Unavailable [phone] Thomas Escobar DO Unavailable [phone] Leeroy Steele MD Unavailable [phone] Allergies No known active allergies Medications Multivitamin Tablet 03/03/20 2 2 Active thiamine (VITAMIN B1) 100 MG Tablet TAKE 1 TABLET BY MOUTH EVERY DAY DIRECTED 2 Active metoprolol Succinate (TOPROL-XL) 25 MG TABLET SR 24 HR TAKE 1 TABLET BY MOUTH EVERY DAY AT BEDTIME 3 Active lisinopril (PRINIVIL, ZESTRIL) 20 MG Tablet TAKE 1 TABLET BY MOUTH EVERY DAY IN THE MORNING 3 Active Eliquis 5 MG Tablet Take 5 mg by mouth. 3 Active amLODIPine (NORVASC) 10 MG Tablet Take 10 mg by mouth every morning. 3 Active atorvastatin (LIPITOR) 40 MG Tablet TAKE 1 TABLET BY MOUTH EVERY DAY AT BEDTIME 3 Active folic acid (FOLVITE) 1 MG Tablet TAKE 1 TABLET BY MOUTH EVERY DAY DIRECTED 3 Active nicotine (NICODERM CQ) 7 MG/24HR PATCH 24 HR 3 Active Multivitamin-Minera ls (Centrum Silver 50+Men) Tablet Take 1 Tablet by mouth daily. Active aspirin EC 81 MG Tablet Delayed Response Take 81 mg by mouth daily. Active Ferrous Sulfate 325 (65 Fe) MG Tablet Delayed Response Take 325 mg by mouth 2 times daily. 5 Active VITAMIN D PO Take by mouth daily. Active ondansetron (ZOFRAN-ODT) 8 MG TABLET DISPERSIBLEIndicati ons:Malignant neoplasm of lower lobe, left bronchus or lung,Encounter for screening for other viral diseases,Drug-induc ed hypothyroidism Take 1 Tablet by mouth every 8 hours as needed for Nausea - 1st line. 30 Tablet 2 5 Active prochlorperazine (COMPAZINE) 10 MG TabletIndications:M alignant neoplasm of lower lobe, left bronchus or lung,Encounter for screening for other viral diseases,Drug-induc ed hypothyroidism Take 1 Tablet by mouth every 6 hours as needed for Nausea - 2nd line. 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 He initially presented with adenocarcinoma of the left upper lobe lung in 2021. On CT chest screening 11/25/2021 at [facility] left lung abnormalities were noted prompting a PET/CT study 04/30/2022 at [facility] confirming adjacent 1.9 x 1.6 cm and 1.9 x 1.2 cm FDG avid pulmonary nodules in the posterior left upper lobe. There was no compelling evidence other disease. CT-guided left upper lobe lung nodule biopsy 05/22/2022 confirmed adenocarcinoma, PD-L1 (+ 20%), ROS1(-), BRAF(-), EGFR(-), and ALK(-). He was staged with clinical stage IIB (cT3(2), cN0, cM0) left upper lobe lung adenocarcinoma. He was seen in Medical Oncology consultation by Dr. Hand at [facility] and declined/refused thoracic surgery consultation. He was then seen in Radiation Oncology consultation 06/25/2022 at [facility] by Dr. Katerine Caro. He subsequently received a course of left upper lobe lung SBRT encompassing both nodules delivering 50 Gy in 5 fractions from 07/16/2022 thru 07/30/2022. Encounter for screening for other viral diseases 08/08/2024 Drug-induced hypothyroidism 08/08/2024 Malignant pleural effusion 07/24/2024 Overview (09/21/2024): Ultrasound-guided left thoracentesis 08/04/2024 at [facility] confirmed a malignant pleural effusion. He initially presented with adenocarcinoma of the left upper lobe lung in 2021. On CT chest screening 11/25/2021 at [facility] left lung abnormalities were noted prompting a PET/CT study 04/30/2022 at [facility] confirming adjacent 1.9 x 1.6 cm and 1.9 x 1.2 cm FDG avid pulmonary nodules in the posterior left upper lobe. There was no compelling evidence other disease. CT-guided left upper lobe lung nodule biopsy 05/22/2022 confirmed adenocarcinoma, PD-L1 (+ 20%), ROS1(-), BRAF(-), EGFR(-), and ALK(-). He was staged with clinical stage IIB (cT3(2), cN0, cM0) left upper lobe lung adenocarcinoma. He was seen in Medical Oncology consultation by Dr. Hand at [facility] and declined/refused thoracic surgery consultation. He was then seen in Radiation Oncology consultation 06/25/2022 at [facility] by Dr. Katerine Caro. He subsequently received a course of left upper lobe lung SBRT encompassing both nodules delivering 50 Gy in 5 fractions from 07/16/2022 thru 07/30/2022. S/P AKA (above knee amputation) bilateral 2024 Peripheral arterial disease 07/24/2024 Essential (primary) hypertension 06/16/2024 Chronic deep vein thrombosis (DVT) of both lower extremities 06/16/2024 Recurrent adenocarcinoma of left lung 04/25/2024 Overview (09/21/2024): Ultrasound-guided left thoracentesis 08/04/2024 at [facility] confirmed a malignant pleural effusion. He initially presented with adenocarcinoma of the left upper lobe lung in 2021. On CT chest screening 11/25/2021 at [facility] left lung abnormalities were noted prompting a PET/CT study 04/30/2022 at [facility] confirming adjacent 1.9 x 1.6 cm and 1.9 x 1.2 cm FDG avid pulmonary nodules in the posterior left upper lobe. There was no compelling evidence other disease. CT-guided left upper lobe lung nodule biopsy 05/22/2022 confirmed adenocarcinoma, PD-L1 (+ 20%), ROS1(-), BRAF(-), EGFR(-), and ALK(-). He was staged with clinical stage IIB (cT3(2), cN0, cM0) left upper lobe lung adenocarcinoma. He was seen in Medical Oncology consultation by Dr. Hand at [facility] and declined/refused thoracic surgery consultation. He was then seen in Radiation Oncology consultation 06/25/2022 at [facility] by Dr. Katerine Caro. He subsequently received a course of left upper lobe lung SBRT encompassing both nodules delivering 50 Gy in 5 fractions from 07/16/2022 thru 07/30/2022. History of therapeutic radiation 06/03/2023 Overview (06/03/2023): Left upper lobe lung SBRT encompassing adjacent pulmonary nodules biopsy-proven adenocarcinoma delivering 50 Gy in 5 fractions from 07/16/2022 thru 07/30/2022. History of primary non-small cell carcinoma of l eft lung 06/03/2023 Cancer Staging:Clinical stage from 05/22/2022:Stage IIB(cT3(2), cN0, cM0) - Signed by Glenn Ghosh MD on 06/22/2024 Overview (09/21/2024): Ultrasound-guided left thoracentesis 08/04/2024 at [facility] confirmed a malignant pleural effusion. He initially presented with adenocarcinoma of the left upper lobe lung in 2021. On CT chest screening 11/25/2021 at [facility] left lung abnormalities were noted prompting a PET/CT study 04/30/2022 at [facility] confirming adjacent 1.9 x 1.6 cm and 1.9 x 1.2 cm FDG avid pulmonary nodules in the posterior left upper lobe. There was no compelling evidence other disease. CT-guided left upper lobe lung nodule biopsy 05/22/2022 confirmed adenocarcinoma, PD-L1 (+ 20%), ROS1(-), BRAF(-), EGFR(-), and ALK(-). He was staged with clinical stage IIB (cT3(2), cN0, cM0) left upper lobe lung adenocarcinoma. He was seen in Medical Oncology consultation by Dr. Hand at [facility] and declined/refused thoracic surgery consultation. He was then seen in Radiation Oncology consultation 06/25/2022 at [facility] by Dr. Katerine Caro. He subsequently received a course of left upper lobe lung SBRT encompassing both nodules delivering 50 Gy in 5 fractions from 07/16/2022 thru 07/30/2022. Resolved Problems Problem Noted Date Diagnosed Date Resolved Date Pleural effusion on left 07/24/2024 Primary spontaneous pneumothorax 06/16/2024 06/22/2024 Encounter for follow-up exam ination after completed treatment for malignant neoplasm 09/28/2023 06/22/2024 Encounters Date Type Department Care Team Description 09/21/2024 [facility] [address] [place] [address] Glenn Ghosh MD 09/07/2024 9:30 AM CDT Clinical Support [facility] [address] [place] [phone] Leeroy Steele MD Drug-induced hypothyroidism (Primary Dx); Malignant neoplasm of lower lobe, left bronchus or lung; Encounter for screening for other viral diseases Discharge Disposition: Discharged to home or Selfcare 09/07/2024 Travel 09/04/2024 9:11 AM CDT - 09/04/2024 2:15 PM CDT Emergency [facility] Emergency [address] [place] [address] Telma Siddiqi MD Weakness Discharge Disposition: Discharged to home or Selfcare 09/04/2024 Travel 08/24/2024 1:30 PM CDT Clinical Support [facility] [address] [place] [address] Perla Kramer, CONSERVATION COORDINATOR, APPLE PEELER OPERATOR Malignant neoplasm of lower lobe, left bronchus or lung (Primary Dx) Discharge Disposition: Discharged to home or Selfcare 08/24/2024 12:45 PM CDT Office Visit [facility] [address] [place] [phone] Perla Kramer APRN, PRANAY Malignant neoplasm of lower lobe, left bronchus or lung (Primary Dx) Discharge Disposition: Discharged to home or Selfcare 08/24/2024 Travel 08/23/2024 Documentation Only [facility] [address] [place] [phone] Leeroy Steele MD 08/17/2024 9:30 AM CDT Clinical Support [facility] [address] [place] [phone] Perla Kramer APRN, PRANAY Malignant neoplasm of lower lobe, left bronchus or lung (Primary Dx); Encounter for screening for other viral diseases; Drug-induced hypothyroidism Discharge Disposition: Discharged to home or Selfcare 08/17/2024 8:45 AM CDT Office Visit [facility] [address] [place] [phone] Perla Kramer APRN, PRANAY Malignant neoplasm of lower lobe, left bronchus or lung (Primary Dx); Encounter for screening for other viral diseases; Drug-induced hypothyroidism Discharge Disposition: Discharged to home or Selfcare 08/17/2024 Travel 08/08/2024 3:20 PM CDT Office Visit [facility] [address] [place] [phone] Leeroy Steele MD Discharge Disposition: Discharged to home or Selfcare 08/08/2024 10:50 AM CDT - 08/08/2024 11:59 PM CDT Hospital Encounter [facility] MRI [address] [place] [phone] Leeroy Steele MD Discharge Disposition: Discharged to home or Selfcare 08/08/2024 Travel 2024 12:55 PM CDT - 2024 11:59 PM CDT Hospital Encounter [facility] Nuclear Medicine [address] [place] [address] Leeroy Steele MD Discharge Disposition: Discharged to home or Selfcare 2024 9:49 AM CDT - 2024 12:54 PM CDT Hospital Encounter [facility] Nuclear Medicine [address] [place] [address] Leeroy Steele MD Discharge Disposition: Discharged to home or Selfcare 2024 Travel 07/24/2024 10:00 AM CDT Lab [facility] [address] [place] [phone] Leeroy Steeel MD Malignant neoplasm of lower lobe of left lung (HCC) (Primary Dx) Discharge Disposition: Discharged to home or Selfcare 07/24/2024 9:00 AM CDT Office Visit [facility] [address] [place] [phone] Leeroy Steele MD Pleural effusion on left (Primary Dx); Malignant neoplasm of lower lobe, left bronchus or lung; Malignant pleural effusion; S/P AKA (above knee amputation) bilateral (HCC); Peripheral arterial disease (HCC) Discharge Disposition: Discharged to home or Selfcare 07/24/2024 Travel 07/10/2024 Documentation Only [facility] [address] [place] [phone] Clark Mas MD from Last 3 Months Family History Medical History Relation Name Comments Breast Cancer Maternal Aunt from nuno ast cancer. 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 Gender Identity Not on file Sexual Orientation Not on file Last Filed Vital Signs Vital Sign Reading Time Taken Comments Blood Pressure 88/49 09/07/2024 10:09 AM CDT Pulse 76 09/07/2024 10:09 AM CDT Temperature 36.2 C (97.1 F) 09/07/2024 10:09 AM CDT Respiratory Rate 18 09/07/2024 10:09 AM CDT Oxygen Saturation 97% 09/07/2024 10:09 AM CDT Inhaled Oxygen Concentration - - Weight 47.6 kg (105 lb) 09/04/2024 9:17 AM CDT Height 175.3 cm (5' 9) 09/04/2024 9:17 AM CDT Body Mass Index 15.51 09/04/2024 9:17 AM CDT Plan of Treatment Upcoming Encounters Date Type Department Care Team (Latest Contact Info) Description 09/28/2024 1:00 PM CDT Office Visit [facility] [address] [place] [phone] Leeroy Steele MD [address] [place] [address] Discharge Disposition: Discharged to home or Selfcare 09/28/2024 1:30 PM CDT Clinical Support [facility] [address] [place] [phone] Discharge Disposition: Discharged to home or Selfcare 11/02/2024 1:00 PM CDT Office Visit [facility] - Pulmonology & Sleep Medicine [facility] [address] [place] [phone] Kevin Gutierrez MD [address] [place] [address] Health Maintenance Due Date Last Done Comments Hepatitis C Virus (HCV) Screening 1950 Zoster Immunization (2 of 2) 12/29/2021 11/03/2021 Respiratory Syncytial Virus (RSV) Immunization (Adult) (1 - 1-dose 75+ series) 08/03/2023 SARS-COV-2 Immunization ( season) 2023 01/30/2022, 11/03/2021, 09/13/2020, Additional history exists Influenza Immunization (#1) 11/27/202406/2021, 01/30/2021, 12/21/2019, Additional history exists Pneumococcal Immunization (50+ years) Completed 05/30/2017, 05/28/2016 DTaP/Tdap/Td Immunization Discontinued 11/03/2021 TdaP Immunization Completed 11/03/2021 Lung Cancer Screening Discontinued 03/30/2024 , 09/17/2023, 06/14/2023, Additional history exists Hepatitis B Immunization Aged Out No longer eligible based on patient's age to complete this topic Human Papillomavirus (HPV) Immunization Aged Out No longer eligible based on patient's age to complete this topic Meningococcal Immunization (ACWY) Aged Out No longer eligible based on patient's age to complete this topic Rotavirus Immunization Aged Out No lo nger eligible based on patient's age to complete this topic Procedures Procedure Name Priority Date/Time Associated Diagnosis Comments CBC WITH AUTO DIFFERENTIAL STAT 09/07/2024 10:16 AM CDT Malignant neoplasm of lower lobe, left bronchus or lung Encounter for screening for other viral diseases Drug-induced hypothyroidism CMP (COMPREHENSIVE METABOLIC PANEL) STAT 09/07/2024 10:16 AM CDT Malignant neoplasm of lower lobe, left bronchus or lung Encounter for screening for other viral diseases Drug-induced hypothyroidism COMPLETE BLOOD COUNT (CBC) WITH DIFF STAT 09/07/2024 10:16 AM CDT Malignant neoplasm of lower lobe, left bronchus or lung Encounter for screening for other viral diseases Drug-induced hypothyroidism THYROID STIMULATING HORMONE (TSH) STAT 09/07/2024 10:16 AM CDT Malignant neoplasm of lower lobe, left bronchus or lung Encounter for screening for other viral diseases Drug-induced hypothyroidism XR CHEST SINGLE VIEW PORTABLE STAT 09/04/2024 11:06 AM CDT URINALYSIS (UA) MACROSCOPIC STAT 09/04/2024 10:59 AM CDT BLUE TOP TUBE STAT 09/04/2024 9:44 AM CDT CBC WITH AUTO DIFFERENTIAL STAT 09/04/2024 9:44 AM CDT EXTRA TUBES STAT 09/04/2024 9:44 AM CDT TROPONIN I, HIGH SENSITIVITY (HSTRP) STAT 09/04/2024 9:44 AM CDT CMP (COMPREHENSIVE METABOLIC PANEL) STAT 09/04/2024 9:44 AM CDT COMPLETE BLOOD COUNT (CBC) WITH DIFF STAT 09/04/2024 9:44 AM CDT EKG 12 LEAD STAT 09/04/2024 9:15 AM CDT EKG SCAN 09/04/2024 12:00 AM CDT CBC WITH AUTO DIFFERENTIAL STAT 08/17/2024 9:56 AM CDT Malignant neoplasm of lower lobe, left bronchus or lung Encounter for screening for other viral diseases Drug-induced hypothyroidism CMP (COMPREHENSIVE METABOLIC PANEL) STAT 08/17/2024 9:56 AM CDT Malignant neoplasm of lower lobe, left bronchus or lung Encounter for screening for other viral diseases Drug-induced hypothyroidism COMPLETE BLOOD COUNT (CBC) WITH DIFF STAT 08/17/2024 9:56 AM CDT Malignant neoplasm of lower lobe, left bronchus or lung Encounter for screening for other viral diseases Drug-induced hypothyroidism THYROID STIMULATING HORMONE (TSH) STAT 08/17/2024 9:56 AM CDT Malignant neoplasm of lower lobe, left bronchus or lung Encounter for screening for other viral diseases Drug-induced hypothyroidism MRI BRAIN W/WO CONTRAST Routine 08/08/2024 12:08 PM CDT Malignant neoplasm of lower lobe, left bronchus or lung Malignant pleural effusion NM BONE SCAN WHOLE BODY Routine 2024 1:21 PM CDT Malignant neoplasm of lower lobe, left bronchus or lung GENETIC TEST 07/24/2024 12:00 AM CDT GENETIC TEST 07/04/2024 12:[address] CHEST W/O CONTRAST Routine 03/30/2024 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 WBC 9.44 4.00 - 12.00 10(3)/mcL 09/07/2024 10:49 AM CDT [facility] RBC 4.59 4.40 - 5.80 10(6)/mcL 09/07/2024 10:49 AM CDT [facility] HEMOGLOBIN (HGB) 11.3(L) 13.0 - 16.5 g/dL 09/07/2024 10:49 AM CDT [facility] HEMATOCRIT (HCT) 36.4(L) 38.0 - 50.0 % 09/07/2024 10:49 AM CDT [facility] MCV 79.3(L) 82.0 - 96.0 fL 09/07/2024 10:49 AM CDT [facility] MCH 24.6(L) 26.0 - 32.0 pg 09/07/2024 10:49 AM CDT [facility] MCHC 31.0 31.0 - 36.0 g/dL 09/07/2024 10:49 AM CDT [facility] PLATELET COUNT 514(H) 140 - 440 10(3)/[facility] 09/07/2024 10:49 AM CDT [facility] RDW 19.0(H) 11.8 - 15.5 % 09/07/2024 10:49 AM CDT [facility] MPV 12.1 8.0 - 12.6 fL 09/07/2024 10:49 AM CDT [facility] NEUTROPHILS 71.6(H) 40.0 - 68.0 % 09/07/2024 10:49 AM CDT [facility] LYMPHOCYTES 19.1 19.0 - 49.0 % 09/07/2024 10:49 AM CDT [facility] MONOCYTES 7.3 3.0 - 13.0 % 09/07/2024 10:49 AM CDT [facility] EOSINOPHILS 1.2 0.0 - 8.0 % 09/07/2024 10:49 AM CDT [facility] BASOPHILS 0.8 0.0 - 1.0 % 09/07/2024 10:49 AM CDT [facility] ABSOLUTE NEUTROPHILS 6.76(H) 1.40 - 5.30 10(3)/[facility] 09/07/2024 10:49 AM CDT [facility] ABSOLUTE LYMPHOCYTES 1.80 0.90 - 3.30 10(3)/[facility] 09/07/2024 10:49 AM CDT [facility] ABSOLUTE MONOCYTES 0.69 0.10 - 0.90 10(3)/[facility] 09/07/2024 10:49 AM CDT [facility] ABSOLUTE EOSINOPHIL 0.11 0.00 - 0.50 10(3)/[facility] 09/07/2024 10:49 AM CDT [facility] ABSOLUTE BASOPHILS 0.08 0.00 - 0.10 10(3)/[facility] 09/07/2024 10:49 AM CDT [facility] NRBC PER 100 WBC 0 09/08/19 10:49 AM CDT [facility] Blood Venipuncture / Unknown 09/07/2024 10:16 AM CDT 09/07/2024 10:16 AM CDT Leeroy Steele MD HEMATOLOGY ORDERABLES Fi nal Result Performing Organization Address City/[facility] Co de Phone Number [facility] [address] [place] [address] * THYROID STIMULATING HORMONE (TSH) (09/07/2024 10:16 AM CDT) Only the most recent of2 resultswithin the time period is included. TSH 2.039 0.300 - 5.000 mIU/L 09/07/2024 11:30 AM CDT [facility] Blood Venipuncture / Unknown 09/07/2024 10:16 AM CDT 09/07/2024 10:16 AM CDT Leeroy Steele MD CHEMISTRY ORDERABLES Fin al Result Performing Organization Address [facility] Co de Phone Number [facility] [address] [place] [address] * (ABNORMAL) CMP (COMPREHENSIVE METABOLIC PANEL) (09/07/2024 10:16 AM CDT) Only the most recent of3 resultswithin the time period is included. SODIUM 138 136 - 145 mmol/L 09/07/2024 11:07 AM CDT [facility] POTASSIUM 4.2 3.5 - 5.1 mmol/L 09/07/2024 11:07 AM CDT [facility] CHLORIDE 106 98 - 107 mmol/L 09/07/2024 11:07 AM CDT [facility] CO2, VENOUS 21(L) 22 - 30 mmol/L 09/07/2024 11:07 AM CDT [facility] ANION GAP 15.2 <18.0 mmol/L 09/07/2024 11:07 AM [facility] GLUCOSE 115(H) 70 - 99 mg/dL 09/07/2024 11:07 AM [facility] BUN 15 8 - 26 mg/dL 09/07/2024 11:07 AM [facility] CREATININE, BLOOD 0.77 0.70 - 1.30 mg/dL 09/07/2024 11:07 AM [facility] BUN/CREATININE RATIO 19 12 - 20 ratio 09/07/2024 11:07 AM [facility] TOTAL PROTEIN 6.6 6.0 - 8.0 g/dL 09/07/2024 11:07 AM [facility] ALBUMIN 2.8(L) 3.5 - 5.0 g/dL 09/07/2024 11:07 AM [facility] A/G RATIO 0.7(L) 1.0 - 2.2 09/07/2024 11:07 AM [facility] CALCIUM 8.3(L) 8.7 - 10.5 mg/dL 09/07/2024 11:07 AM [facility] T BILI 0.5 0.2 - 1.2 mg/dL 09/07/2024 11:07 AM [facility] SGOT (AST) 12 <43 U/L 09/07/2024 11:07 AM [facility] SGPT (ALT) <6 <56 U/L 09/07/2024 11:07 AM [facility] ALKALINE PHOSPHATASE 116 40 - 150 U/L 09/07/2024 11:07 AM [facility] IS THE PATIENT REQUIRED TO BE FASTING? No 09/07/2024 11:07 AM [facility] GFR, ESTIMATED >60 >=60 09/07/2024 11:07 AM [facility] Comment: Creatinine Clearance is the preferred criteria for selecting drug dose adjustments in renally impaired patients. The GFR is provided as additional pertinent clinical information. GFR is reported in mL/min/1.73 sq m. Calculation based on the Chronic Kidney Disease Epidemiology Collaboration (CKD- EPI) equation refit without adjustment for race. GFR, EST. >60 >=60 025 11:07 AM CDT [facility] GFR, EST. NONAFRICAN >60 >=60 09/07/2024 11:07 AM CDT [facility] Blood Venipuncture / Unknown 09/07/2024 10:16 AM CDT 09/07/2024 10:16 AM CDT us Leeroy Steele MD CHEMISTRY ORDERABLES Fin al Result [facility] [address] [place] [address] * XR CHEST SINGLE VIEW PORTABLE (09/04/2024 11:06 AM CDT) Anatomical Region Laterality Modality Chest N/A Computed Radiogr aphy 09/04/2024 11:3 4 AM CDT Impressions 09/04/2024 11:37 AM CDT IMPRESSION: Complete opacification of the left hemithorax. Narrative 09/04/2024 11:37 AM CDT EXAM DESCRIPTION: XR CHEST SINGLE VIEW PORTABLE REASON FOR STUDY: generalized weakness, cough x few weeks. Hx of lung cancer, HTN, DVT TECHNIQUE: Frontal radiographic view(s) of the chest. COMPARISON: Chest CT 03/30/2024. FINDINGS: LUNGS: Complete opacification of the left hemithorax. Right lung and pleural space are clear. HEART/MEDIASTINUM: Cardiac silhouette normal in size. Mediastinal and hilar contours appear normal. LINES/TUBES: None. BONES: No acute osseous abnormality. THIS IS AN ELECTRONICALLY VERIFIED FINAL REPORT 09/04/2024 11:34 AM - Electronically signed by Anthony Church M.D. CH: NUBIA Report ID: [id number] Reading Location: [id number] Procedure Note Anthony Church Jr., MD - 09/04/2024 EXAM DESCRIPTION: XR CHEST SINGLE VIEW PORTABLE REASON FOR STUDY: generalized weakness, cough x few weeks. Hx of lung cancer, HTN, DVT TECHNIQUE: Frontal radiographic view(s) of the chest. COMPARISON: Chest CT 03/30/2024. FINDINGS: LUNGS: Complete opacification of the left hemithorax. Right lung and pleural space are clear. HEART/MEDIASTINUM: Cardiac silhouette normal in size. Mediastinal and hilar contours appear normal. LINES/TUBES: None. BONES: No acute osseous abnormality. THIS IS AN ELECTRONICALLY VERIFIED FINAL REPORT 09/04/2024 11:34 AM - Electronically signed by Anthony Church M.D. CH: Report ID: [id number] Reading Location: [place] [address] IMPRESSION: Complete opacification of the left hemithorax. Telma Siddiqi MD [facility] DIAGNOSTIC ORDERABLES Fin al Result * (ABNORMAL) Urinalysis (Ua) Macroscopic [id number] (09/04/2024 10:59 AM CDT) SPECIFIC GRAVITY 1.015 1.003 - 1.030 09/04/2024 11:25 AM CDT [facility] URINE PH 6.0 5.0 - 9.0 09/04/2024 11:25 AM CDT [facility] WBC ESTERASE Negative Negative 09/04/2024 11:25 AM CDT [facility] NITRITE Negative Negative 09/04/2024 11:25 AM CDT [facility] PROTEIN, RANDOM URINE 15 mg/dL(A) Negative 09/04/2024 11:25 AM CDT [facility] URINE GLUCOSE, QUAL Negative Negative 09/04/2024 11:25 AM CDT [facility] URINE KETONES Negative Negative 09/04/2024 11:25 AM CDT [facility] UROBILINOGEN 8 mg/dL(A) Normal mg/dL 09/04/2024 11:25 AM CDT [facility] URINE BLOOD Negative Negative claudio/ul 09/04/2024 11:25 AM CDT [facility] URINALYSIS COLOR Yellow 09/05/19 11:25 AM CDT [facility] URINALYSIS CLARITY Clear 09/04/2024 11:25 AM CDT [facility] Urine Non-Phlebotomy Collection / Unknown 09/04/2024 10:59 AM CDT 09/04/2024 11:05 AM CDT Telma Siddiqi MD URINE ORDERABLES Final Result Performing Organization Address City/[facility]/ZIP Co de Phone Number [facility] [place] [address] * TROPONIN I, HIGH SENSITIVITY (HSTRP) (09/04/2024 9:44 AM CDT) [facility] TROPONIN I, HIGH SENSITIVITY- [place] 11 <=35 ng/L 09/04/2024 12:30 PM CDT [facility] Comment: High-sensitivity troponin I results are reported in ng/L making the result appear to be 1,000 times higher than the contemporary troponin I value which is reported in ng/ml. Results from [place]. Blood Venipuncture / Unknown 09/04/2024 9:44 AM CDT 09/04/2024 12:13 PM CDT Telma Siddiqi MD CHEMISTRY ORDERABLES Final Re sult [facility] [place] [address] * Blue Top Tube (09/04/2024 9:44 AM CDT) Blood No Phlebotomy Charged / Unknown 09/04/2024 9:44 AM CDT 09/04/2024 10:28 AM CDT Telma Siddiqi MD HEMATOLOGY ORDERABLES Final R esult [facility] [place] [address] * EKG 12 LEAD (09/04/2024 9:15 AM CDT) Ventricular Rate 75 BPM EXTERNAL EKG QRS Duration 60 ms EXTERNAL EKG Q-T Duration 550 ms EXTERNAL EKG QTC CALCULATION 614 ms EXTERNAL EKG R [place] 37 degrees EXTERNAL EKG T [place] -10 degrees EXTERNAL EKG 09/04/2024 9:15 AM CDT Impressions EXTERNAL EKG - 09/04/2024 4:16 PM CDT Atrial fibrillation Low voltage QRS Septal infarct , age undetermined Abnormal ECG No previous ECGs available Confirmed by Maryanne Thompson ([id number]) on 09/04/2024 4:16:06 PM Narrative Procedure Note Maryanne Thompson DO - 09/04/2024 IMPRESSION: Atrial fibrillation Low voltage QRS Septal infarct , age undetermined Abnormal ECG No previous ECGs available Confirmed by Maryanne Thompson ([id number]) on 09/04/2024 4:16:06 PM Telma Siddiqi MD IMG ECG ORDERABLES Final Resu lt Performing Organization Address [facility] Co de Phone Number EXTERNAL EKG * EKG SCAN (09/04/2024 12:00 AM CDT) 09/04/2024 us Provider Scan IMG ECG ORDERABLES Final Result RESULTING AGENCY * MRI BRAIN W/WO CONTRAST (08/08/2024 12:08 PM CDT) Anatomical Region Laterality Modality Head N/A Magnetic Resonan ce 08/08/2024 1:44 PM CDT Impressions 08/08/2024 1:47 PM CDT IMPRESSION: Multiple small enhancing lesions within the bilateral cerebral hemispheres is concerning for intraparenchymal metastasis. The largest lesion is located within the right parietal lobe and measures 4 mm (series 10, image 188). Small enhancing lesions within the left occipital condyle and right aspect of the clivus are concerning for osseous metastasis disease. Attention on follow-up exams recommended. Suggested enhancement of the right cisternal trigeminal nerve raises concern for possible leptomeningeal metastasis. Follow-up brain MRI IAC protocol and without contrast is recommended for further evaluation. Narrative 08/08/2024 1:47 PM CDT EXAM DESCRIPTION: MRI BRAIN W/WO CONTRAST REASON FOR STUDY: Recurrent lung CA w bone lesions on PET CT 05/10/24. No head complaints. TECHNIQUE: Multiplanar imaging includes noncontrast T1, T2, FLAIR, diffusion with ADC map and post contrast T1 sequences. Additional sequence(s) sensitive to blood products. Images stored on PACS. CONTRAST TYPE/DOSE: 13mL of GADOTERIDOL 279.3 MG/ML IV SOLN injected via Intravenous COMPARISON: PET-CT dated 05/10/2024 FINDINGS: There is a punctate enhancing focus within the left lateral frontal lobe measuring 3 mm (series 10, image 234). Additional punctate enhancing focus within the left frontal lobe (series 10, image 234). There is an enhancing focus measuring 2 mm within the left frontal operculum measuring 2 mm (series 10, image 43). A suspected punctate enhancing lesion is located posteriorly measuring 1 mm. Punctate enhancing lesion the left frontal lobe measuring 2 mm (series 10, image 200). 4 mm enhancing lesion within the right parietal lobe (series 10, image 188). 1 mm enhancing lesion within the left temporal lobe (series 10, image 126). 2 mm punctate enhancing focus within the medial aspect of the left frontal lobe (series 10, image 209). 2 mm punctate enhancing focus within the left temporal lobe (series 10, image 120). 3 mm enhancing lesion within the left frontal lobe (series 10, image 251). There appears to be enhancement of the right cisternal trigeminal nerve (series 10, image 101). No acute infarction. There is a moderate size area of encephalomalacia and gliosis within the right frontal lobe and subcortical white matter. A similar finding is seen within the right temporal lobe. 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 Mild chronic small vessel ischemic disease. No ventriculomegaly. Basal cisterns are maintained. The pituitary gland is within normal limits for patient age. The orbits are unremarkable. The paranasal sinuses are well aerated. The mastoid air cells are well aerated. There is a T1 hypointense, enhancing lesion within the left occipital condyle measuring 10 x 9 mm (series 6, image 4 and series 10, image 30). This finding demonstrates mild DWI hyperintensity. There is also a 8 x 4 mm T1 hypointense, enhancing focus within the inferior aspect of the right clivus (series 10, image 60). THIS IS AN ELECTRONICALLY VERIFIED FINAL REPORT 08/08/2024 1:44 PM - Electronically signed by Boris Barker M.D. MM: MM Report ID: [id number] Reading Location: [place] [address] Procedure Note Boris Barker MD - 08/08/2024 EXAM DESCRIPTION: MRI BRAIN W/WO CONTRAST REASON FOR STUDY: Recurrent lung CA w bone lesions on PET CT 05/10/24. No head complaints. TECHNIQUE: Multiplanar imaging includes noncontrast T1, T2, FLAIR, diffusion with ADC map and post contrast T1 sequences. Additional sequence(s) sensitive to blood products. Images stored on PACS. CONTRAST TYPE/DOSE: 13mL of GADOTERIDOL 279.3 MG/ML IV SOLN injected via Intravenous COMPARISON: PET-CT dated 05/10/2024 FINDINGS: There is a punctate enhancing focus within the left lateral frontal lobe measuring 3 mm (series 10, image 234). Additional punctate enhancing focus within the left frontal lobe (series 10, image 234). There is an enhancing focus measuring 2 mm within the left frontal operculum measuring 2 mm (series 10, image 43). A suspected punctate enhancing lesion is located posteriorly measuring 1 mm. Punctate enhancing lesion the left frontal lobe measuring 2 mm (series 10, image 200). 4 mm enhancing lesion within the right parietal lobe (series 10, image 188). 1 mm enhancing lesion within the left temporal lobe (series 10, image 126). 2 mm punctate enhancing focus within the medial aspect of the left frontal lobe (series 10, image 209). 2 mm punctate enhancing focus within the left temporal lobe (series 10, image 120). 3 mm enhancing lesion within the left frontal lobe (series 10, image 251). There appears to be enhancement of the right cisternal trigeminal nerve (series 10, image 101). No acute infarction. There is a moderate size area of encephalomalacia and gliosis within the right frontal lobe and subcortical white matter. A similar finding is seen within the right temporal lobe. 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 Mild chronic small vessel ischemic disease. No ventriculomegaly. Basal cisterns are maintained. The pituitary gland is within normal limits for patient age. The orbits are unremarkable. The paranasal sinuses are well aerated. The mastoid air cells are well aerated. There is a T1 hypointense, enhancing lesion within the left occipital condyle measuring 10 x 9 mm (series 6, image 4 and series 10, image 30). This finding demonstrates mild DWI hyperintensity. There is also a 8 x 4 mm T1 hypointense, enhancing focus within the inferior aspect of the right clivus (series 10, image 60). THIS IS AN ELECTRONICALLY VERIFIED FINAL REPORT 08/08/2024 1:44 PM - Electronically signed by Boris Barker M.D. MM: MM Report ID: [id number] Reading Location: [id number] IMPRESSION: Multiple small enhancing lesions within the bilateral cerebral hemispheres is concerning for intraparenchymal metastasis. The largest lesion is located within the right parietal lobe and measures 4 mm (series 10, image 188). Small enhancing lesions within the left occipital condyle and right aspect of the clivus are concerning for osseous metastasis disease. Attention on follow-up exams recommended. Suggested enhancement of the right cisternal trigeminal nerve raises concern for possible leptomeningeal metastasis. Follow-up brain MRI IAC protocol and without contrast is recommended for further evaluation. Leeroy Steele MD IMG MR ORDERABLES Final Result * NM BONE SCAN WHOLE BODY (2024 1:21 PM CDT) Anatomical Region Laterality Modality BODY N/A Nuclear Medicine 2024 4:03 PM CDT Impressions 2024 4:06 PM CDT IMPRESSION: 1. Subtle asymmetric focal uptake within the medial right iliac likely corresponding to the uptake on PET-CT is suspicious for metastatic disease. 2. Other areas of uptake in the right ribs are presumed to be posttraumatic but attention on follow-up imaging is recommended. Narrative 2024 4:06 PM CDT EXAM DESCRIPTION: NM BONE SCAN WHOLE BODY RADIOPHARMACEUTICAL: 25.2 mCi Tc-99m MDP via a left forearm IV site REASON FOR STUDY: Lung cancer. Bone lesions. TECHNIQUE: Delayed whole-body scintigrams were obtained. COMPARISON: Prior Bone Scan: None Prior Anatomic imaging: PET-CT 05/10/2024, CT chest 03/30/2024 FINDINGS: Total body images and spot views of the thorax were obtained. There is slight asymmetric uptake within the right iliac which could correspond to the subtle area of sclerosis and uptake on the scan. Focal uptake in the right posterior 12th rib without corresponding CT abnormality is favored to be posttraumatic in etiology. Uptake in the right lateral 5th rib is favored to be posttraumatic in etiology. Minimal uptake in the thoracolumbar spine is favored degenerative. There is normal genitourinary and soft tissue uptake. Bilateral knee amputation is noted. THIS IS AN ELECTRONICALLY VERIFIED FINAL REPORT 2024 4:03 PM - Electronically signed by Dean Goetz M.D. LB: PANKAJ Report ID: [id number] Reading Location: [id number] Procedure Note Dean Goetz MD - 2024 EXAM DESCRIPTION: NM BONE SCAN WHOLE BODY RADIOPHARMACEUTICAL: 25.2 mCi Tc-99m MDP via a left forearm IV site REASON FOR STUDY: Lung cancer. Bone lesions. TECHNIQUE: Delayed whole-body scintigrams were obtained. COMPARISON: Prior Bone Scan: None Prior Anatomic imaging: PET-CT 05/10/2024, CT chest 03/30/2024 FINDINGS: Total body images and spot views of the thorax were obtained. There is slight asymmetric uptake within the right iliac which could correspond to the subtle area of sclerosis and uptake on the scan. Focal uptake in the right posterior 12th rib without corresponding CT abnormality is favored to be posttraumatic in etiology. Uptake in the right lateral 5th rib is favored to be posttraumatic in etiology. Minimal uptake in the thoracolumbar spine is favored degenerative. There is normal genitourinary and soft tissue uptake. Bilateral knee amputation is noted. THIS IS AN ELECTRONICALLY VERIFIED FINAL REPORT 2024 4:03 PM - Electronically signed by Dean Goetz M.D. LB: LB Report ID: [id number] Reading Location: [id number] IMPRESSION: 1. Subtle asymmetric focal uptake within the medial right iliac likely corresponding to the uptake on PET-CT is suspicious for metastatic disease. 2. Other areas of uptake in the right ribs are presumed to be posttraumatic but attention on follow-up imaging is recommended. Leeroy Steele MD [facility] NM ORDERABLES Final Result * GENETIC TEST (07/24/2024 12:00 AM CDT) Only the most recent of2 resultswithin the time period is included. 07/24/2024 Provider Scan IMMUNOLOGY ORDERABLES Final Resu lt SCAN * CT CHEST W/O CONTRAST (03/30/2024 11:31 AM STRAIGHT SLICING MACHINE OPERATOR) Anatomical Region Laterality Modality Chest N/A Computed Tomogra phy 04/03/2024 10:4 5 AM STRAIGHT SLICING MACHINE OPERATOR Impressions 04/03/2024 10:47 AM STRAIGHT SLICING MACHINE OPERATOR IMPRESSION: Interval increase in size of left pleural effusion, now moderate to large in size. There is some thickening of the pleura noted. Minimal subpleural fat stranding noted, indeterminate. Correlate with laboratory values and clinical presentation with regards to any superimposed infection to suggest empyema. Consolidative opacity within the left upper lobe, increased compared to the prior examination. Differentiation between scarring and recurrent disease is difficult on this examination, though recurrence is of suspicion given the interval significant increase in pleural effusion. PET-CT can be utilized for further evaluation. Rounded opacity within the right lower lobe may reflect rounded atelectasis and or scarring. Attention on follow-up recommended Background of pulmonary emphysema, stable. Stable 5.5 mm nodule in the right lower lobe. Attention on follow-up recommended No new lymphadenopathy. Additional findings as above. Narrative 04/03/2024 10:47 AM STRAIGHT SLICING MACHINE OPERATOR EXAM DESCRIPTION: CT CHEST W/O CONTRAST REASON FOR STUDY: F/U left lung ca since 04/2022 with Radiation treatment. Hx HTN,COPD,renal disease and former smoker. TECHNIQUE: CT scan of the chest performed without intravenous contrast using helical scanning technique. Reconstructed coronal and sagittal MPR images reviewed. All images stored on PACS. Automated exposure control was used as a dose optimization technique for this examination. COMPARISON: 09/17/2023 FINDINGS: The sensitivity for detection of solid visceral lesions is diminished without the use of intravenous contrast. LUNGS/PLEURA: There is a background of pulmonary emphysema, stable. There is a moderate to large pleural effusion, with some thickening of the pleura noted. There is consolidative opacity involving the right upper lobe. This has increased compared to the prior examination. Differentiation between scarring and recurrent disease difficult on this examination, though recurrence is of suspicion given the interval significant increase in pleural effusion. Rounded opacity within the right lower lobe may reflect rounded atelectasis and or scarring. There is some haziness within the sub pleural fat within the left chest which is indeterminate. Correlate clinically and with laboratory values with regards to any suspicion of superimposed infection. There is some subsegmental scarring and atelectasis within the right lobe. There a 5.5 mm nodule in the lateral aspect of the right lower lobe on image number 75 which is stable. There are scattered granulomatous calcifications. Linear scarring or atelectasis with mild associated bronchiectasis and postinflammatory calcification in the posterior right lower lobe is similar. There is no significant right-sided effusion. There is no appreciable pneumothorax. MEDIASTINUM/PÉREZ: There are a few scattered nonenlarged mediastinal nodes, similar to the prior examination. Postinflammatory calcifications are noted in both pérez. Evaluation for left hilar mass/adenopathy limited due to consolidative opacity in the perihilar region. The esophagus is unremarkable. Small sliding-type hiatal hernia is similar. There are a few pericardiophrenic nodes on the left, increased in size compared to the prior examination, now measuring 7 mm short axis. HEART: The heart is mildly enlarged. No significant pericardial effusion. CORONARY ARTERY CALCIFICATION: Significant VASCULATURE: There is aneurysmal dilation of the ascending thoracic aorta measuring 4.3 cm, stable from prior examination. Atherosclerotic changes are noted. AXILLA: No adenopathy. CHEST WALL: No masses. No subcutaneous air. HARDWARE/LINES/TUBES: None. UPPER ABDOMEN: There are 2 hypodense areas within the left hepatic lobe on image number 105 each measuring approximately 1 cm, incompletely characterize though stable dating back to at least February 2023. Nonobstructing right renal calculus versus renal vascular calcification. Extensive atherosclerotic calcification of the visualized abdominal aorta and the celiac artery origin, stable MUSCULOSKELETAL: There is thoracic spondylosis and degenerative disc disease. Mild compression deformity at the superior endplate of T12 and compression deformity at the superior endplate of L1, stable OTHER: No other significant abnormality. THIS IS AN ELECTRONICALLY VERIFIED FINAL REPORT 04/03/2024 10:45 AM - Electronically signed by Eli Chaney M.D. TW: ALEKS Report ID: [id number] Reading Location: [id number] Procedure Note Eli Chaney MD - 04/03/2024 EXAM DESCRIPTION: CT CHEST W/O CONTRAST REASON FOR STUDY: F/U left lung ca since 04/2022 with Radiation treatment. Hx HTN,COPD,renal disease and former smoker. TECHNIQUE: CT scan of the chest performed without intravenous contrast using helical scanning technique. Reconstructed coronal and sagittal MPR images reviewed. All images stored on PACS. Automated exposure control was used as a dose optimization technique for this examination. COMPARISON: 09/17/2023 FINDINGS: The sensitivity for detection of solid visceral lesions is diminished without the use of intravenous contrast. LUNGS/PLEURA: There is a background of pulmonary emphysema, stable. There is a moderate to large pleural effusion, with some thickening of the pleura noted. There is consolidative opacity involving the right upper lobe. This has increased compared to the prior examination. Differentiation between scarring and recurrent disease difficult on this examination, though recurrence is of suspicion given the interval significant increase in pleural effusion. Rounded opacity within the right lower lobe may reflect rounded atelectasis and or scarring. There is some haziness within the sub pleural fat within the left chest which is indeterminate. Correlate clinically and with laboratory values with regards to any suspicion of superimposed infection. There is some subsegmental scarring and atelectasis within the right lobe. There a 5.5 mm nodule in the lateral aspect of the right lower lobe on image number 75 which is stable. There are scattered granulomatous calcifications. Linear scarring or atelectasis with mild associated bronchiectasis and postinflammatory calcification in the posterior right lower lobe is similar. There is no significant right-sided effusion. There is no appreciable pneumothorax. MEDIASTINUM/PÉREZ: There are a few scattered nonenlarged mediastinal nodes, similar to the prior examination. Postinflammatory calcifications are noted in both pérez. Evaluation for left hilar mass/adenopathy limited due to consolidative opacity in the perihilar region. The esophagus is unremarkable. Small sliding-type hiatal hernia is similar. There are a few pericardiophrenic nodes on the left, increased in size compared to the prior examination, now measuring 7 mm short axis. HEART: The heart is mildly enlarged. No significant pericardial effusion. CORONARY ARTERY CALCIFICATION: Significant VASCULATURE: There is aneurysmal dilation of the ascending thoracic aorta measuring 4.3 cm, stable from prior examination. Atherosclerotic changes are noted. AXILLA: No adenopathy. CHEST WALL: No masses. No subcutaneous air. HARDWARE/LINES/TUBES: None. UPPER ABDOMEN: There are 2 hypodense areas within the left hepatic lobe on image number 105 each measuring approximately 1 cm, incompletely characterize though stable dating back to at least February 2023. Nonobstructing right renal calculus versus renal vascular calcification. Extensive atherosclerotic calcification of the visualized abdominal aorta and the celiac artery origin, stable MUSCULOSKELETAL: There is thoracic spondylosis and degenerative disc disease. Mild compression deformity at the superior endplate of T12 and compression deformity at the superior endplate of L1, stable OTHER: No other significant abnormality. THIS IS AN ELECTRONICALLY VERIFIED FINAL REPORT 04/03/2024 10:45 AM - Electronically signed by Eli Chaney M.D. TW: ALEKS Report ID: [id number] Reading Location: [id number] IMPRESSION: Interval increase in size of left pleural effusion, now moderate to large in size. There is some thickening of the pleura noted. Minimal subpleural fat stranding noted, indeterminate. Correlate with laboratory values and clinical presentation with regards to any superimposed infection to suggest empyema. Consolidative opacity within the left upper lobe, increased compared to the prior examination. Differentiation between scarring and recurrent disease is difficult on this examination, though recurrence is of suspicion given the interval significant increase in pleural effusion. PET-CT can be utilized for further evaluation. Rounded opacity within the right lower lobe may reflect rounded atelectasis and or scarring. Attention on follow-up recommended Background of pulmonary emphysema, stable. Stable 5.5 mm nodule in the right lower lobe. Attention on follow-up recommended No new lymphadenopathy. Additional findings as above. Glenn Ghosh MD IMG CT ORDERABLES Final Result from Last 3 Months or Most Recently Relevant to Health Maintenance Insurance MEDICARE C MERZAOZAO MEDICARE C MERZAOZAO Care Teams Hospice Fellow Relationship Specialty Start Date End Date José Cartagena MD [address] [place] [address] PCP - General Family Medicine 06/05/22 Glenn Ghosh MD [address] [place] [address] Consulting Physician Radiation Oncology 06/03/23 Thomas Escobar DO [address] [place] [address] Consulting Physician Pulmonary Disease 09/21/24 Leeroy Steele MD [address] [place] [address] Consulting Physician Medical Oncology 09/21/24
--- OUTSIDE RECORDS SUMMARY | 2024-09-27 09:31 | XMS_ITS | Referral Summary ---
Author Organization [facility] Address [address] [place] [address] Care Team Providers Care [employer]s[place] Instructor Name Role Phone Oscar Snyder MD Unavailable [phone] Emil Whyte DO Primary Care Provider [phone] José Antonio Pino MD Unavailable [phone] Encounters Date Type Department Care Team Description 09/20/2024 Telephone [facility] Medical [facility] Pulmonary at [address] [place] [address] Jeanntete Simpson LPN pleurex drain 09/20/[address] [place] [phone] Kesha Maurice 09/19/2024 Orders Only [address] [place] [phone] Sg Landis MD Malignant pleural effusion (HCC) (Primary Dx) 09/19/2024 Telephone [facility] Home Care Services [address] [facility] [address] [place] [address] [facility] 09/19/2024 Orders Only [address] [place] [address] Dolores Chapin RN Malignant pleural effusion (HCC) (Primary Dx) 09/19/2024 11:00 AM CDT Office Visit [address] [place] [address] Sg Fry MD Malignant pleural effusion (HCC) 09/11/2024 11:05 AM CDT Lab [address] Decreased urine output 09/11/2024 10:30 AM CDT Office Visit [facility] Medical [facility] Pulmonary at [address] [place] [address] Thomas Escobar DO Centrilobular emphysema (HCC) (Primary Dx); Malignant pleural effusion (HCC); Dysphagia, unspecified type; Decreased urine output 08/04/2024 11:17 AM CDT - 08/04/2024 11:59 PM CDT Hospital Encounter [address] [address] Discharge Disposition: Discharge to home or self care 08/04/2024 9:20 AM CDT Lab [address] [address] 08/04/2024 9:17 AM CDT - 08/04/2024 11:59 PM CDT Hospital Encounter [address] [address] Rad, Amh Ir 1, Amh Rad Rn Rad, Amh Fluoro Malignant pleural effusion (HCC) Discharge Disposition: Discharge to home or self care 08/01/[address] [address] Samira Ornelas, DALILA 07/31/[address] [address] Samira Ornelas, DALILA 07/31/2024 10:00 AM CDT Office Visit [facility] Medical [facility] Pulmonary at [address] [address] Thomas Escobar DO Malignant pleural effusion (HCC) (Primary Dx); Chronic obstructive pulmonary disease, unspecified COPD type (HCC) 07/04/2024 Results Follow-Up [facility] Pulmonary at [address] [address] Thomas Escobar DO CBC with auto differential, aPTT, Protime-INR, Additional followed-up results: 8 07/04/2024 Results Follow-Up [facility] Pulmonary at [address] [address] Thomas Escobar, X-ray chest 2 views 07/04/2024 12:14 PM CDT - 07/04/2024 11:59 PM CDT Hospital Encounter [address] [address] Discharge Disposition: Discharge to home or self care 07/04/2024 Results Follow-Up [facility] Pulmonary at [address] [address] Thomas Escobar DO Comprehensive metabolic panel, Lactate dehydrogenase (LD), eGFR 07/04/2024 10:00 AM CDT Lab [address] [address] Lung mass; Pleural effusion on left 07/04/2024 9:56 AM CDT - 07/04/2024 11:59 PM CDT Hospital Encounter [address] [address] 1, Amh Rad Rn Rad, Amh Ir Pleural effusion, left; Lung mass; Pleural effusion on left Discharge Disposition: Discharge to home or self care 06/29/[address] [address] Ann Augustin, DALILA 06/29/2024 11:09 AM CDT - 06/29/2024 11:59 PM CDT Hospital Encounter [address] [address] Pleural effusion Discharge Disposition: Discharge to home or self care 06/29/2024 10:30 AM CDT Office Visit [facility] Pulmonary at [address] [address] Thomas Escobar DO Pleural effusion (Primary Dx); Mass of left lung; Community acquired pneumonia of left lung; Centrilobular emphysema (HCC) from Last 3 Months Allergies No known active allergies Medications albuterol HFA (PROVENTIL HFA,VENTOLIN HFA,PROAIR HFA) 90 mcg/actuation inhaler Inhale 2 puffs every 6 (six) hours as needed Active ELIQUIS 5 mg tablet TK 1 T PO BID 03/23/20 19 Active polyethylene glycol (MIRALAX) 17 gram packetIndications: constipation Take 1 packet (17 g total) by mouth daily 30 packet 07/10/19 22 Active dronabinoL (MARINOL) 2.5 mg capsule Take [...] if not tolerating PO)) 30 tablet 07/10/19 22 Active LORazepam (ATIVAN) 0.5 mg tabletIndications: Alcohol [...] pain, headaches or fever 30 tablet 07/10/19 22 Active atorvastatin (LIPITOR) 40 mg tablet Take 1 tablet (40 mg total) by mouth nightly 30 tablet 11 07/10/19 22 Active amLODIPine (NORVASC) 10 mg tablet Take 1 tablet (10 mg total) by mouth daily 30 tablet 11 07/11/19 22 Active HYDROcodone-acetam inophen (NORCO) 10-325 mg per tabletIndications: Pain Take 1 tablet by mouth every 6 (six) hours as needed for pain Active folic acid (FOLVITE) 1 mg tablet Take 1 tablet (1,000 mcg total) by mouth daily 11/04/19 22 Active ferrous sulfate 325 mg (65 mg [...] (25 mg total) by mouth nightly 11/04/19 Active multivitamin tablet Take 1 tablet by [...] as needed for pain 28 tablet 07/10/19 025 Discontin ued(Thera py completed ) Vitamin [...] PM CDT): 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 Angiogram showed non-reconstructible vascular disease. Wound is healing well stitches removed in office. Plan: P/O referral and return in 3 months. Attention to gastrostomy tube 09/01/2019 Overview (09/01/2019): Added automatically from request for surgery [id number] Dysphagia, oropharyngeal phase 06/28/2019 Acquired absence of left leg above knee 06/27/19 Acute respiratory failure 06/27/2019 Chronic kidney disease, unspecified 06/27/2019 Gastrostomy status 06/27/2019 Muscle weakness (generalized) 06/27/2019 Other abnormalities of gait and mobility 020 Pneumonia due to methicillin resistant Staphylococcus aureus 06/27/2019 Sleep apnea, unspecified 06/27/2019 Tracheostomy status 06/27/2019 Unspecified osteoarthritis, unspecified site Unsteadiness on feet 06/27/2019 Chronic obstructive pulmonary disease (CMS/HCC) 04/18/2019 Centrilobular emphysema 04/18/2019 Non-seasonal allergic rhinitis due to pollen Uncomplicated alcohol dependence 04/18/2019 Weight loss 04/18/2019 Peripheral vascular disease (CMS/HCC) 04/17/2019 Atrial fibrillation with slow ventricular respon se 04/17/2019 Community acquired pneumonia, bilateral 04/17/19 20 Hyperosmolar hyponatremia 04/17/2019 Hypotension due to blood [...] his hospitalization and intervene appropriately. Atherosclerosis of [place] of both lower extremities with intermittent claudication 12/25/2018 Assessment & Plan (02/15/2019 9:07 AM PERFORMANCE SOLUTIONS SPECIALIST): Patient doing well claudication symptoms have resolved [...] AKA (above knee amputation), left 07/03/2021 07/25/2021 Immunizations Immunization Administration Dates Next Due Influenza, Trivalent, High D ose, Split, Preservative Free, Intramuscular 03/14/2019 Social History Tobacco Use Types Packs/Day Years [...] 08/04/2024 9:55 AM CDT Plan of Treatment Not on file Procedures Procedure Name Priority Date/Time Associated Diagnosis [...] 2 AM CDT 09/11/2024 1:06 PM CDT us Thomas Escobar DO LAB BLOOD ORDERABLES Benita l Result LOUISE MIRELES ([place]) 1 [facility] Department [place] [address] * (ABNORMAL) Basic metabolic panel (09/11/2024 11:02 AM CDT) Sodium 139 135 - 145 mmol/L Potassium, pl 4.8 3.3 - 4.9 mmol/L [facility] ([place]) Chloride 100 97 - 110 mmol/L [facility] ([place] CO2 21(L) 22 - 32 mmol/L [facility] ([place]) Anion gap 17(H) 2 - 15 mmol/L [facility] ([place]) BUN 27(H) 6 - 25 mg/dL [facility] ([place]) Creatinine 0.80 0.80 - 1.30 mg/dL [facility] ([place]) Glucose 112 70 - 199 mg/dL [facility] ([place]) Comment: Interpretive Data Fasting glucose [...] 2022. Calcium 8.8 8.5 - 10.3 mg/dL [facility] ([place]) Blood 09/11/2024 11:0 2 AM CDT 09/11/2024 1:06 PM CDT Thomas Escobar DO LAB BLOOD ORDERABLES Benita l Result LOUISE [facility] ([place]) 1 [facility] Department [place] [address] * XR Chest 1 View (Portable) (08/04/2024 [...] Abhishek Mederos D.O. PS: PS Report ID: [id number] Reading Location: [id number] Procedure Note Abhishek Mederos DO - 08/04/2024 [...] Abhishek Mederos D.O. PS: PS Report ID: [id number] Reading Location: [id number] us Abhishek Mederos DO IMG XR PROCEDURES [...] lidocaine, including subcutaneous and deeper tissues. A 4-Bruneian 10 cm One Step Centesis catheter was [...] Abhishek Mederos D.O. PS: PS Report ID: [id number] Reading Location: [id number] Procedure Note Abhishek Mederos, DO - 08/04/2024 [...] 1% lidocaine, includingsubcutaneous and deeper tissues. A 4-Bruneian 10 cm One Step Centesis catheter was [...] Abhishek Mederos D.O. PS: PS Report ID: [id number] Reading Location: [place] [address] Thomas Escobar DO IMG US PROCEDURES Final R esult * (ABNORMAL) Blood smear review (08/04/2024 9:30 AM CDT) RBC morphology Consistent with RBC Indicies Anisocytosis Slight(A) LOUISE MIRELES ([place]) Platelet estimate Increased(A) [facility] MIRE[facility] ([place]) Blood 08/04/2024 9:30 AM CDT 08/04/2024 9:35 AM CDT Thomas Escobar DO LAB BLOOD ORDERABLES Benita l Result LOUISE MIRELES ([place]) 1 [facility] Department [place] [address] * aPTT (08/04/2024 9:30 AM CDT) aPTT 36 28 - 38 sec L[facility] MIRELES ([place]) Comment: Interpretive Data Heparin therapeutic range: 66.0 - 100.0 seconds. Range based on correlation with therapeutic heparin activity range of 0.3 - 0.7 Units/mL. Current interpretive data was last revised on 2022. Blood 08/04/2024 9:30 AM CDT 08/04/2024 9:35 AM CDT Narrative LOUISE MIRELES ([place]) - 08/04/2024 9:48 AM CDT US Guided Thoracentesis Left [facility] Álvaro Escobar LAB BLOOD ORDERABLES Benita l Result Performing Organization Address [facility]/ZIP Co de Phone Number LOUISE MIRELES ([place]) 1 [facility] [place] [address] * (ABNORMAL) Protime-INR (08/04/2024 9:30 AM CDT) [...] 9:48 AM CDT US Guided Thoracentesis Left [facility] Álvaro Escobar LAB BLOOD ORDERABLES Benita l Result Performing Organization Address City/[facility]/ZIP Co de Phone Number LOUISE MIRELES ([place]) 1 [facility] [place] [address] * (ABNORMAL) CBC without differential (08/04/2024 9:30 AM CDT) WBC 8.63 3.80 - 9.90 K/cumm Hgb 10.7(L) 13.0 - 17.5 g/dL [facility] ([place]) Hct 34.6(L) 38.9 - 50.3 % [facility] ([place]) Plt 507(H) 150 - 400 K/cumm [facility] ([place] MPV 10.5 9.1 - 12.3 fL [facility] ([place]) RBC 4.41 4.30 - 5.80 M/cumm [facility] ([place]) MCV 78.5(L) 81.3 - 96.4 fL [facility] ([place]) MCH 24.3(L) 27.1 - 33.3 pg [facility] ([place]) MCHC 30.9(L) 32.3 - 35.7 g/dL [facility] ([place]) RDW CV 18.9(H) 11.1 - 14.9 % [facility] ([place]) RDW SD 54.1(H) 35.7 - 48.1 fL [facility] ([place]) NRBC abs 0.00 0.00 - 0.01 K/cumm [facility] ([place]) Blood 08/04/2024 9:30 AM CDT 08/04/2024 9:35 AM CDT Narrative [facility] (ENID) - 08/04/2024 10:13 AM CDT US Guided Thoracentesis Left us Thomas Escobar DO LAB BLOOD ORDERABLES Benita l Result [facility] ([place]) 1 [facility] Department [place] [address] * Cytology (08/04/2024 12:00 AM CDT) Pleura (Cytology) 08/04/2024 025 11:41 AM CDT Narrative 08/08/2024 5:35 PM CDT EPIC results best viewed via link to PDF [facility] Department of Pathology [address] [place] [id number] Note to Patients: This report may contain [...] Final Report Patient Name: JUAREZ CROWELL Address: [address] [place] [address] Gender: M : 1950 (Age: 74) Service: Location: N : [id number] [facility] # [id number] Patient Type: [facility] ANCILLARY Taken: 08/04/2024 Received: 08/04/2024 Accessioned: 08/04/2024 [...] the patient's most recent left pleural effusion ([id number]) that is also reviewed at this time [...] determined by the Surgical Pathology Department at [facility] as part of an ongoing quality assurance analyst program and in compliance with federally mandated [...] characteristics determined by the Surgical Pathology Department [facility]. It has not been cleared or approved by the U. S. Food and Drug Administration. Unless otherwise noted all cytology processing, staining and screening is performed at [facility] ([address] [place] [address]). REPORT IMAGES AND SCANNED DOCUMENTS, IF INCLUDED, [...] Abhishek Mederos D.O. PS: PS Report ID: [id number] Reading Location: [id number] Procedure Note Abhishek Mederos DO - 07/04/2024 [...] Abhishek Mederos D.O. PS: PS Report ID: [id number] Reading Location: [id number] us Abhishek Mederos DO IMG XR PROCEDURES [...] lidocaine, including subcutaneous and deeper tissues. A 4-Bruneian 10 cm One Step Centesis catheter was [...] Abhishek Mederos D.O. PS: PS Report ID: [id number] Reading Location: [id number] Procedure Note Abhishek Mederos DO - 07/04/2024 [...] 1% lidocaine,including subcutaneous and deeper tissues. A 4-Bruneian 10 cm One Step Centesiscatheter was used [...] Abhishek Mederos D.O. PS: PS Report ID: [id number] Reading Location: [place] [address] Thomas Escobar DO IM US PROCEDURES Final R esult * Cell [...] revised on 2018. Neutrophils, fld 0 % [facility] ([place]) Lymphs, fld 86 % [facility] ([place]) Monocyte, fld 14 % [facility] ([place]) Fluid 07/04/2024 11:3 2 AM CDT 07/04/2024 11:59 AM CDT us Thomas Escobar DO LAB BODY FLUIDS AND STOOL S ORDERABLES Final Result LOUISE MIRELES ([place]) 1 [place] [address] * Cell count w/rflx diff, body fluid (07/04/2024 11:32 AM CDT) Specimen type, fld Pleural Body site, fld Pleural fluid, left [facility] ([place]) Color, fld Red [facility] ([place]) Clarity, fld Turbid [facility] ([place]) Nucleated cells, fld 629 /cumm [facility] ([place]) Comment: Interpretive Data Unless otherwise specified, the reference range and other method performance specifications have not been established for CSF/Body Fluid tests. The test results should be integrated into the clinical context for interpretation. Current interpretive data was last revised on 2018. RBC, fld 38,000 /cumm [facility] ([place]) Fluid 07/04/2024 11:3 2 AM CDT 07/04/2024 11:59 AM CDT Thomas Escobar LAB BODY FLUIDS AND STOOL S ORDERABLES Final Result Performing Organization Address [facility] Co de Phone Number LOUISE MIRELES ([place]) 1 [place] [address] * Aerobic and anaerobic culture and gram stain Pleural fluid Pleural (07/04/2024 11:32 AM CDT) Direct Specimen Exam Stain: Cytospin Gram stain shows: Moderate polymorphonuclear leukocytes seen. Other cellular material present. No organisms seen. Comment:Testing performed by : [facility], [address] [place] [address] Report Final Report: No growth [facility] ([place]IE) Comment:Testing performed by : [facility], [address] [place]., [address] Pleural fluid (Pleural) 07/04/2024 11:32 AM CDT 07/04/2024 2:25 PM CDT Narrative LOUISE MIRELES ([place]) - 07/07/2024 11:00 AM CDT Testing performed by [facility] Microbiology Laboratory ([phone]) Specimens submitted from normally sterile body sites [...] - GENERA L ORDERABLES Final Result LOUISE MIRELES ([place]) 1 [facility] Department [place] [address] * Protein, body fluid (07/04/2024 11:32 AM CDT) Specimen type, fld Pleural Comment:Testing performed by : [facility], 1 [facility], [place]., [address] Body site, fld Pleural fluid, left LOUISE MIRELES ([place]ODIE) Comment:Testing performed by : [facility], [address] [place]., [address] Protein, fld 4.4 g/dL LOUISE MIRELES ([place]IE) [...] was last revised 2018. Testing performed by: [facility], [address] [place]., [address] Fluid 07/04/2024 11:3 2 AM CDT 07/04/2024 2:12 PM CDT Thomas Escobar DO LAB BODY FLUIDS AND STOOL S ORDERABLES Final Result LOUISE [facility] ([place]) 1 [facility] Department [place] [address] * Lactate dehydrogenase, body fluid (07/04/2024 11:32 AM CDT) Specimen type, fld Pleural Comment:Testing performed by : [facility], [address] [place]., [address] Body site, fld Pleural fluid, left LOUISE MIRELES (ENID) Comment:Testing performed by : [facility], [address] [place]., [address] LD, fld 590 Units/L [facility] MIRE[facility] ([place]ODIE) Comment: The above specimen [...] Press. 2018. Chapter 43, Body Fluids, p. 92 Current Interpretive Data was last revised 2018. Testing performed by: [facility], [address] [place]., [address] Fluid 07/04/2024 11:3 2 AM CDT 07/04/2024 2:12 PM CDT Thomas Escobar DO LAB BODY FLUIDS AND STOOL S ORDERABLES Final Result LOUISE MIRELES ([place]IE) 1 [facility] Department [place] [address] * Glucose, body fluid (07/04/2024 11:32 AM CDT) Specimen type, fld Pleural Comment:Testing performed by : [facility], [address] [place]., [address] Body site, fld Pleural fluid, left LOUISE MIRELES ([place]ODIE) Comment:Testing performed by : [facility], [address] [place]., [address] Glucose, fld 58 mg/dL LOUISE MIRELES ([place]) Comment: The above specimen [...] and Management. Vasyl Clin J Med 2005;72:854-72. [employer] Test directory, Body Fluid Reference Intervals and/or Interpretative Information. [email or web address] Batsheva HARRINGTON et al. Pancreatic cyst fluid glucose: rapid, inexpensive, and accurate diagnosis of mucinous pancreatic cysts. Surgery 2018;163:600-5. Virgil DG et al. Differential diagnosis of pancreatic cysts: A prospective study on the role of intra-cystic glucose concentration. Digestive Liver Dis 2020;52:1026-32. Current Interpretive Data was last revised 2021. Testing performed by: [facility], [address] [place]., [address] Fluid 07/04/2024 11:3 2 AM CDT 07/04/2024 2:12 PM CDT Narrative LOUISE MIRELES ([place]) - 07/04/2024 3:09 PM CDT Body Fluid Type->Pleural Thomas Escobar DO LAB BODY FLUIDS AND STOOL S ORDERABLES Final Result LOUISE MIRELES ([place]) 1 [facility] Department [place] [address] * Albumin, Body Fluid (07/04/2024 11:32 AM CDT) Specimen type, fld Pleural Comment:Testing performed by : [facility], [address] [place]., [address] Body site, fld Pleural fluid, left LOUISE MIRELES ([place]IE) Comment:Testing performed by : [facility], [address] [place]., [address] Albumin, fld 2.4 g/dL LOUISE MIRELES ([place]IE) [...] was last revised 2018. Testing performed by: [facility], 1 [facility], [place]., [address] Fluid 07/04/2024 11:3 2 AM CDT 07/04/2024 2:12 PM CDT Thomas Escobar LAB BODY FLUIDS AND STOOL S ORDERABLES Final Result Performing Organization Address [facility] Co de Phone Number LOUISE MIRELES (ENID) 1 [facility] [place] [address] * pH, Pleural Fluid (07/04/2024 11:32 AM CDT) Body site, fld Pleural fluid, left pH, fld 7.50 LOUISE MIRELES ([place]ODIE) Comment: Analytical characteristics have been validated by [...] S ORDERABLES Final Result Performing Organization Address [facility] Co de Phone Number LOUISE MIRELES ([place]IE) 1 [facility] Department [place] [address] * (ABNORMAL) CBC with auto differential (07/04/2024 10:29 AM CDT) WBC 9.94(H) 3.80 - 9.90 K/cumm Hgb 11.2(L) 13.0 - 17.5 g/dL [facility] ([place]) Hct 36.8(L) 38.9 - 50.3 % [facility] ([place]) Plt 482(H) 150 - 400 K/cumm [facility] ([place]) MPV 11.1 9.1 - 12.3 fL [facility] ([place]) RBC 4.75 4.30 - 5.80 M/cumm [facility] ([place]) MCV 77.5(L) 81.3 - 96.4 fL [facility] ([place]) MCH 23.6(L) 27.1 - 33.3 pg [facility] ([place]) MCHC 30.4(L) 32.3 - 35.7 g/dL [facility] ([place]) RDW CV 17.7(H) 11.1 - 14.9 % [facility] ([place]) RDW SD 48.9(H) 35.7 - 48.1 fL [facility] ([place]) NRBC abs 0.00 0.00 - 0.01 K/cumm [facility] ([place]) Blood 07/04/2024 10:2 9 AM CDT 07/04/2024 10:35 AM CDT us Thomas Escobar DO LAB BLOOD ORDERABLES Benita alicia Result [facility] ([place]) 1 [facility] Department [place] [address] * (ABNORMAL) Manual Differential (07/04/2024 10:29 AM CDT) Differential Manual Neutrophil abs 8.15(H) 1.50 - 6.50 K/cumm [facility] ([place]) Lymphocyte abs 1.09 0.80 - 3.30 K/cumm [facility] ([place]) Monocyte abs 0.70 0.20 - 0.80 K/cumm [facility] ([place]) Neutrophil pct 82.0 % [facility] ([place]) Comment: Interpretive Data Percent cell count reference ranges are not reported, since discordance with absolute values may lead to misinterpretation of CBC data. Current Interpretive Data was last revised on 2017. Lymphocyte pct 11.0 % [facility]ERNE R [facility] (ENID) Comment: Interpretive Data Percent cell count reference ranges are not reported, since discordance with absolute values may lead to misinterpretation of CBC data. Current Interpretive Data was last revised on 2017. Monocyte pct 7.0 % LOUISE [facility] (ENID) Comment: Interpretive Data Percent cell count reference ranges are not reported, since discordance with absolute values may lead to misinterpretation of CBC data. Current Interpretive Data was last revised on 2017. RBC morphology Consistent with RBC Indicies LOUISE [facility] ([place]) Platelet estimate Adequate CE PEARL [facility] (ENID) Blood 07/04/2024 10:2 9 AM CDT 07/04/2024 10:35 AM CDT [facility] [employer] [facility] BLOOD ORDERABLES Benita l Result Performing Organization Address [facility] Co de Phone Number [facility] (ENID) 1 [facility] [place] [address] * aPTT (07/04/2024 10:29 AM CDT) aPTT 30 28 - 38 sec LOUISE [facility] ([place]ID) Comment: Interpretive Data Heparin therapeutic range: 66.0 - 100.0 seconds. Range based on correlation with therapeutic heparin activity range of 0.3 - 0.7 Units/mL. Current interpretive data was last revised on 2022. Blood 07/04/2024 10:2 9 AM CDT 07/04/2024 10:35 AM CDT [facility] [employer] [facility] LAB BLOOD ORDERABLES Benita l Result Performing Organization Address City/[facility]/ZIP Co de Phone Number [facility] (ENID) 1 [facility] [place] [address] * Protime-INR (07/04/2024 10:29 AM CDT) PT 12.3 9.7 - 13.0 sec LOUISE [facility] ([place]) INR 1.14 0.90 - 1.20 LOUISE MIRELES (ENID) Comment: Interpretive data Oral anticoagulant therapeutic ranges: Venous thromboembolism prophylaxis or treatment: 2.0-3.0 CARDIOLOGY Standard range: 2.0-3.0 High-intensity range: 2.5-3.5 Refer to indication-specific guidelines for appropriate target ranges for prosthetic heart valve replacement. Current interpretive data was last revised on 2019. Blood 07/04/2024 10:2 9 AM CDT 07/04/2024 10:35 AM CDT [facility] Álvaro Escobar LAB BLOOD ORDERABLES Benita l Result LOUISE MIRELES (ENID) 1 [facility] [place] [address] * eGFR (07/04/2024 10:12 AM CDT) eGFR [...] LAB BLOOD ORDERABLES Benita l Result LOUISE DonaldsonDODIE) 1 [facility] [facility] [place] [address] * Lactate dehydrogenase (LD) (07/04/2024 10:12 AM CDT) Lactate dehydrogenase (LDH) 195 100 - 250 Units/L Blood 07/04/2024 10:1 2 AM CDT 07/04/2024 10:52 AM CDT Thomas Escobar DO LAB BLOOD ORDERABLES Benita l Result [facility]OU[facility]RE[facility] ([facility]) 1 [facility] [place] Department [place] [address] * (ABNORMAL) Comprehensive metabolic panel (07/04/2024 10:12 AM CDT) Pathologist [facility] [place] Sodium 135 135 - 145 mmol/L Potassium, [...] 9 7 - 55 Units/L [facility] ([facility]) AST 13 10 - 50 Units/L [facility] ([facility]) Blood 07/04/2024 10:1 2 AM CDT 07/04/2024 10:52 AM CDT Thomas Escobar DO LAB BLOOD ORDERABLES Benita maral Result [facility] ([facility]) [address] [place] [address] Department [place] [address] * Cytology (07/04/2024 12:00 AM CDT) Fluid (Pleura (Cytology)) 07/04/2024 07/04/2024 1:14 PM CDT Narrative PATHOLOGY [facility] ([facility]) - 07/07/2024 4:26 PM CDT EPIC results best viewed via link to PDF [facility] Department of Pathology [address] [place] [id number] Note to Patients: This report may contain [...] Final Report Patient Name: JUAREZ CROWELL Address: [address] [place] [id number] Gender: M : 1950 (Age: 73) Service: Location: [facility] # [id number] Patient Type: [facility] EP ANCILLARY Taken: 07/04/2024 Received: 07/04/2024 Accessioned: 07/04/2024 Reported: 07/07/2024 Physician(s): Thomas Escobar DO Diagnosis: Pleural fluid, left, cytology: - Positive for malignancy. - Consistent with metastatic adenocarcinoma from a lung primary. Konstantin Jolly M.D. Report Electronically Reviewed and [...] thirds of NSCLC patients have an oncogenic delivery truck driver heavy and that overall survival improves if patients receive matched targeted therapy (1). 1. Chano MG, Scar B, Austin GUZMAN, et al. Using multiplexed assays of oncogenic drivers in lung cancers to select targeted drugs. RUPINDER. 2014;311:1998 2 006. The performance characteristics of some immunohistochemical stains, fluorescence in-situ hybridization tests and immunophenotyping by flow cytometry cited in this report (if any) were determined by the Surgical Pathology Department at [facility] as part of an ongoing quality assurance analyst program and in compliance with federally mandated [...] characteristics determined by the Surgical Pathology Department [facility]. It has not been cleared or approved by the U. S. Food and Drug Administration. Unless otherwise noted all cytology processing, staining and screening is performed at [facility] ([address] [place] [address]). REPORT IMAGES AND SCANNED DOCUMENTS, IF INCLUDED, ONLY VIEWABLE IN PDF VERSION OF REPORT Thomas Escobar DO LAB CYTOLOGY ORDERABLES F inal Result PATHOLOGY [address] [address] * X-ray chest 2 views (06/29/2024 [...] Abhishek Mederos D.O. PS: PS Report ID: [id number] Reading Location: [id number] Procedure Note Abhishek Mederos DO - 07/04/2024 [...] Abhishek Mederos D.O. PS: PS Report ID: [id number] Reading Location: [id number] Thomas Escobar DO IMG XR PROCEDURES Final [...] additional findings above. At approximately 11:13 pm PERFORMANCE SOLUTIONS SPECIALIST on 07/02/2021 , initial attempt was made to contact the referring clinician; this case was discussed in detail with acknowledgement via telephone with DALILA Valenzuela at 11:26 p.m. Recent guidelines by the Fleischner Society (Radiology 120865,2017) divides patient into low vs. high risk [...] immunosuppression, or patients with known primary cancer. http://pubs.rsna.org/doi/pdf/10.1148/radiol.4262581761 THIS IS AN ELECTRONICALLY VERIFIED FINAL REPORT 07/02/2021 11:29 PM - Electronically signed by Jesusita OBREGON T: Report ID: [id number] Reading Location: [place] [address] Procedure Note Jesusita Yan MD - 07/02/2021 EXAM DESCRIPTION: CTA ABDOMINAL AORTA AND BILATERAL ILIOFEMORAL RUNOFF REASON FOR STUDY: ischemic right leg, pre op circulation evaluation Inpatient. 70 yo male. Lower extremity arterial dissection, known orsuspected ischemic right leg. Pre op circulation evaluation . Creat 0.6 Gfr [id number] Rt FA TECHNIQUE: CTA of the abdominal [...] additional findings above. At approximately 11:13 pm PERFORMANCE SOLUTIONS SPECIALIST on 07/02/2021 , initial attempt was madeto contact the referring clinician; this case was discussed in detail with acknowledgement via telephone with DALILA Valenzuela at 11:26 p.m. Recent guidelines by the Fleischner Society (Radiology 651153,2017)divides patient into low vs. high risk (for [...] immunosuppression, or patients with known primary cancer. http://pubs.rsna.org/doi/pdf/10.1148/radiol.2781222067 THIS IS AN ELECTRONICALLY VERIFIED FINAL REPORT 07/02/2021 11:29 PM - Electronically signed by Jesusita Yan M.D. T: Report ID: [id number] Reading Location: [place] [address] José Antonio Pino MD IMG CT PROCEDURES Final Res ult from Last 3 Months or Most Recently Relevant to Health Maintenance Insurance [facility] Member Subscriber Plan / Payer (Ef fective 2020-Present) Name:Juarez Crowell Relation to Subscriber:Self Name:Juarez Crowell Payer ID:[id number] (NAIC) Group ID:Not on file Type:MEDICAID RISK OTHER Address: ATTN: CLAIMS DEPT [address] [place] [phone] Advance Directives For more information, please contact: [phone] * Full Code (Latest Code Status on File) Date Activated Date Inactivated Comments 08/04/2024 10:27 AM 08/05/2024 5:15 AM * Full Code Date Activated Date Inactivated Comments 07/04/2024 11:46 AM 07/05/2024 5:21 AM * Full Code Date Activated Date Inactivated Comments 07/02/2021 5:47 PM 07/10/2021 3:22 AM * Full Code Date Activated Date Inactivated Comments 09/06/2019 8:27 AM 09/06/2019 2:09 PM Care Teams [employer] Instructor Relationship Specialty Start Date End Date Emil Whyte DO [address] [place] [address] PCP - General 09/06/19 Oscar Snyder MD [address] [place] [address] House Coordinator Cardiology 02/02/19 José Antonio Pino MD [address] [place] [address] Consulting Physician Vascular Surgery 07/09/21
--- OUTSIDE RECORDS SUMMARY | 2024-09-27 09:31 | XMS_ITS ---
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 He initially presented with adenocarcinoma of the left upper lobe lung in 2021. On CT chest screening 11/25/2021 at [facility] left lung abnormalities were noted prompting a PET/CT study 04/30/2022 at [facility] confirming adjacent 1.9 x 1.6 cm and [...] Medical Oncology consultation by Dr. Hand at [facility] and declined/refused thoracic surgery consultation. He was then seen in Radiation Oncology consultation 06/25/2022 at [facility] by Dr. Katerine Caro. He subsequently received a course of left upper lobe lung SBRT encompassing both nodules delivering 50 Gy in 5 fractions from 07/16/2022 thru 07/30/2022. Encounter for screening for other viral diseases 08/08/2024 Drug-induced hypothyroidism 08/08/2024 Malignant pleural effusion 07/24/2024 Overview (09/21/2024): Ultrasound-guided left thoracentesis 08/04/2024 at [facility] confirmed a malignant pleural effusion. He initially presented with adenocarcinoma of the left upper lobe lung in 2021. On CT chest screening 11/25/2021 at [facility] left lung abnormalities were noted prompting a PET/CT study 04/30/2022 at [facility] confirming adjacent 1.9 x 1.6 cm and [...] Medical Oncology consultation by Dr. Hand at [facility] and declined/refused thoracic surgery consultation. He was then seen in Radiation Oncology consultation 06/25/2022 at [facility] by Dr. Katerine Caro. He subsequently received [...] Overview (09/21/2024): Ultrasound-guided left thoracentesis 08/04/2024 at [facility] confirmed a malignant pleural effusion. He initially presented with adenocarcinoma of the left upper lobe lung in 2021. On CT chest screening 11/25/2021 at [facility] left lung abnormalities were noted prompting a PET/CT study 04/30/2022 at [facility] confirming adjacent 1.9 x 1.6 cm and [...] Medical Oncology consultation by Dr. Hand at [facility] and declined/refused thoracic surgery consultation. He was then seen in Radiation Oncology consultation 06/25/2022 at [facility] by Dr. Katerine Caro. He subsequently received [...] Overview (09/21/2024): Ultrasound-guided left thoracentesis 08/04/2024 at [facility] confirmed a malignant pleural effusion. He initially presented with adenocarcinoma of the left upper lobe lung in 2021. On CT chest screening 11/25/2021 at [facility] left lung abnormalities were noted prompting a PET/CT study 04/30/2022 at [facility] confirming adjacent 1.9 x 1.6 cm and [...] Medical Oncology consultation by Dr. Hand at [facility] and declined/refused thoracic surgery consultation. He was then seen in Radiation Oncology consultation 06/25/2022 at [facility] by Dr. Katerine Caro. He subsequently received a course of left upper lobe lung SBRT encompassing both nodules delivering 50 Gy in 5 fractions from 07/16/2022 thru 07/30/2022. Current Treatment and Therapy Plans OSF/ESC: Pembrolizumab (Every 3 Weeks) - Multiple Disease Sites* Plan Start Date:08/07/2024 Plan Provider:Leeroy Steele MD Linked Problems Recurrent adenocarcinoma of left lung (HCC)Encounter for screening for other viral diseasesDrug-induced hypothyroidism Treatment Medications Current Day (Day 1 , Cycle 3 - Planned for 09/28/2024) Next Day (Day 1, Cycle 4 - Planned for 10/19/2024) pembrolizumab (KEYTRUDA) IVPB pembrolizu mab (KEYTRUDA) 200 mg in sodium chloride 0.9 % 100 mL IVPB pembrolizumab (KEYTRUDA) 200 mg in sodium chloride 0.9 % 100 mL IVPB Past Treatment and Therapy Plans No past plan information found. Resolved Problems Problem Noted Date Diagnosed Date Resolved Date Pleural effusion on left 07/24/2024 Primary spontaneous pneumothorax 06/16/2024 06/22/2024 Encounter for follow-up exam ination after completed treatment for malignant neoplasm 09/28/2023 06/22/2024
--- OUTSIDE RECORDS SUMMARY | 2024-09-27 09:31 | XMS_ITS ---
Author Organization [facility] Care Team Providers Care Order Management Specialist Name Role Phone Blaine Lanza Unavailable Unavailable Allergies and adverse reactions Code CodeSystem Substance Reaction Severity StartDate Concern Status 21375 RXNORM Lisinopril Unknown 06/27/2019 active Care Team Name Role Address Phone Organization Dates Blaine Lanza PCP [address] [place], [address], [facility] (Office): : : [employer] 06/27/2019 - 10/09/2019 Mental Status Section Date Assessment Total Score Description 10/09/2019 BIMS 15 cognitively int act CAM 0 No delirium ind icated PHQ-9 01 minimal depress ion 10/04/2019 BIMS 15 cognitively int act CAM 0 No delirium ind icated PHQ-9 02 minimal depress ion Problems Problem # Description Date of onset Resolved Date Code CodeSystem Concern Status 1 DYSPHAGIA, OROPHARYNGEAL PHASE [address] active 2 ACQUIRED ABSENCE OF LEFT LEG ABOVE KNEE [address] active 3 ACUTE RESPIRATORY FAILURE, UNSPECIFIED WHETHER WITH HYPOXIA OR HYPERCAPNIA [address] active 4 ALCOHOL DEPENDENCE, UNCOMPLICATED [address] active 5 CHRONIC KIDNEY DISEASE, UNSPECIFIED [address] active 6 CHRONIC OBSTRUCTIVE PULMONARY DISEASE, UNSPECIFIED [address] active 7 ESSENTIAL (PRIMARY) HYPERTENSION [address] active 8 GASTROSTOMY STATUS [address] active 9 MUSCLE WEAKNESS (GENERALIZED) [address] active 10 OTHER ABNORMALITIES OF GAIT AND MOBILITY [address] active 11 PERIPHERAL VASCULAR DISEASE, UNSPECIFIED [address] active 12 PNEUMONIA DUE TO METHICILLIN RESISTANT STAPHYLOCOCCUS AUREUS [address] active 13 SLEEP APNEA, UNSPECIFIED [address] active 14 TOBACCO USE 0 Z72.0 ICD-10-CM active 15 TRACHEOSTOMY STATUS [address] active 16 UNSPECIFIED ATRIAL FIBRILLATION [address] active 17 UNSPECIFIED OSTEOARTHRITIS, UNSPECIFIED SITE [address] active 18 UNSTEADINESS ON FEET [address] active Reason for Referral No Reasons for Referral Entered Social History Social History Observation Description Start Date End Date Code Code System Current Smoking Status Tobacco smoking consumption unknown 430745966 SNOMED CT Sex Assigned At Male 1950 48519-2 [facility] Gender Identity Vital Signs Code Code System Vitals Name Values and Units Timing Information 9279-1 [facility] Respiratory Rate Value=22.0 Units=/m in 10/06/2019 8462-4 [facility] Blood Pressure-Diastolic Value=72 Un its=mmHg 10/06/2019 8480-6 [facility] Blood Pressure-Systolic Dcnsn=650 Un its=mmHg 10/06/2019 8310-5 [facility] Body Temperature Value=96.8 Units= F 10/06/2019 8867-4 [facility] Heart rate Value=78.0 Units=/min 12/2019 80594-8 [facility] O2 % BldC Oximetry Value=97.0 Units= % 10/03/2019 10982-2 [facility] Pain Level Value=0.0 10/03/2019 53852-0 [facility] Weight Bbkfn=307.2 Units=Lbs 07/2019 8302-2 [facility] Height Value=70.0 Units=Inches 06/30/2019
--- OUTSIDE RECORDS SUMMARY | 2024-09-27 09:31 | XMS_ITS | Clinical Summary ---
Author Organization [facility] Address [address] [place] [address] Care Team Providers Care Dinkey Engine Firer Name Role Phone Emil Whyte Primary Care Provider [phone] Source Comments [facility],non-owned Affiliates and Associated Physician Practices is amultiple site organization consisting of ambulatory clinics and hospital sitesin [place], [place], [place] and [place]. This disclosure is being madepursuant to the Care Everywhere program and may not contain all information available regarding this patient. Last updated 17.[facility] Allergies Active Allergy Reactions Criticality Noted Date Comments Lisinopril Angioedema High 12/16/2018 Medications * Be aware that medications may not be up to date on this document. Alwaysverify current medications with the patient. amLODIPine (Norvasc) 10 MG tablet Take 1 (one) tablet by mouth once daily 90 tablet 1 2 Active apixaban (Eliquis) 5 MG tablet Take 1 (one) tablet by mouth 2 times daily 180 tablet 1 2 Active aspirin (Aspirin) 81 MG chew tablet Take 1 (one) tablet by mouth once daily 90 tablet 1 2 Active atorvastatin (Lipitor) 40 MG tablet Take 1 (one) tablet by mouth at bedtime 90 tablet 1 2 Active metoprolol succinate XL 24hr (Toprol XL) 25 MG tablet Take 1 (one) tablet by mouth at bedtime 90 tablet 1 2 Active thiamine (Vitamin B-1) 100 MG tablet Take 1 (one) tablet by mouth once daily 90 tablet 1 2 Active Multiple Vitamin (Multivitamin Adult) TABS Take 1 tablet by mouth once daily 90 tablet 2 Active folic acid (Folvite) 1 MG tablet Take 1 (one) tablet by mouth once daily 90 tablet 1 2 Active Camphor-Menthol -Methyl Tomi (Salonpas) 3.1-6-10 % PTCH 1 patch by Apply externally route once daily as needed Active Active Problems Problem Noted Date Diagnosed Date Occlusion of right internal carotid artery 10/23 COPD (chronic obstructive pulmonary disease) Mixed hyperlipidemia 10/23/2021 Cerebrovascular accident (CV A) due to embolism of right middle cerebral artery 10/23/2021 Hypokalemia 10/23/2021 S/P bilateral above knee amputation 10/22/2021 Hypertension 10/22/2021 Tobacco use disorder 10/22/2021 Alcohol abuse 10/22/2021 Immunizations Immunization Administration Dates Next Due Retail Derivatives Trader primary Monoval ent 12+ yr 0.3ml 11/03/2021,09/13/2020,08/16/2020 INFLUENZA VACCINE, HIGH-DOSE , QUADR. (FLUZONE HIGH-DOSE QUADRIVALENT; 65Y+), 0.7 ML (HD-IIV4) 03/14/2019 TDAP, HISTORIC VACCINE 11/03/2021 Zoster Hzv Vacc Recombinant Inj Im 11/03/2021 Social History Tobacco Use Types Packs/Day Years Used Date Smoking Tobacco: Every Day Cigarettes Smokeless Tobacco: Never Tobacco Cessation:Ready to Q uit: No Alcohol Use Standard Drinks/Week Comments Yes 0 (1 standard drink = 0.6 oz pur e alcohol) 6 beers day AUDIT-C Answer Date Recorded Q1: How often do you have a drink containing alc ohol? Monthly or less 10/24/2021 Q2: How many drinks containi ng alcohol do you have on a typical day when you are drinking? 1 or 2 10/24/2021 Q3: How often do you have si x or more drinks on one occasion? Less than monthly 10/24/2021 PHQ-2 Answer Date Recorded PHQ2 TOTAL SCORE 0 10/25/2021 Hunger Vital Sign Answer Date Recorded Within the past 12 months, y ou worried that your food would run out before you got the money to buy more. Never true 10/25/19 22 Within the past 12 months, t he food you bought just didn't last and you didn't have money to get more. 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 Gender Identity Not on file Sexual Orientation Not on file Last Filed Vital Signs Vital Sign Reading Time Taken Comments Blood Pressure 97/58 11/12/2021 9:42 AM CDT Pulse 60 11/12/2021 9:42 AM CDT Temperature 36.4 C (97.5 F) 11/03/2021 12:59 PM CDT Respiratory Rate 10 11/12/2021 9:42 AM CDT Oxygen Saturation 98% 11/03/2021 12:59 PM CDT Inhaled Oxygen Concentration - - Weight 51 kg (112 lb 7 oz) 10/24/2021 3:45 AM CD T Height 130.4 cm (4' 3.34) 10/24/2021 3:45 AM CD T Body Mass Index 29.99 10/24/2021 3:45 AM CDT Plan of Treatment Health Maintenance Due Date Last Done Comments MEDICARE AWV 12 MONTHS 1950 HEPATITIS C SCREENING 07/29/1966 PNEUMOCOCCAL VACCINE 50+ (1 of 2 - PCV) 08/03/1967 ZOSTER VACCINE (2 of 2) 12/29/2021 11/03/2021 Respiratory Syncytial Virus (RSV) Vaccine Pt: or over 60 yrs (1 - 1-dose 75+ series) 08/03/2023 COVID-19 VACCINE (4 - 2023-2 5 season) 2023 11/03/2021, 09/13/2020, 08/16/2020 DEPRESSION SCREENING 03/29/2024 10/22/2021 INFLUENZA VACCINE (Season Ended) 2024 03/14/2019 DTAP/TDAP/TD VACCINES (2 - T d or Tdap) 11/04/2031 11/03/2021 HEPATITIS B VACCINE Aged Out No longe r eligible based on patient's age to complete this topic HIB VACCINE Aged Out No longer eligi ble based on patient's age to complete this topic HPV VACCINE Aged Out No longer eligi ble based on patient's age to complete this topic MENINGOCOCCAL (Group B) VACCINE SHARED DECISION-MAKING Aged Out No longer eligible based on patient's age to complete this topic MENINGOCOCCAL GROUPS A/C/Y/W VACCINE Aged Out No longer eligible b ased on patient's age to complete this topic Insurance MEDICARE [facility] MEDICARE MANAGED CARE PLAN GENERIC MEDICARE ADV Advance Directives * Full Code (Latest Code Status on File) Date Activated Date Inactivated Comments 10/22/2021 9:11 AM 10/28/2021 6:31 PM Care Teams Dinkey Engine Firer Relationship Specialty Start Date End Date Emil Whyte DO [address] [place] [address] PCP - General 11/03/21
[2024-09-27 09:47] LABS: Hematocrit 38.2 % (42.0-52.0); Hemoglobin 11.1 g/dL (14.0-18.0); Immature Granulocyte Percent A 0.5 % (0-0.5); Lymphocytes Absolute Auto 1.74 K/mm3 (0.9-3.2); Mean Corpuscular HGB Conc 29.1 g/dl (32-36); Mean Corpuscular Hemoglobin 24.6 pg (26-34); Mean Corpuscular Volume 84.5 fl (80-100); Nucleated Red Blood Cells Absolute Auto 0.000 K/mm3 (0.0-0.012); Nucleated Red Blood Cells Perc 0.0 % (0.0-0.2); Platelet Count Result 436 k/mm3 (150-375); Red Blood Count 4.52 M/mm3 (4.6-6.20); White Blood Count 9.1 K/mm3 (4.5-10.0)
[2024-09-27] MEDS: SODIUM CHLORIDE 0.9% IV 1,000 ML 999 ML IV CONT ×2 (09:48→10:49)
--- NOTE | 2024-09-27 09:48 | ED.GENADULT ---
HPI - General Adult General Chief complaint: Weakness Stated complaint: weakness Time Seen by Provider: 09/27/24 09:15 History of Present Illness HPI narrative: Patient is a 74-year-old male with history of metastatic adenocarcinoma of the lung who presents ER with altered mental status and weakness. Patient oriented to self and cannot provide any history. Patient's sister and niece arrived. They report he has become markedly more weak over last few days. He has been confused since 09/24/2024. He has poor oral intake chronically. They have been trying to force ensures and fluid into him without much success. He received Keytruda infusions at [facility]. They are unsure why he is getting cancer treatments because he was told that his cancer is not curable. They report he has had significant decline over last year constantly is reporting that he is dying. Patient is unmarried and has no children. His sister is his closest living relative and is also his magistrate assistant. Related Data Home Medications ?Medication ?Instructions ?Recorded ?Confirmed ?Last Taken ?Type amlodipine 10 mg tablet 5 mg DAILY 07/02/21 03/12/23 05/22/22 History multivitamin 1 tablet PO DAILY 07/02/21 03/12/23 Unknown History apixaban 5 mg tablet (Eliquis) 5 mg PO BID 05/15/22 03/12/23 05/19/22 History atorvastatin 40 mg tablet 40 mg PO DAILY 05/15/22 03/12/23 05/21/22 History folic acid 1 mg tablet 1 mg PO DAILY 07/16/22 03/12/23 Unknown History lisinopril 20 mg tablet 20 mg PO DAILY 07/16/22 03/12/23 Unknown History metoprolol succinate 25 mg 25 mg PO HS 07/16/22 03/12/23 Unknown History tablet,extended release 24 hr thiamine HCl (vitamin B1) 100 mg 100 mg PO DAILY 07/16/22 03/12/23 Unknown History tablet (Vitamin B-1) Allergies Allergy/AdvReac Type Severity Reaction Status Date / Time lisinopril Allergy Unknown Angioedema Verified 09/27/24 09:48 Review of Systems Review of Systems: ROS unobtainable: Yes unobtainable due to mental status PMFSH Past Medical History Medical History Alcohol abuse Anemia Arthritis Benign colon polyp BPH w/o urinary obs/LUTS Colonoscopy refused COPD (chronic obstructive pulmonary disease) Daily consumption of alcohol Elevated liver enzymes GERD (gastroesophageal reflux disease) H/O blood clots Hyperlipidemia Hypertension Inguinal hernia Osteoarthritis Other hyperlipidemia Peripheral vascular disease Pneumonia Primary osteoarthritis of right knee Screening for prostate cancer Tobacco dependence Surgical History Surgical History Hx of inguinal hernia repair Hx of vascular surgery bilateral lower legs S/P AKA (above knee amputation) Left leg March 2019 Family History Family History Sibling Patient's sister is in good health Father Family history of malignant neoplasm Patient's father is Mother Patient's mother is Social History Social History Social History: The patient lives in [place] with his sister and nephew. He is retired. He smokes about half a pack of cigarettes per day. He drinks a 6 pack of beer a day. No drug use. He designates his sister, Melanie, as his surrogate decision maker and wishes to be a full code. Smoking packs per day: 1 Smoking cigarettes per day: 20.0 Years smoked: 58 Smoking pack-years: 58.00 Smoking status: Current every day smoker Tobacco type: cigarettes Alcohol intake: current Drinks per week: 7 Alcohol use details: beer Substance use: never Substance use type: does not use Gender identity (if verbalized by the patient): Male Spiritual care concerns: No Agree to blood products: Yes Exam Narrative: GENERAL: Chronically ill-appearing, under weight, and in no acute distress. HEAD: Normocephalic, atraumatic. EYES: PERRL and EOMI. ENT: Dry mucous membranes CHEST: Diminished lung sounds on left, mild increased respiratory rate. Normal lung sounds on the right. HEART: Irregularly irregular rate and rhythm that is tachycardic. Normal peripheral pulses. ABDOMEN: Soft, nontender, nondistended. EXTREMITIES: Bilateral AKAs. SKIN: Warm, dry, no rash. NEURO: Alert and oriented x1. Course Course Emergency Course: I have had a long discussion with the patient's family specifically his sister who is his magistrate assistant. They would like him to be made comfort measures and placed on hospice. Patient was there and states he just wants to . [facility] has been out to evaluate the patient. They will place him on hospice. Patient has been accepted to [facility] for hospice care. We will arrange transport. Vital Signs Vital signs: Vital Signs Temperature 98.5 F 09/27/24 09:09 Pulse Rate 159 H 09/27/24 09:09 Respiratory Rate 34 H 09/27/24 09:09 Blood Pressure 72/40 L 09/27/24 09:09 Pulse Oximetry 100 09/27/24 09:09 Oxygen Delivery Room Air 09/27/24 09:09 Temperature 98.5 F 09/27/24 09:09 Pulse Rate 160 H 09/27/24 15:28 Respiratory Rate 20 09/27/24 15:28 Blood Pressure 73/51 L 09/27/24 15:28 Pulse Oximetry 97 09/27/24 15:28 Oxygen Delivery Room Air 09/27/24 09:46 Medical Decision Making Vital Signs Vital Signs: Vital Signs Temperature 98.5 F 09/27/24 09:09 Pulse Rate 159 H 09/27/24 09:09 Respiratory Rate 34 H 09/27/24 09:09 Blood Pressure 72/40 L 09/27/24 09:09 Pulse Oximetry 100 09/27/24 09:09 Oxygen Delivery Room Air 09/27/24 09:09 Temperature 98.5 F 09/27/24 09:09 Pulse Rate 160 H 09/27/24 15:28 Respiratory Rate 20 09/27/24 15:28 Blood Pressure 73/51 L 09/27/24 15:28 Pulse Oximetry 97 09/27/24 15:28 Oxygen Delivery Room Air 09/27/24 09:46 Lab Data 09/27/24 09:39 09/27/24 09:39 Labs: Lab Results 09/27/24 Range/Units 09:39 WBC 9.1 (4.5-10.0) K/mm3 RBC 4.52 L (4.6-6.20) M/mm3 Hgb 11.1 L D (14.0-18.0) g/dL Hct 38.2 L (42.0-52.0) % MCV 84.5 (80-100) fl MCH 24.6 L (26-34) pg MCHC 29.1 L (32-36) g/dl RDW 21.8 H (11.5-14.5) % Plt Count 436 H D (150-375) k/mm3 MPV 11.8 H (7.4-10.4) fl Immature Gran % (Auto) 0.5 (0-0.5) % Neut % (Auto) 72.9 (45.5-73.1) % Lymph % (Auto) 19.1 (18.3-44.2) % [place] % (Auto) 5.5 (2.6-8.5) % Eos % (Auto) 0.9 (0-4.4) % Baso % (Auto) 1.1 (0.2-1.2) % Lymph # (Auto) 1.74 (0.9-3.2) K/mm3 [place] # (Auto) 0.5 (0.1-0.6) K/mm3 Eos # (Auto) 0.1 (0-0.3) K/mm3 Baso # (Auto) 0.1 (0.0-0.1) K/mm3 Abs Immat Gran (auto) 0.05 H (0.00-0.031) K/mm3 Absolute Neuts (auto) 6.6 (1.3-6.7) K/mm3 Absolute Nucleated RBC 0.000 (0.0-0.012) K/mm3 Band Neutrophils % Not Reportable Nucleated RBC % 0.0 (0.0-0.2) % Platelet Estimate Increased (Adequate) Hypochromasia 1+ Anisocytosis 1+ Dexter Cells 3+ Acanthocytes (Spur) 1+ Schistocytes 1+ PT 15.7 H (11.1-14.7) Seconds INR 1.2 APTT 34.0 (22.3-36.8) Seconds Sodium 152 H (137-145) mmol/L Potassium 5.4 H (3.4-5.0) mmol/L Chloride 118 H (98-107) mmol/L Carbon Dioxide 17 L (22-30) mmol/L Anion Gap 17 H (4-12) mmol/L BUN 71 H D (9-20) mg/dL Creatinine 1.79 H (0.7-1.3) mg/dL Estim Creat Clear Calc Not Reportable Estimated GFR 37 L (59 - ) Glucose 107 (65-110) mg/dL Lactic Acid 3.1 H (0.7-2.0) mmol/L Calcium 8.8 (8.4-10.2) mg/dL Total Bilirubin 0.7 (0.2-1.3) mg/dL AST 52 (17-59) U/L ALT 22 (6-50) U/L Alkaline Phosphatase 120 (38-126) U/L C-Reactive Protein 13.7 H (<1.0) mg/dL Total Protein 5.9 L (6.3-8.2) g/dL Albumin 2.5 L (3.5-5.1) g/dL Discharge Plan Discharge Clinical Impression: Metastatic primary lung cancer, Pleural effusion, Acute kidney injury, Acute hypernatremia Patient Disposition: Hospice - Home Condition: Stable Instructions: General Patient Instructions Additional Instructions: [facility] are being [facility]. They will helpeause your suffering. Patient Language: Burkinan Prescriptions: No Action thiamine HCl (vitamin B1) [Vitamin B-1] 100 mg Tablet 100 mg PO DAILY folic acid 1 mg Tablet 1 mg PO DAILY metoprolol succinate 25 mg Tablet Extended Release 24 Hr 25 mg PO HS lisinopril 20 mg Tablet 20 mg PO DAILY atorvastatin 40 mg tablet 40 mg PO DAILY Eliquis 5 mg tablet 5 mg PO BID multivitamin [One A Day] Tablet 1 tablet PO DAILY amlodipine 10 mg tablet 5 mg DAILY Follow-up/Referrals: Osiel,MD José [Primary Care Provider] -
[2024-09-27 10:03] LABS: INR 1.2; Prothrombin Time 15.7 Seconds (11.1-14.7)
[2024-09-27 10:04] LABS: Partial Thromboplastin Time 34.0 Seconds (22.3-36.8)
[2024-09-27 10:05] LABS: Anisocytosis 1+; Hypochromasia 1+
[2024-09-27 10:06] LABS: Acanthocytes 1+; Burr Cells 3+; Schistocytes 1+
[2024-09-27 10:09] LABS: Alanine Aminotransferase 22 U/L (6-50); Albumin Level 2.5 g/dL (3.5-5.1); Alkaline Phosphatase 120 U/L (38-126); Anion Gap 17 mmol/L (4-12); Aspartate Amino Transferase 52 U/L (17-59); Bilirubin,Total 0.7 mg/dL (0.2-1.3); Blood Urea Nitrogen 71 mg/dL (9-20); Calcium 8.8 mg/dL (8.4-10.2); Carbon Dioxide 17 mmol/L (22-30); Chloride 118 mmol/L (98-107); Estimated Glomerular Filt Rate 37; Glucose 107 mg/dL (65-110); Potassium 5.4 mmol/L (3.4-5.0); Sodium 152 mmol/L (137-145); Total Protein 5.9 g/dL (6.3-8.2)
[2024-09-27 10:19] LABS: CRP 13.7 mg/dL (<1.0)
--- NOTE | 2024-09-27 12:09 | PC.NURSE ---
Patient cleaned up and linens changed. New depend placed on patient. Catheter bag remains empty at this time. Patient noted to have small stage 2 bedsores on his left hip. patient repositioned and pillows used to keep patient off hip.
--- NOTE | 2024-09-27 12:32 | PCCCNOTE ---
Called to the ED for a hospice consult. Pt's family members choose [facility]. 1030 call was placed to [facility], spoke with Delfina and faxed all of the pt's information. 1205 Lashonda from [facility] was in the ED, introduced her to the family. She will evaluate for GIP vs going home on hospice.
--- NOTE | 2024-09-27 14:02 | PC.NURSE ---
Patient unable to swallow water.
--- NOTE | 2024-09-27 15:57 | PC.NURSE ---
Report given to DALILA Schaeffer at [facility].
--- NOTE | 2024-09-27 16:24 | PCCCNOTE ---
Patient needing placement for hospice care. They would like [facility] or [facility]. [facility] does not have a bed for Marcella Zhao. Spoke with Ludivina at [facility], faxed over pt's information, PASSR completed. Family and Delfina from [facility] notified of acceptance. Awaiting an ambulance to transport patient. Ludivina from [place] said pt. can come any time 19/10.
--- NOTE | 2024-09-27 16:56 | PC.NURSE ---
Patient cleaned up and repositioned.
--- NOTE | 2024-09-27 20:42 | PC.NURSE ---
Attempting to reposition patient to keep patient off left hip due to bed sore, but patient continues to roll onto his left side.
== END 2024-09-27 21:33 | disposition hospice, home (50) ==
PROVIDERS: Emergency Provider Emergency Medicine; PCP Family Medicine
DX: C34.90 Malignant neoplasm of unspecified part of unspecified bronchus or lung (principal); C79.31 Secondary malignant neoplasm of brain; N17.9 Acute kidney failure, unspecified; J90 Pleural effusion, not elsewhere classified; E87.0 Hyperosmolality and hypernatremia; J44.9 Chronic obstructive pulmonary disease, unspecified; I10 Essential (primary) hypertension; I73.9 Peripheral vascular disease, unspecified; E78.49 Other hyperlipidemia; N40.0 Benign prostatic hyperplasia without lower urinary tract symptoms; K21.9 Gastro-esophageal reflux disease without esophagitis; M17.11 Unilateral primary osteoarthritis, right knee; F17.210 Nicotine dependence, cigarettes, uncomplicated; Z89.612 Acquired absence of left leg above knee; Z87.01 Personal history of pneumonia (recurrent); Z89.611 Acquired absence of right leg above knee; I48.91 Unspecified atrial fibrillation; R94.31 Abnormal electrocardiogram [ECG] [EKG]; Z79.01 Long term (current) use of anticoagulants; Z79.899 Other long term (current) drug therapy; Z79.620 Long term (current) use of immunosuppressive biologic
CPT/HCPCS: 36415; 51702; 70450; 71045; 80053; 83605; 85025; 85610; 85730; 86140; 87040; 93005; 96360; 99284; J7030